=== PATIENT | female | born 1950 | race Caucasian/White ===

== ENCOUNTER 2023-04-20 10:50 | Outpatient (OUT) | payer MEDICARE, SELFPAY ==
--- NOTE | 2023-04-20 11:20 | MM_ITS ---
Patient: IVAN OLMOS Exam Date: 04/20/2023 : 1950 Gender:F Ordering : DR BENIGNO EVANS Admission #: [id number] Family : Order #: [id number] CLICK HERE TO VIEW EXAM CORRECTION: The final Please Note:... section was omitted from original report, but has now been added. Corrected on: 05/06/2023; RADIOLOGY REPORT PROCEDURE: MM TOMOSYNTHESIS SCREENING BI COMPARISON: MG MAMM SCREEN 3D [place] CAD, 04/15/2022. MG MAMM SCREEN 3D [place] CAD, 03/29/2021. MG MAMM SCREEN [place] W CAD, 03/26/2020. MG MAMM [place] SCRN W CAD DIG, 02/06/2015. INDICATIONS: Screening for malignant neoplasm Calculator Name NCI Breast Cancer Risk Assessment Tool 5 Year Breast Cancer Risk n/a% Lifetime Breast Cancer Risk n/a% Personal Breast Cancer Yes, Lumpectomy Rt Brreast Personal Ovarian Cancer No Treatments Lumpectomy Family Cancers Mother with breast cancer at age 84; Mother with ovarian cancer at age 84; Father with bone/liver cancer at age 68. LOCATION: [facility] BREAST COMPOSITION: Scattered areas fibroglandular density. FINDINGS: DIAGNOSTIC CATEGORY 0--INCOMPLETE: NEED ADDITIONAL IMAGING EVALUATION. RIGHT BREAST: No significant suspicious finding. Scattered benign-appearing calcifications are present. No significant change has occurred. LEFT BREAST: 8 mm mass with surrounding spiculations within inferior mid breast, 6 o'clock position, only seen on the tomographic cc view. Spot magnification views and ultrasound evaluation recommended. RECOMMENDATIONS: ADDITIONAL MAMMOGRAPHIC VIEWS REQUIRED: LEFT BREAST - RIGHT CRANIOCAUDAL SPOT MAGNIFICATION VIEW - RIGHT OBLIQUE SPOT MAGNIFICATION VIEW - ULTRASOUND: LEFT BREAST PLEASE NOTE: A NORMAL MAMMOGRAM DOES NOT EXCLUDE THE POSSIBILITY OF BREAST CANCER. A CLINICALLY SUSPICIOUS PALPABLE LUMP SHOULD BE BIOPSIED. Dictated by: Georges Fuentes M.D. on 04/27/2023 at 10:16 Approved by: Georges Fuentes M.D. on 04/27/2023 at 10:27 Dictated by: Georges Fuentes M.D. on 05/06/2023 at 10:30 Approved by: Georges Fuentes M.D. on 05/06/2023 at 10:30
== END 2023-04-20 10:51 | disposition home or self-care (01) ==
LOC: MAMMO 10:51
PROVIDERS: PCP Physician Assistant; Visit Provider Physician Assistant
DX: Z12.31 Encounter for screening mammogram for malignant neoplasm of breast (principal); Z80.3 Family history of malignant neoplasm of breast; Z80.41 Family history of malignant neoplasm of ovary; Z80.8 Family history of malignant neoplasm of other organs or systems; N63.25 Unspecified lump in the left breast, overlapping quadrants
CPT/HCPCS: 77063; 77067

== ENCOUNTER 2023-05-27 13:40 | Outpatient (OUT) | payer MEDICARE, SELFPAY ==
--- NOTE | 2023-05-27 13:47 | MM_ITS ---
Patient Name: IVAN OLMOS MR#: [id number] : 1950 Exam Date: 05/27/2023 Ordering Doctor: DR CHAUNCEY BOWLES M.D. RADIOLOGY REPORT PROCEDURE: MM DIAGNOSTIC MAMMO UNILAT LT, 05/27/2023, 13:48 US BREAST LT LIMITED, 05/27/2023, 14:46 COMPARISON: MM TOMOSYNTHESIS SCREENING BI, 04/20/2023. MG MAMM SCREEN 3D [place] CAD, 04/15/2022. MG MAMM SCREEN 3D [place] CAD, 03/29/2021. MG MAMM SCREEN [place] W CAD, 03/26/2020. INDICATIONS: Abnormal Mammogram Of Left Breast R92.8 Calculator Name NCI Breast Cancer Risk Assessment Tool 5 Year Breast Cancer Risk n/a% Lifetime Breast Cancer Risk n/a% Personal Breast Cancer Yes, Lumpectomy Rt Brreast Personal Ovarian Cancer No Treatments Lumpectomy Family Cancers Mother with breast cancer at age 84; Mother with ovarian cancer at age 84; Father with bone/liver cancer at age 68. LOCATION: [facility] BREAST COMPOSITION: Scattered areas fibroglandular density. FINDINGS: DIAGNOSTIC CATEGORY 4--SUSPICIOUS FOR MALIGNANCY. FINDING DOES NOT EXHIBIT CLASSIC FINDINGS OF BREAST CANCER: LEFT BREAST: No significant suspicious finding. Spot magnification views demonstrate persistence of a vague opacity within the central breast/lower-outer quadrant. Prior tomographic views are best at demonstrating the suspicious spiculated opacity within the central breast/lower-outer quadrant. No abnormal findings within this area on today's ultrasound study. Stereotactic guided biopsy of this area is recommended to exclude malignancy. RECOMMENDATIONS: STEREOTACTIC BREAST BIOPSY: LEFT BREAST PLEASE NOTE: A NORMAL MAMMOGRAM DOES NOT EXCLUDE THE POSSIBILITY OF BREAST CANCER. A CLINICALLY SUSPICIOUS PALPABLE LUMP SHOULD BE BIOPSIED. Dictated by: Georges Fuentes M.D. on 05/27/2023 at 15:08 Approved by: Georges Fuentes M.D. on 05/27/2023 at 15:26
--- NOTE | 2023-05-27 14:40 | US_ITS ---
Patient Name: IVAN OLMOS MR#: [id number] : 1950 Exam Date: 05/27/2023 Ordering Doctor: DR CHAUNCEY BOWLES M.D. RADIOLOGY REPORT PROCEDURE: MM DIAGNOSTIC MAMMO UNILAT LT, 05/27/2023, 13:48 US BREAST LT LIMITED, 05/27/2023, 14:46 COMPARISON: MM TOMOSYNTHESIS SCREENING BI, 04/20/2023. MG MAMM SCREEN 3D [place] CAD, 04/15/2022. MG MAMM SCREEN 3D [place] CAD, 03/29/2021. MG MAMM SCREEN [place] W CAD, 03/26/2020. INDICATIONS: Abnormal Mammogram Of Left Breast R92.8 Calculator Name NCI Breast Cancer Risk Assessment Tool 5 Year Breast Cancer Risk n/a% Lifetime Breast Cancer Risk n/a% Personal Breast Cancer Yes, Lumpectomy Rt Brreast Personal Ovarian Cancer No Treatments Lumpectomy Family Cancers Mother with breast cancer at age 84; Mother with ovarian cancer at age 84; Father with bone/liver cancer at age 68. LOCATION: [facility] BREAST COMPOSITION: Scattered areas fibroglandular density. FINDINGS: DIAGNOSTIC CATEGORY 4--SUSPICIOUS FOR MALIGNANCY. FINDING DOES NOT EXHIBIT CLASSIC FINDINGS OF BREAST CANCER: LEFT BREAST: No significant suspicious finding. Spot magnification views demonstrate persistence of a vague opacity within the central breast/lower-outer quadrant. Prior tomographic views are best at demonstrating the suspicious spiculated opacity within the central breast/lower-outer quadrant. No abnormal findings within this area on today's ultrasound study. Stereotactic guided biopsy of this area is recommended to exclude malignancy. RECOMMENDATIONS: STEREOTACTIC BREAST BIOPSY: LEFT BREAST PLEASE NOTE: A NORMAL MAMMOGRAM DOES NOT EXCLUDE THE POSSIBILITY OF BREAST CANCER. A CLINICALLY SUSPICIOUS PALPABLE LUMP SHOULD BE BIOPSIED. Dictated by: Georges Fuentes M.D. on 05/27/2023 at 15:08 Approved by: Georges Fuentes M.D. on 05/27/2023 at 15:26
== END 2023-05-27 13:41 | disposition home or self-care (01) ==
LOC: MAMMO 13:40
PROVIDERS: PCP Physician Assistant; Visit Provider Family Medicine
DX: R92.8 Other abnormal and inconclusive findings on diagnostic imaging of breast (principal); N63.23 Unspecified lump in the left breast, lower outer quadrant
CPT/HCPCS: 76642; 77065

== ENCOUNTER 2024-04-22 10:22 | Outpatient (OUT) | payer MEDICARE, SELFPAY ==
--- NOTE | 2024-04-22 10:26 | MM_ITS ---
Patient Name: IVAN OLMOS MR#: [id number] : 1950 Exam Date: 04/22/2024 Ordering Doctor: Isaiah Spivey RADIOLOGY REPORT PROCEDURE: MM TOMOSYNTHESIS DIAGNOSTIC BI COMPARISON: MM DIAGNOSTIC MAMMO UNILAT LT, 05/27/2023. MM TOMOSYNTHESIS SCREENING BI, 04/20/2023. MG MAMM SCREEN 3D [place] CAD, 04/15/2022. MG MAMM SCREEN 3D [place] CAD, 03/29/2021. INDICATIONS: Malignant Neoplasm Of Left Breast, Estrogen Receptor Positiv Calculator Name NCI Breast Cancer Risk Assessment Tool 5 Year Breast Cancer Risk n/a% Lifetime Breast Cancer Risk n/a% Personal Breast Cancer Yes, Lumpectomy Rt Brreast Personal Ovarian Cancer No Treatments Lumpectomy Family Cancers Mother with breast cancer at age 84; Mother with ovarian cancer at age 84; Father with bone/liver cancer at age 68. LOCATION: [facility] BREAST COMPOSITION: There are scattered areas of fibroglandular density. FINDINGS: DIAGNOSTIC CATEGORY 2--BENIGN FINDING: RIGHT BREAST: No significant suspicious finding. Scattered benign-appearing calcifications are present. Stable remote surgical changes. No significant change has occurred. LEFT BREAST: No significant suspicious finding. Scattered benign-appearing calcifications are present. Expected postoperative changes. RECOMMENDATIONS: ROUTINE MAMMOGRAM AND CLINICAL EVALUATION IN 12 MONTHS. PLEASE NOTE: A NORMAL MAMMOGRAM DOES NOT EXCLUDE THE POSSIBILITY OF BREAST CANCER. A CLINICALLY SUSPICIOUS PALPABLE LUMP SHOULD BE BIOPSIED. Dictated by: Georges Fuentes M.D. on 04/22/2024 at 10:57 Approved by: Georges Fuentes M.D. on 04/22/2024 at 11:02
--- OUTSIDE RECORDS SUMMARY | 2024-04-22 10:39 | XMS_ITS | CCD ---
Author Organization [facility] Care Team Providers Care Waste Duster Name Role Phone JELENA, DR GROSSMAN Admitting Unavailable JELENA, DR GROSSMAN Attending Unavailable JELENA, DR GROSSMAN Primary Care Unavailable JELENA, DR GROSSMAN Consulting Unavailable Yina Weaver Consulting Unavailable SAVANAH CRESPO Admitting Unavailable SAVANAH CRESPO Attending Unavailable JELENA, DR GROSSMAN Primary Care Unavailable Yina Weaver Consulting Unavailable SAVANAH CRESPO Consulting Unavailable DO Dillon Cooper Attending Provider [phone] MD Chauncey Bowles Primary Care Provider [phone] Dillon Cooper Attending Unavailable Dillon Cooper Admitting Unavailable Chauncey Bowles Primary Care Unavailable JELENA, RUGEN MABTERESAY Primary Care Unavailable Jelena Chauncey POTTER Primary Care Provider [phone] Chauncey Bowles MD Primary Care Provider DILLON COOPER Attending Unavailable CHAUNCEY BOWLES M Referring Unavailable SAVANAH CRESPO Attending Unavailable SAVANAH CRESPO Attending Unavailable DILLON COOPER Attending Unavailable JELENA, RUGEN MABALAY Primary Care Unavailable JELENA, RUGEN MABALAY Primary Care Unavailable ISAIAH GAUTHIER Attending Unavailable SEVERO VALLES Attending Unavailable JELENA, RUGEN MABALAY Referring Unavailable JELENA, RUGEN MABALAY Primary Care Unavailable JELENA, RUGEN MABALAY Primary Care Unavailable ISAIAH GAUTHIER Attending Unavailable JELENA, RUGEN MABALAY Primary Care Unavailable JELENA, RUGEN MABALAY Primary Care Unavailable JELENA, RUGEN MABALAY Primary Care Unavailable ISAIAH GAUTHIER Referring Unavailable JELENA, RUGEN MABALAY Primary Care Unavailable JELENA, RUGEN MABALAY Primary Care Unavailable JELENA, RUGEN MABALAY Primary Care Unavailable JELENA, RUGEN MABALAY Primary Care Unavailable JELENA, RUGEN MABALAY Primary Care Unavailable JELENA, RUGEN MABALAY Primary Care Unavailable NEYMAR BORGES Attending Unavailable VINITA, MYLES Referring Unavailable JELENA, RUGEN MABALAY Primary Care Unavailable JACK DING Referring Unavailable SEVERO VALLES Referring Unavailable JELENA, RUGEN MABALAY Primary Care Unavailable JACK DING Attending Unavailable JELENA, RUGEN MABALAY Primary Care Unavailable JELENA, RUGEN MABALAY Primary Care Unavailable ABMYLES ARTHUR Attending Unavailable JELENA, RUGEN MABALAY Primary Care Unavailable ISAIAH GAUTHIER Attending Unavailable JELENA, RUGEN MABALAY Primary Care Unavailable JELENA, RUGEN MABALAY Primary Care Unavailable ISAIAH GAUTHIER Referring Unavailable JELENA, RUGEN MABALAY Primary Care Unavailable ISAIAH GAUTHIRE Attending Unavailable JELENA, RUGEN MABALAY Primary Care Unavailable MYLES TALAMANTES Referring Unavailable SEVERO VALLES Referring Unavailable JELENA, RUGEN MABALAY Primary Care Unavailable JELENA, RUGEN MABALAY Primary Care Unavailable JELENA, RUGEN MABALAY Primary Care Unavailable MYLES TALAMANTES Attending Unavailable INNAARRENEEEK Referring Unavailable JELENA, RUGEN MABALAY Primary Care Unavailable JELENA, RUGEN MABALAY Primary Care Unavailable MYLES TALAMANTES Attending Unavailable TANVIRANKAR, MYLES Referring Unavailable JELENA, RUGEN MABALAY Primary Care Unavailable ISAIAH GAUTHIER Attending Unavailable JELENA, RUGEN MABALAY Primary Care Unavailable JELENA, RUGEN MABALAY Primary Care Unavailable MYLES TALAMANTES Attending Unavailable JELENA, RUGEN MABALAY Primary Care Unavailable HELENA ARAUJO Referring Unavailable JELENA, RUGEN MABALAY Primary Care Unavailable MYLES TALAMANTES Attending Unavailable JELENA, RUGEN MABALAY Primary Care Unavailable ISAIAH GAUTHIER Referring Unavailable JELENA, RUGEN MABALAY Primary Care Unavailable ISAIAH GAUTHIER Attending Unavailable JELENA, RUGEN MABALAY Primary Care Unavailable ISAIAH GAUTHIER Referring Unavailable JELENA, RUGEN MABALAY Primary Care Unavailable ISAIAH GAUTHIER Referring Unavailable JELENA, RUGEN MABALAY Primary Care Unavailable ISAIAH GAUTHIER Attending Unavailable JELENA, RUGEN MABALAY Primary Care Unavailable ABHYANKAR, MYLES Referring Unavailable ABSWATHIAR, MYLES Attending Unavailable JELENA, RUGEN MABALAY Primary Care Unavailable ABHYANKAR, MYLES Referring Unavailable JELENA, RUGEN MABALAY Primary Care Unavailable DISHA, ISAIAH Referring Unavailable JELENA, RUGEN MABALAY Primary Care Unavailable DISHA, ISAIAH Referring Unavailable DISHA, ISAIAH Attending Unavailable JELENA, RUGEN MABALAY Primary Care Unavailable JELENA, RUGEN MABALAY Primary Care Unavailable JELENA, RUGEN MABALAY Primary Care Unavailable DISHA, ISAIAH Referring Unavailable JELENA, RUGEN MABALAY Primary Care Unavailable DISHA, ISAIAH Attending Unavailable JELENA, RUGEN MABALAY Primary Care Unavailable DISHA, ISAIAH Referring Unavailable JELENA, RUGEN MABALAY Primary Care Unavailable DISHA, ISAIAH Referring Unavailable JELENA, RUGEN MABALAY Primary Care Unavailable DISHA, ISAIAH Referring Unavailable JELENA, RUGEN MABALAY Primary Care Unavailable DISHA, ISAIAH Referring Unavailable SEVERO VALLES Attending Unavailable SEVERO VALLES Referring Unavailable JELENA, RUGEN MABALAY Primary Care Unavailable JELENA, RUGEN MABALAY Primary Care Unavailable JELENA, RUGEN MABALAY Primary Care Unavailable JELENA, RUGEN MABALAY Primary Care Unavailable VINITA, MYLES Attending Unavailable Allergies Allergy Classification Reported Allergen(s) Allergy Type Date of Onset Reaction(s) Facility Sulfamethoxazole / Trimethoprim (2 sources) Sulfamethoxazole / Trimethoprim Drug Allergy 02-14-20 15 [facility] Sulfonamides (antibiotic) (2 sources) Sulfonamides (Antibiotic) Drug Allergy 03-10-20 14 Other: See Comments [facility] (1 source) Sulfamethoxazole / Trimethoprim Drug Allergy 02-14-20 15 [facility] Repository (3 sources) Sulfonamides (Antibiotic); Translations: [SULFA (SULFONAMIDE ANTIBIOTICS)] Drug allergy (disorder) 03-10-20 14 [facility] Repository (20 sources) Sulfamethoxazole / Trimethoprim; Translations: [SULFAMETHOXAZOLE-T RIMETHOPRIM] Drug Allergy 02-14-20 15 [facility] Other [facility] (20 sources) Sulfonamides (Antibiotic) Drug Intolerance 03-10-20 14 Other: See Comments [facility] Medications Current Medications Medication Drug Class(es) Dates Sig (Normalized) Sig (Original) anastrozole 1 mg oral tablet (20 sources) Aromatase Inhibitor Start: 04-19-2020 take 1 tablet by mouth once daily anastrozole (ARIMIDEX) 1 mg tablet Take 1 tablet by mouth once daily. 30 tablet 1 04/19/2020 Active Comment on above: Take 1 tablet by eusebia th once daily. atorvastatin 10 mg oral tablet (20 sources) HMG-CoA Reductase Inhibitor Start: 02-27-2015 atorvastatin (LIPITOR) 10 mg tablet 02/27/2015 Active Calcium Carbonate / vitamin D3 (20 sources) calcium carbonate/vitamin D3 (CALCIUM WITH VITAMIN D3 ORAL) Take by mouth. Active calcium carbonat e/vitamin D3 (CALCIUM WITH VITAMIN D3 ORAL) Take by mouth. 0 Active Comment on above: Take by mouth. glucosamine sulfate 500 mg oral tablet (20 sources) Start: 08-19-2023 take 3 tablets by mouth once daily Glucosamine Sulfate (GLUCOSAMINE) 500 mg tab Take 3 tablets by mouth once daily. 1 tablet 08/19/2023 Active End: 08-19-2023 Glucosamine Sulfate (GLUCOSA MINE) 500 mg tab Take 1,500 tablets by mouth. 08/19/2023 Discontinued Comment on above: Take 1,500 tablets b y mouth. Take 3 tablets by mo uth once daily. Lutein (20 sources) LUTEIN ORAL Maya cations: History of breast cancer Take by mouth. Active LUTEIN ORAL Maya cations: History of breast cancer Take by mouth. 0 Active Comment on above: Take by mouth. meloxicam 15 mg oral tablet (1 source) Nonsteroidal Anti-inflammatory Drug Start: 03-14-2024 take 1 tablet by mouth once daily MOBIC 15 mg tablet Take 15 mg by mouth once daily. 03/14/2024 Active multivit-min/ferrou s fumarate (MULTI VITAMIN ORAL) (20 sources) multivit-min/benjamin ro us fumarate (MULTI VITAMIN ORAL) Take by mouth once daily. Active multivit-min/benjamin marya fumarate (MULTI VITAMIN ORAL) Take by mouth once daily. 0 Active Comment on above: Take by mouth once d aily. MULTIVITAMIN ORAL (20 sources) MULTIVITAMIN ORA L Take by mouth. Active MULTIVITAMIN ORA L Take by mouth. 0 Active Comment on above: Take by mouth. Multivitamins-Iron tab (20 sources) take 1 tablet by eusebia th once daily Multivitamins-Iron tab Take 1 tablet by mouth once daily. Active take 1 tablet by mouth once mary y Multivitamins-Iron tab Take 1 tablet by mouth once daily. 0 Active Comment on above: [facility] ofloxacin 3 mg/ml ophthalmic solution (20 sources) Quinolone Antimicrobial Start: 04-17-2020 ofloxacin (OCUFLOX) 0.3 % ophthalmic solution 04/17/2020 Active [place]-3 Fatty Acids-Vitamin E (FISH OIL) 1,000 mg cap (20 sources) [place]-3 Fatty Acids-Vitamin E (FISH OIL) 1,000 mg cap Take 1 capsule by mouth. Active [place]-3 Fatty Ac ids-Vitamin E (FISH OIL) 1,000 mg cap Take 1 capsule by mouth. 0 Active Comment on above: Take 1 capsule by mo [facility]. phytosterol/pantethine (CHOLESTOFF COMPLETE ORAL) (20 sources) phytosterol/pant ethine (CHOLESTOFF COMPLETE ORAL) Take by mouth. Active phytosterol/pant ethine (CHOLESTOFF COMPLETE ORAL) Take by mouth. 0 Active Comment on above: Take by mouth. prednisoLONE acetate 10 mg/ml ophthalmic suspension (20 sources) Corticosteroid Start: 04-17-20 prednisoLONE acetate (PRED FORTE, ECONOPRED PLUS) 1 % ophthalmic suspension 04/17/2020 Active rosuvastatin calcium 5 mg oral tablet (2 sources) HMG-CoA Reductase Inhibitor Start: 01-19-20 take 1 tablet by mouth once daily rosuvastatin (CRESTOR) 5 mg tablet Take 5 mg by mouth once daily. 01/19/2024 Active tamoxifen 20 mg oral tablet (20 sources) Estrogen Agonist/Antagonist Start: 10-28-19 24 End: 12-30-19 25 take 1 tablet by mouth once daily tamoxifen (NOLVADEX) 20 mg tablet Indications: Malignant neoplasm of lower-outer quadrant of left breast of female, estrogen receptor positive (HCC) Take 1 tablet (20 mg) by mouth once daily. 90 tablet 3 12/30/2023 12/29/2024 Active Comment on above: Take 1 tablet (20 mg ) by mouth once daily. traMADol hydrochloride 50 mg oral tablet (2 sources) Opioid Agonist Start: 08-19-19 24 End: 08-24-19 24 take 1 tablet by mouth every six hours as needed for pain traMADol (ULTRAM) 50 mg tablet Indications: Malignant neoplasm of central portion of left breast in female, estrogen receptor positive (HCC) (HCC) , Postoperative pain Take 1 tablet by mouth every 6 hours as needed for pain for up to 5 days. 5 tablet 0 08/19/2023 08/24/2023 Active Start: 08-19-2023 End: 08-19-2023 take 1 tablet by mouth every eight hours as needed for pain traMADol (ULTRAM) 50 mg tablet Indications: Malignant neoplasm of central portion of left breast in female, estrogen receptor positive (HCC) (HCC) Take 1 tablet by mouth every 8 hours as needed for pain for up to 3 days. 5 tablet 0 08/19/2023 08/19/2023 Discontinued Comment on above: Take 1 tablet by eusebia th every 6 hours as needed for pain for up to 5 days. Take 1 tablet by eusebia th every 8 hours as needed for pain for up to 3 days. ubidecarenone 10 mg oral capsule (20 sources) ubidecarenone Q- 10 (CO Q-10) 10 mg cap Take by mouth twice daily. Active Comment on above: Take by mouth twice daily. Completed/Discontinued Medications Medication Drug Class(es) Dates Sig (Normalized) Sig (Original) Lidocaine (1 source) Antiarrhythmic, Amide Local Anesthetic Start: 08-18-2023 End: 08-18-2023 X (OR/PROCEDURE) PRN, Starting on Thu08/18/23 at 1113, Until Thu08/18/23 at 1113, Intraprocedure Problems Active Problems Problem Classification Problem Date Documented Date Episodic/Chronic Cancer of breast (20 sources) Malignant neoplasm of central portion of left female breast; Translations: [Malignant neoplasm of lower-outer quadrant of female breast] Onset: 04-06-2015 08-05-2023 Chronic Esophageal disorders (20 sources) Gastroesophageal reflux disease without esophagitis; Translations: [Gastro-esophageal reflux disease without esophagitis] Onset: 08-11-2023 08-11-2023 Chronic Other aftercare (1 source) Surgical follow-up; Translations: [Encounter for follow-up examination after completed treatment for conditions other than malignant neoplasm] 08-27-2023 Episodic Other connective tissue disease (10 sources) Muscle finding; Translations: [Myalgia, unspecified site] 10-06-2023 Episodic Other nervous system disorders (1 source) Postoperative pain ; Translations: [Other acute postprocedural pain] 08-19-2023 Episodic Residual codes; unclassified (1 source) Family history of breast cancer; Translations: [Family history of malignant neoplasm of breast] 08-12-2023 Episodic Residual codes; unclassified (1 source) Family history of malignant neoplasm of ovary; Translations: [Family history of malignant neoplasm of ovary] 08-12-2023 Episodic Unclassified (1 source) Unspecified lump in the left breast, overlapping quadrants; Translations: [Unspecified lump in the left breast, overlapping quadrants] Onset: 06-11-2023 Past or Other Problems Problem Classification Problem Date Documented Da te Episodic/Chronic Cancer of breast (20 sources) Personal history of malignant neoplasm of breast; Translations: [History of malignant neoplasm of breast] Onset: 04-15-2016 04-15-2016 Episodic Nausea and vomiting (20 sources) Postoperative nausea and vomiting; Translations: [Nausea with vomiting, unspecified] Onset: 08-11-2023 08-11-2023 Episodic Other gastrointestinal disorders (20 sources) Finding of abdomen; Translations: [Intra-abdominal and pelvic swelling, mass and lump, unspecified site] Onset: 03-11-2014 03-11-2014 Episodic Other screening for suspected conditions (not mental disorders or infectious disease) (4 sources) Encounter for screening mammogram for malignant neoplasm of breast; Translations: [ENC SCR MAMMO MALIG NEOPLASM BREAST] Onset: 04-15-2022 Episodic Residual codes; unclassified (2 sources) Family history of malignant neoplasm of breast; Translations: [FAMILY HX MALIG NEOPLASM OF BREAST] Onset: 04-18-2022 Episodic Residual codes; unclassified (2 sources) Family history of malignant neoplasm of ovary; Translations: [FAM HX MALIGNANT NEOPLASM OVARY] Onset: 04-18-2022 Episodic Residual codes; unclassified (1 source) Family history of malignant neoplasm of other organs or systems; Translations: [FAM HX MALIG NEOPLASM OTH ORGN/SYS] Onset: 04-18-2022 Episodic Residual codes; unclassified (4 sources) Estrogen receptor positive status [ER+]; Translations: [Malignant neoplasm of central portion of left breast in female, estrogen receptor positive (HCC) (HCC)] Onset: 07-09-2023 Episodic Screening and history of mental health and substance abuse codes (20 sources) Ex-smoker; Translations: [Personal history of nicotine dependence] Onset: 08-11-2023 08-11-2023 Episodic Results Test Name Value Interpretation Reference Range Facility [facility] 03-31-2024 CNOV Office Visit (BRCRAV ) JAVIERIVAN CLEMENTS ([id number]) 1950 F Date Time Provider Department 03/31/24 10:45 AM SEVERO VALLES During your visit today, we recorded the following information about you: Weight 89.4 kg Severo Valles MD 03/31/2024 11:19 AM Signed Breast Surgery Follow Up Visit Original surgery date: 07/2023 Procedure: L lumpectomy with SLNB Diagnosis/Stage: Stage I Oncologist: Dr. Edmond Chemotherapy: N/A Radiation: Complete Endocrine therapy: Tamoxifen Interval history: No new medical problems. No breast complaints. No masses, skin changes, nipple d/c. Last mammogram: Pre-op ROS GENERAL: No weight loss, malaise or fevers. HEENT: Negative for frequent or significant headaches, Negative for changes in hearing, vision or dizziness, Negative for nose bleeds, Negative for difficulty swallowing or hoarsness RESPIRATORY: Negative for cough, hemoptysis, wheezing or shortness of breath CARDIOVASCULAR: Negative for chest pain, leg swelling or palpitations. GI: No nausea, vomiting, diarrhea, constipation, hematochezia, melena, or abdominal pain : No history of dysuria, hematuria, frequency or incontinence. SKIN: Negative for lesions, rash, and itching NEURO: No history of headaches, syncope, paralysis, seizures or tremors LYMPH: No LAD ENDO: No DM Exam Ambulatory, NAD Sclera anicteric Resp unlabored No arm swelling Right breast: Neg Left breast: well healed LO incision, some retraction at incision site No supraclavicular or axillary lymphadenopathy Consutlants notes reviewed Most recent imaging reviewed Assessment 73 year old year old female with history of left breast cancer doing well after lumpectomy and adjuvant radiation and endocrine therapy. Plan: Cont to advise -Monthly self exams -Annual clinical exams -Annual mammography - due March as scheduled - has planned at [place] -Oncologic follow up as planned Follow Up: 6 months Sooner if any new findings/concerns MD Beny Epperson Erica E, MD 03/31/2024 11:19 AM Signed Dear Ms. Ivan Prather Javier, Thank you for coming to see us today and entrusting us with your breast care. So happy to see you are doing well! Please make your 6 month follow up appointment on your way out today or you may not be able to get scheduled if you delay scheduling. Breast health recommendations you can employ for your breast cancer journey include routine breast self awareness, clinical breast exams, annual mammography, minimal alcohol use, no tobacco use and 150 min of aerobic exercise per week as your heart, lungs and joints allow. Wearing a well fitting, supportive bra is helpful for most women as well. Now may be a good time for an updated professional fitting if it has been some time since you have had that done. If you develop new breast concerns, please make an appointment with your breast health team for further evaluation. We are happy to see you any time with any surgical breast questions or concerns. If you would like to compliment one of our caregivers you encountered today, you may do so at [email or web address] you for your time in recognizing those who cared for you during your journey with your breast health team. Severo Valles MD, FACS Care team: NILAY Gardiner PA-C, RN, BSN, CN-BN Rosa Cadena MA Contact numbers: Scheduling contact number: [phone] Nurse / clinical questions: [phone] Fax number: [phone] Referring Provider: SEVERO VALLES [[id number]] Allergies As of Date: 03/31/2024 Noted Allergy Reaction SULFA (SULFONAMIDE ANTIBIOTICS) 03/10/2014 14 - Other: See Comments Comments: palpitations SULFAMETHOXAZOLE-TRIMETHOPR IM 02/13/2015 4 - Hives Date Reviewed: 03/31/2024 Reviewed by: Severo Valles MD - Fully Assessed Reason for Visit: Established Patient [175] Primary Visit Diagnosis:Malignant neoplasm of central portion of left breast in female, estrogen receptor positive (HCC) [C50.112, Z17.0] Other Visit Diagnosis:History of right breast cancer [Z85.3] Prescriptions as of 03/31/2024 - MOBIC 15 mg tablet Take 15 mg by mouth once daily. - rosuvastatin (CRESTOR) 5 mg tablet Take 5 mg by mouth once daily. - tamoxifen (NOLVADEX) 20 mg tablet Take 1 tablet (20 mg) by mouth once daily. - multivit-min/ferrous fumarate (MULTI VITAMIN ORAL) Take by mouth once daily. - MULTIVITAMIN ORAL Take by mouth. - Glucosamine Sulfate (GLUCOSAMINE) 500 mg tab Take 3 tablets by mouth once daily. - phytosterol/pantethine (CHOLESTOFF COMPLETE ORAL) Take by mouth. - calcium carbonate/vitamin D3 (CALCIUM WITH VITAMIN D3 ORAL) Take by mouth. - ofloxacin (OCUFLOX) 0.3 % ophthalmic solution - prednisoLONE acetate (PRED FORTE, ECONOPRED PLUS) 1 % ophthalmic suspension - anastrozole (ARIMIDEX) 1 mg tablet Take 1 (more content not included)... Normal [facility] CBC W Auto Differential pane l (Bld)on 02-01-2024 Basophils (Bld) [#/Vol] 10*3/uL Normal <0.11 [facility] Comment on above: Order Comment: Speci men Type: BLOOD SPECIMENOrdering Facility: [facility] Address: [address] [place] [address] Performed By: #### 5 7021-8 ####[facility] LABCLIA [id number] [place] [address] Basophils/100 WBC (Bld) 0.2 % Normal [facility] Comment on above: Order Comment: Speci men Type: BLOOD SPECIMENOrdering Facility: [facility] Address: [address] [place] [address] Performed By: #### 5 7021-8 ####[facility] LABCLIA [id number] [place] [address] Differential cell count method Nom (Bld) Auto Normal [facility] Comment on above: Order Comment: Speci men Type: BLOOD SPECIMENOrdering Facility: [facility] Address: [address] [place] [address] Performed By: #### 5 7021-8 ####[facility] LABCLIA [id number] [place] [address] Eosinophils (Bld) [#/Vol] 0.06 10*3/uL Normal <0.46 [facility] Comment on above: Order Comment: Speci men Type: BLOOD SPECIMENOrdering Facility: [facility] Address: [address] [place] [address] Performed By: #### 5 7021-8 ####[facility] LABCLIA [id number] [place] [address] Eosinophils/100 WBC (Bld) 0.7 % Normal [facility] Comment on above: Order Comment: Speci men Type: BLOOD SPECIMENOrdering Facility: [facility] Address: [address] [place] [address] Performed By: #### 5 7021-8 ####[facility] LABCLIA [id number] [place] [address] Erythrocyte distribution width (RBC) [Ratio] 14.0 % Normal 11.5-15.0 [facility] Comment on above: Order Comment: Speci men Type: BLOOD SPECIMENOrdering Facility: [facility] Address: [address] [place] [address] Performed By: #### 5 7021-8 ####[facility] LABCLIA [id number] [place] [address] Hematocrit (Bld) [Volume fraction] 40.9 % Normal 36.0-46.0 [facility] Comment on above: Order Comment: Speci men Type: BLOOD SPECIMENOrdering Facility: [facility] Address: [address] [place] [address] Performed By: #### 5 7021-8 ####[facility] LABCLIA [id number] [place] [address] Hemoglobin (Bld) [Mass/Vol] 13.4 g/dL Normal 11.5-15.5 [facility] Comment on above: Order Comment: Speci men Type: BLOOD SPECIMENOrdering Facility: [facility] Address: [address] [place] [address] Performed By: #### 5 7021-8 ####[facility] LABCLIA [id number] [place] [address] Immature granulocytes (Bld) [#/Vol] 0.03 10*3/uL Normal <0.10 [facility] Comment on above: Order Comment: Speci men Type: BLOOD SPECIMENOrdering Facility: [facility] Address: [address] [place] [address] Performed By: #### 5 7021-8 ####[facility] LABCLIA [id number] [place] [address] Immature granulocytes/100 WBC (Bld) 0.4 % Normal [facility] Comment on above: Order Comment: Speci men Type: BLOOD SPECIMENOrdering Facility: [facility] Address: [address] [place] [address] Performed By: #### 5 7021-8 ####[facility] LABCLIA [id number] [place] [address] Lymphocytes (Bld) [#/Vol] 1.68 10*3/uL Normal 1.00-4.00 [facility] Comment on above: Order Comment: Speci men Type: BLOOD SPECIMENOrdering Facility: [facility] Address: [address] [place] [address] Performed By: #### 5 7021-8 ####[facility] LABCLIA [id number] [place] [address] Lymphocytes/100 WBC (Bld) 20.7 % Normal [facility] Comment on above: Order Comment: Speci men Type: BLOOD SPECIMENOrdering Facility: [facility] Address: [address] [place] [address] Performed By: #### 5 7021-8 ####[facility] LABCLIA [id number] [place] [address] MCH (RBC) [Entitic mass] 30.6 pg Normal 26.0-34.0 [facility] Comment on above: Order Comment: Speci men Type: BLOOD SPECIMENOrdering Facility: [facility] Address: [address] [place] [address] Performed By: #### 5 7021-8 ####[facility] LABCLIA [id number] [place] [address] MCHC (RBC) [Mass/Vol] 32.8 g/dL Normal 30.5-36.0 [facility] Comment on above: Order Comment: Speci men Type: BLOOD SPECIMENOrdering Facility: [facility] Address: [address] [place] [address] Performed By: #### 5 7021-8 ####[facility] LABCLIA [id number] [place] [address] MCV (RBC) [Entitic vol] 93.4 fL Normal 80.0-100.0 [facility] Comment on above: Order Comment: Speci men Type: BLOOD SPECIMENOrdering Facility: [facility] Address: [address] [place] [address] Performed By: #### 5 7021-8 ####[facility] LABCLIA [id number] [place] [address] Monocytes (Bld) [#/Vol] 0.45 10*3/uL Normal <0.87 [facility] Comment on above: Order Comment: Speci men Type: BLOOD SPECIMENOrdering Facility: [facility] Address: [address] [place] [address] Performed By: #### 5 7021-8 ####[facility] LABCLIA [id number] [place] [address] Monocytes/100 WBC (Bld) 5.6 % Normal [facility] Comment on above: Order Comment: Speci men Type: BLOOD SPECIMENOrdering Facility: [facility] Address: [address] [place] [address] Performed By: #### 5 7021-8 ####[facility] LABCLIA [id number] [place] [address] Neutrophils (Bld) [#/Vol] 5.86 10*3/uL Normal 1.45-7.50 [facility] Comment on above: Order Comment: Speci men Type: BLOOD SPECIMENOrdering Facility: [facility] Address: [address] [place] [address] Performed By: #### 5 7021-8 ####[facility] LABCLIA [id number] [place] [address] Neutrophils/100 WBC (Bld) 72.4 % Normal [facility] Comment on above: Order Comment: Speci men Type: BLOOD SPECIMENOrdering Facility: [facility] Address: [address] [place] [address] Performed By: #### 5 7021-8 ####[facility] LABCLIA [id number] [place] [address] Nucleated RBC (Bld) [#/Vol] 10*3/uL Normal <0.01 [facility] Comment on above: Order Comment: Speci men Type: BLOOD SPECIMENOrdering Facility: [facility] Address: [address] [place] [address] Performed By: #### 5 7021-8 ####[facility] LABCLIA [id number] [place] [address] Nucleated RBC/100 WBC (Bld) [Ratio] 0.0 /100 WBC Normal [facility] Comment on above: Order Comment: Speci men Type: BLOOD SPECIMENOrdering Facility: [facility] Address: [address] [place] [address] Performed By: #### 5 7021-8 ####[facility] LABCLIA [id number] [place] [address] Platelet mean volume (Bld) [Entitic vol] 10.2 fL Normal 9.0-12.7 [facility] Comment on above: Order Comment: Speci men Type: BLOOD SPECIMENOrdering Facility: [facility] Address: [address] [place] [address] Performed By: #### 5 7021-8 ####[facility] LABIA [id number] [place] [address] Platelets (Bld) [#/Vol] 299 10*3/uL Normal 150-400 [facility] Comment on above: Order Comment: Speci men Type: BLOOD SPECIMENOrdering Facility: [facility] Address: [address] [place] [address] Performed By: #### 5 7021-8 ####[facility] [id number] [place] [address] RBC (Bld) [#/Vol] 4.38 10*6/uL Normal 3.90-5.20 [facility] Comment on above: Order Comment: Speci men Type: BLOOD SPECIMENOrdering Facility: [facility] Address: [address] [place] [address] Performed By: #### 5 7021-8 ####[facility] [id number] [place] [address] WBC (Bld) [#/Vol] 8.10 10*3/uL Normal 3.70-11.00 [facility] Comment on above: Order Comment: Speci men Type: BLOOD SPECIMENOrdering Facility: [facility] Address: [address] [place] [address] Performed By: #### 5 7021-8 ####[facility] LABIA [id number] [place] [address] CNOVSPon 02-01-2024 CNOVSP Visit (SP) Office ([facility]) IVAN HERRERA ([id number]) 1950 F Date Time Provider Department 02/01/24 10:45 AM MYLES TALAMANTES During your visit today, we recorded the following information about you: Temperature Pulse Respiration Blood pressure 97.4 degrees 74/minute 16/minute 147/84 Weight Height 89.4 kg 1.74 m Myles Talamantes MD 02/02/2024 9:42 AM Signed NAME: Ivan Herrera CLINIC NO.: [id number] DATE OF SERVICE: February 01, 2024 ([place]) Some elements in this clinic note that are critical to medical decision making have been carefully reviewed and included from a prior clinic note dated: January 19, 2024 ([place]) Referring Provider: Dr. Chauncey Bowles Additional Clinicians involved in Ivan Herrera's care: Dillon Cooper DIAGNOSIS: Malignant neoplasm lower quadrant left breast ER positive. History of malignant neoplasm of upper-outer quadrant of right breast in female, estrogen receptor positive ASSESSMENT: 73 year old woman with malignant neoplasm of upper-outer quadrant of right breast in female, estrogen receptor positive Stage I ([id number]) right breast cancer of the upper outer quadrant, ER/MA +, Her2-, diagnosed in February 2015. She had lumpectomy, followed by radiation, and has been on aromatase inhibitor therapy since May 2015 with good tolerance. Her recent mammogram from February 2020 was negative for malignancy. She has no evidence of recurrence. She continued her Anastrozole until May 2020, completing 5 years of therapy. 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 She presents in follow-up regarding this new diagnosis. S/p Lumpectomy left breast July 2023 4mm, G1 pT1a, BMX ER+ 91%, MA-, HER2 (1+) negative. Tolerating Tamoxifen well now. PLAN: Continue Tamoxifen Keep mammogram appointment in March Keep follow up appointment with Dr. Valles in March RTC with me in 6 months Labs same day Exam same day - HPI: CASE HISTORY: Reverse Chronological Order 10/28/2023 - Started Tamoxifen - Held for fatigue 11/18/2023-12/19/2023 09/30/2023-10/21/2023 - Radiation to left breast: 4,005 cGy delivered in 15 fractions using DIBH/RPM 08/19/2023 - Lumpectomy, Left breast: 4mm, G1 pT1a, BMX ER+ 91%, MA-, HER2 (1+) negative Left axillary sentinel lymph node #1, excision (A) - Benign fibroadipose tissue. -No lymph node is identified. Left breast, lumpectomy (B) - Invasive ductal carcinoma, Isabella grade 1, spanning 0.4 cm, (see comment). - Ductal carcinoma in situ (DCIS), nuclear grade 2, solid and cribriform types with microcalcifications. - Biopsy site changes and biopsy clip (x1) are identified. - The surrounding breast tissue shows atypical ductal hyperplasia (ADH), atypical lobular hyperplasia (ALH), usual ductal hyperplasia and apocrine metaplasia. All margins negative for malignancy: Left breast, anterior margin, excision (G) - Atypical lobular hyperplasia (ALH). 08/05/2023 - MRI Breast: Known biopsy proven malignancy The 1 cm x 0.7 cm x 1.4 cm architectural distortion in the left breast at 6 o'clock middle depth is consistent with the known carcinoma and is a known biopsy positive for malignancy. 07/09/2023 - Dx Mammogram Left: Known biopsy proven malignancy The architectural distortion in the left breast is a known biopsy positive for malignancy. A surgical consult is recommended. An X clip is visualized at the site of biopsy-proven malignancy. Of note, the X clip is at the inferior aspect of the architectural distortion. 06/11/2023 - Left breast mass 6:00, 6 cm from nipple stereotactic core biopsy at [facility]. Consistent with invasive ductal carcinoma NOS. G1, DCIS present, no LVI, ER +91 to 100%, MA negative. HER2 IHC pending. 05/27/2023 - Mammogram: diagnostic category 4 -- suspicious for malignancy. Finding does not exhibit classic findings of breast cancer. 03/29/2021 - Mammogram: diagnostic category 2 -- benign finding with no change from prior assessment. 03/26/2020 - bilateral screening mammogram: diagnostic category 2; benign finding. No change from comparison assessment. 05/2015-08/2023 - Arimidex 04/23/2015-06/05/2015 - Radiation to right breast; 6000 cGy in 30 fractions 03/21/2015 - excisional biopsy and sentinel node biopsy Invasive carcinoma of the right breast 1.1 cm grade 1, ER and MA positive, HER-2 negative by FISH (IHC not reported, presumed 2+) ; 4 lymph nodes all negative for cancer Updated Visit, February 01, 2024: Clarissa returns for a follow up. She is tolerating Tamoxifen well since restarting. CBC (more content not included)... Normal [facility] Cancer Ag15-3 SerPl-aCncon 0 02-01-2024 Cancer Ag 15-3 Qn 26.2 U/mL High <26.0 [facility] Comment on above: Order Comment: Nesha billingsley Type: BLOOD SPECIMENOrdering Facility: [facility] Address: [address] [place] [address] Result Comment: The CA 15-3 test methodology used is the Electrochemiluminescence Immunoassay by [employer]. Results obtained with different methods or kits cannot be used interchangeably. Performed By: #### 6 875-9 ####[facility] LABCLIA [id number] [place] [address] [place] Cancer Ag27-29 SerPl-aCncon 02-01-2024 Cancer Ag 27-29 Qn 23.3 [arb'U]/mL Normal <38.6 [facility] Comment on above: Order Comment: Negini jose cruz Type: BLOOD SPECIMENOrdering Facility: [facility] Address: [address] [place] [address] Result Comment: The CA27.29 test was performed using the Siemens Centaur XP chemiluminometric immunoassay method. Results obtained with different assay methods or kits cannot be used interchangeably. Performed By: #### 1 7842-6 ####[facility] LABCLIA [id number] [place] [address] [facility] [place] Comprehensive metabolic 2000 panelon 02-01-2024 Albumin [Mass/Vol] 4.1 g/dL Normal 3.9-4.9 [facility] Comment on above: Order Comment: Speci men Type: BLOOD SPECIMENOrdering Facility: [facility] Address: [address] [place] [address] Performed By: #### 2 4323-8 ####[facility] LABCLIA [id number] [place] [address] ALP [Catalytic activity/Vol] 76 U/L Normal 34-123 [facility] Comment on above: Order Comment: Speci men Type: BLOOD SPECIMENOrdering Facility: [facility] Address: [address] [place] [address] Performed By: #### 2 4323-8 ####[facility] LABCLIA [id number] [place] [address] ALT [Catalytic activity/Vol] 17 U/L Normal 7-38 [facility] Comment on above: Order Comment: Speci men Type: BLOOD SPECIMENOrdering Facility: [facility] Address: [address] [place] [address] Performed By: #### 2 4323-8 ####[facility] LABCLIA [id number] [place] [address] Anion gap [Moles/Vol] 11 mmol/L Normal 8-15 [facility] Comment on above: Order Comment: Speci men Type: BLOOD SPECIMENOrdering Facility: [facility] Address: [address] [place] [address] Performed By: #### 2 4323-8 ####[facility] LABCLIA [id number] [place] [address] AST [Catalytic activity/Vol] 19 U/L Normal 13-35 [facility] Comment on above: Order Comment: Speci men Type: BLOOD SPECIMENOrdering Facility: [facility] Address: [address] [place] [address] Performed By: #### 2 4323-8 ####[facility] LABCLIA [id number] [place] [address] Bilirubin [Mass/Vol] 0.4 mg/dL Normal 0.2-1.3 [facility] Comment on above: Order Comment: Speci men Type: BLOOD SPECIMENOrdering Facility: [facility] Address: [address] [place] [address] Performed By: #### 2 4323-8 ####[facility] LABCLIA [id number] [place] [address] Calcium [Mass/Vol] 10.1 mg/dL Normal 8.5-10.2 [facility] Comment on above: Order Comment: Speci men Type: BLOOD SPECIMENOrdering Facility: [facility] Address: [address] [place] [address] Performed By: #### 2 4323-8 ####[facility] LABCLIA [id number] [place] [address] Chloride [Moles/Vol] 105 mmol/L Normal 98-107 [facility] Comment on above: Order Comment: Speci men Type: BLOOD SPECIMENOrdering Facility: [facility] Address: [address] [place] [address] Performed By: #### 2 4323-8 ####[facility] LABCLIA [id number] [place] [address] CO2 [Moles/Vol] 25 mmol/L Normal 22-30 [facility] Comment on above: Order Comment: Speci men Type: BLOOD SPECIMENOrdering Facility: [facility] Address: [address] [place] [address] Performed By: #### 2 4323-8 ####[facility] LABCLIA [id number] [place] [address] Creatinine [Mass/Vol] 0.79 mg/dL Normal 0.58-0.96 [facility] Comment on above: Order Comment: Speci men Type: BLOOD SPECIMENOrdering Facility: [facility] Address: [address] [place] [address] Performed By: #### 2 4323-8 ####[facility] LABCLIA [id number] [place] [address] Creatinine and Glomerular filtration rate.predicted panel (S/P/Bld) 79 mL/min/1.73m??? Normal >=60 [facility] Comment on above: Order Comment: Speci men Type: BLOOD SPECIMENOrdering Facility: [facility] Address: [address] [place] [address] Result Comment: Bella mated Glomerular Filtration Rate (eGFR) is calculated using the 2020 CKD-EPI creatinine equation. This equation utilizes serum creatinine, sex, and age as parameters. The creatinine assay has traceable calibration to isotope dilution-mass spectrometry. Refer to KDIGO guidelines for clinical interpretation. In patients with unstable renal function, e.g. those with acute kidney injury, the eGFR may not accurately reflect actual GFR. Performed By: #### 2 4323-8 ####[facility] LABCLIA [id number] [place] [address] Glucose [Mass/Vol] 134 mg/dL High 74-99 [facility] Comment on above: Order Comment: Speci men Type: BLOOD SPECIMENOrdering Facility: [facility] Address: [address] [place] [address] Result Comment: The [place] Diabetes Association (ADA) provides guidance for cutoff values for fasting glucose and random glucose. The ADA defines fasting as no caloric intake for at least 8 hours. Fasting plasma glucose results between 100 to 125 mg/dL indicate increased risk for diabetes (prediabetes). Fasting plasma glucose results greater than or equal to 126 mg/dL meet the criteria for diagnosis of diabetes. In the absence of unequivocal hyperglycemia, results should be confirmed by repeat testing. In a patient with classic symptoms of hyperglycemia or hyperglycemic crisis, random plasma glucose results greater than or equal to 200 mg/dL meet the criteria for diagnosis of diabetes. Reference: Standards of Medical Care in Diabetes 2016, [place] [employer]. Diabetes Care. 2016.39(Suppl 1). Performed By: #### 2 4323-8 ####[facility] LABCLIA [id number] [place] [address] Potassium [Moles/Vol] 4.5 mmol/L Normal 3.7-5.1 [facility] Comment on above: Order Comment: Speci men Type: BLOOD SPECIMENOrdering Facility: [facility] Address: [address] [place] [address] Performed By: #### 2 4323-8 ####[facility] LABCLIA [id number] [place] [address] Protein [Mass/Vol] 7.2 g/dL Normal 6.3-8.0 [facility] Comment on above: Order Comment: Speci men Type: BLOOD SPECIMENOrdering Facility: [facility] Address: [address] [place] [address] Performed By: #### 2 4323-8 ####[facility] LABCLIA [id number] [place] [address] Sodium [Moles/Vol] 141 mmol/L Normal 136-144 [facility] Comment on above: Order Comment: Speci men Type: BLOOD SPECIMENOrdering Facility: [facility] Address: [address] [place] [address] Performed By: #### 2 4323-8 ####[facility] LABCLIA [id number] [place] [address] Urea nitrogen [Mass/Vol] 19 mg/dL Normal 7-21 [facility] Comment on above: Order Comment: Speci men Type: BLOOD SPECIMENOrdering Facility: [facility] Address: [address] [place] [address] Performed By: #### 2 4323-8 ####[facility] [id number] [place] [address] CNOVSPon 12-29-2023 CNOVSP Visit (SP) Office ([facility]) JAVIERIVAN M ([id number]) 1950 F Date Time Provider Department 12/29/23 10:30 AM JEANNETTE LOZA During your visit today, we recorded the following information about you: Jeannette Loza LMT 12/29/2023 2:28 PM Signed Patient Name: Ivan Herrera : 1950 Referred For: Chair massage Diagnosis: muscle soreness Chief Complaint: Relaxation Anxiety (pre): patient declined to answer Pain (pre): patient declined to answer Stress Level (pre): patient declined to answer Therapy Provided: Massage Therapy Area(s) Treated: Shoulders/hips Anxiety (post): patient declined to answer Pain (post): patient declined to answer Stress Level (post): patient declined to answer Visit Outcome: Better Comments: Treatment Plan: Spanish massage to upper shoulders and neck. Effleurage/Petrissage to lower back and light percussion to hips/glutes Care Team contacted: N/A Signature: Jeannette Loza LMT Date: December 29, 2023 Time: 2:21 PM Allergies As of Date: 12/29/2023 Noted Allergy Reaction SULFA (SULFONAMIDE ANTIBIOTICS) 03/10/2014 14 - Other: See Comments Comments: palpitations SULFAMETHOXAZOLE-TRIMETHOPR IM 02/13/2015 4 - Hives Date Reviewed: 11/18/2023 Reviewed by: Tayla Landon LPN - Fully Assessed Primary Visit Diagnosis:Muscle soreness [M79.10] Prescriptions as of 12/29/2023 - multivit-min/ferrous fumarate (MULTI VITAMIN ORAL) Take by mouth once daily. - tamoxifen (NOLVADEX) 20 mg tablet Take 1 tablet (20 mg) by mouth once daily. - MULTIVITAMIN ORAL Take by mouth. - Glucosamine Sulfate (GLUCOSAMINE) 500 mg tab Take 3 tablets by mouth once daily. - phytosterol/pantethine (CHOLESTOFF COMPLETE ORAL) Take by mouth. - calcium carbonate/vitamin D3 (CALCIUM WITH VITAMIN D3 ORAL) Take by mouth. - ofloxacin (OCUFLOX) 0.3 % ophthalmic solution - prednisoLONE acetate (PRED FORTE, ECONOPRED PLUS) 1 % ophthalmic suspension - anastrozole (ARIMIDEX) 1 mg tablet Take 1 tablet by mouth once daily. - ubidecarenone Q-10 (CO Q-10) 10 mg cap Take by mouth twice daily. - LUTEIN ORAL Take by mouth. - Multivitamins-Iron tab Take 1 tablet by mouth once daily. - [place]-3 Fatty Acids-Vitamin E (FISH OIL) 1,000 mg cap Take 1 capsule by mouth. - atorvastatin (LIPITOR) 10 mg tablet Problem List As Of Date 12/29/2023 Noted Resolved Abdominal or pelvic swelling, mass or lump, uns*03/11/2014 S/P hysterectomy [Z90.710] 05/23/2014 Cancer of breast, intraductal [D05.10] 04/06/2015 Malignant neoplasm of upper-outer quadrant of r*04/11/2015 History of breast cancer [Z85.3] 04/15/2016 GERD (gastroesophageal reflux disease) [K21.9] 08/11/2023 PONV (postoperative nausea and vomiting) [R11.2*08/11/2023 Former smoker [Z87.891] 08/11/2023 Malignant neoplasm of lower-outer quadrant of l*11/18/2023 Encounter Status:Closed by JEANNETTE LOZA on 12/29/23 [facility] CNOVSPon 12-15-2023 CNOVSP Visit (SP) Office ( [facility]) IVAN HERRERA ([id number]) 1950 F Date Time Provider Department 12/15/23 10:30 AM JEANNETTE LOZA During your visit today, we recorded the following information about you: Jeannette Loza LMT 12/15/2023 1:22 PM Signed Patient Name: Ivan Herrera : 1950 Referred For: CHAIR MASSAGE Diagnosis: MUSCLE SORENESS Chief Complaint: Relaxation Anxiety (pre): patient declined to answer Pain (pre): patient declined to answer Stress Level (pre): patient declined to answer Therapy Provided: Massage Therapy Area(s) Treated: BACK, NECK AND SHOULDERS Anxiety (post): patient declined to answer Pain (post): patient declined to answer Stress Level (post): patient declined to answer Visit Outcome: Better Comments: PATIENT STATES OF HAVING MUSCLE SORENESS IN BOTH UPPER SHOULDERS, NECK AND LOWER BACK Treatment Plan: BRUNEIAN MASSAGE EFFLEURAGE/PETRISSAGE TO NECK, UPPER SHOULDERS, ARMS AND HANDS. FRICTION/LIGHT PERCUSSION TO LOWER BACK/GLUTES AND HAMSTRINGS. MANUAL LYMPH DRAINAGE TO BILATERAL POPLITEAL Care Team contacted: N/A Signature: Jeannette Loza LMT Date: December 15, 2023 Time: 1:18 PM Allergies As of Date: 12/15/2023 Noted Allergy Reaction SULFA (SULFONAMIDE ANTIBIOTICS) 03/10/2014 14 - Other: See Comments Comments: palpitations SULFAMETHOXAZOLE-TRIMETHOPR IM 02/13/2015 4 - Hives Date Reviewed: 11/18/2023 Reviewed by: Tayla Landon LPN - Fully Assessed Primary Visit Diagnosis:Muscle soreness [M79.10] Prescriptions as of 12/15/2023 - multivit-min/ferrous fumarate (MULTI VITAMIN ORAL) Take by mouth once daily. - tamoxifen (NOLVADEX) 20 mg tablet Take 1 tablet (20 mg) by mouth once daily. - MULTIVITAMIN ORAL Take by mouth. - Glucosamine Sulfate (GLUCOSAMINE) 500 mg tab Take 3 tablets by mouth once daily. - phytosterol/pantethine (CHOLESTOFF COMPLETE ORAL) Take by mouth. - calcium carbonate/vitamin D3 (CALCIUM WITH VITAMIN D3 ORAL) Take by mouth. - ofloxacin (OCUFLOX) 0.3 % ophthalmic solution - prednisoLONE acetate (PRED FORTE, ECONOPRED PLUS) 1 % ophthalmic suspension - anastrozole (ARIMIDEX) 1 mg tablet Take 1 tablet by mouth once daily. - ubidecarenone Q-10 (CO Q-10) 10 mg cap Take by mouth twice daily. - LUTEIN ORAL Take by mouth. - Multivitamins-Iron tab Take 1 tablet by mouth once daily. - Atq[place]uk-3 Fatty Acids-Vitamin E (FISH OIL) 1,000 mg cap Take 1 capsule by mouth. - atorvastatin (LIPITOR) 10 mg tablet Problem List As Of Date 12/15/2023 Noted Resolved Abdominal or pelvic swelling, mass or lump, uns*03/11/2014 S/P hysterectomy [Z90.710] 05/23/2014 Cancer of breast, intraductal [D05.10] 04/06/2015 Malignant neoplasm of upper-outer quadrant of r*04/11/2015 History of breast cancer [Z85.3] 04/15/2016 GERD (gastroesophageal reflux disease) [K21.9] 08/11/2023 PONV (postoperative nausea and vomiting) [R11.2*08/11/2023 Former smoker [Z87.891] 08/11/2023 Malignant neoplasm of lower-outer quadrant of l*11/18/2023 Encounter Status:Closed by JEANNETTE LOZA on 12/15/23 [facility] CNOVon 11-25-2023 CNOV Office Visit ([facility]IK[facility] ) IVAN HERRERA ([id number]) 1950 F Date Time Provider Department 11/25/23 AMY MÉNDEZ During your visit today, we recorded the following information about you: Amy Méndez LMT 11/25/2023 1:57 PM Signed Patient Name: Ivan Herrera : 1950 Referred For: chair massage Diagnosis: muscle soreness Chief Complaint: Pain Anxiety (pre): 4 Pain (pre): 4 Stress Level (pre): 4 Therapy Provided: Massage Therapy Area(s) Treated: back Anxiety (post): 2 Pain (post): 3 Stress Level (post): 2 Visit Outcome: Better Comments: irish Treatment Plan: irish Care Team contacted: N/A Signature: Amy Méndez LMT Date: November 25, 2023 Time: 1:56 PM Allergies As of Date: 11/25/2023 Noted Allergy Reaction SULFA (SULFONAMIDE ANTIBIOTICS) 03/10/2014 14 - Other: See Comments Comments: palpitations SULFAMETHOXAZOLE-TRIMETHOPR IM 02/13/2015 4 - Hives Date Reviewed: 11/18/2023 Reviewed by: Tayla Landon LPN - Fully Assessed Primary Visit Diagnosis:Muscle soreness [M79.10] Prescriptions as of 11/25/2023 - multivit-min/ferrous fumarate (MULTI VITAMIN ORAL) Take by mouth once daily. - tamoxifen (NOLVADEX) 20 mg tablet Take 1 tablet (20 mg) by mouth once daily. - MULTIVITAMIN ORAL Take by mouth. - Glucosamine Sulfate (GLUCOSAMINE) 500 mg tab Take 3 tablets by mouth once daily. - phytosterol/pantethine (CHOLESTOFF COMPLETE ORAL) Take by mouth. - calcium carbonate/vitamin D3 (CALCIUM WITH VITAMIN D3 ORAL) Take by mouth. - ofloxacin (OCUFLOX) 0.3 % ophthalmic solution - prednisoLONE acetate (PRED FORTE, ECONOPRED PLUS) 1 % ophthalmic suspension - anastrozole (ARIMIDEX) 1 mg tablet Take 1 tablet by mouth once daily. - ubidecarenone Q-10 (CO Q-10) 10 mg cap Take by mouth twice daily. - LUTEIN ORAL Take by mouth. - Multivitamins-Iron tab Take 1 tablet by mouth once daily. - Atqasuk-3 Fatty Acids-Vitamin E (FISH OIL) 1,000 mg cap Take 1 capsule by mouth. - atorvastatin (LIPITOR) 10 mg tablet Problem List As Of Date 11/25/2023 Noted Resolved Abdominal or pelvic swelling, mass or lump, uns*03/11/2014 S/P hysterectomy [Z90.710] 05/23/2014 Cancer of breast, intraductal [D05.10] 04/06/2015 Malignant neoplasm of upper-outer quadrant of r*04/11/2015 History of breast cancer [Z85.3] 04/15/2016 GERD (gastroesophageal reflux disease) [K21.9] 08/11/2023 PONV (postoperative nausea and vomiting) [R11.2*08/11/2023 Former smoker [Z87.891] 08/11/2023 Malignant neoplasm of lower-outer quadrant of l*11/18/2023 Encounter Status:Closed by AMY MÉNDEZ on 11/25/23 Normal [facility] CBC W Auto Differential pane l (Bld)on 11-18-2023 Basophils (Bld) [#/Vol] 0.03 10*3/uL Normal <0.11 [facility] Comment on above: Order Comment: Speci men Type: BLOOD SPECIMENOrdering Facility: [facility] Address: [address] [place] [address] Performed By: #### 5 7021-8 ####[facility] LABCLIA [id number] [place] [address] Basophils/100 WBC (Bld) 0.4 % Normal [facility] Comment on above: Order Comment: Speci men Type: BLOOD SPECIMENOrdering Facility: [facility] Address: [address] [place] [address] Performed By: #### 5 7021-8 ####[facility] LABCLIA [id number] [place] [address] Differential cell count method Nom (Bld) Auto Normal [facility] Comment on above: Order Comment: Speci men Type: BLOOD SPECIMENOrdering Facility: [facility] Address: [address] [place] [address] Performed By: #### 5 7021-8 ####[facility] LABCLIA [id number] [place] [address] Eosinophils (Bld) [#/Vol] 0.11 10*3/uL Normal <0.46 [facility] Comment on above: Order Comment: Speci men Type: BLOOD SPECIMENOrdering Facility: [facility] Address: [address] [place] [address] Performed By: #### 5 7021-8 ####[facility] LABCLIA [id number] [place] [address] Eosinophils/100 WBC (Bld) 1.6 % Normal [facility] Comment on above: Order Comment: Speci men Type: BLOOD SPECIMENOrdering Facility: [facility] Address: [address] [place] [address] Performed By: #### 5 7021-8 ####[facility] LABCLIA [id number] [place] [address] Erythrocyte distribution width (RBC) [Ratio] 14.2 % Normal 11.5-15.0 [facility] Comment on above: Order Comment: Speci men Type: BLOOD SPECIMENOrdering Facility: [facility] Address: [address] [place] [address] Performed By: #### 5 7021-8 ####[facility] LABCLIA [id number] [place] [address] Hematocrit (Bld) [Volume fraction] 42.5 % Normal 36.0-46.0 [facility] Comment on above: Order Comment: Speci men Type: BLOOD SPECIMENOrdering Facility: [facility] Address: [address] [place] [address] Performed By: #### 5 7021-8 ####[facility] LABCLIA [id number] [place] [address] Hemoglobin (Bld) [Mass/Vol] 13.5 g/dL Normal 11.5-15.5 [facility] Comment on above: Order Comment: Speci men Type: BLOOD SPECIMENOrdering Facility: [facility] Address: [address] [place] [address] Performed By: #### 5 7021-8 ####[facility] LABCLIA [id number] [place] [address] Immature granulocytes (Bld) [#/Vol] 10*3/uL Normal <0.10 [facility] Comment on above: Order Comment: Speci men Type: BLOOD SPECIMENOrdering Facility: [facility] Address: [address] [place] [address] Performed By: #### 5 7021-8 ####[facility] LABCLIA [id number] [place] [address] Immature granulocytes/100 WBC (Bld) 0.1 % Normal [facility] Comment on above: Order Comment: Speci men Type: BLOOD SPECIMENOrdering Facility: [facility] Address: [address] [place] [address] Performed By: #### 5 7021-8 ####[facility] LABCLIA [id number] [place] [address] Lymphocytes (Bld) [#/Vol] 1.56 10*3/uL Normal 1.00-4.00 [facility] Comment on above: Order Comment: Speci men Type: BLOOD SPECIMENOrdering Facility: [facility] Address: [address] [place] [address] Performed By: #### 5 7021-8 ####[facility] LABCLIA [id number] [place] [address] Lymphocytes/100 WBC (Bld) 22.1 % Normal [facility] Comment on above: Order Comment: Speci men Type: BLOOD SPECIMENOrdering Facility: [facility] Address: [address] [place] [address] Performed By: #### 5 7021-8 ####[facility] LABCLIA [id number] [place] [address] MCH (RBC) [Entitic mass] 29.7 pg Normal 26.0-34.0 [facility] Comment on above: Order Comment: Speci men Type: BLOOD SPECIMENOrdering Facility: [facility] Address: [address] [place] [address] Performed By: #### 5 7021-8 ####[facility] LABCLIA [id number] [place] [address] MCHC (RBC) [Mass/Vol] 31.8 g/dL Normal 30.5-36.0 [facility] Comment on above: Order Comment: Speci men Type: BLOOD SPECIMENOrdering Facility: [facility] Address: [address] [place] [address] Performed By: #### 5 7021-8 ####[facility] LABCLIA [id number] [place] [address] MCV (RBC) [Entitic vol] 93.4 fL Normal 80.0-100.0 [facility] Comment on above: Order Comment: Speci men Type: BLOOD SPECIMENOrdering Facility: [facility] Address: [address] [place] [address] Performed By: #### 5 7021-8 ####[facility] LABCLIA [id number] [place] [address] Monocytes (Bld) [#/Vol] 0.51 10*3/uL Normal <0.87 [facility] Comment on above: Order Comment: Speci men Type: BLOOD SPECIMENOrdering Facility: [facility] Address: [address] [place] [address] Performed By: #### 5 7021-8 ####[facility] LABCLIA [id number] [place] [address] Monocytes/100 WBC (Bld) 7.2 % Normal [facility] Comment on above: Order Comment: Speci men Type: BLOOD SPECIMENOrdering Facility: [facility] Address: [address] [place] [address] Performed By: #### 5 7021-8 ####[facility] LABCLIA [id number] [place] [address] Neutrophils (Bld) [#/Vol] 4.85 10*3/uL Normal 1.45-7.50 [facility] Comment on above: Order Comment: Speci men Type: BLOOD SPECIMENOrdering Facility: [facility] Address: [address] [place] [address] Performed By: #### 5 7021-8 ####[facility] LABCLIA [id number] [place] [address] Neutrophils/100 WBC (Bld) 68.6 % Normal [facility] Comment on above: Order Comment: Speci men Type: BLOOD SPECIMENOrdering Facility: [facility] Address: [address] [place] [address] Performed By: #### 5 7021-8 ####[facility] LABCLIA [id number] [place] [address] Nucleated RBC (Bld) [#/Vol] 10*3/uL Normal <0.01 [facility] Comment on above: Order Comment: Speci men Type: BLOOD SPECIMENOrdering Facility: [facility] Address: [address] [place] [address] Performed By: #### 5 7021-8 ####[facility] LABCLIA [id number] [place] [address] Nucleated RBC/100 WBC (Bld) [Ratio] 0.0 /100 WBC Normal [facility] Comment on above: Order Comment: Speci men Type: BLOOD SPECIMENOrdering Facility: [facility] Address: [address] [place] [address] Performed By: #### 5 7021-8 ####[facility] LABCLIA [id number] [place] [address] Platelet mean volume (Bld) [Entitic vol] 10.3 fL Normal 9.0-12.7 [facility] Comment on above: Order Comment: Speci men Type: BLOOD SPECIMENOrdering Facility: [facility] Address: [address] [place] [address] Performed By: #### 5 7021-8 ####[facility] LABCLIA [id number] [place] [address] Platelets (Bld) [#/Vol] 276 10*3/uL Normal 150-400 [facility] Comment on above: Order Comment: Speci men Type: BLOOD SPECIMENOrdering Facility: [facility] Address: [address] [place] [address] Performed By: #### 5 7021-8 ####[facility] LABIA [id number] [place] [address] RBC (Bld) [#/Vol] 4.55 10*6/uL Normal 3.90-5.20 [facility] Comment on above: Order Comment: Speci men Type: BLOOD SPECIMENOrdering Facility: [facility] Address: [address] [place] [address] Performed By: #### 5 7021-8 ####[facility] LABIA [id number] [place] [address] WBC (Bld) [#/Vol] 7.07 10*3/uL Normal 3.70-11.00 [facility] Comment on above: Order Comment: Speci men Type: BLOOD SPECIMENOrdering Facility: [facility] Address: [address] [place] [address] Performed By: #### 5 7021-8 ####[facility] LABIA [id number] [place] [address] DEANNEOVon 11-18-2023 CNOV Office Visit (RADTSA ) IVAN HERRERA ([id number]) 1950 F Date Time Provider Department 11/18/23 2:00 PM ISAIAH GAUTHIER During your visit today, we recorded the following information about you: Isaiah Gauthier MD 12/01/2023 6:17 AM Addendum Radiation Oncology - Follow Up Note PATIENT NAME: Ivan Herrera PATIENT DIAGNOSIS/PATIENT IDENTIFICATION: Ms. Herrera is a 73-year-old woman with 1. Newly diagnosed Stage I, [id number] IDC of the left breast; ER/MA+, Her2- s/p biopsy on 06/11/2023. 2. Stage I, [id number] IDC of the right breast; ER/MA+, Her2- s/p lumpectomy/radiation in 2014 followed by endocrine therapy. She completed a course of postoperative radiation therapy to the left breast on 10/21/2023 (4005 cGy delivered in 15 fractions using DIBH). Ms. Herrera returns to clinic today for routine follow-up approximately one month after the completion of her radiation treatments. In the interim, she notes that her skin did peel the treatment area but now is well-healed with no irritation or breakdown although she does note some mild itching and some bumpiness in the upper chest which is improved. She denies any pain or discomfort in the treatment area and continues to use a moisturizer and reports no other new lumps or bumps in the breast. She notes intact range of motion of the left upper extremity and endorses good appetite and hydration and stable weight. She did start endocrine therapy with tamoxifen in the interim and noted substantial fatigue and is now holding treatment for a month to determine if it improves. I will plan to see her back after her mammogram in March. The patient is aware to contact the clinic in the interim should any questions or concerns arise. Thank you for allowing us to participate in the care of this patient. Signed by: Isaiah Gauthier MD This document has been created with the use of voice recognition technology. It may contain inaccuracies, misspellings, inaccurate syntax or inappropriate word context that are a result of the inadequacies/shortcomings of said technology/software. Allergies As of Date: 11/18/2023 Noted Allergy Reaction SULFA (SULFONAMIDE ANTIBIOTICS) 03/10/2014 14 - Other: See Comments Comments: palpitations SULFAMETHOXAZOLE-TRIMETHOPR IM 02/13/2015 4 - Hives Date Reviewed: 11/18/2023 Reviewed by: Tayla Landon LPN - Fully Assessed Reason for Visit: Breast Cancer [519] Primary Visit Diagnosis:Malignant neoplasm of lower-outer quadrant of left breast of female, estrogen receptor positive (HCC) [C50.512, Z17.0] Prescriptions as of 12/01/2023 - multivit-min/ferrous fumarate (MULTI VITAMIN ORAL) Take by mouth once daily. - tamoxifen (NOLVADEX) 20 mg tablet Take 1 tablet (20 mg) by mouth once daily. - MULTIVITAMIN ORAL Take by mouth. - Glucosamine Sulfate (GLUCOSAMINE) 500 mg tab Take 3 tablets by mouth once daily. - phytosterol/pantethine (CHOLESTOFF COMPLETE ORAL) Take by mouth. - calcium carbonate/vitamin D3 (CALCIUM WITH VITAMIN D3 ORAL) Take by mouth. - ofloxacin (OCUFLOX) 0.3 % ophthalmic solution - prednisoLONE acetate (PRED FORTE, ECONOPRED PLUS) 1 % ophthalmic suspension - anastrozole (ARIMIDEX) 1 mg tablet Take 1 tablet by mouth once daily. - ubidecarenone Q-10 (CO Q-10) 10 mg cap Take by mouth twice daily. - LUTEIN ORAL Take by mouth. - Multivitamins-Iron tab Take 1 tablet by mouth once daily. - Atqasuk-3 Fatty Acids-Vitamin E (FISH OIL) 1,000 mg cap Take 1 capsule by mouth. - atorvastatin (LIPITOR) 10 mg tablet Problem List As Of Date 11/18/2023 Noted Resolved Abdominal or pelvic swelling, mass or lump, uns*03/11/2014 S/P hysterectomy [Z90.710] 05/23/2014 Cancer of breast, intraductal [D05.10] 04/06/2015 Malignant neoplasm of upper-outer quadrant of r*04/11/2015 History of breast cancer [Z85.3] 04/15/2016 GERD (gastroesophageal reflux disease) [K21.9] 08/11/2023 PONV (postoperative nausea and vomiting) [R11.2*08/11/2023 Former smoker [Z87.891] 08/11/2023 Malignant neoplasm of lower-outer quadrant of l*11/18/2023 Disposition: Return in about 21 weeks (around 04/13/2024). Follow-up and Disposition History for Encounter Date Provider Department Center 11/18/2023 [id number] GAUTHIER Encounter Status:Closed by ISAIAH GAUTHIER on 11/30/23 [facility] CNOV Office Visit (ERIKA ) JAVIERIVAN ([id number]) 1950 F Date Time Provider Department 11/18/23 AMY MÉNDEZ During your visit today, we recorded the following information about you: Amy Méndez LMT 11/18/2023 2:55 PM Signed Patient Name: Ivan Herrera : 1950 Referred For: chair massage Diagnosis: muscle soreness Chief Complaint: Pain Anxiety (pre): 4 Pain (pre): 3 Stress Level (pre): 4 Therapy Provided: Massage Therapy Area(s) Treated: back Anxiety (post): 2 Pain (post): 2 Stress Level (post): 2 Visit Outcome: Better Comments: irish Treatment Plan: irish Care Team contacted: N/A Signature: Amy Méndez LMT Date: November 18, 2023 Time: 2:54 PM Allergies As of Date: 11/18/2023 Noted Allergy Reaction SULFA (SULFONAMIDE ANTIBIOTICS) 03/10/2014 14 - Other: See Comments Comments: palpitations SULFAMETHOXAZOLE-TRIMETHOPR IM 02/13/2015 4 - Hives Date Reviewed: 11/18/2023 Reviewed by: Tayla Landon LPN - Fully Assessed Primary Visit Diagnosis:Muscle soreness [M79.10] Prescriptions as of 11/18/2023 - multivit-min/ferrous fumarate (MULTI VITAMIN ORAL) Take by mouth once daily. - tamoxifen (NOLVADEX) 20 mg tablet Take 1 tablet (20 mg) by mouth once daily. - MULTIVITAMIN ORAL Take by mouth. - Glucosamine Sulfate (GLUCOSAMINE) 500 mg tab Take 3 tablets by mouth once daily. - phytosterol/pantethine (CHOLESTOFF COMPLETE ORAL) Take by mouth. - calcium carbonate/vitamin D3 (CALCIUM WITH VITAMIN D3 ORAL) Take by mouth. - ofloxacin (OCUFLOX) 0.3 % ophthalmic solution - prednisoLONE acetate (PRED FORTE, ECONOPRED PLUS) 1 % ophthalmic suspension - anastrozole (ARIMIDEX) 1 mg tablet Take 1 tablet by mouth once daily. - ubidecarenone Q-10 (CO Q-10) 10 mg cap Take by mouth twice daily. - LUTEIN ORAL Take by mouth. - Multivitamins-Iron tab Take 1 tablet by mouth once daily. - Atqasuk-3 Fatty Acids-Vitamin E (FISH OIL) 1,000 mg cap Take 1 capsule by mouth. - atorvastatin (LIPITOR) 10 mg tablet Problem List As Of Date 11/18/2023 Noted Resolved Abdominal or pelvic swelling, mass or lump, uns*03/11/2014 S/P hysterectomy [Z90.710] 05/23/2014 Cancer of breast, intraductal [D05.10] 04/06/2015 Malignant neoplasm of upper-outer quadrant of r*04/11/2015 History of breast cancer [Z85.3] 04/15/2016 GERD (gastroesophageal reflux disease) [K21.9] 08/11/2023 PONV (postoperative nausea and vomiting) [R11.2*08/11/2023 Former smoker [Z87.891] 08/11/2023 Malignant neoplasm of lower-outer quadrant of l*11/18/2023 Encounter Status:Closed by AMY MÉNDEZ on 11/18/23 [facility] CNOVSPon 11-18-2023 OVS Visit (SP) Office ([facility]) IVAN HERRERA ([id number]) 1950 F Date Time Provider Department 11/18/23 1:45 PM MYLES TALAMANTES During your visit today, we recorded the following information about you: Temperature Pulse Respiration Blood pressure 97 degrees 69/minute 16/minute 121/70 Weight Height 90.4 kg 1.74 m Ro Wei MA 11/18/2023 1:48 PM Signed Patient states most days she is sluggish and feels like she runs on one cylinder, also sleep is messed up. She normally takes 3mg of Melatonin which did work previously. She doesn't know if it is radiation of Tamoxifen (it has started since beginning the Tamoxifen). JACE Caro Vivek, MD 11/18/2023 8:39 PM Signed NAME: Ivan Herrera CLINIC NO.: [id number] DATE OF SERVICE: November 18, 2023 ([place]) Some elements in this clinic note that are critical to medical decision making have been carefully reviewed and included from a prior clinic note dated: October 12, 2023 ([place]) Referring Provider: Dr. Chauncey Bowles Additional Clinicians involved in Ivan Herrera's care: Dillon Cooper DIAGNOSIS: Malignant neoplasm lower quadrant left breast ER positive. History of malignant neoplasm of upper-outer quadrant of right breast in female, estrogen receptor positive ASSESSMENT: 73 year old woman with malignant neoplasm of upper-outer quadrant of right breast in female, estrogen receptor positive Stage I ([id number]) right breast cancer of the upper outer quadrant, ER/MA +, Her2-, diagnosed in February 2015. She had lumpectomy, followed by radiation, and has been on aromatase inhibitor therapy since May 2015 with good tolerance. Her recent mammogram from February 2020 was negative for malignancy. She has no evidence of recurrence. She continued her Anastrozole until May 2020, completing 5 years of therapy. 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 She presents in follow-up regarding this new diagnosis. S/p Lumpectomy left breast July 2023 4mm, G1 pT1a, BMX ER+ 91%, MA-, HER2 (1+) negative. PLAN: Hold Tamoxifen for 1 month and then resume. Virtual visit in 8-9 weeks RTC with me in as scheduled Labs same day. Exam same day - HPI: CASE HISTORY: Reverse Chronological Order 10/28/2023 - Started Tamoxifen - Held for fatigue 11/18/2023 09/30/2023-10/21/2023 - Radiation to left breast: 4,005 cGy delivered in 15 fractions using DIBH/RPM 08/19/2023 - Lumpectomy, Left breast: 4mm, G1 pT1a, BMX ER+ 91%, MA-, HER2 (1+) negative Left axillary sentinel lymph node #1, excision (A) - Benign fibroadipose tissue. -No lymph node is identified. Left breast, lumpectomy (B) - Invasive ductal carcinoma, [place] grade 1, spanning 0.4 cm, (see comment). - Ductal carcinoma in situ (DCIS), nuclear grade 2, solid and cribriform types with microcalcifications. - Biopsy site changes and biopsy clip (x1) are identified. - The surrounding breast tissue shows atypical ductal hyperplasia (ADH), atypical lobular hyperplasia (ALH), usual ductal hyperplasia and apocrine metaplasia. All margins negative for malignancy: Left breast, anterior margin, excision (G) - Atypical lobular hyperplasia (ALH). 08/05/2023 - MRI Breast: Known biopsy proven malignancy The 1 cm x 0.7 cm x 1.4 cm architectural distortion in the left breast at 6 o'clock middle depth is consistent with the known carcinoma and is a known biopsy positive for malignancy. 07/09/2023 - Dx Mammogram Left: Known biopsy proven malignancy The architectural distortion in the left breast is a known biopsy positive for malignancy. A surgical consult is recommended. An X clip is visualized at the site of biopsy-proven malignancy. Of note, the X clip is at the inferior aspect of the architectural distortion. 06/11/2023 - Left breast mass 6:00, 6 cm from nipple stereotactic core biopsy at [facility]. Consistent with invasive ductal carcinoma NOS. G1, DCIS present, no LVI, ER +91 to 100%, MA negative. HER2 IHC pending. 05/27/2023 - Mammogram: diagnostic category 4 -- suspicious for malignancy. Finding does not exhibit classic findings of breast cancer. 03/29/2021 - Mammogram: diagnostic category 2 -- benign finding with no change from prior assessment. 03/26/2020 - bilateral screening mammogram: diagnostic category 2; benign finding. No change from comparison assessment. 05/2015-08/2023 - Arimidex 04/23/2015-06/05/2015 - Radiation to right breast; 6000 cGy in 30 fractions 03/21/2015 - excisional biopsy and sentinel node biopsy Invasive carcinoma of (more content not included)... Normal [facility] Cancer Ag15-3 SerPl-aCncon 0 11-18-2023 Cancer Ag 15-3 Qn 24.9 U/mL Normal <26.0 [facility] Comment on above: Order Comment: Speci men Type: BLOOD SPECIMENOrdering Facility: [facility] Address: [address] [place] [address] Result Comment: The CA 15-3 test methodology used is the Electrochemiluminescence Immunoassay by [employer]. Results obtained with different methods or kits cannot be used interchangeably. Performed By: #### 6 875-9 ####[facility] LABCLIA [id number] [address] [place] Cancer Ag27-29 SerPl-aCncon 11-18-2023 Cancer Ag 27-29 Qn 26.1 [arb'U]/mL Normal <38.6 [facility] Comment on above: Order Comment: Speci men Type: BLOOD SPECIMEN [facility] Address: [address] [place] [address] Result Comment: The CA27.29 test was performed using the [employer] XP chemiluminometric immunoassay method. Results obtained with different assay methods or kits cannot be used interchangeably. Performed By: #### 1 7842-6 #### [facility] CLIA [id number] [address] [place] [address] [place] Comprehensive metabolic 2000 panelon 11-18-2023 Albumin [Mass/Vol] 4.4 g/dL Normal 3.9-4.9 [facility] Comment on above: Order Comment: Speci men Type: BLOOD SPECIMENOrdering Facility: [facility] Address: [address] [place] [address] Performed By: #### 2 4323-8 ####[facility] LABCLIA [id number] [place] [address] ALP [Catalytic activity/Vol] 105 U/L Normal 34-123 [facility] Comment on above: Order Comment: Speci men Type: BLOOD SPECIMENOrdering Facility: [facility] Address: [address] [place] [address] Performed By: #### 2 4323-8 ####[facility] LABCLIA [id number] [place] [address] ALT [Catalytic activity/Vol] 16 U/L Normal 7-38 [facility] Comment on above: Order Comment: Speci men Type: BLOOD SPECIMENOrdering Facility: [facility] Address: [address] [place] [address] Performed By: #### 2 4323-8 ####[facility] LABCLIA [id number] [place] [address] Anion gap [Moles/Vol] 8 mmol/L Low 9-18 [facility] Comment on above: Order Comment: Speci men Type: BLOOD SPECIMENOrdering Facility: [facility] Address: [address] [place] [address] Performed By: #### 2 4323-8 ####[facility] LABCLIA [id number] [place] [address] AST [Catalytic activity/Vol] 14 U/L Normal 13-35 [facility] Comment on above: Order Comment: Speci men Type: BLOOD SPECIMENOrdering Facility: [facility] Address: [address] [place] [address] Performed By: #### 2 4323-8 ####[facility] LABCLIA [id number] [place] [address] Bilirubin [Mass/Vol] 0.3 mg/dL Normal 0.2-1.3 [facility] Comment on above: Order Comment: Speci men Type: BLOOD SPECIMENOrdering Facility: [facility] Address: [address] [place] [address] Performed By: #### 2 4323-8 ####[facility] LABCLIA [id number] [place] [address] Calcium [Mass/Vol] 9.9 mg/dL Normal 8.5-10.2 [facility] Comment on above: Order Comment: Speci men Type: BLOOD SPECIMENOrdering Facility: [facility] Address: [address] [place] [address] Performed By: #### 2 4323-8 ####[facility] LABCLIA [id number] [place] [address] Chloride [Moles/Vol] 104 mmol/L Normal 97-105 [facility] Comment on above: Order Comment: Speci men Type: BLOOD SPECIMENOrdering Facility: [facility] Address: [address] [place] [address] Performed By: #### 2 4323-8 ####[facility] LABCLIA [id number] [place] [address] CO2 [Moles/Vol] 28 mmol/L Normal 22-30 [facility] Comment on above: Order Comment: Speci men Type: BLOOD SPECIMENOrdering Facility: [facility] Address: [address] [place] [address] Performed By: #### 2 4323-8 ####[facility] LABCLIA [id number] [place] [address] Creatinine [Mass/Vol] 0.85 mg/dL Normal 0.58-0.96 [facility] Comment on above: Order Comment: Speci men Type: BLOOD SPECIMENOrdering Facility: [facility] Address: [address] [place] [address] Performed By: #### 2 4323-8 ####[facility] LABCLIA [id number] [place] [address] Creatinine and Glomerular filtration rate.predicted panel (S/P/Bld) 72 mL/min/1.73m??? Normal >=60 [facility] Comment on above: Order Comment: Nesha billingsley Type: BLOOD SPECIMENOrdering Facility: [facility] Address: [address] [place] [address] Result Comment: Bella mated Glomerular Filtration Rate (eGFR) is calculated using the 2020 CKD-EPI creatinine equation. This equation utilizes serum creatinine, sex, and age as parameters. The creatinine assay has traceable calibration to isotope dilution-mass spectrometry. Refer to KDIGO guidelines for clinical interpretation. In patients with unstable renal function, e.g. those with acute kidney injury, the eGFR may not accurately reflect actual GFR. Performed By: #### 2 4323-8 ####[facility] LABIA [id number] [place] [address] Glucose [Mass/Vol] 113 mg/dL High 74-99 [facility] Comment on above: Order Comment: Nesha billingsley Type: BLOOD SPECIMENOrdering Facility: [facility] Address: [address] [place] [address] Result Comment: The [place] Diabetes [employer] (ADA) provides guidance for cutoff values for fasting glucose and random glucose. The ADA defines fasting as no caloric intake for at least 8 hours. Fasting plasma glucose results between 100 to 125 mg/dL indicate increased risk for diabetes (prediabetes). Fasting plasma glucose results greater than or equal to 126 mg/dL meet the criteria for diagnosis of diabetes. In the absence of unequivocal hyperglycemia, results should be confirmed by repeat testing. In a patient with classic symptoms of hyperglycemia or hyperglycemic crisis, random plasma glucose results greater than or equal to 200 mg/dL meet the criteria for diagnosis of diabetes. Reference: Standards of Medical Care in Diabetes 2016, [place] [employer]. Diabetes Care. 2016.39(Suppl 1). Performed By: #### 2 4323-8 ####[facility] LABCLIA [id number] [place] [address] Potassium [Moles/Vol] 4.1 mmol/L Normal 3.7-5.1 [facility] Comment on above: Order Comment: Speci men Type: BLOOD SPECIMENOrdering Facility: [facility] Address: [address] [id number] Performed By: #### 2 4323-8 ####[facility] LABCLIA [id number] [place] [address] Protein [Mass/Vol] 7.5 g/dL Normal 6.3-8.0 [facility] Comment on above: Order Comment: Speci men Type: BLOOD SPECIMENOrdering Facility: [facility] Address: [address] [place] [address] Performed By: #### 2 4323-8 ####[facility] LABIA [id number] [place] [address] Sodium [Moles/Vol] 140 mmol/L Normal 136-144 [facility] Comment on above: Order Comment: Speci men Type: BLOOD SPECIMENOrdering Facility: [facility] Address: [address] [place] [address] Performed By: #### 2 4323-8 ####[facility] LABIA [id number] [place] [address] Urea nitrogen [Mass/Vol] 18 mg/dL Normal 7-21 [facility] Comment on above: Order Comment: Speci men Type: BLOOD SPECIMENOrdering Facility: [facility] Address: [address] [place] [address] Performed By: #### 2 4323-8 ####[facility] LABIA [id number] [place] [address] Alisa 11-12-2023 RONNY Telephone (TOÑITO) JAVIERIVAN ([id number]) 1950 F Date Time Provider Department 11/12/23 ISAIAH GAUTHIER During your visit today, we recorded the following information about you: Tayla Landon LPN 11/12/2023 10:55 AM Signed I left a message for Clarissa to call the office to get a post radiation completion update. Tayla Landon RN Allergies As of Date: 11/12/2023 Noted Allergy Reaction SULFA (SULFONAMIDE ANTIBIOTICS) 03/10/2014 14 - Other: See Comments Comments: palpitations SULFAMETHOXAZOLE-TRIMETHOPR IM 02/13/2015 4 - Hives Date Reviewed: 10/14/2023 Reviewed by: Tayla Landon LPN - Fully Assessed Reason for Visit: Patient Update [1234] Cmt: Nurse call post radiation Prescriptions as of 11/26/2023 - multivit-min/ferrous fumarate (MULTI VITAMIN ORAL) Take by mouth once daily. - tamoxifen (NOLVADEX) 20 mg tablet Take 1 tablet (20 mg) by mouth once daily. - MULTIVITAMIN ORAL Take by mouth. - Glucosamine Sulfate (GLUCOSAMINE) 500 mg tab Take 3 tablets by mouth once daily. - phytosterol/pantethine (CHOLESTOFF COMPLETE ORAL) Take by mouth. - calcium carbonate/vitamin D3 (CALCIUM WITH VITAMIN D3 ORAL) Take by mouth. - ofloxacin (OCUFLOX) 0.3 % ophthalmic solution - prednisoLONE acetate (PRED FORTE, ECONOPRED PLUS) 1 % ophthalmic suspension - anastrozole (ARIMIDEX) 1 mg tablet Take 1 tablet by mouth once daily. - ubidecarenone Q-10 (CO Q-10) 10 mg cap Take by mouth twice daily. - LUTEIN ORAL Take by mouth. - Multivitamins-Iron tab Take 1 tablet by mouth once daily. - Atqasuk-3 Fatty Acids-Vitamin E (FISH OIL) 1,000 mg cap Take 1 capsule by mouth. - atorvastatin (LIPITOR) 10 mg tablet Problem List As Of Date 11/12/2023 Noted Resolved Abdominal or pelvic swelling, mass or lump, uns*03/11/2014 S/P hysterectomy [Z90.710] 05/23/2014 Cancer of breast, intraductal [D05.10] 04/06/2015 Malignant neoplasm of upper-outer quadrant of r*04/11/2015 History of breast cancer [Z85.3] 04/15/2016 GERD (gastroesophageal reflux disease) [K21.9] 08/11/2023 PONV (postoperative nausea and vomiting) [R11.2*08/11/2023 Former smoker [Z87.891] 08/11/2023 Encounter Status:Closed by TAYLA LANDON on 11/26/23 [facility] CNOVon 11-10-2023 CNOV Office Visit (HEMASA ) IVAN HERRERA ([id number]) 1950 F Date Time Provider Department 11/10/23 AMY MÉNDEZ During your visit today, we recorded the following information about you: Amy Méndez LMT 11/10/2023 1:50 PM Signed Patient Name: Ivan Sahnior : 1950 Referred For: chair massage Diagnosis: muscle soreness Chief Complaint: Pain Anxiety (pre): 3 Pain (pre): 3 Stress Level (pre): 3 Therapy Provided: Massage Therapy Area(s) Treated: cervical focus Anxiety (post): 2 Pain (post): 2 Stress Level (post): 2 Visit Outcome: Better Comments: relaxation focus Treatment Plan: [facility] Team contacted: N/A Signature: Amy Méndez LMT Date: November 10, 2023 Time: 1:49 PM Allergies As of Date: 11/10/2023 Noted Allergy Reaction SULFA (SULFONAMIDE ANTIBIOTICS) 03/10/2014 14 - Other: See Comments Comments: palpitations SULFAMETHOXAZOLE-TRIMETHOPR IM 02/13/2015 4 - Hives Date Reviewed: 10/14/2023 Reviewed by: Tayla Landon LPN - Fully Assessed Primary Visit Diagnosis:Muscle soreness [M79.10] Prescriptions as of 11/10/2023 - multivit-min/ferrous fumarate (MULTI VITAMIN ORAL) Take by mouth once daily. - tamoxifen (NOLVADEX) 20 mg tablet Take 1 tablet (20 mg) by mouth once daily. - MULTIVITAMIN ORAL Take by mouth. - Glucosamine Sulfate (GLUCOSAMINE) 500 mg tab Take 3 tablets by mouth once daily. - phytosterol/pantethine (CHOLESTOFF COMPLETE ORAL) Take by mouth. - calcium carbonate/vitamin D3 (CALCIUM WITH VITAMIN D3 ORAL) Take by mouth. - ofloxacin (OCUFLOX) 0.3 % ophthalmic solution - prednisoLONE acetate (PRED FORTE, ECONOPRED PLUS) 1 % ophthalmic suspension - anastrozole (ARIMIDEX) 1 mg tablet Take 1 tablet by mouth once daily. - ubidecarenone Q-10 (CO Q-10) 10 mg cap Take by mouth twice daily. - LUTEIN ORAL Take by mouth. - Multivitamins-Iron tab Take 1 tablet by mouth once daily. - Atqasuk-3 Fatty Acids-Vitamin E (FISH OIL) 1,000 mg cap Take 1 capsule by mouth. - atorvastatin (LIPITOR) 10 mg tablet Problem List As Of Date 11/10/2023 Noted Resolved Abdominal or pelvic swelling, mass or lump, uns*03/11/2014 S/P hysterectomy [Z90.710] 05/23/2014 Cancer of breast, intraductal [D05.10] 04/06/2015 Malignant neoplasm of upper-outer quadrant of r*04/11/2015 History of breast cancer [Z85.3] 04/15/2016 GERD (gastroesophageal reflux disease) [K21.9] 08/11/2023 PONV (postoperative nausea and vomiting) [R11.2*08/11/2023 Former smoker [Z87.891] 08/11/2023 Encounter Status:Closed by AMY MÉNDEZ on 11/10/23 [facility] CNOVSPon 11-03-2023 CNOVSP Visit (SP) Office (Yvrose MENDOZA) IVAN HERRERA ([id number]) 1950 F Date Time Provider Department 11/03/23 11:30 AM JEANNETTE LOZA During your visit today, we recorded the following information about you: Jeannette Loza LMT 11/03/2023 2:47 PM Signed Patient Name: Ivan Herrera : 1950 Referred For: CHAIR MASSAGE Diagnosis: MUSCLE SORENESS Chief Complaint: Relaxation Anxiety (pre): patient declined to answer Pain (pre): patient declined to answer Stress Level (pre): patient declined to answer Therapy Provided: Massage Therapy Area(s) Treated: SHOULDERS, BACK AND NECK Anxiety (post): patient declined to answer Pain (post): patient declined to answer Stress Level (post): patient declined to answer Visit Outcome: Better Comments: PATIENT STATES OF HAVING SORENESS ALONG THE THORACIC AREA. PATIENT STATES OF HAVING RADIATION TX AND SORE FROM HOLDING BREATHE AND LYING ON TABLE. Treatment Plan: BRUNEIAN MASSAGE MID-LOWER BACK, SACRAL ILIAC, UPPER SHOULDERS AND NECK. MANUAL LYMPHATIC MASSAGE BILAT. POST KNEES. Care Team contacted: N/A Signature: Jeannette Loza LMT Date: November 03, 2023 Time: 2:44 PM Allergies As of Date: 11/03/2023 Noted Allergy Reaction SULFA (SULFONAMIDE ANTIBIOTICS) 03/10/2014 14 - Other: See Comments Comments: palpitations SULFAMETHOXAZOLE-TRIMETHOPR IM 02/13/2015 4 - Hives Date Reviewed: 10/14/2023 Reviewed by: Tayla Landon LPN - Fully Assessed Primary Visit Diagnosis:Muscle soreness [M79.10] Prescriptions as of 11/03/2023 - multivit-min/ferrous fumarate (MULTI VITAMIN ORAL) Take by mouth once daily. - tamoxifen (NOLVADEX) 20 mg tablet Take 1 tablet (20 mg) by mouth once daily. - MULTIVITAMIN ORAL Take by mouth. - Glucosamine Sulfate (GLUCOSAMINE) 500 mg tab Take 3 tablets by mouth once daily. - phytosterol/pantethine (CHOLESTOFF COMPLETE ORAL) Take by mouth. - calcium carbonate/vitamin D3 (CALCIUM WITH VITAMIN D3 ORAL) Take by mouth. - ofloxacin (OCUFLOX) 0.3 % ophthalmic solution - prednisoLONE acetate (PRED FORTE, ECONOPRED PLUS) 1 % ophthalmic suspension - anastrozole (ARIMIDEX) 1 mg tablet Take 1 tablet by mouth once daily. - ubidecarenone Q-10 (CO Q-10) 10 mg cap Take by mouth twice daily. - LUTEIN ORAL Take by mouth. - Multivitamins-Iron tab Take 1 tablet by mouth once daily. - Atqasuk-3 Fatty Acids-Vitamin E (FISH OIL) 1,000 mg cap Take 1 capsule by mouth. - atorvastatin (LIPITOR) 10 mg tablet Problem List As Of Date 11/03/2023 Noted Resolved Abdominal or pelvic swelling, mass or lump, uns*03/11/2014 S/P hysterectomy [Z90.710] 05/23/2014 Cancer of breast, intraductal [D05.10] 04/06/2015 Malignant neoplasm of upper-outer quadrant of r*04/11/2015 History of breast cancer [Z85.3] 04/15/2016 GERD (gastroesophageal reflux disease) [K21.9] 08/11/2023 PONV (postoperative nausea and vomiting) [R11.2*08/11/2023 Former smoker [Z87.891] 08/11/2023 Encounter Status:Closed by JEANNETTE LOZA on 11/03/23 [facility] CNOVon 10-27-2023 CNOV Office Visit (ERIKA ) IVAN HERRERA ([id number]) 1950 F Date Time Provider Department 10/27/23 AMY MÉNDEZ During your visit today, we recorded the following information about you: Amy Méndez LMT 10/27/2023 2:07 PM Signed Patient Name: Ivan Sahnior : 1950 Referred For: chair massage Diagnosis: muscle soreness Chief Complaint: Pain Anxiety (pre): 3 Pain (pre): 4 Stress Level (pre): 3 Therapy Provided: Massage Therapy Area(s) Treated: back Anxiety (post): 2 Pain (post): 3 Stress Level (post): 2 Visit Outcome: Better Comments: relaxation Treatment Plan: [facility] Care Team contacted: N/A Signature: Amy Méndez LMT Date: October 27, 2023 Time: 2:06 PM Allergies As of Date: 10/27/2023 Noted Allergy Reaction SULFA (SULFONAMIDE ANTIBIOTICS) 03/10/2014 14 - Other: See Comments Comments: palpitations SULFAMETHOXAZOLE-TRIMETHOPR IM 02/13/2015 4 - Hives Date Reviewed: 10/14/2023 Reviewed by: Tayla Landon LPN - Fully Assessed Primary Visit Diagnosis:Muscle soreness [M79.10] Prescriptions as of 10/27/2023 - multivit-min/ferrous fumarate (MULTI VITAMIN ORAL) Take by mouth once daily. - tamoxifen (NOLVADEX) 20 mg tablet Take 1 tablet (20 mg) by mouth once daily. - MULTIVITAMIN ORAL Take by mouth. - Glucosamine Sulfate (GLUCOSAMINE) 500 mg tab Take 3 tablets by mouth once daily. - phytosterol/pantethine (CHOLESTOFF COMPLETE ORAL) Take by mouth. - calcium carbonate/vitamin D3 (CALCIUM WITH VITAMIN D3 ORAL) Take by mouth. - ofloxacin (OCUFLOX) 0.3 % ophthalmic solution - prednisoLONE acetate (PRED FORTE, ECONOPRED PLUS) 1 % ophthalmic suspension - anastrozole (ARIMIDEX) 1 mg tablet Take 1 tablet by mouth once daily. - ubidecarenone Q-10 (CO Q-10) 10 mg cap Take by mouth twice daily. - LUTEIN ORAL Take by mouth. - Multivitamins-Iron tab Take 1 tablet by mouth once daily. - Atqasuk-3 Fatty Acids-Vitamin E (FISH OIL) 1,000 mg cap Take 1 capsule by mouth. - atorvastatin (LIPITOR) 10 mg tablet Problem List As Of Date 10/27/2023 Noted Resolved Abdominal or pelvic swelling, mass or lump, uns*03/11/2014 S/P hysterectomy [Z90.710] 05/23/2014 Cancer of breast, intraductal [D05.10] 04/06/2015 Malignant neoplasm of upper-outer quadrant of r*04/11/2015 History of breast cancer [Z85.3] 04/15/2016 GERD (gastroesophageal reflux disease) [K21.9] 08/11/2023 PONV (postoperative nausea and vomiting) [R11.2*08/11/2023 Former smoker [Z87.891] 08/11/2023 Encounter Status:Closed by AMY MÉNDEZ on 10/27/23 Normal [facility] CNOVon 10-21-2023 CNOV Office Visit (RADTSA ) IVAN HERRERA ([id number]) 1950 F Date Time Provider Department 10/21/23 11:45 AM ISAIAH GAUTHIER During your visit today, we recorded the following information about you: Temperature Pulse Respiration Blood pressure 97.9 degrees 72/minute 16/minute 122/95 Weight 98.1 kg Tayla Landon LPN 10/21/2023 11:33 AM Signed Status: Post-menopausal. Isaiah Gauthier MD 10/21/2023 1:50 PM Signed RADIATION ONCOLOGY- ON TREATMENT REVIEW (OTR) NOTE PATIENT NAME: Ivan Herrera PATIENT DIAGNOSIS: Ms. Herrera is a 73-year-old woman with 1. Newly diagnosed Stage I, [id number] IDC of the left breast; ER/MA+, Her2- s/p biopsy on 06/11/2023. 2. Stage I, [id number] IDC of the right breast; ER/MA+, Her2- s/p lumpectomy/radiation in 2014 followed by endocrine therapy. COURSE: post-operative Area Treated: Left Breast Current dose: 4005 cGy in 15 fx Planned dose: 4005 cGy in 15 fx SUBJECTIVE: Tolerating XRT well and notes occasional soreness in the area of the nipple areolar complex and skin erythema without breakdown. She also notes itching and use a moisturizer twice a day with intact range of motion of the left upper extremity. She does endorse fatigue good appetite and hydration stable weight. PHYSICAL EXAM: KPS: 90 General Appearance: Alert and oriented. No acute distress. Skin erythema/hyperpigmentation: Mild Desquamation: No TOXICITY ASSESSMENT (CTC v4.0): Fatigue: grade 1 - Fatigue relieved by rest Radiation dermatitis: grade 1 - Faint erythema or dry desquamation Treatment chart checked: Yes Patient treatment site reviewed and verified:Yes Port films reviewed and current:Yes Medications started: None ASSESSMENT/PLAN: Clinically stable. Toxicity within expected parameters. The patient has completed radiotherapy and will be evaluated in 3-4 weeks. Acute and delayed side effects reviewed. Signed by: Isaiah Gauthier MD Allergies As of Date: 10/21/2023 Noted Allergy Reaction SULFA (SULFONAMIDE ANTIBIOTICS) 03/10/2014 14 - Other: See Comments Comments: palpitations SULFAMETHOXAZOLE-TRIMETHOPR IM 02/13/2015 4 - Hives Date Reviewed: 10/14/2023 Reviewed by: Tayla Landon LPN - Fully Assessed Reason for Visit: Radiotherapy On-treatment Visit [1722] Primary Visit Diagnosis:Malignant neoplasm of lower-outer quadrant of left breast of female, estrogen receptor positive (HCC) [C50.512, Z17.0] Order(s):[facility]ST[facility]AL [[id number]] Order #: [id number] FUTURE Prescriptions as of 10/21/2023 - multivit-min/ferrous fumarate (MULTI VITAMIN ORAL) Take by mouth once daily. - tamoxifen (NOLVADEX) 20 mg tablet Take 1 tablet (20 mg) by mouth once daily. - MULTIVITAMIN ORAL Take by mouth. - Glucosamine Sulfate (GLUCOSAMINE) 500 mg tab Take 3 tablets by mouth once daily. - phytosterol/pantethine (CHOLESTOFF COMPLETE ORAL) Take by mouth. - calcium carbonate/vitamin D3 (CALCIUM WITH VITAMIN D3 ORAL) Take by mouth. - ofloxacin (OCUFLOX) 0.3 % ophthalmic solution - prednisoLONE acetate (PRED FORTE, ECONOPRED PLUS) 1 % ophthalmic suspension - anastrozole (ARIMIDEX) 1 mg tablet Take 1 tablet by mouth once daily. - ubidecarenone Q-10 (CO Q-10) 10 mg cap Take by mouth twice daily. - LUTEIN ORAL Take by mouth. - Multivitamins-Iron tab Take 1 tablet by mouth once daily. - Atqasuk-3 Fatty Acids-Vitamin E (FISH OIL) 1,000 mg cap Take 1 capsule by mouth. - atorvastatin (LIPITOR) 10 mg tablet Problem List As Of Date 10/21/2023 Noted Resolved Abdominal or pelvic swelling, mass or lump, uns*03/11/2014 S/P hysterectomy [Z90.710] 05/23/2014 Cancer of breast, intraductal [D05.10] 04/06/2015 Malignant neoplasm of upper-outer quadrant of r*04/11/2015 History of breast cancer [Z85.3] 04/15/2016 GERD (gastroesophageal reflux disease) [K21.9] 08/11/2023 PONV (postoperative nausea and vomiting) [R11.2*08/11/2023 Former smoker [Z87.891] 08/11/2023 Visit Notes: >> Tayla Landon LPN ThuOct 21, 2023 11:32 AM Status: Signed Status: Post-menopausal. Encounter Status:Closed by ISAIAH GAUTHIER on 10/21/23 [facility] CNOVon 10-20-2023 CNOV Office Visit (HEMASA ) IVAN HERRERA ([id number]) 1950 F Date Time Provider Department 10/20/23 JEANNETTE LOZA During your visit today, we recorded the following information about you: Jeannette Loza LMT 10/20/2023 3:35 PM Signed Patient Name: Ivan Prather Javier : 1950 Referred For: CHAIR MASSAGE Diagnosis: MUSCLE SORENESS Chief Complaint: Relaxation Anxiety (pre): patient declined to answer Pain (pre): patient declined to answer Stress Level (pre): patient declined to answer Therapy Provided: Massage Therapy Area(s) Treated: BACK, NECK AND SHOULDERS Anxiety (post): patient declined to answer Pain (post): patient declined to answer Stress Level (post): patient declined to answer Visit Outcome: Better Comments: PATIENT STATES OF MUSCLE SORENESS OF THE LOWER BACK Treatment Plan: CROSS FIBER FRICTION, EFFLEURAGE/PETRISSAGE AND PERCUSSION TO SACRAL, GLUTE MUSCLES, UPPER TRAPEZIUS AND CERVICAL Care Team contacted: N/A Signature: Jeannette Loza LMT Date: October 20, 2023 Time: 3:32 PM Allergies As of Date: 10/20/2023 Noted Allergy Reaction SULFA (SULFONAMIDE ANTIBIOTICS) 03/10/2014 14 - Other: See Comments Comments: palpitations SULFAMETHOXAZOLE-TRIMETHOPR IM 02/13/2015 4 - Hives Date Reviewed: 10/14/2023 Reviewed by: Tayla Landon LPN - Fully Assessed Primary Visit Diagnosis:Muscle soreness [M79.10] Prescriptions as of 10/20/2023 - multivit-min/ferrous fumarate (MULTI VITAMIN ORAL) Take by mouth once daily. - tamoxifen (NOLVADEX) 20 mg tablet Take 1 tablet (20 mg) by mouth once daily. - MULTIVITAMIN ORAL Take by mouth. - Glucosamine Sulfate (GLUCOSAMINE) 500 mg tab Take 3 tablets by mouth once daily. - phytosterol/pantethine (CHOLESTOFF COMPLETE ORAL) Take by mouth. - calcium carbonate/vitamin D3 (CALCIUM WITH VITAMIN D3 ORAL) Take by mouth. - ofloxacin (OCUFLOX) 0.3 % ophthalmic solution - prednisoLONE acetate (PRED FORTE, ECONOPRED PLUS) 1 % ophthalmic suspension - anastrozole (ARIMIDEX) 1 mg tablet Take 1 tablet by mouth once daily. - ubidecarenone Q-10 (CO Q-10) 10 mg cap Take by mouth twice daily. - LUTEIN ORAL Take by mouth. - Multivitamins-Iron tab Take 1 tablet by mouth once daily. - Atqasuk-3 Fatty Acids-Vitamin E (FISH OIL) 1,000 mg cap Take 1 capsule by mouth. - atorvastatin (LIPITOR) 10 mg tablet Problem List As Of Date 10/20/2023 Noted Resolved Abdominal or pelvic swelling, mass or lump, uns*03/11/2014 S/P hysterectomy [Z90.710] 05/23/2014 Cancer of breast, intraductal [D05.10] 04/06/2015 Malignant neoplasm of upper-outer quadrant of r*04/11/2015 History of breast cancer [Z85.3] 04/15/2016 GERD (gastroesophageal reflux disease) [K21.9] 08/11/2023 PONV (postoperative nausea and vomiting) [R11.2*08/11/2023 Former smoker [Z87.891] 08/11/2023 Encounter Status:Closed by JEANNETTE LOZA on 10/20/23 [facility] CNOVon 10-14-2023 CNOV Office Visit (RADTSA ) IVAN HERRERA ([id number]) 1950 F Date Time Provider Department 10/14/23 11:45 AM ISAIAH GAUTHIER During your visit today, we recorded the following information about you: Temperature Pulse Respiration Blood pressure 97.9 degrees 67/minute 16/minute 104/71 Weight 91.1 kg Isaiah Gauthier MD 10/14/2023 12:29 PM Signed RADIATION ONCOLOGY- ON TREATMENT REVIEW (OTR) NOTE PATIENT NAME: Ivan Herrera PATIENT DIAGNOSIS: Ms. Herrera is a 73-year-old woman with 1. Newly diagnosed Stage I, [id number] IDC of the left breast; ER/MA+, Her2- s/p biopsy on 06/11/2023. 2. Stage I, [id number] IDC of the right breast; ER/MA+, Her2- s/p lumpectomy/radiation in 2014 followed by endocrine therapy. COURSE: post-operative Area Treated: Left Breast Current dose: 2670 cGy in 10 fx Planned dose: 4005 cGy in 15 fx SUBJECTIVE: Tolerating XRT well and notes slight discomfort in the area of the axilla/incision with some skin thickness and no breakdown. She denies any itching or swelling and use a moisturizer twice a day with intact range of motion. She does endorse mild fatigue with good appetite and hydration and stable weight. PHYSICAL EXAM: KPS: 90 General Appearance: Alert and oriented. No acute distress. Skin erythema/hyperpigmentation: Minimal Desquamation: No TOXICITY ASSESSMENT (CTC v4.0): Fatigue: grade 1 - Fatigue relieved by rest Radiation dermatitis: grade 1 - Faint erythema or dry desquamation Treatment chart checked: Yes Patient treatment site reviewed and verified:Yes Port films reviewed and current:Yes Medications started: None ASSESSMENT/PLAN: Clinically stable. Toxicity within expected parameters. Continue radiation treatment as planned. Signed by: MD Dipesh Torres Ariana, LPN 10/14/2023 12:29 PM Signed Status: Post-menopausal. Allergies As of Date: 10/14/2023 Noted Allergy Reaction SULFA (SULFONAMIDE ANTIBIOTICS) 03/10/2014 14 - Other: See Comments Comments: palpitations SULFAMETHOXAZOLE-TRIMETHOPR IM 02/13/2015 4 - Hives Date Reviewed: 10/14/2023 Reviewed by: Tayla Landon LPN - Fully Assessed Reason for Visit: Radiotherapy On-treatment Visit [1722] Primary Visit Diagnosis:Malignant neoplasm of lower-outer quadrant of left breast of female, estrogen receptor positive (HCC) [C50.512, Z17.0] Prescriptions as of 10/14/2023 - multivit-min/ferrous fumarate (MULTI VITAMIN ORAL) Take by mouth once daily. - tamoxifen (NOLVADEX) 20 mg tablet Take 1 tablet (20 mg) by mouth once daily. - MULTIVITAMIN ORAL Take by mouth. - Glucosamine Sulfate (GLUCOSAMINE) 500 mg tab Take 3 tablets by mouth once daily. - phytosterol/pantethine (CHOLESTOFF COMPLETE ORAL) Take by mouth. - calcium carbonate/vitamin D3 (CALCIUM WITH VITAMIN D3 ORAL) Take by mouth. - ofloxacin (OCUFLOX) 0.3 % ophthalmic solution - prednisoLONE acetate (PRED FORTE, ECONOPRED PLUS) 1 % ophthalmic suspension - anastrozole (ARIMIDEX) 1 mg tablet Take 1 tablet by mouth once daily. - ubidecarenone Q-10 (CO Q-10) 10 mg cap Take by mouth twice daily. - LUTEIN ORAL Take by mouth. - Multivitamins-Iron tab Take 1 tablet by mouth once daily. - Atq[place]-3 Fatty Acids-Vitamin E (FISH OIL) 1,000 mg cap Take 1 capsule by mouth. - atorvastatin (LIPITOR) 10 mg tablet Problem List As Of Date 10/14/2023 Noted Resolved Abdominal or pelvic swelling, mass or lump, uns*03/11/2014 S/P hysterectomy [Z90.710] 05/23/2014 Cancer of breast, intraductal [D05.10] 04/06/2015 Malignant neoplasm of upper-outer quadrant of r*04/11/2015 History of breast cancer [Z85.3] 04/15/2016 GERD (gastroesophageal reflux disease) [K21.9] 08/11/2023 PONV (postoperative nausea and vomiting) [R11.2*08/11/2023 Former smoker [Z87.891] 08/11/2023 Visit Notes: >> Tayla Landon LPN ThuOct 14, 2023 11:45 AM Status: Signed Status: Post-menopausal. Encounter Status:Closed by ISAIAH GAUTHIER on 10/14/23 [facility] CNOVon 10-13-2023 CNOV Office Visit (MELISSAASA ) IVAN HERRERA ([id number]) 1950 F Date Time Provider Department 10/13/23 AMY MÉNDEZ During your visit today, we recorded the following information about you: Amy Méndez LMT 10/13/2023 1:29 PM Signed Patient Name: Ivan Herrera : 1950 Referred For: chair massage Diagnosis: muscle soreness Chief Complaint: Pain Anxiety (pre): 3 Pain (pre): 5 Stress Level (pre): 3 Therapy Provided: Massage Therapy Area(s) Treated: entire back, lumbar focus Anxiety (post): 2 Pain (post): 3 Stress Level (post): 2 Visit Outcome: Better Comments: prefers to be called clarissa Treatment Plan: irish Care Team contacted: Physician Signature: Amy Méndez LMT Date: October 13, 2023 Time: 1:27 PM Allergies As of Date: 10/13/2023 Noted Allergy Reaction SULFA (SULFONAMIDE ANTIBIOTICS) 03/10/2014 14 - Other: See Comments Comments: palpitations SULFAMETHOXAZOLE-TRIMETHOPR IM 02/13/2015 4 - Hives Date Reviewed: 10/12/2023 Reviewed by: Ro Wei MA - Fully Assessed Primary Visit Diagnosis:Muscle soreness [M79.10] Prescriptions as of 10/13/2023 - multivit-min/ferrous fumarate (MULTI VITAMIN ORAL) Take by mouth once daily. - tamoxifen (NOLVADEX) 20 mg tablet Take 1 tablet (20 mg) by mouth once daily. - MULTIVITAMIN ORAL Take by mouth. - Glucosamine Sulfate (GLUCOSAMINE) 500 mg tab Take 3 tablets by mouth once daily. - phytosterol/pantethine (CHOLESTOFF COMPLETE ORAL) Take by mouth. - calcium carbonate/vitamin D3 (CALCIUM WITH VITAMIN D3 ORAL) Take by mouth. - ofloxacin (OCUFLOX) 0.3 % ophthalmic solution - prednisoLONE acetate (PRED FORTE, ECONOPRED PLUS) 1 % ophthalmic suspension - anastrozole (ARIMIDEX) 1 mg tablet Take 1 tablet by mouth once daily. - ubidecarenone Q-10 (CO Q-10) 10 mg cap Take by mouth twice daily. - LUTEIN ORAL Take by mouth. - Multivitamins-Iron tab Take 1 tablet by mouth once daily. - Atqasuk-3 Fatty Acids-Vitamin E (FISH OIL) 1,000 mg cap Take 1 capsule by mouth. - atorvastatin (LIPITOR) 10 mg tablet Problem List As Of Date 10/13/2023 Noted Resolved Abdominal or pelvic swelling, mass or lump, uns*03/11/2014 S/P hysterectomy [Z90.710] 05/23/2014 Cancer of breast, intraductal [D05.10] 04/06/2015 Malignant neoplasm of upper-outer quadrant of r*04/11/2015 History of breast cancer [Z85.3] 04/15/2016 GERD (gastroesophageal reflux disease) [K21.9] 08/11/2023 PONV (postoperative nausea and vomiting) [R11.2*08/11/2023 Former smoker [Z87.891] 08/11/2023 Encounter Status:Closed by AMY MÉNDEZ on 10/13/23 Normal [facility] CBC W Auto Differential pane l (Bld)on 10-12-2023 Basophils (Bld) [#/Vol] 0.05 10*3/uL Normal <0.11 [facility] Comment on above: Order Comment: Speci men Type: BLOOD SPECIMENOrdering Facility: [facility] Address: [address] [place] [address] Performed By: #### 5 7021-8 ####[facility] LABCLIA [id number] [place] [address] Basophils/100 WBC (Bld) 0.7 % Normal [facility] Comment on above: Order Comment: Speci men Type: BLOOD SPECIMENOrdering Facility: [facility] Address: [address] [place] [address] Performed By: #### 5 7021-8 ####[facility] LABCLIA [id number] [place] [address] Differential cell count method Nom (Bld) Auto Normal [facility] Comment on above: Order Comment: Speci men Type: BLOOD SPECIMENOrdering Facility: [facility] Address: [address] [place] [address] Performed By: #### 5 7021-8 ####[facility] LABCLIA [id number] [place] [address] Eosinophils (Bld) [#/Vol] 0.17 10*3/uL Normal <0.46 [facility] Comment on above: Order Comment: Speci men Type: BLOOD SPECIMENOrdering Facility: [facility] Address: [address] [place] [address] Performed By: #### 5 7021-8 ####[facility] LABCLIA [id number] [place] [address] Eosinophils/100 WBC (Bld) 2.3 % Normal [facility] Comment on above: Order Comment: Speci men Type: BLOOD SPECIMENOrdering Facility: [facility] Address: [address] [place] [address] Performed By: #### 5 7021-8 ####[facility] LABCLIA [id number] [place] [address] Erythrocyte distribution width (RBC) [Ratio] 14.3 % Normal 11.5-15.0 [facility] Comment on above: Order Comment: Speci men Type: BLOOD SPECIMENOrdering Facility: [facility] Address: [address] [place] [address] Performed By: #### 5 7021-8 ####[facility] LABCLIA [id number] [place] [address] Hematocrit (Bld) [Volume fraction] 44.5 % Normal 36.0-46.0 [facility] Comment on above: Order Comment: Speci men Type: BLOOD SPECIMENOrdering Facility: [facility] Address: [address] [place] [address] Performed By: #### 5 7021-8 ####[facility] LABIA [id number] [place] [address] Hemoglobin (Bld) [Mass/Vol] 14.4 g/dL Normal 11.5-15.5 [facility] Comment on above: Order Comment: Speci men Type: BLOOD SPECIMENOrdering Facility: [facility] Address: [address] [place] [address] Performed By: #### 5 7021-8 ####[facility] LABCLIA [id number] [place] [address] Immature granulocytes (Bld) [#/Vol] 10*3/uL Normal <0.10 [facility] Comment on above: Order Comment: Speci men Type: BLOOD SPECIMENOrdering Facility: [facility] Address: [address] [place] [address] Performed By: #### 5 7021-8 ####[facility] LABIA [id number] [place] [address] Immature granulocytes/100 WBC (Bld) 0.3 % Normal [facility] Comment on above: Order Comment: Speci men Type: BLOOD SPECIMENOrdering Facility: [facility] Address: [address] [place] [address] Performed By: #### 5 7021-8 ####[facility] LABCLIA [id number] [place] [address] Lymphocytes (Bld) [#/Vol] 1.76 10*3/uL Normal 1.00-4.00 [facility] Comment on above: Order Comment: Speci men Type: BLOOD SPECIMENOrdering Facility: [facility] Address: [address] [place] [address] Performed By: #### 5 7021-8 ####[facility] LABCLIA [id number] [place] [address] Lymphocytes/100 WBC (Bld) 23.5 % Normal [facility] Comment on above: Order Comment: Speci men Type: BLOOD SPECIMENOrdering Facility: [facility] Address: [address] [place] [address] Performed By: #### 5 7021-8 ####[facility] LABCLIA [id number] [place] [address] MCH (RBC) [Entitic mass] 30.1 pg Normal 26.0-34.0 [facility] Comment on above: Order Comment: Speci men Type: BLOOD SPECIMENOrdering Facility: [facility] Address: [address] [place] [address] Performed By: #### 5 7021-8 ####[facility] LABCLIA [id number] [place] [address] MCHC (RBC) [Mass/Vol] 32.4 g/dL Normal 30.5-36.0 [facility] Comment on above: Order Comment: Speci men Type: BLOOD SPECIMENOrdering Facility: [facility] Address: [address] [place] [address] Performed By: #### 5 7021-8 ####[facility] LABCLIA [id number] [place] [address] MCV (RBC) [Entitic vol] 92.9 fL Normal 80.0-100.0 [facility] Comment on above: Order Comment: Speci men Type: BLOOD SPECIMENOrdering Facility: [facility] Address: [address] [place] [address] Performed By: #### 5 7021-8 ####[facility] LABCLIA [id number] [place] [address] Monocytes (Bld) [#/Vol] 0.60 10*3/uL Normal <0.87 [facility] Comment on above: Order Comment: Speci men Type: BLOOD SPECIMENOrdering Facility: [facility] Address: [address] [place] [address] Performed By: #### 5 7021-8 ####[facility] LABCLIA [id number] [place] [address] Monocytes/100 WBC (Bld) 8.0 % Normal [facility] Comment on above: Order Comment: Speci men Type: BLOOD SPECIMENOrdering Facility: [facility] Address: [address] [place] [address] Performed By: #### 5 7021-8 ####[facility] LABCLIA [id number] [place] [address] Neutrophils (Bld) [#/Vol] 4.90 10*3/uL Normal 1.45-7.50 [facility] Comment on above: Order Comment: Speci men Type: BLOOD SPECIMENOrdering Facility: [facility] Address: [address] [place] [address] Performed By: #### 5 7021-8 ####[facility] LABCLIA [id number] [place] [address] Neutrophils/100 WBC (Bld) 65.2 % Normal [facility] Comment on above: Order Comment: Speci men Type: BLOOD SPECIMENOrdering Facility: [facility] Address: [address] [place] [address] Performed By: #### 5 7021-8 ####[facility] LABCLIA [id number] [place] [address] Nucleated RBC (Bld) [#/Vol] 10*3/uL Normal <0.01 [facility] Comment on above: Order Comment: Speci men Type: BLOOD SPECIMENOrdering Facility: [facility] Address: [address] [place] [address] Performed By: #### 5 7021-8 ####[facility] LABCLIA [id number] [place] [address] Nucleated RBC/100 WBC (Bld) [Ratio] 0.0 /100 WBC Normal [facility] Comment on above: Order Comment: Speci men Type: BLOOD SPECIMENOrdering Facility: [facility] Address: [address] [place] [address] Performed By: #### 5 7021-8 ####[facility] LABCLIA [id number] [place] [address] Platelet mean volume (Bld) [Entitic vol] 10.2 fL Normal 9.0-12.7 [facility] Comment on above: Order Comment: Speci men Type: BLOOD SPECIMENOrdering Facility: [facility] Address: [address] [place] [address] Performed By: #### 5 7021-8 ####[facility] LABCLIA [id number] [place] [address] Platelets (Bld) [#/Vol] 273 10*3/uL Normal 150-400 [facility] Comment on above: Order Comment: Speci men Type: BLOOD SPECIMENOrdering Facility: [facility] Address: [address] [place] [address] Performed By: #### 5 7021-8 ####[facility] LABCLIA [id number] [place] [address] RBC (Bld) [#/Vol] 4.79 10*6/uL Normal 3.90-5.20 [facility] Comment on above: Order Comment: Speci men Type: BLOOD SPECIMENOrdering Facility: [facility] Address: [address] [place] [address] Performed By: #### 5 7021-8 ####[facility] LABIA [id number] [place] [address] WBC (Bld) [#/Vol] 7.50 10*3/uL Normal 3.70-11.00 [facility] Comment on above: Order Comment: Speci men Type: BLOOD SPECIMENOrdering Facility: [facility] Address: [address] [place] [address] Performed By: #### 5 7021-8 ####[facility] LABIA [id number] [place] [address] CNOVSPon 10-12-2023 CNOVSP Visit (SP) Office (H EMASA) IVAN HERRERA ([id number]) 1950 F Date Time Provider Department 10/12/23 10:15 AM MYLES TALAMANTES During your visit today, we recorded the following information about you: Temperature Pulse Respiration Blood pressure 97.5 degrees 71/minute 16/minute 148/84 Weight Height 91.6 kg 1.74 m Myles Talamantes MD 10/13/2023 1:50 PM Signed NAME: Ivan Herrera [facility] NO.: [id number] DATE OF SERVICE: October 12, 2023 ([place]) Some elements in this clinic note that are critical to medical decision making have been carefully reviewed and included from a prior clinic note dated: September 07, 2023 ([place]) Referring Provider: Dr. Chauncey Bowles Additional Clinicians involved in Ivan Herrera's care: Dillon Laffay DIAGNOSIS: Malignant neoplasm lower quadrant left breast ER positive. History of malignant neoplasm of upper-outer quadrant of right breast in female, estrogen receptor positive ASSESSMENT: 73 year old woman with malignant neoplasm of upper-outer quadrant of right breast in female, estrogen receptor positive Stage I ([id number]) right breast cancer of the upper outer quadrant, ER/MA +, Her2-, diagnosed in February 2015. She had lumpectomy, followed by radiation, and has been on aromatase inhibitor therapy since May 2015 with good tolerance. Her recent mammogram from February 2020 was negative for malignancy. She has no evidence of recurrence. She continued her Anastrozole until May 2020, completing 5 years of therapy. 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 She presents in follow-up regarding this new diagnosis. S/p Lumpectomy left breast July 2023 4mm, G1 pT1a, BMX ER+ 91%, MA-, HER2 (1+) negative. PLAN: RTC with [place] in 6 weeks Labs same day. Tox check following start of Tamoxifen Exam same day. RTC with me in 4 months Labs same day. - HPI: CASE HISTORY: Reverse Chronological Order 08/19/2023 - Lumpectomy, Left breast: 4mm, G1 pT1a, BMX ER+ 91%, MA-, HER2 (1+) negative Left axillary sentinel lymph node #1, excision (A) - Benign fibroadipose tissue. -No lymph node is identified. Left breast, lumpectomy (B) - Invasive ductal carcinoma, Isabella grade 1, spanning 0.4 cm, (see comment). - Ductal carcinoma in situ (DCIS), nuclear grade 2, solid and cribriform types with microcalcifications. - Biopsy site changes and biopsy clip (x1) are identified. - The surrounding breast tissue shows atypical ductal hyperplasia (ADH), atypical lobular hyperplasia (ALH), usual ductal hyperplasia and apocrine metaplasia. All margins negative for malignancy: Left breast, anterior margin, excision (G) - Atypical lobular hyperplasia (ALH). 08/05/2023 - MRI Breast: Known biopsy proven malignancy The 1 cm x 0.7 cm x 1.4 cm architectural distortion in the left breast at 6 o'clock middle depth is consistent with the known carcinoma and is a known biopsy positive for malignancy. 07/09/2023 - Dx Mammogram Left: Known biopsy proven malignancy The architectural distortion in the left breast is a known biopsy positive for malignancy. A surgical consult is recommended. An X clip is visualized at the site of biopsy-proven malignancy. Of note, the X clip is at the inferior aspect of the architectural distortion. 06/11/2023 - left breast mass 6:00, 6 cm from nipple stereotactic core biopsy at [facility]. Consistent with invasive ductal carcinoma NOS. G1, DCIS present, no LVI, ER +91 to 100%, MA negative. HER2 IHC pending. 05/27/2023 - Mammogram: diagnostic category 4 -- suspicious for malignancy. Finding does not exhibit classic findings of breast cancer. 03/29/2021 - Mammogram: diagnostic category 2 -- benign finding with no change from prior assessment. 03/26/2020 - bilateral screening mammogram: diagnostic category 2; benign finding. No change from comparison assessment. 05/2015-current - Arimidex 04/23/2015-06/05/2015 - Radiation to right breast; 6000 cGy in 30 fractions 03/21/2015 - excisional biopsy and sentinel node biopsy Invasive carcinoma of the right breast 1.1 cm grade 1, ER and MA positive, HER-2 negative by FISH (IHC not reported, presumed 2+) ; 4 lymph nodes all negative for cancer Updated Visit, October 12, 2023: Continues radiation until the 20 of October. Will start Tamoxifen on October 27. Doing well. Since she recurred after having 5 years of Arimidex in opposite breast, will try her on Tamoxifen. Updated Visit, September 07, 2023: Clarissa returns for a follow-up, she is doing well today. She had left breast lumpectomy last (more content not included)... Normal [facility] Cancer Ag15-3 SerPl-aCncon 0 10-12-2023 Cancer Ag 15-3 Qn 29.3 U/mL High <26.0 [facility] Comment on above: Order Comment: Speci men Type: BLOOD SPECIMENOrdering Facility: [facility] Address: [address] [place] [address] Result Comment: The CA 15-3 test methodology used is the Electrochemiluminescence Immunoassay by [employer]. Results obtained with different methods or kits cannot be used interchangeably. Performed By: #### 6 875-9 ####[facility] LABCLIA [id number] [place] [address] [place] Cancer Ag27-29 SerPl-aCncon 10-12-2023 Cancer Ag 27-29 Qn 31.3 [arb'U]/mL Normal <38.6 [facility] Comment on above: Order Comment: Speci men Type: BLOOD SPECIMENOrdering Facility: [facility] Address: [address] [place] [address] Result Comment: The CA27.29 test was performed using the [employer] XP chemiluminometric immunoassay method. Results obtained with different assay methods or kits cannot be used interchangeably. Performed By: #### 1 7842-6 ####[facility] LABCLIA [id number] [place] [address] [place] Comprehensive metabolic 2000 panelon 10-12-2023 Albumin [Mass/Vol] 4.4 g/dL Normal 3.9-4.9 [facility] Comment on above: Order Comment: Speci men Type: BLOOD SPECIMEN [facility] Address: [address] [place] [address] Performed By: #### 2 4323-8 #### [facility] LAB CLIA [id number] [address] [place] [address] ALP [Catalytic activity/Vol] 109 U/L Normal 34-123 [facility] Comment on above: Order Comment: Speci men Type: BLOOD SPECIMEN [facility] Address: [address] [place] [address] Performed By: #### 2 4323-8 #### [facility] CLIA [id number] [address] [place] [address] ALT [Catalytic activity/Vol] 22 U/L Normal 7-38 [facility] Comment on above: Order Comment: Speci men Type: BLOOD SPECIMEN [facility] Address: [address] [id number] Performed By: #### 2 4323-8 #### [facility] CLIA [id number] [address] [place] [address] Anion gap [Moles/Vol] 14 mmol/L Normal 9-18 [facility] Comment on above: Order Comment: Speci men Type: BLOOD SPECIMEN [facility] Address: [address] [id number] Performed By: #### 2 4323-8 #### [facility] CLIA [id number] [address] [place] [address] AST [Catalytic activity/Vol] 15 U/L Normal 13-35 [facility] Comment on above: Order Comment: Speci men Type: BLOOD SPECIMEN [facility] Address: [address] [id number] Performed By: #### 2 4323-8 #### [facility] CLIA [id number] [address] [place] [address] Bilirubin [Mass/Vol] 0.4 mg/dL Normal 0.2-1.3 [facility] Comment on above: Order Comment: Speci men Type: BLOOD SPECIMEN [facility] Address: [address] [place] [address] Performed By: #### 2 4323-8 #### [facility] CLIA [id number] [address] [place] [address] Calcium [Mass/Vol] 10.4 mg/dL High 8.5-10.2 [facility] Comment on above: Order Comment: Speci men Type: BLOOD SPECIMEN [facility] Address: [address] [place] [address] Performed By: #### 2 4323-8 #### [facility] CLIA [id number] [address] [place] [address] Chloride [Moles/Vol] 105 mmol/L Normal 97-105 [facility] Comment on above: Order Comment: Speci men Type: BLOOD SPECIMEN [facility] Address: [address] [place] [address] Performed By: #### 2 4323-8 #### [facility] CLIA [id number] [address] [place] [address] CO2 [Moles/Vol] 24 mmol/L Normal 22-30 [facility] Comment on above: Order Comment: Speci men Type: BLOOD SPECIMEN [facility] Address: [address] [place] [address] Performed By: #### 2 4323-8 #### [facility] CLIA [id number] [address] [place] [address] Creatinine [Mass/Vol] 0.77 mg/dL Normal 0.58-0.96 [facility] Comment on above: Order Comment: Speci men Type: BLOOD SPECIMEN [facility] Address: [address] [place] [address] Performed By: #### 2 4323-8 #### [facility] CLIA [id number] [address] [place] [address] Creatinine and Glomerular filtration rate.predicted panel (S/P/Bld) 82 mL/min/1.73m??? Normal >=60 [facility] [facility] Comment on above: Order Comment: Speci men Type: BLOOD SPECIMEN Ordering Facility: [facility] Address: [address] [place] [address] Result Comment: Bella mated Glomerular Filtration Rate (eGFR) is calculated using the 2020 CKD-EPI creatinine equation. This equation utilizes serum creatinine, sex, and age as parameters. The creatinine assay has traceable calibration to isotope dilution-mass spectrometry. Refer to KDIGO guidelines for clinical interpretation. In patients with unstable renal function, e.g. those with acute kidney injury, the eGFR may not accurately reflect actual GFR. Performed By: #### 2 4323-8 #### [facility] CLIA [id number] [address] [place] [address] Glucose [Mass/Vol] 122 mg/dL High 74-99 [facility] Comment on above: Order Comment: Nesha billingsley Type: BLOOD SPECIMEN Ordering Facility: [facility] Address: [address] [place] [address] Result Comment: The [place] Diabetes [employer] (ADA) provides guidance for cutoff values for fasting glucose and random glucose. The ADA defines fasting as no caloric intake for at least 8 hours. Fasting plasma glucose results between 100 to 125 mg/dL indicate increased risk for diabetes (prediabetes). Fasting plasma glucose results greater than or equal to 126 mg/dL meet the criteria for diagnosis of diabetes. In the absence of unequivocal hyperglycemia, results should be confirmed by repeat testing. In a patient with classic symptoms of hyperglycemia or hyperglycemic crisis, random plasma glucose results greater than or equal to 200 mg/dL meet the criteria for diagnosis of diabetes. Reference: Standards of Medical Care in Diabetes 2016, [place] [employer]. Diabetes Care. 2016.39(Suppl 1). Performed By: #### 2 4323-8 #### [facility] CLIA [id number] [address] [place] [address] Potassium [Moles/Vol] 4.5 mmol/L Normal 3.7-5.1 [facility] Comment on above: Order Comment: Nesha billingsley Type: BLOOD SPECIMEN Ordering Facility: [facility] Address: [address] [place] [address] Performed By: #### 2 4323-8 #### [facility] CLIA [id number] [address] [place] [address] Protein [Mass/Vol] 7.4 g/dL Normal 6.3-8.0 [facility] Comment on above: Order Comment: Nesha billingsley Type: BLOOD SPECIMEN Ordering Facility: [facility] Address: [address] [place] [address] Performed By: #### 2 4323-8 #### [facility] CLIA [id number] [address] [place] [address] Sodium [Moles/Vol] 143 mmol/L Normal 136-144 [facility] Comment on above: Order Comment: Speci men Type: BLOOD SPECIMEN Ordering Facility: [facility] Address: [address] [place] [address] Performed By: #### 2 4323-8 #### [facility] CLIA [id number] [address] [place] [address]70 Urea nitrogen [Mass/Vol] 18 mg/dL Normal 7-21 [facility] Comment on above: Order Comment: Speci men Type: BLOOD SPECIMEN Ordering Facility: [facility] Address: [address] [place] [address] Performed By: #### 2 4323-8 #### [facility] CLIA [id number] [address] [place] [address] CNOVon 10-07-2023 CNOV Office Visit (RADTSA ) IVAN HERERRA ([id number]) 1950 F Date Time Provider Department 10/07/23 11:45 AM ISAIAH GAUTHIER RADTSA During your visit today, we recorded the following information about you: Temperature Pulse Respiration Blood pressure 98.1 degrees 62/minute 16/minute 133/82 Weight 91 kg Tayla Landon LPN 10/07/2023 11:33 AM Signed Status: Post-menopausal. Isaiah aGuthier MD 10/07/2023 12:16 PM Signed RADIATION ONCOLOGY- ON TREATMENT REVIEW (OTR) NOTE PATIENT NAME: Ivan Herrera PATIENT DIAGNOSIS: Ms. Herrera is a 73-year-old woman with 1. Newly diagnosed Stage I, [id number] IDC of the left breast; ER/MA+, Her2- s/p biopsy on 06/11/2023. 2. Stage I, [id number] IDC of the right breast; ER/MA+, Her2- s/p lumpectomy/radiation in 2014 followed by endocrine therapy. COURSE: post-operative Area Treated: Left Breast Current dose: 1335 cGy in 5 fx Planned dose: 4005 cGy in 15 SUBJECTIVE: Tolerating XRT well and notes persistent tenderness around the area of the nipple which is unchanged as well as some itching. She denies any skin breakdown and use moisturizer twice a day with good range of motion of the left upper extremity. She does endorse some fatigue with good appetite and hydration and stable weight. PHYSICAL EXAM: KPS: 90 General Appearance: Alert and oriented. No acute distress. Skin erythema/hyperpigmentation: Minimal Desquamation: No TOXICITY ASSESSMENT (CTC v4.0): Fatigue: grade 1 - Fatigue relieved by rest Radiation dermatitis: grade 1 - Faint erythema or dry desquamation Treatment chart checked: Yes Patient treatment site reviewed and verified:Yes Port films reviewed and current:Yes Medications started: None ASSESSMENT/PLAN: Clinically stable. Toxicity within expected parameters. Continue radiation treatment as planned. Signed by: Isaiah Gauthier MD Allergies As of Date: 10/07/2023 Noted Allergy Reaction SULFA (SULFONAMIDE ANTIBIOTICS) 03/10/2014 14 - Other: See Comments Comments: palpitations SULFAMETHOXAZOLE-TRIMETHOPR IM 02/13/2015 4 - Hives Date Reviewed: 10/07/2023 Reviewed by: Tayla Landon LPN - Fully Assessed Reason for Visit: Breast Cancer [519] Primary Visit Diagnosis:Malignant neoplasm of lower-outer quadrant of left breast of female, estrogen receptor positive (HCC) [C50.512, Z17.0] Prescriptions as of 10/07/2023 - MULTIVITAMIN ORAL Take by mouth. - Glucosamine Sulfate (GLUCOSAMINE) 500 mg tab Take 3 tablets by mouth once daily. - phytosterol/pantethine (CHOLESTOFF COMPLETE ORAL) Take by mouth. - calcium carbonate/vitamin D3 (CALCIUM WITH VITAMIN D3 ORAL) Take by mouth. - ofloxacin (OCUFLOX) 0.3 % ophthalmic solution - prednisoLONE acetate (PRED FORTE, ECONOPRED PLUS) 1 % ophthalmic suspension - anastrozole (ARIMIDEX) 1 mg tablet Take 1 tablet by mouth once daily. - ubidecarenone Q-10 (CO Q-10) 10 mg cap Take by mouth twice daily. - LUTEIN ORAL Take by mouth. - Multivitamins-Iron tab Take 1 tablet by mouth once daily. - Atqasuk-3 Fatty Acids-Vitamin E (FISH OIL) 1,000 mg cap Take 1 capsule by mouth. - atorvastatin (LIPITOR) 10 mg tablet Problem List As Of Date 10/07/2023 Noted Resolved Abdominal or pelvic swelling, mass or lump, uns*03/11/2014 S/P hysterectomy [Z90.710] 05/23/2014 Cancer of breast, intraductal [D05.10] 04/06/2015 Malignant neoplasm of upper-outer quadrant of r*04/11/2015 History of breast cancer [Z85.3] 04/15/2016 GERD (gastroesophageal reflux disease) [K21.9] 08/11/2023 PONV (postoperative nausea and vomiting) [R11.2*08/11/2023 Former smoker [Z87.891] 08/11/2023 Visit Notes: >> Tayla Landon LPN ThuOct 07, 2023 11:31 AM Status: Signed Status: Post-menopausal. Encounter Status:Closed by ISAIAH GAUTHIER on 10/07/23 [facility] CNOVon 10-06-2023 CNOV Office Visit (ERIKA ) IVAN HERRERA ([id number]) 1950 F Date Time Provider Department 10/06/23 JEANNETTE LOZA During your visit today, we recorded the following information about you: Jeannette Loza LMT 10/06/2023 3:11 PM Signed Patient Name: Ivan Sahnior : 1950 Referred For: Chair massage Diagnosis: Muscle soreness Chief Complaint: Relaxation Anxiety (pre): patient declined to answer Pain (pre): patient declined to answer Stress Level (pre): patient declined to answer Therapy Provided: Massage Therapy Area(s) Treated: Neck, back and shoulders Anxiety (post): patient declined to answer Pain (post): patient declined to answer Stress Level (post): patient declined to answer Visit Outcome: Better Comments: Treatment Plan: Spanish massage to neck and shoulders. Spanish massage to back and percussion to lower back, glutes and hips Care Team contacted: N/A Signature: Jeannette Loza LMT Date: October 06, 2023 Time: 3:09 PM Allergies As of Date: 10/06/2023 Noted Allergy Reaction SULFA (SULFONAMIDE ANTIBIOTICS) 03/10/2014 14 - Other: See Comments Comments: palpitations SULFAMETHOXAZOLE-TRIMETHOPR IM 02/13/2015 4 - Hives Date Reviewed: 09/30/2023 Reviewed by: Sherri Sánchez RN - Fully Assessed Primary Visit Diagnosis:Muscle soreness [M79.10] Prescriptions as of 10/06/2023 - Glucosamine Sulfate (GLUCOSAMINE) 500 mg tab Take 3 tablets by mouth once daily. - phytosterol/pantethine (CHOLESTOFF COMPLETE ORAL) Take by mouth. - calcium carbonate/vitamin D3 (CALCIUM WITH VITAMIN D3 ORAL) Take by mouth. - ofloxacin (OCUFLOX) 0.3 % ophthalmic solution - prednisoLONE acetate (PRED FORTE, ECONOPRED PLUS) 1 % ophthalmic suspension - anastrozole (ARIMIDEX) 1 mg tablet Take 1 tablet by mouth once daily. - ubidecarenone Q-10 (CO Q-10) 10 mg cap Take by mouth twice daily. - LUTEIN ORAL Take by mouth. - Multivitamins-Iron tab Take 1 tablet by mouth once daily. - Atqasuk-3 Fatty Acids-Vitamin E (FISH OIL) 1,000 mg cap Take 1 capsule by mouth. - atorvastatin (LIPITOR) 10 mg tablet Problem List As Of Date 10/06/2023 Noted Resolved Abdominal or pelvic swelling, mass or lump, uns*03/11/2014 S/P hysterectomy [Z90.710] 05/23/2014 Cancer of breast, intraductal [D05.10] 04/06/2015 Malignant neoplasm of upper-outer quadrant of r*04/11/2015 History of breast cancer [Z85.3] 04/15/2016 GERD (gastroesophageal reflux disease) [K21.9] 08/11/2023 PONV (postoperative nausea and vomiting) [R11.2*08/11/2023 Former smoker [Z87.891] 08/11/2023 Encounter Status:Closed by JEANNETTE LOZA on 10/06/23 [facility] CNOVon 09-30-2023 CNOV Office Visit (RADTSA ) IVAN HERRERA ([id number]) 1950 F Date Time Provider Department 09/30/23 2:45 PM ISAIAH GAUTHIER During your visit today, we recorded the following information about you: Temperature Pulse Respiration Blood pressure 96.7 degrees 67/minute 18/minute 116/81 Weight 91 kg Isaiah Gauthier MD 10/05/2023 11:26 PM Signed RADIATION ONCOLOGY- ON TREATMENT REVIEW (OTR) NOTE PATIENT NAME: Ivan Herrera PATIENT DIAGNOSIS: Ms. Herrera is a 73-year-old woman with 1. Newly diagnosed Stage I, [id number] IDC of the left breast; ER/MA+, Her2- s/p biopsy on 06/11/2023. 2. Stage I, [id number] IDC of the right breast; ER/MA+, Her2- s/p lumpectomy/radiation in 2014 followed by endocrine therapy. COURSE: post-operative Area Treated: Left Breast Current dose: 267 cGy in 1 fx Planned dose: 4005 cGy in 15 fx SUBJECTIVE: Tolerated first fraction of XRT well and reports no significant changes in the time of simulation. Patient denies any pain/discomfort in the breast or any skin irritation or breakdown. She endorses good energy appetite and hydration with stable weight. PHYSICAL EXAM: KPS: 90 General Appearance: Alert and oriented. No acute distress. Skin erythema/hyperpigmentation: No Desquamation: No TOXICITY ASSESSMENT (CTC v4.0): Fatigue: grade 0 - No symptoms Radiation dermatitis: grade 0 - No symptoms Treatment chart checked: Yes Patient treatment site reviewed and verified:Yes Port films reviewed and current:Yes Medications started: None ASSESSMENT/PLAN: Clinically stable. No signs of toxicity. Continue radiation treatment as planned. We reviewed skincare as well as general precautions during radiation treatment to the left breast and discussed the potential acute toxicities during treatment and their time course. Encouraged the use of a good moisturizer in the treatment area and discussed the importance of a well-balanced diet, hydration, and exercise/activity as tolerated through the course of treatment. Signed by: Isaiah Gauthier MD Allergies As of Date: 09/30/2023 Noted Allergy Reaction SULFA (SULFONAMIDE ANTIBIOTICS) 03/10/2014 14 - Other: See Comments Comments: palpitations SULFAMETHOXAZOLE-TRIMETHOPR IM 02/13/2015 4 - Hives Date Reviewed: 09/30/2023 Reviewed by: Sherri Sánchez RN - Fully Assessed Reason for Visit: Radiotherapy On-treatment Visit [1722] Primary Visit Diagnosis:Malignant neoplasm of lower-outer quadrant of left breast of female, estrogen receptor positive (HCC) [C50.512, Z17.0] Prescriptions as of 10/05/2023 - Glucosamine Sulfate (GLUCOSAMINE) 500 mg tab Take 3 tablets by mouth once daily. - phytosterol/pantethine (CHOLESTOFF COMPLETE ORAL) Take by mouth. - calcium carbonate/vitamin D3 (CALCIUM WITH VITAMIN D3 ORAL) Take by mouth. - ofloxacin (OCUFLOX) 0.3 % ophthalmic solution - prednisoLONE acetate (PRED FORTE, ECONOPRED PLUS) 1 % ophthalmic suspension - anastrozole (ARIMIDEX) 1 mg tablet Take 1 tablet by mouth once daily. - ubidecarenone Q-10 (CO Q-10) 10 mg cap Take by mouth twice daily. - LUTEIN ORAL Take by mouth. - Multivitamins-Iron tab Take 1 tablet by mouth once daily. - Atqasuk-3 Fatty Acids-Vitamin E (FISH OIL) 1,000 mg cap Take 1 capsule by mouth. - atorvastatin (LIPITOR) 10 mg tablet Problem List As Of Date 09/30/2023 Noted Resolved Abdominal or pelvic swelling, mass or lump, uns*03/11/2014 S/P hysterectomy [Z90.710] 05/23/2014 Cancer of breast, intraductal [D05.10] 04/06/2015 Malignant neoplasm of upper-outer quadrant of r*04/11/2015 History of breast cancer [Z85.3] 04/15/2016 GERD (gastroesophageal reflux disease) [K21.9] 08/11/2023 PONV (postoperative nausea and vomiting) [R11.2*08/11/2023 Former smoker [Z87.891] 08/11/2023 Encounter Status:Closed by ISAIAH GAUTHIER on 10/05/23 [facility] CNPBrisa 09-29-2023 CNPN Telephone (HEMASA) IVAN HERRERA ([id number]) 1950 F Date Time Provider Department 09/29/23 MYLES TALAMANTES During your visit today, we recorded the following information about you: Ro Wei MA 09/29/2023 10:24 AM Signed Patient has an appt on 10/12/23. Would you like labs, if so place orders. Ro Wei MA Allergies As of Date: 09/29/2023 Noted Allergy Reaction SULFA (SULFONAMIDE ANTIBIOTICS) 03/10/2014 14 - Other: See Comments Comments: palpitations SULFAMETHOXAZOLE-TRIMETHOPR IM 02/13/2015 4 - Hives Date Reviewed: 09/07/2023 Reviewed by: Tayla Landon LPN - Fully Assessed Reason for Visit: Lab Orders [1688] Primary Visit Diagnosis:Malignant neoplasm of lower-outer quadrant of left breast of female, estrogen receptor positive (HCC) [C50.512, Z17.0] Order(s):COMP METABOLIC PANEL [SQCMP] Order #: [id number] FUTURE CBC + DIFF [SQCBCDIF] Order #: [id number] FUTURE CA 15-3 BLD [YKAV019] Order #: [id number] FUTURE CA 27.29 BLOOD [WRGN1140] Order #: [id number] FUTURE Prescriptions as of 10/06/2023 - Glucosamine Sulfate (GLUCOSAMINE) 500 mg tab Take 3 tablets by mouth once daily. - phytosterol/pantethine (CHOLESTOFF COMPLETE ORAL) Take by mouth. - calcium carbonate/vitamin D3 (CALCIUM WITH VITAMIN D3 ORAL) Take by mouth. - ofloxacin (OCUFLOX) 0.3 % ophthalmic solution - prednisoLONE acetate (PRED FORTE, ECONOPRED PLUS) 1 % ophthalmic suspension - anastrozole (ARIMIDEX) 1 mg tablet Take 1 tablet by mouth once daily. - ubidecarenone Q-10 (CO Q-10) 10 mg cap Take by mouth twice daily. - LUTEIN ORAL Take by mouth. - Multivitamins-Iron tab Take 1 tablet by mouth once daily. - Atqasuk-3 Fatty Acids-Vitamin E (FISH OIL) 1,000 mg cap Take 1 capsule by mouth. - atorvastatin (LIPITOR) 10 mg tablet Problem List As Of Date 09/29/2023 Noted Resolved Abdominal or pelvic swelling, mass or lump, uns*03/11/2014 S/P hysterectomy [Z90.710] 05/23/2014 Cancer of breast, intraductal [D05.10] 04/06/2015 Malignant neoplasm of upper-outer quadrant of r*04/11/2015 History of breast cancer [Z85.3] 04/15/2016 GERD (gastroesophageal reflux disease) [K21.9] 08/11/2023 PONV (postoperative nausea and vomiting) [R11.2*08/11/2023 Former smoker [Z87.891] 08/11/2023 Encounter Status:Closed by MYLES TALAMANTES on 10/06/23 [facility] Alisa 09-08-2023 TODDN Telephone (FoodilyA) IVAN HERRERA ([id number]) 1950 F Date Time Provider Department 09/08/23 ISAIAH GAUTHIER During your visit today, we recorded the following information about you: Sherri Sánchez RN 09/08/2023 3:14 PM Signed Pt called in due to continued nipple tenderness. She stated this has been there since her surgery and it was discussed at her visit yesterday. She's denies any redness, swelling, etc. She wanted to know if this was normal. I encouraged her to reach out to her surgeon's office to see if this is expected after her type of surgery. She agreed and will do this if she has further questions. Sherri Sánchez RN Allergies As of Date: 09/08/2023 Noted Allergy Reaction SULFA (SULFONAMIDE ANTIBIOTICS) 03/10/2014 14 - Other: See Comments Comments: palpitations SULFAMETHOXAZOLE-TRIMETHOPR IM 02/13/2015 4 - Hives Date Reviewed: 09/07/2023 Reviewed by: Tayla Landon LPN - Fully Assessed Reason for Visit: Nipple Tenderness [Other] Prescriptions as of 09/09/2023 - Glucosamine Sulfate (GLUCOSAMINE) 500 mg tab Take 3 tablets by mouth once daily. - phytosterol/pantethine (CHOLESTOFF COMPLETE ORAL) Take by mouth. - calcium carbonate/vitamin D3 (CALCIUM WITH VITAMIN D3 ORAL) Take by mouth. - ofloxacin (OCUFLOX) 0.3 % ophthalmic solution - prednisoLONE acetate (PRED FORTE, ECONOPRED PLUS) 1 % ophthalmic suspension - anastrozole (ARIMIDEX) 1 mg tablet Take 1 tablet by mouth once daily. - ubidecarenone Q-10 (CO Q-10) 10 mg cap Take by mouth twice daily. - LUTEIN ORAL Take by mouth. - Multivitamins-Iron tab Take 1 tablet by mouth once daily. - Atqasuk-3 Fatty Acids-Vitamin E (FISH OIL) 1,000 mg cap Take 1 capsule by mouth. - atorvastatin (LIPITOR) 10 mg tablet Problem List As Of Date 09/08/2023 Noted Resolved Abdominal or pelvic swelling, mass or lump, uns*03/11/2014 S/P hysterectomy [Z90.710] 05/23/2014 Cancer of breast, intraductal [D05.10] 04/06/2015 Malignant neoplasm of upper-outer quadrant of r*04/11/2015 History of breast cancer [Z85.3] 04/15/2016 GERD (gastroesophageal reflux disease) [K21.9] 08/11/2023 PONV (postoperative nausea and vomiting) [R11.2*08/11/2023 Former smoker [Z87.891] 08/11/2023 Encounter Status:Closed by SHERRI SÁNCHEZ on 09/09/23 [facility] CNOVon 09-07-2023 CNOV Office Visit (RADTSA ) IVAN HERRERA ([id number]) 1950 F Date Time Provider Department 09/07/23 11:00 AM ISAIAH GAUTHIER During your visit today, we recorded the following information about you: Isaiah Gauthier MD 09/15/2023 7:04 AM Signed Radiation Oncology - Follow Up Note PATIENT NAME: Ivan Herrera PATIENT DIAGNOSIS/PATIENT IDENTIFICATION: Ms. Herrera is a 73-year-old woman with 1. 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 2. Stage I, [id number] IDC of the right breast; ER/MA+, Her2- s/p lumpectomy/radiation in 2014 followed by endocrine therapy. The new left-sided disease was found on screening mammogram with biopsy confirmation on 06/11/2023. Ms. Herrera returns to clinic today for follow-up as previously discussed during consultation on 06/26/2023. In the interim, she underwent MRI of the breast on 08/05/2023 which again noted the approximately 1.4 cm area of distortion of the left breast consistent with the area of biopsy disease with no other concerning lesions or lymphadenopathy. She then met with Dr. Valles to discuss her surgical treatment options and was brought to the OR on 08/19/2023 where she underwent left breast wide local excision and sentinel lymph node biopsy without incident. Pathology revealed a residual 4 mm of low-grade IDC with negative margins and a lymph node was not in the biopsy specimen. Today Ms. Herrera reports recovering well from her recent surgery with some christal-incisional discomfort that continues to improve and denies any postoperative complications wound healing or infection. She notes good range of motion of the left upper extremity. We reviewed together her pathology results and discussed again her potential postoperative radiation treatment options in this context. Choices would range from omission based on her age and the favorable features of her disease as well as accelerated partial breast irradiation directed to the lumpectomy cavity or whole breast irradiation. After discussing the pros and cons of each option, the patient has chosen to proceed with whole breast irradiation for maximal risk reduction. We again briefly reviewed the rationale, logistics, and toxicity of radiation therapy to the whole breast in this postoperative setting. After all of her questions were answered, informed consent was obtained. Given that she is continuing to have tenderness in the breast, we agreed to have her return to clinic in approximately one week for CT simulation to begin treatment planning. Thank you for allowing us to participate in the care of this patient. RADIOLOGIC DATA: MRI Breast (08/05/2023) IMPRESSION: KNOWN BIOPSY PROVEN MALIGNANCY The 1 cm x 0.7 cm x 1.4 cm architectural distortion in the left breast at 6 o'clock middle depth is consistent with the known carcinoma and is a known biopsy positive for malignancy. A surgical consult is recommended. PATHOLOGIC DATA: 08/19/2023 FINAL DIAGNOSIS 1. Left axillary sentinel lymph node #1, excision (A) - Benign fibroadipose tissue. -No lymph node is identified. 2. Left breast, lumpectomy (B) - Invasive ductal carcinoma, Isabella grade 1, spanning 0.4 cm, (see comment). -Ductal carcinoma in situ (DCIS), nuclear grade 2, solid and cribriform types with microcalcifications. -Biopsy site changes and biopsy clip (x1) are identified. -The surrounding breast tissue shows atypical ductal hyperplasia (ADH), atypical lobular hyperplasia (ALH), usual ductal hyperplasia and apocrine metaplasia. 3. Left breast, superior margin, excision (C) - Benign breast tissue with usual ductal hyperplasia. 4. Left breast, inferior margin, excision (D) - Benign breast tissue. 5. Left breast, medial margin, excision (E) - Benign breast tissue. 6. Left breast, lateral margin, excision (F) - Benign breast tissue with microcalcifications. 7. Left breast, anterior margin, excision (G) - Atypical lobular hyperplasia (ALH). -The surrounding breast tissue shows usual ductal hyperplasia. 8. Left breast, posterior margin, excision (H) - Benign breast tissue. Synoptic Report SPECIMEN Procedure Excision (less than total mastectomy) Specimen Laterality Left TUMOR Histologic Type Invasive carcinoma of no special type (ductal) Histologic Overall Grade (NHS) Grade 1 (scores of 3, 4 or 5) Tumor Size Greatest dimension of largest invasive focus (Millimeters): 4 mm Tumor Focality Single focus of invasive carcinoma Ductal Carcinoma In Situ (DCIS) Present Nuclear Grade Grade II (intermediate) Necrosis Not identified Lymphatic and / or Vascular Invasion Not identified MARGINS Margin Status for Invasive Carcinoma All margins negative for invasive carcinoma Distance from Inv. Carcinoma to Closest Margin Greater than: 2 mm Margin Status for DCIS All simi (more content not included)... Normal [facility] CNOVSPon 09-07-2023 CNOVSP Visit (SP) Office (H EMASA) IVAN HERRERA ([id number]) 1950 F Date Time Provider Department 09/07/23 10:45 AM MYLES TALAMANTES During your visit today, we recorded the following information about you: Temperature Pulse Respiration Blood pressure 97.5 degrees 92/minute 16/minute 155/82 Weight Height 90.5 kg 1.74 m Myles Talamantes MD 09/07/2023 7:36 PM Signed NAME: Ivan Herrera [facility] NO.: [id number] DATE OF SERVICE: September 07, 2023 ([place]) Some elements in this clinic note that are critical to medical decision making have been carefully reviewed and included from a prior clinic note dated: August 07, 2023 ([place]) Referring Provider: Dr. Chauncey Bowles Additional Clinicians involved in Ivan Herrera's care: Dillon Cooper DIAGNOSIS: Malignant neoplasm lower quadrant left breast ER positive. History of malignant neoplasm of upper-outer quadrant of right breast in female, estrogen receptor positive ASSESSMENT: 73 year old woman with malignant neoplasm of upper-outer quadrant of right breast in female, estrogen receptor positive Stage I ([id number]) right breast cancer of the upper outer quadrant, ER/MA +, Her2-, diagnosed in February 2015. She had lumpectomy, followed by radiation, and has been on aromatase inhibitor therapy since May 2015 with good tolerance. Her recent mammogram from February 2020 was negative for malignancy. She has no evidence of recurrence. She continued her Anastrozole until May 2020, completing 5 years of therapy. 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 She presents in follow-up regarding this new diagnosis. S/p Lumpectomy left breast July 2023 4mm, G1 pT1a, BMX ER+ 91%, MA-, HER2 (1+) negative. PLAN: RTC after radiation - approximately 4-5 weeks - HPI: CASE HISTORY: Reverse Chronological Order 08/19/2023 - Lumpectomy, Left breast: 4mm, G1 pT1a, BMX ER+ 91%, MA-, HER2 (1+) negative Left axillary sentinel lymph node #1, excision (A) - Benign fibroadipose tissue. -No lymph node is identified. Left breast, lumpectomy (B) - Invasive ductal carcinoma, [place] grade 1, spanning 0.4 cm, (see comment). - Ductal carcinoma in situ (DCIS), nuclear grade 2, solid and cribriform types with microcalcifications. - Biopsy site changes and biopsy clip (x1) are identified. - The surrounding breast tissue shows atypical ductal hyperplasia (ADH), atypical lobular hyperplasia (ALH), usual ductal hyperplasia and apocrine metaplasia. All margins negative for malignancy: Left breast, anterior margin, excision (G) - Atypical lobular hyperplasia (ALH). 08/05/2023 - MRI Breast: Known biopsy proven malignancy The 1 cm x 0.7 cm x 1.4 cm architectural distortion in the left breast at 6 o'clock middle depth is consistent with the known carcinoma and is a known biopsy positive for malignancy. 07/09/2023 - Dx Mammogram Left: Known biopsy proven malignancy The architectural distortion in the left breast is a known biopsy positive for malignancy. A surgical consult is recommended. An X clip is visualized at the site of biopsy-proven malignancy. Of note, the X clip is at the inferior aspect of the architectural distortion. 06/11/2023 - left breast mass 6:00, 6 cm from nipple stereotactic core biopsy at [facility]. Consistent with invasive ductal carcinoma NOS. G1, DCIS present, no LVI, ER +91 to 100%, MA negative. HER2 IHC pending. 05/27/2023 - Mammogram: diagnostic category 4 -- suspicious for malignancy. Finding does not exhibit classic findings of breast cancer. 03/29/2021 - Mammogram: diagnostic category 2 -- benign finding with no change from prior assessment. 03/26/2020 - bilateral screening mammogram: diagnostic category 2; benign finding. No change from comparison assessment. 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 She had left breast lumpectomy last month. She will begin on aromatase inhibitor, likely Tamoxifen, after radiation. Updated Visit, August 07, 2023: Clarissa returns today with her sister Minnie. She is having a clip put in soon. Lumpectomy scheduled for 08/19/[address] Valles. We reviewed her MRI together. She will complete genetic counseling. HER2 l (more content not included)... Normal [facility] CNOVon 08-27-2023 CNOV Office Visit ([facility] ) IVAN HERRERA ([id number]) 1950 F Date Time Provider Department 08/27/23 11:20 AM JACK DING During your visit today, we recorded the following information about you: Temperature Weight 97.7 degrees 89.4 kg Jack Ding PA-C 08/27/2023 1:02 PM Signed BREAST CANCER POST OPERATIVE FOLLOW-UP SERVICE DATE: 08/27/2023 SURGERY DATE: 08/19/23 POSTOPERATIVE VISIT #1 SUBJECTIVE: Ivan Herrera is a 73 year old female s/p LEFT lumpectomy, sentinel node biopsy. She is doing wonderfully with no surgical site concerns today. OBJECTIVE: PHYSICAL EXAM: 08/27/23 1122 Temp: 36.5 ?C (97.7 ?F) TempSrc: Oral Weight: 89.4 kg (197 lb) The left breast incision and axillary incision are both healing well. There is no evidence of infection. PATHOLOGY REPORT: FINAL DIAGNOSIS 1. Left axillary sentinel lymph node #1, excision (A) - Benign fibroadipose tissue. -No lymph node is identified. 2. Left breast, lumpectomy (B) - Invasive ductal carcinoma, [place] grade 1, spanning 0.4 cm, (see comment). -Ductal carcinoma in situ (DCIS), nuclear grade 2, solid and cribriform types with microcalcifications. -Biopsy site changes and biopsy clip (x1) are identified. -The surrounding breast tissue shows atypical ductal hyperplasia (ADH), atypical lobular hyperplasia (ALH), usual ductal hyperplasia and apocrine metaplasia. 3. Left breast, superior margin, excision (C) - Benign breast tissue with usual ductal hyperplasia. 4. Left breast, inferior margin, excision (D) - Benign breast tissue. 5. Left breast, medial margin, excision (E) - Benign breast tissue. 6. Left breast, lateral margin, excision (F) - Benign breast tissue with microcalcifications. 7. Left breast, anterior margin, excision (G) - Atypical lobular hyperplasia (ALH). -The surrounding breast tissue shows usual ductal hyperplasia. 8. Left breast, posterior margin, excision (H) - Benign breast tissue. PJM/pjm/08/21/23 Diagnosis Comment CCM Part 1 - The specimen has been entirely submitted for histologic examination; no lymph node is identified. Part 2 - Please see separately submitted margins for additional information regarding the final margin status. Block for additional Biomarkers/Molecular studies CCM Tumor block: B5. Synoptic Report INVASIVE CARCINOMA OF THE BREAST: Resection 8th Edition - Protocol posted: 03/18/2023 INVASIVE CARCINOMA OF THE BREAST: RESECTION - All Specimens SPECIMEN Procedure Excision (less than total mastectomy) Specimen Laterality Left TUMOR Histologic Type Invasive carcinoma of no special type (ductal) Histologic Grade (Isabella Histologic Score) Glandular (Acinar) / Tubular Differentiation Score 2 Nuclear Pleomorphism Score 2 Mitotic Rate Score 1 Overall Grade Grade 1 (scores of 3, 4 or 5) Tumor Size Greatest dimension of largest invasive focus (Millimeters): 4 mm Tumor Focality Single focus of invasive carcinoma Ductal Carcinoma In Situ (DCIS) Present Architectural Patterns Cribriform Solid Nuclear Grade Grade II (intermediate) Necrosis Not identified Lymphatic and / or Vascular Invasion Not identified Treatment Effect in the Breast No known presurgical therapy MARGINS Margin Status for Invasive Carcinoma All margins negative for invasive carcinoma Distance from Invasive Carcinoma to Closest Margin Greater than: 2 mm Margin Status for DCIS All margins negative for DCIS Distance from DCIS to Closest Margin Greater than: 2 mm REGIONAL LYMPH NODES Regional Lymph Node Status Not applicable (no regional lymph nodes submitted or found) pTNM CLASSIFICATION (AJCC 8th Edition) Reporting of pT, pN, and (when applicable) pM categories is based on information available to the pathologist at the time the report is issued. As per the AJCC (Chapter 1, 8th Ed.) it is the managing physician?s responsibility to establish the final pathologic stage based upon all pertinent information, including but potentially not limited to this pathology report. pT Category pT1a pN Category pN not assigned (no nodes submitted or found) Breast Biomarker Testing Performed on Previous Biopsy Estrogen Receptor (ER) Status Positive (greater than 10% of cells demonstrate nuclear positivity) Percentage of Cells with Nuclear Positivity 91-100% Breast Biomarker Testing Performed on Previous Biopsy Progesterone Receptor (PgR) Status Negative Breast Biomarker Testing Performed on Previous Biopsy HER2 (by immunohistochemistry) Negative (Score 1+) Testing Performed on Comment(s) Tumor block: B5. This synnoptic report incorporates the separately submitted final margins. PATHOLOGICAL STAGE LEFT BREAST: p,T1a,Nx, STAGE: Stage 1A: (T1-T1mi, N0, M0) ASSESSMENT: Ivan (more content not included)... Normal [facility] Breast specimen - left Vi ewson 08-19-2023 [facility] STEREO NEEDLE LOC LTon 0 08-18-2023 [facility] STEREO NEEDLE LOC LT * * *Final Report* * * DATE OF EXAM: Aug 18 2023 11:51AM SSW 0632 - [facility] STEREO NEEDLE LOC LT / PROCEDURE REASON: multiple diagnoses * * * * Physician Interpretation * * * * RESULT: #[id number] - [facility] STEREO NEEDLE LOC LT DIGITAL TOMOGRAPHIC MAMMOGRAPHY GUIDED INFRARED ACTIVATED ELECTROMAGNETIC REFLECTOR DEVICE PLACEMENT LEFT BREAST WITH POST DIGITAL MAMMOGRAPHIC IMAGIN08/18/2023 HISTORY: /The patient presents for left mammographic (stereo) guided localization with reflector placement as recommended from recent imaging study dated 07/09/2023. Pre and post localization mammographic images were obtained. Brenna placement 6:00, note that clip was noted to be along the inferior aspect of the architectural distortion. Therefore, the center of the distortion was targeted for placement of the Brenna. PATIENT CONSENT: A time out was performed immediately prior to procedure start with the radiology team, correctly identifying the patient name, date of , procedure, anatomy (including marking of site and side), patient position, relevant diagnostic and radiology test results, safety precautions, and procedure-specific equipment needs. The procedure was explained to the patient including the risks, benefits and alternatives. Medications and allergies were also reviewed. The risks, including but not limited to infection and bleeding, were reviewed by the performing physician and the patient agreed to undergo the procedure. The radiologist and technologist were present throughout the entire procedure. Audible Time Out Time: 1326 Procedure Start Time: 1328 Procedure Stop Time: 1333 . Correlation is made to exams dated: 07/09/2023 mammogram - [facility] and 08/05/2023 breast MRI - [facility]. An infrared activated electromagnetic reflector device placement was performed for the area of architectural distortion located in the left breast at 6 o'clock middle depth. The skin was prepped in the usual manner. Local anesthetic was administered to the access site. The localization was approached from the lateral aspect using an upright digital tomographic mammography unit. A location device was inserted into the targeted area. A sterile dressing was applied to the access site. Post placement digital mammographic imaging was obtained. Clip placement/activation was verified with Printing Grey Cloth Tender Check following the procedure. IMPRESSION: INFRARED ACTIVATED ELECTROMAGNETIC REFLECTOR DEVICE PLACEMENT Infrared activated electromagnetic reflector device placement for the area of architectural distortion in the left breast at 6 o'clock middle depth with placement of an infrared activated electromagnetic reflector device was successful with no apparent post procedure complications. A specimen radiograph is recommended. The specimen radiograph should include the Printing Grey Cloth Tender reflector and the twirl shaped clip. SUMMARY: Note that clip was described to be along the inferior aspect of the suspicious area/architectural distortion. Therefore, the center of the distortion was targeted for placement of the Brenna. The twirl clip is therefore 7mm inferior to the Brenna. Marissa styles/mary:08/18/2023 14:37:59 Control Tower Operator(s): RT Tavon(R)(M), [facility] Multiple national specialty organizations have released breast cancer screening guidelines for women at average risk for developing breast cancer - guidelines that are based on both evidence and opinion, yet differ on when to start and how often to screen for breast cancer. With representation from Breast Imaging, Internal Medicine, Women's Health, Family Medicine, and Medical/Surgical Oncology, the [facility] has carefully reviewed the data and reached the following consensus: 1) All women should engage in shared decision-making with their providers to decide when to start and how often to screen; 2) All women should have the opportunity to start screening mammography at age 40; 3) For women ages 45-55, we recommend annual screening mammograms; 4) For women ages 55 and over, we support both the transition from an annual to a biennial interval if this aligns more with patient's values and preferences, or continuation with annual screening; 5) All women should discuss with their providers when to stop screening mammograms. Relocation Associate: Mary Transcribe Date/Time: Aug 18 2023 10:36A Dictated by: MARISSA ANAND MD This examination was interpreted and the report reviewed and electronically signed by: MARISSA ANAND MD on Aug 18 2023 2:37PM EST [id number] Normal [facility] Guidance for needle local ization of Breast - lefton 08-18-2023 IMPRESSION: INFRARED ACTIVATED ELECTROMAGNETIC REFLECTOR DEVICE PLACEMENT Infrared activated electromagnetic reflector device placement for the area of architectural distortion in the left breast at 6 o'clock middle depth with placement of an infrared activated electromagnetic reflector device was successful with no apparent post procedure complications. A specimen radiograph is recommended. The specimen radiograph should include the Printing Grey Cloth Tender reflector and the twirl shaped clip. SUMMARY: Note that clip was described to be along the inferior aspect of the suspicious area/architectural distortion. Therefore, the center of the distortion was targeted for placement of the Brenna. The twirl clip is therefore 7mm inferior to the Brenna. Marissa styles/mary:08/18/2023 14:37:59 Control Tower Operator(s): RT Tavon(R)(M), [facility] Multiple national specialty organizations have released breast cancer screening guidelines for women at average risk for developing breast cancer - guidelines that are based on both evidence and opinion, yet differ on when to start and how often to screen for breast cancer. With representation from Breast Imaging, Internal Medicine, Women's Health, Family Medicine, and Medical/Surgical Oncology, the [facility] has carefully reviewed the data and reached the following consensus: 1) All women should engage in shared decision-making with their providers to decide when to start and how often to screen; 2) All women should have the opportunity to start screening mammography at age 40; 3) For women ages 45-55, we recommend annual screening mammograms; 4) For women ages 55 and over, we support both the transition from an annual to a biennial interval if this aligns more with patient's values and preferences, or continuation with annual screening; 5) All women should discuss with their providers when to stop screening mammograms. Relocation Associate: Mary Transcribe Date/Time: Aug 18 2023 10:36A Dictated by: MARISSA ANAND MD This examination was interpreted and the report reviewed and electronically signed by: MARISSA ANAND MD on Aug 18 2023 2:37PM [facility] DIVISION OF RADIOLOGY * * *Final Report* * * DATE OF EXAM: Aug 18 2023 11:51AM SSW 0632 - [facility] STEREO NEEDLE LOC LT / PROCEDURE REASON: multiple diagnoses * * * * Physician Interpretation * * * * RESULT: #[id number] - [facility] STEREO NEEDLE LOC LT DIGITAL TOMOGRAPHIC MAMMOGRAPHY GUIDED INFRARED ACTIVATED ELECTROMAGNETIC REFLECTOR DEVICE PLACEMENT LEFT BREAST WITH POST DIGITAL MAMMOGRAPHIC IMAGIN08/18/2023 HISTORY: /The patient presents for left mammographic (stereo) guided localization with reflector placement as recommended from recent imaging study dated 07/09/2023. Pre and post localization mammographic images were obtained. Brenna placement 6:00, note that clip was noted to be along the inferior aspect of the architectural distortion. Therefore, the center of the distortion was targeted for placement of the Brenna. PATIENT CONSENT: A time out was performed immediately prior to procedure start with the radiology team, correctly identifying the patient name, date of , procedure, anatomy (including marking of site and side), patient position, relevant diagnostic and radiology test results, safety precautions, and procedure-specific equipment needs. The procedure was explained to the patient including the risks, benefits and alternatives. Medications and allergies were also reviewed. The risks, including but not limited to infection and bleeding, were reviewed by the performing physician and the patient agreed to undergo the procedure. The radiologist and technologist were present throughout the entire procedure. Audible Time Out Time: 1326 Procedure Start Time: 1328 Procedure Stop Time: 1333 . Correlation is made to exams dated: 07/09/2023 mammogram - [facility] and 08/05/2023 breast MRI - [facility]. An infrared activated electromagnetic reflector device placement was performed for the area of architectural distortion located in the left breast at 6 o'clock middle depth. The skin was prepped in the usual manner. Local anesthetic was administered to the access site. The localization was approached from the lateral aspect using an upright digital tomographic mammography unit. A location device was inserted into the targeted area. A sterile dressing was applied to the access site. Post placement digital mammographic imaging was obtained. Clip placement/activation was verified with Printing Grey Cloth Tender Check following the procedure. DIVISION [facility]OLOGY [facility] * * *Final Report* * * DATE OF EXAM: Aug 18 2023 11:51AM SSW 0632 - [facility] STEREO NEEDLE LOC LT / PROCEDURE REASON: multiple diagnoses * * * * Physician Interpretation * * * * RESULT: #[id number] - [facility] STEREO NEEDLE LOC LT DIGITAL TOMOGRAPHIC MAMMOGRAPHY GUIDED INFRARED ACTIVATED ELECTROMAGNETIC REFLECTOR DEVICE PLACEMENT LEFT BREAST WITH POST DIGITAL MAMMOGRAPHIC IMAGIN08/18/2023 HISTORY: /The patient presents for left mammographic (stereo) guided localization with reflector placement as recommended from recent imaging study dated 07/09/2023. Pre and post localization mammographic images were obtained. Brenna placement 6:00, note that clip was noted to be along the inferior aspect of the architectural distortion. Therefore, the center of the distortion was targeted for placement of the Brenna. PATIENT CONSENT: A time out was performed immediately prior to procedure start with the radiology team, correctly identifying the patient name, date of , procedure, anatomy (including marking of site and side), patient position, relevant diagnostic and radiology test results, safety precautions, and procedure-specific equipment needs. The procedure was explained to the patient including the risks, benefits and alternatives. Medications and allergies were also reviewed. The risks, including but not limited to infection and bleeding, were reviewed by the performing physician and the patient agreed to undergo the procedure. The radiologist and technologist were present throughout the entire procedure. Audible Time Out Time: 1326 Procedure Start Time: 1328 Procedure Stop Time: 1333 . Correlation is made to exams dated: 07/09/2023 mammogram - [facility] and 08/05/2023 breast MRI - [facility]. An infrared activated electromagnetic reflector device placement was performed for the area of architectural distortion located in the left breast at 6 o'clock middle depth. The skin was prepped in the usual manner. Local anesthetic was administered to the access site. The localization was approached from the lateral aspect using an upright digital tomographic mammography unit. A location device was inserted into the targeted area. A sterile dressing was applied to the access site. Post placement digital mammographic imaging was obtained. Clip placement/activation was verified with Printing Grey Cloth Tender Check following the procedure. IMPRESSION IMPRESSION: INFRARED ACTIVATED ELECTROMAGNETIC REFLECTOR DEVICE PLACEMENT Infrared activated electromagnetic reflector device placement for the area of architectural distortion in the left breast at 6 o'clock middle depth with placement of an infrared activated electromagnetic reflector device was successful with no apparent post procedure complications. A specimen radiograph is recommended. The specimen radiograph should include the Printing Grey Cloth Tender reflector and the twirl shaped clip. SUMMARY: Note that clip was described to be along the inferior aspect of the suspicious area/architectural distortion. Therefore, the center of the distortion was targeted for placement of the Brenna. The twirl clip is therefore 7mm inferior to the Brenna. Marissa styles/mary:08/18/2023 14:37:59 Control Tower Operator(s): RT Tavon(R)(M), [facility] Multiple national specialty organizations have released breast cancer screening guidelines for women at average risk for developing breast cancer - guidelines that are based on both evidence and opinion, yet differ on when to start and how often to screen for breast cancer. With representation from Breast Imaging, Internal Medicine, Women's Health, Family Medicine, and Medical/Surgical Oncology, the [facility] has carefully reviewed the data and reached the following consensus: 1) All women should engage in shared decision-making with their providers to decide when to start and how often to screen; 2) All women should have the opportunity to start screening mammography at age 40; 3) For women ages 45-55, we recommend annual screening mammograms; 4) For women ages 55 and over, we support both the transition from an annual to a biennial interval if this aligns more with patient's values and preferences, or continuation with annual screening; 5) All women should discuss with their providers when to stop screening mammograms. Relocation Associate: Mary Transcribe Date/Time: Aug 18 2023 10:36A Dictated by: MARISSA ANAND MD This examination was interpreted and the report reviewed and electronically signed by: MARISSA ANAND MD on Aug 18 2023 2:37PM EST [facility] Radiology Study observation (narrative) [facility] Guidance for needle local ization of Breast - leftOrdered By: [facility] Provider on 08-18-2023 [facility] MISC SEND OUT TST 1on 2023 REFERRAL LAB 1 [facility] Normal [facility] Comment on above: Order Comment: Specsamantha billingsley Type: BLOOD SPECIMENOrdering Facility: [facility] Address: [address] [place] [address] Performed By: #### M ISC1 ####NON-INTERFACED REF LABSCLIA SEE SCANNED RESULTS TEST 1 Multi Cancer Panel Normal [facility] Comment on above: Order Comment: Speci men Type: BLOOD SPECIMENOrdering Facility: [facility] Address: [address] [place] [address] Performed By: #### M ISC1 ####NON-INTERFACED REF LABSCLIA SEE SCANNED RESULTS TEST RESULTS 1 View results in Scan colby Documents link when available. Normal [facility] Comment on above: Order Comment: Speci men Type: BLOOD SPECIMENOrdering Facility: [facility] Address: [address] [place] [address] Performed By: #### M ISC1 ####NON-INTERFACED REF LABSCLIA SEE SCANNED RESULTS HISTORY PHYSICALon HISTORY PHYSICAL HNO ID: [id number] Author: AIDEN DOWNING APRN.MEDICAL DIRECTOR OF HOSPICE Service: ? Author Type: Nurse Practitioner Type: H&P Filed: 08/11/2023 12:23 Note Text: HISTORY AND PHYSICAL EXAMINATION SERVICE DATE: 08/11/2023 SERVICE TIME: 11:29 AM PRIMARY CARE PHYSICIAN: Chauncey Bowles MD, MD REASON FOR VISIT: Ivan Herrera is a 73 year old female who is scheduled for Procedure(s) (LRB): LUMPECTOMY BREAST (Left) EXCISION BREAST LESION IDENTIFIED BY PREOPERATIVE PLACEMENT RADIOLOGICAL MARKER, OPEN, SINGLE LESION (Left) INTRAOPERATIVE ID OF SENTINEL LYMPH NODE(S) INCL'D INJECTION OF NON-RAD DYE WHEN PERFORMED (Left) BIOPSY NODE AXILLARY (Left) INJECTION PROCEDURE RADIOACTIVE TRACER FOR IDENTIFICATION OF SENTINEL NODE (Left) at the request of Dr. Severo Valles for consultation. My final recommendation will be communicated back to the requesting physician by way of shared medical record or letter. The patient has the following: ACTIVE PROBLEM LIST Abdominal Or Pelvic Swelling, Mass Or Lump, Unspecified Site S/P Hysterectomy Cancer of Breast, Intraductal Malignant Neoplasm of Upper-Outer Quadrant of Right Female Breast (Hcc) History of Breast Cancer Subjective CHIEF COMPLAINT: Malignant neoplasm of central portion of left breast in female, estrogen receptor positive (HCC) (HCC) [C50.112, Z17.0] HPI: Patient is a 73 year old FEMALE presenting for pre-op evaluation for the above procedure. Patient denies any chest pain, shortness of breath, palpitations, fever/chills, nausea/vomiting, fatigue, or diarrhea. no pain at today's visit. Recommended for above surgery. PAST MEDICAL HISTORY Diagnosis Date Abnormal mammogram 2009 Biopsy normal High cholesterol Spinal cord injury Spondylosis PAST SURGICAL HISTORY Procedure Laterality Date BACK SURGERY HX spinal surg bone graft upper thoracic CATARACT EXTRACTION HX COLONSCOPY SCREENING HIGH RISK HYSTERECTOMY HX 2013 PAST SURGICAL HISTORY OF 2010 breast biopsy negative PAST SURGICAL HISTORY OF fatty tumor left hand PAST SURGICAL HISTORY OF Right lumpectomy FAMILY HISTORY Problem Relation Age of Onset Colon Cancer Father mets to bone, unknown origin Ovarian cancer Mother 82 Breast Cancer Mother SOCIAL HISTORY: Social History Tobacco Use Smoking status: Former Packs/day: 0.10 Years: 10.00 Additional pack years: 0.00 Total pack years: 1.00 Types: Cigarettes Quit date: 2004 Years since quittin.1 Smokeless tobacco: Never Vaping Use Vaping Use: Never used Substance Use Topics Alcohol use: Yes Comment: rare Drug use: No Prior to Admission medications as of 08/11/23 1129 Medication Sig Last Dose Taking phytosterol/pantethine (CHOLESTOFF COMPLETE ORAL) Take by mouth. Taking Yes calcium carbonate/vitamin D3 (CALCIUM WITH VITAMIN D3 ORAL) Take by mouth. Taking Yes anastrozole (ARIMIDEX) 1 mg tablet Take 1 tablet by mouth once daily. Yes ubidecarenone Q-10 (CO Q-10) 10 mg cap Take by mouth twice daily. Taking Yes Glucosamine Sulfate (GLUCOSAMINE) 500 mg tab Take 1,500 tablets by mouth. Taking Yes LUTEIN ORAL Take by mouth. Taking Yes Multivitamins-Iron tab Take 1 tablet by mouth once daily. Taking Yes Atqasuk-3 Fatty Acids-Vitamin E (FISH OIL) 1,000 mg cap Take 1 capsule by mouth. Taking Yes atorvastatin (LIPITOR) 10 mg tablet Taking Yes ofloxacin (OCUFLOX) 0.3 % ophthalmic solution prednisoLONE acetate (PRED FORTE, ECONOPRED PLUS) 1 % ophthalmic suspension No medication comments found. ALLERGIES Allergen Reactions Sulfa (Sulfonamide * Other: See Comments palpitations Sulfamethoxazole-Tr* Hives Covid Immunization Dates Overdue - Covid-19 Vaccine ( season) Overdue since 02/27/2023 09/21/2020 Imm Admin: COVID-19 original vaccine, age 12+ yr, monovalent (PFIZER-BIONTREDWAVE ENERGY - PURPLE TOP) 08/31/2020 Imm Admin: COVID-19 original vaccine, age 12+ yr, monovalent (PFIZER-BIONTECH - PURPLE TOP) REVIEW OF SYSTEMS: PAIN ASSESSMENT: General: No weight loss, malaise or fevers. Neuro: No history of TIA's, stroke, COMMISSIONER OF OFFICIALS tumor, impaired sensorium, hemiplegia, paraplegia or quadraplegia. No neurological symptoms or problems. Respiratory: Positive for Tobacco Use , Negative for Current cough, Pneumonia within 6 weeks (date) Cardiovascular: No history of HTN requiring medication, no history of angina, CHF, PR, cardiac surgery or stents. Denies rest pain, gangrene or revascularization/amputatio n for PVD. No history of cardiovascular symptoms or problems. 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 : Denies, No LMP recorded. Patient has had a hysterectomy. Endocrine: No history of diabetes. Has not taken steroids within the past 30 days. No history of endocrinological sympt (more content not included)... Normal [facility] CNOVSPon 08-07-2023 CNOVSP Visit (SP) Office ([facility]) IVAN HERRERA ([id number]) 1950 F Date Time Provider Department 08/07/23 1:45 PM MYLES TALAMANTES During your visit today, we recorded the following information about you: Temperature Pulse Respiration Blood pressure 97.6 degrees 77/minute 16/minute 125/73 Weight Height 89.2 kg 1.727 m Myles Talamantes MD 08/09/2023 3:47 PM Signed NAME: Ivan Herrera CLINIC NO.: [id number] DATE OF SERVICE: August 07, 2023 ([place]) Some elements in this clinic note that are critical to medical decision making have been carefully reviewed and included from a prior clinic note dated: June 26, 2023 ([place]) Referring Provider: Dr. Chauncey Bowles Additional Clinicians involved in Ivan Herrera's care: Dillon Cooper DIAGNOSIS: Malignant neoplasm lower quadrant left breast ER positive. History of malignant neoplasm of upper-outer quadrant of right breast in female, estrogen receptor positive ASSESSMENT: 73 year old woman with malignant neoplasm of upper-outer quadrant of right breast in female, estrogen receptor positive Stage I ([id number]) right breast cancer of the upper outer quadrant, ER/MA +, Her2-, diagnosed in February 2015. She had lumpectomy, followed by radiation, and has been on aromatase inhibitor therapy since May 2015 with good tolerance. Her recent mammogram from February 2020 was negative for malignancy. She has no evidence of recurrence. She continued her Anastrozole until May 2020, completing 5 years of therapy. 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 She presents in follow-up regarding this new diagnosis. Given 2nd primary, even though it appears to be low grade, I would like her to get an MRI breast to complete her staging. Will also consider CT Chest abdomen pelvis if she has aggressive features such as HER2+ivity. PLAN: RTC after surgery - coordinate same day as radiation - HPI: CASE HISTORY: Reverse Chronological Order 08/05/2023 - MRI Breast: KNOWN BIOPSY PROVEN MALIGNANCY The 1 cm x 0.7 cm x 1.4 cm architectural distortion in the left breast at 6 o'clock middle depth is consistent with the known carcinoma and is a known biopsy positive for malignancy. A surgical consult is recommended. 07/09/2023 - Dx Mammogram Left: KNOWN BIOPSY PROVEN MALIGNANCY The architectural distortion in the left breast is a known biopsy positive for malignancy. A surgical consult is recommended. An X clip is visualized at the site of biopsy-proven malignancy. Of note, the X clip is at the inferior aspect of the architectural distortion. 06/11/2023 - left breast mass 6:00, 6 cm from nipple stereotactic core biopsy at [facility]. Consistent with invasive ductal carcinoma NOS. G1, DCIS present, no LVI, ER +91 to 100%, MA negative. HER2 IHC pending. 05/27/2023 - Mammogram: diagnostic category 4 -- suspicious for malignancy. Finding does not exhibit classic findings of breast cancer. 03/29/2021 - Mammogram: diagnostic category 2 -- benign finding with no change from prior assessment. 03/26/2020 - bilateral screening mammogram: diagnostic category 2; benign finding. No change from comparison assessment. 05/2015-current - Arimidex 04/23/2015-06/05/2015 - Radiation to right breast; 6000 cGy in 30 fractions 03/21/2015 - excisional biopsy and sentinel node biopsy Invasive carcinoma of the right breast 1.1 cm grade 1, ER and MA positive, HER-2 negative; 4 lymph nodes all negative for cancer Updated Visit, August 07, 2023: Clarissa returns today with her sister Minnie. She is having a clip put in soon. Lumpectomy scheduled for 08/19/[address] Valles. We reviewed her MRI together. She will complete genetic counseling. HER2 low 1+. Her disease is stage 1A. Will plan to see her for endocrine therapy following RT. Updated Visit, June 26, 2023: Ivan returns today for follow up accompanied by her sister Minnie. She has concerns about her most recent workup with Dr. Cooper. We discussed her recent bx results. She has not yet undergone surgical resection. No plans at this time for a breast MRI, but she did have genetic and HER2 testing done. Will not need anxiety medication for the MRI. I discussed that determining lumpectomy versus mastectomy will be better decided once she has the MRI. I would like her to see radiation. If she were to undergo lumpectomy, radiation would be indicated. Also, if her HER2 comes back positive, she will need neoadjuvant chemotherapy. Recommended she consider genetic counseling with her children. She has an appointment scheduled n (more content not included)... Normal [facility] Alisa 08-07-2023 CNPN Telephone (GENSF) IVAN HERRERA ([id number]) 1950 F Date Time Provider Department 08/07/23 SEVERO VALLES During your visit today, we recorded the following information about you: Lorrie Alexis 08/07/2023 2:09 PM Signed Called and left a message to informed her appointments related to her procedure with Dr. Valles on 08/19 . Phone # provided. Lorrie Alexis 08/07/2023 2:39 PM Signed Spoke to patient. Allergies As of Date: 08/07/2023 Noted Allergy Reaction SULFA (SULFONAMIDE ANTIBIOTICS) 03/10/2014 14 - Other: See Comments Comments: palpitations SULFAMETHOXAZOLE-TRIMETHOPR IM 02/13/2015 4 - Hives Date Reviewed: 08/07/2023 Reviewed by: Kellee Vanessa Ma - Fully Assessed Reason for Visit: Appointment [186] Prescriptions as of 08/07/2023 - phytosterol/pantethine (CHOLESTOFF COMPLETE ORAL) Take by mouth. - calcium carbonate/vitamin D3 (CALCIUM WITH VITAMIN D3 ORAL) Take by mouth. - ofloxacin (OCUFLOX) 0.3 % ophthalmic solution - prednisoLONE acetate (PRED FORTE, ECONOPRED PLUS) 1 % ophthalmic suspension - anastrozole (ARIMIDEX) 1 mg tablet Take 1 tablet by mouth once daily. - ubidecarenone Q-10 (CO Q-10) 10 mg cap Take by mouth twice daily. - Glucosamine Sulfate (GLUCOSAMINE) 500 mg tab Take 1,500 tablets by mouth. - LUTEIN ORAL Take by mouth. - Multivitamins-Iron tab Take 1 tablet by mouth once daily. - Atqasuk-3 Fatty Acids-Vitamin E (FISH OIL) 1,000 mg cap Take 1 capsule by mouth. - atorvastatin (LIPITOR) 10 mg tablet Problem List As Of Date 08/07/2023 Noted Resolved Abdominal or pelvic swelling, mass or lump, uns*03/11/2014 S/P hysterectomy [Z90.710] 05/23/2014 Cancer of breast, intraductal [D05.10] 04/06/2015 Malignant neoplasm of upper-outer quadrant of r*04/11/2015 History of breast cancer [Z85.3] 04/15/2016 Encounter Status:Closed by LORRIE ALEXIS on 08/07/23 [facility] IV[facility] HERR[facility] ([id number]) 1950 F Date Time Provider Department 08/07/23 SEVERO VALLES [facility] During your visit today, we recorded the following information about you: Severo Valles MD 08/07/2023 1:07 PM Signed Called pt to review MRI. 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 - calcium carbonate/vitamin D3 (CALCIUM WITH VITAMIN D3 ORAL) Take by mouth. - ofloxacin (OCUFLOX) 0.3 % ophthalmic solution - prednisoLONE acetate (PRED FORTE, ECONOPRED PLUS) 1 % ophthalmic suspension - anastrozole (ARIMIDEX) 1 mg tablet Take 1 tablet by mouth once daily. - ubidecarenone Q-10 (CO Q-10) 10 mg cap Take by mouth twice daily. - Glucosamine Sulfate (GLUCOSAMINE) 500 mg tab Take 1,500 tablets by mouth. - LUTEIN ORAL Take by mouth. - Multivitamins-Iron tab Take 1 tablet by mouth once daily. - Atqasuk-3 Fatty Acids-Vitamin E (FISH OIL) 1,000 mg cap Take 1 capsule by mouth. - atorvastatin (LIPITOR) 10 mg tablet Problem List As Of Date 08/07/2023 Noted Resolved Abdominal or pelvic swelling, mass or lump, uns*03/11/2014 S/P hysterectomy [Z90.710] 05/23/2014 Cancer of breast, intraductal [D05.10] 04/06/2015 Malignant neoplasm of upper-outer quadrant of r*04/11/2015 History of breast cancer [Z85.3] 04/15/2016 Encounter Status:Closed by [facility]07[facility] ([id number]) 1950 F Date Time Provider Department 08/07/23 LIZA GILL During your visit today, we recorded the following information about you: Liza Gill RN 08/07/2023 8:52 AM Signed LOCALIZATION IMAGE REVIEW (Please do NOT submit until entire workup complete) (if > 3 reflectors to be placed in one breast, please review with radiologist) Ivan Herrera [id number] 1950 WORK- UP COMPLETE? Yes Order Placed Yes Left - Site 1 Location 6:00, 6cm FN Clip Shape X clip Clip Migration at the site of biopsy-proven malignancy. Of note, the X clip is at the inferior aspect of the architectural distortion. Pathology [facility] Preferred Localization brenna * If clip migrated, please review with radiologist This Form Has Been Completed By JALEN Geiger On Behalf Of Jolene Valdivia MD 08/10/2023 1:31 PM Signed I have reviewed and approved the localization plan. Images dated 07/09/2023 are annotated. Radiologist: Jolene Morales MD Allergies As of Date: 08/07/2023 Noted Allergy Reaction SULFA (SULFONAMIDE ANTIBIOTICS) 03/10/2014 14 - Other: See Comments Comments: palpitations SULFAMETHOXAZOLE-TRIMETHOPR IM 02/13/2015 4 - Hives Date Reviewed: 08/07/2023 Reviewed by: Kellee Vanessa Ma - Fully Assessed Reason for Visit: Breast localization request [Other] Prescriptions as of 08/10/2023 - phytosterol/pantethine (CHOLESTOFF COMPLETE ORAL) Take by mouth. - calcium carbonate/vitamin D3 (CALCIUM WITH VITAMIN D3 ORAL) Take by mouth. - ofloxacin (OCUFLOX) 0.3 % ophthalmic solution - prednisoLONE acetate (PRED FORTE, ECONOPRED PLUS) 1 % ophthalmic suspension - anastrozole (ARIMIDEX) 1 mg tablet Take 1 tablet by mouth once daily. - ubidecarenone Q-10 (CO Q-10) 10 mg cap Take by mouth twice daily. - Glucosamine Sulfate (GLUCOSAMINE) 500 mg tab Take 1,500 tablets by mouth. - LUTEIN ORAL Take by mouth. - Multivitamins-Iron tab Take 1 tablet by mouth once daily. - Atqasuk-3 Fatty Acids-Vitamin E (FISH OIL) 1,000 mg cap Take 1 capsule by mouth. - atorvastatin (LIPITOR) 10 mg tablet Problem List As Of Date 08/07/2023 Noted Resolved Abdominal or pelvic swelling, mass or lump, uns*03/11/2014 S/P hysterectomy [Z90.710] 05/23/2014 Cancer of breast, intraductal [D05.10] 04/06/2015 Malignant neoplasm of upper-outer quadrant of r*04/11/2015 History of breast cancer [Z85.3] 04/15/2016 Encounter Status:Closed by JOLENE MORALES on 08/10/23 Normal [facility] MRI BREAST WO/W IVCON [place] 08-05-2023 MRI BREAST WO/W IVCON [place] * * *Final Report* * * DATE OF EXAM: Aug 05 2023 1:49PM [facility] [id number] - MRI BREAST WO/W IVCON [place] / PROCEDURE REASON: multiple diagnoses * * * * Physician Interpretation * * * * #[id number] - MRI BREAST WO/W IVCON [place] BREAST MRI OF BOTH BREASTS: 08/05/2023 HISTORY: Multiple Diagnoses/ Multiple Diagnoses/73-year-old female with remote prior history of right breast cancer now presenting with recent diagnosis of additional left breast cancer here for second opinion, and seeing Dr. Valles. RESULT: Comparison is made to exams dated: 07/09/2023 ultrasound and 07/09/2023 mammogram - [facility]. Interpretation of this MRI was correlated with available mammograms. Informed consent was obtained from the patient. Gadolinium contrast calibrated to patient weight was injected. MRI images were obtained at 1 mm intervals and at 5 mm coronal intervals with a dedicated breast coil. Pre and post contrast images were obtained at 1 minute intervals. Post processing was performed including motion subtraction, color parametric mapping, and 3D multiplanar reconstruction. The patient was studied using the Sentinelle dedicated breast coil in the Siemens 1.5 Valerie scanner. Initial axial STIR imaging was carried out followed by axial T1-weighted GRE imaging both before and after IV administration of 18 ml of Dotarem. Subsequently, subtraction imaging and 3-D reconstruction were completed on an independent workstation. An additional 4 minute high resolution sequence was performed after the first two 1 minute post-contrast sequences. Complex volumetric analysis requiring post processing performed using a semi-automated software Rootlessacad, on an independent workstation by the physician, with images created reviewed and archived. FINDINGS: Bilateral background breast enhancement is mild. The patient is status post lumpectomy right breast in the upper outer quadrant. The right breast has post-operative findings. There is a 1 cm x 0.7 cm x 1.4 cm architectural distortion of increased signal in the left breast at 6 o'clock middle depth. This shows delayed persistent type vascular enhancement. This correlates with previous biopsy. Enhancement intensity is primarily subthreshold. Biopsy clip located at the inferior aspect of the architectural distortion lesion/ biopsy proven cancer. There also is a benign 0.6 cm normal lymph node in the left breast at 1 o'clock posterior depth. This correlates with ultrasound findings. There are no significant abnormalities seen in the axillary nodes region. IMPRESSION: KNOWN BIOPSY PROVEN MALIGNANCY The 1 cm x 0.7 cm x 1.4 cm architectural distortion in the left breast at 6 o'clock middle depth is consistent with the known carcinoma and is a known biopsy positive for malignancy. A surgical consult is recommended. SUMMARY: Patient under the care of Dr. Valles. Greta Ramos M.D., mc/mary:08/06/2023 10:19:01 Control Tower Operator(s): Janie Garcia [facility] MRI BI-RADS: 6 Known biopsy proven malignancy Multiple national specialty organizations have released breast cancer screening guidelines for women at average risk for developing breast cancer - guidelines that are based on both evidence and opinion, yet differ on when to start and how often to screen for breast cancer. With representation from Breast Imaging, Internal Medicine, Women's Health, Family Medicine, and Medical/Surgical Oncology, the [facility] has carefully reviewed the data and reached the following consensus: 1) All women should engage in shared decision-making with their providers to decide when to start and how often to screen; 2) All women should have the opportunity to start screening mammography at age 40; 3) For women ages 45-55, we recommend annual screening mammograms; 4) For women ages 55 and over, we support both the transition from an annual to a biennial interval if this aligns more with patient's values and preferences, or continuation with annual screening; 5) All women should discuss with their providers when to stop screening mammograms. Relocation Associate: Mary Transcribe Date/Time: Aug 05 2023 1:41P Dictated by : GRETA RAMOS MD This examination was interpreted and the report reviewed and electronically signed by: GRETA RAMOS MD on Aug 06 2023 10:19AM EST [id number] Normal [facility] CNOVon 07-09-2023 CNOV Office Visit (BRCRAV ) IVAN HERRERA ([id number]) 1950 F Date Time Provider Department 07/09/23 11:00 AM SEVERO VALLES During your visit today, we recorded the following information about you: Temperature Pulse Blood pressure Weight 98.3 degrees 77/minute 142/90 88 kg Height 1.727 m Severo Valles MD 07/09/2023 1:13 PM Signed NEW BREAST CANCER - INITIAL SURGICAL VISIT SERVICE DATE: 07/09/2023 REFERRING PROVIDER: Chauncey Bowles MD [address] [id number] Consult requested for an opinion regarding the evaluation and treatment of breast cancer. My final impression and recommendations will be communicated back to the requesting physician by way of the shared medical record or letter via US mail. SUBJECTIVE: REASON FOR TODAY'S VISIT: Breast Cancer Evaluation HISTORY of PRESENT ILLNESS: Ivan Herrera is a 73 year old female who presents for an evaluation of a new diagnosis of left breast cancer. She recently had abnormal mammography of the left breast at outside facility Diagnosis was made at [facility] by means of stereotactic core biopsy of Left breast. The pathology report showed Infiltrating Ductal Carcinoma Grade 1, ER positive, MA negative, HER2 non-amplified. HISTORY OF BREAST PROCEDURE(S): Prior right lumpectomy and radiation, 5 yrs of adjuvant therapy. PAST MEDICAL HISTORY: PAST MEDICAL HISTORY Diagnosis Date Abnormal mammogram 2009 Biopsy normal High cholesterol Spinal cord injury Spondylosis PAST SURGICAL HISTORY: PAST SURGICAL HISTORY Procedure Laterality Date BACK SURGERY HX spinal surg bone graft upper thoracic CATARACT EXTRACTION HX COLONSCOPY SCREENING HIGH RISK HYSTERECTOMY HX 2014 PAST SURGICAL HISTORY OF 2010 breast biopsy negative PAST SURGICAL HISTORY OF fatty tumor left hand FAMILY HISTORY: FAMILY HISTORY Problem Relation Age of Onset Colon Cancer Father mets to bone, unknown origin Ovarian cancer Mother 82 Breast Cancer Mother The patient is not of Ashkenazic Ancestry SOCIAL HISTORY: Social History Tobacco Use Smoking status: Former Packs/day: 0.30 Years: 10.00 Additional pack years: 0.00 Total pack years: 3.00 Types: Cigarettes Smokeless tobacco: Never Vaping Use Vaping Use: Never used Substance Use Topics Alcohol use: Yes Comment: rare Drug use: No ACTIVE PROBLEM LIST History of Breast Cancer - 04/15/2016 Malignant Neoplasm of Upper-Outer Quadrant of Right Female Breast (Hcc) - 04/11/2015 Cancer of Breast, Intraductal - 04/06/2015 S/P Hysterectomy - 05/23/2014 Abdominal Or Pelvic Swelling, Mass Or Lump, Unspecified Site - 03/11/2014 CURRENT MEDICATIONS: phytosterol/pantethine (CHOLESTOFF COMPLETE ORAL) Take by mouth. calcium carbonate/vitamin D3 (CALCIUM WITH VITAMIN D3 ORAL) Take by mouth. ofloxacin (OCUFLOX) 0.3 % ophthalmic solution (Patient not taking: Reported on 06/26/2023) prednisoLONE acetate (PRED FORTE, ECONOPRED PLUS) 1 % ophthalmic suspension (Patient not taking: Reported on 06/26/2023) anastrozole (ARIMIDEX) 1 mg tablet Take 1 tablet by mouth once daily. (Patient not taking: Reported on 06/26/2023) ubidecarenone Q-10 (CO Q-10) 10 mg cap Take by mouth twice daily. Glucosamine Sulfate (GLUCOSAMINE) 500 mg tab Take 1,500 tablets by mouth. LUTEIN ORAL Take by mouth. Multivitamins-Iron tab Take 1 tablet by mouth once daily. (Patient not taking: Reported on 06/26/2023) Atqasuk-3 Fatty Acids-Vitamin E (FISH OIL) 1,000 mg cap Take 1 capsule by mouth. atorvastatin (LIPITOR) 10 mg tablet ALLERGIES Allergen Reactions Sulfa (Sulfonamide * Other: See Comments palpitations Sulfamethoxazole-Tr* Hives REVIEW OF SYSTEMS: GENERAL: No weight loss, malaise or fevers HEENT: Negative for frequent or significant headaches, No changes in hearing or vision, no nose bleeds or other nasal problems RESPIRATORY: Negative for cough, hemoptysis, wheezing, COPD, dyspnea or shortness of breath CARDIOVASCULAR: Negative for chest pain, leg swelling, hypertension, CHF or palpitations GASTROINTESTINAL: No nausea, vomiting, or diarrhea GENITOURINARY: No history of dysuria, frequency or incontinence GYNECOLOGICAL: Negative for abnormal vaginal bleeding, abnormal vaginal discharge MUSCULOSKELETAL: Negative for joint pain or swelling, back pain or muscle pain INTEGUMENTARY:Denies Scleroderma or Lupus. Denies chronic skin conditions. PSYCHOLOGICAL: Denies history of psychiatric illness. Patient feels she is coping well with recent Breast Cancer diagnosis. Negative for sleep disturbance, mood disorder and recent psychosocial stressors. All other reviewed and negative other than HPI. OBJECTIVE: PHYSICAL EXAM: BP 142/90 Pulse 77 Temp 36.8 ?C (98.3 ?F) (Temporal) Ht 172.7 cm (5' 7.99 ) Wt 88 kg (194 lb) SpO2 97% BMI 29.50 kg/m? GENERA (more content not included)... Normal [facility] ZAHRA DIAG W GUY LTon 024 ZAHRA DIAG W GUY LT * * *Final Report* * * DATE OF EXAM: Jul 09 2023 9:03AM VHW 0628 - ZAHRA DIAG W GUY LT / PROCEDURE REASON: multiple diagnoses * * * * Physician Interpretation * * * * RESULT: #[id number] - ZAHRA DIAG W GUY LT #[id number] - ZAHRA US BREAST LTD LT UNILATERAL LEFT DIGITAL DIAGNOSTIC MAMMOGRAM TOMOSYNTHESIS WITH CAD: 07/09/2023 HISTORY: Overread from outside facility, needs additional imaing Multiple Diagnoses. RESULT: TECHNIQUE: The study was acquired using full field digital technology and interpreted from soft copy. Digital Breast Tomosynthesis (DBT) images were obtained and used to assist in the interpretation of this examination. Current study was also evaluated with a Computer Aided Detection (CAD). No prior exams were available for comparison. There are scattered areas of fibroglandular density in the left breast. There is architectural distortion in the left breast lower inner aspect middle depth. There is a biopsy clip associated with the architectural distortion. IMPRESSION: KNOWN BIOPSY PROVEN MALIGNANCY The architectural distortion in the left breast is a known biopsy positive for malignancy. A surgical consult is recommended. An X clip is visualized at the site of biopsy-proven malignancy. Of note, the X clip is at the inferior aspect of the architectural distortion. Left axillary ultrasound was performed on the same date, dictated separately. LIMITED ULTRASOUND OF LEFT BREAST AND AXILLA: 07/09/2023 RESULT: No prior exams were available for comparison. Color flow and real-time ultrasound of the left breast 1 o'clock, and axilla regions were performed. Renteria scale images of the real-time examination were reviewed. There is a benign 0.5 cm x 0.3 cm x 0.6 cm normal intramammary lymph node in the left breast at 1 o'clock posterior depth 10 cm from the nipple. This normal intramammary lymph node displays fatty hilum. This correlates with mammography findings. Color flow imaging demonstrates that there is no vascularity present. This corresponds to the intramammary lymph node seen on the mammogram in the upper outer quadrant of the left breast. Ultrasound of the left axilla demonstrates multiple morphologically normal lymph nodes in the left axilla. No suspicious left axillary lymphadenopathy is identified. IMPRESSION: BENIGN FINDING There is no sonographic evidence of malignancy. The 0.5 cm x 0.3 cm x 0.6 cm normal intramammary lymph node in the left breast is benign. Multiple morphologically normal lymph nodes in the left axilla. No suspicious left axillary lymphadenopathy is identified. SUMMARY: The patient is under the care of Dr. Valles for biopsy-proven malignancy in the left breast. Andressa gallo/mary:07/09/2023 09:47:29 Multiple national specialty organizations have released breast cancer screening guidelines for women at average risk for developing breast cancer - guidelines that are based on both evidence and opinion, yet differ on when to start and how often to screen for breast cancer. With representation from Breast Imaging, Internal Medicine, Women's Health, Family Medicine, and Medical/Surgical Oncology, the [facility] has carefully reviewed the data and reached the following consensus: 1) All women should engage in shared decision-making with their providers to decide when to start and how often to screen; 2) All women should have the opportunity to start screening mammography at age 40; 3) For women ages 45-55, we recommend annual screening mammograms; 4) For women ages 55 and over, we support both the transition from an annual to a biennial interval if this aligns more with patient's values and preferences, or continuation with annual screening; 5) All women should discuss with their providers when to stop screening mammograms. Control Tower Operator(s): RT Guillermo(R)(M), [facility]; [facility] OVERALL STUDY BIRADS: 6 Known biopsy proven malignancy Relocation Associate: Mary Transcribe Date/Time: Jul 09 2023 7:57A Dictated by : ANDRESSA JONES MD This examination was interpreted and the report reviewed and electronically signed by: ANDRESSA JONES MD on Jul 09 2023 9:47AM EST [id number] Normal [facility] US BREAST LTD LTon 07-09 [facility] Antavo BREAST LTD LT * * *Final Report* * * DATE OF EXAM: Jul 09 2023 8:36AM VHW 0593 - [facility] Antavo BREAST LTD LT / PROCEDURE REASON: multiple diagnoses * * * * Physician Interpretation * * * * RESULT: #[id number] - [facility] DIAG W GUY LT #[id number] - [facility] Antavo BREAST LTD LT UNILATERAL LEFT DIGITAL DIAGNOSTIC MAMMOGRAM TOMOSYNTHESIS WITH CAD: 07/09/2023 HISTORY: Overread from outside facility, needs additional imaing Multiple Diagnoses. RESULT: TECHNIQUE: The study was acquired using full field digital technology and interpreted from soft copy. Digital Breast Tomosynthesis (DBT) images were obtained and used to assist in the interpretation of this examination. Current study was also evaluated with a Computer Aided Detection (CAD). No prior exams were available for comparison. There are scattered areas of fibroglandular density in the left breast. There is architectural distortion in the left breast lower inner aspect middle depth. There is a biopsy clip associated with the architectural distortion. IMPRESSION: KNOWN BIOPSY PROVEN MALIGNANCY The architectural distortion in the left breast is a known biopsy positive for malignancy. A surgical consult is recommended. An X clip is visualized at the site of biopsy-proven malignancy. Of note, the X clip is at the inferior aspect of the architectural distortion. Left axillary ultrasound was performed on the same date, dictated separately. LIMITED ULTRASOUND OF LEFT BREAST AND AXILLA: 07/09/2023 RESULT: No prior exams were available for comparison. Color flow and real-time ultrasound of the left breast 1 o'clock, and axilla regions were performed. Renteria scale images of the real-time examination were reviewed. There is a benign 0.5 cm x 0.3 cm x 0.6 cm normal intramammary lymph node in the left breast at 1 o'clock posterior depth 10 cm from the nipple. This normal intramammary lymph node displays fatty hilum. This correlates with mammography findings. Color flow imaging demonstrates that there is no vascularity present. This corresponds to the intramammary lymph node seen on the mammogram in the upper outer quadrant of the left breast. Ultrasound of the left axilla demonstrates multiple morphologically normal lymph nodes in the left axilla. No suspicious left axillary lymphadenopathy is identified. IMPRESSION: BENIGN FINDING There is no sonographic evidence of malignancy. The 0.5 cm x 0.3 cm x 0.6 cm normal intramammary lymph node in the left breast is benign. Multiple morphologically normal lymph nodes in the left axilla. No suspicious left axillary lymphadenopathy is identified. SUMMARY: The patient is under the care of Dr. Valles for biopsy-proven malignancy in the left breast. Andressa gallo/mary:07/09/2023 09:47:29 Multiple national specialty organizations have released breast cancer screening guidelines for women at average risk for developing breast cancer - guidelines that are based on both evidence and opinion, yet differ on when to start and how often to screen for breast cancer. With representation from Breast Imaging, Internal Medicine, Women's Health, Family Medicine, and Medical/Surgical Oncology, the [facility] has carefully reviewed the data and reached the following consensus: 1) All women should engage in shared decision-making with their providers to decide when to start and how often to screen; 2) All women should have the opportunity to start screening mammography at age 40; 3) For women ages 45-55, we recommend annual screening mammograms; 4) For women ages 55 and over, we support both the transition from an annual to a biennial interval if this aligns more with patient's values and preferences, or continuation with annual screening; 5) All women should discuss with their providers when to stop screening mammograms. Control Tower Operator(s): RT Guillermo(R)(M), [facility]; [facility] OVERALL STUDY BIRADS: 6 Known biopsy proven malignancy Relocation Associate: Mary Transcribe Date/Time: Jul 09 2023 7:57A Dictated by : ANDRESSA JONES MD This examination was interpreted and the report reviewed and electronically signed by: ANDRESSA JONES MD on Jul 09 2023 9:47AM EST [id number] Normal [facility] OUTSIDE SURG PATH SLIDE REVI EWon 07-01-2023 CASE REPORT Normal [facility] Comment on above: Order Comment: Speci men Type: FORMALIN-FIXED PARAFFIN-EMBEDDED TISSUE SPECIMENOrdering Facility: AP Outside Review Address: , , Result Comment: Surg [facility] Pathology Report Case: [id number] Authorizing Provider: Myles Talamantes MD Collected: 07/01/2023 08:13 AM Ordering Location: [facility] Received: 07/01/2023 08:12 AM [facility] Laboratory Pathologist: Barbara Galan MD Specimen: SLIDE(S), 11 SLIDES [id number] Performed By: #### L [id number] ####[facility] LABCLIA [id number] [address] DIAGNOSIS COMMENT Normal [facility] Comment on above: Order Comment: Nesha billingsley Type: FORMALIN-FIXED PARAFFIN-EMBEDDED TISSUE SPECIMENOrdering Facility: AP Outside Review Address: , , Result Comment: Revi ew of the provided immunohistochemical stained slides, with the appropriate controls, reveals the invasive carcinoma has the following immunoprofile: Estrogen receptor: Positive (91-100%, strong) Progesterone receptor: Negative HER2 IHC: Negative (score 1+) This case has been reviewed intradepartmentally with Dr. Terell Snow, of the [facility] breast pathology service, with diagnostic concordance. Performed By: #### L [id number] ####[facility] LABIA [id number] [address] FINAL DIAGNOSIS Normal [facility] Comment on above: Order Comment: Nesha billingsley Type: FORMALIN-FIXED PARAFFIN-EMBEDDED TISSUE SPECIMENOrdering Facility: AP Outside Review Address: , , Result Comment: Outs melquiades slide review; [facility]; [place], [place]; outside ; date of specimen collection 06/11/2023: Breast, left, 6:00, 6 cm from nipple, stereotactic biopsy: - Invasive ductal carcinoma, provisional Isabella grade 1. - Atypical ductal hyperplasia. Performed By: #### L [id number] ####[facility] LABCLIA [id number] [address] [address] [facility] FINAL PERFORMING LAB Normal [facility] Comment on above: Order Comment: Speci men Type: FORMALIN-FIXED PARAFFIN-EMBEDDED TISSUE SPECIMENOrdering Facility: AP Outside Review Address: , , Result Comment: Diag nostic interpretation performed at [facility], [address] [id number] CLIA# [id number] Concrete Polisher: Tato Shen M.D. Performed By: #### L [id number] ####[facility] LABCLIA [id number] [place] [id number] [facility] CNPNon 06-30-2023 [facility] IVAN HERR[facility] ([id number]) 1950 F Date Time Provider Department 06/30/23 LORRIE HOOPER [facility] During your visit today, we recorded the following information about you: Lorrie Hooper LPN 06/30/2023 9:28 AM Signed Called and spoke to Luna at [facility] in the pathology department. She states slides are going to be sent out today and she is faxing me an updated pathology report with HER2 Lorrie Hooper LPN Allergies As of Date: 06/30/2023 Noted Allergy Reaction SULFA (SULFONAMIDE ANTIBIOTICS) 03/10/2014 14 - Other: See Comments Comments: palpitations SULFAMETHOXAZOLE-TRIMETHOPR IM 02/13/2015 4 - Hives Date Reviewed: 06/26/2023 Reviewed by: Tayla Landon LPN - Fully Assessed Reason for Visit: pathology slides [Other] Prescriptions as of 06/30/2023 - phytosterol/pantethine (CHOLESTOFF COMPLETE ORAL) Take by mouth. - calcium carbonate/vitamin D3 (CALCIUM WITH VITAMIN D3 ORAL) Take by mouth. - ofloxacin (OCUFLOX) 0.3 % ophthalmic solution - prednisoLONE acetate (PRED FORTE, ECONOPRED PLUS) 1 % ophthalmic suspension - anastrozole (ARIMIDEX) 1 mg tablet Take 1 tablet by mouth once daily. - ubidecarenone Q-10 (CO Q-10) 10 mg cap Take by mouth twice daily. - Glucosamine Sulfate (GLUCOSAMINE) 500 mg tab Take 1,500 tablets by mouth. - LUTEIN ORAL Take by mouth. - Multivitamins-Iron tab Take 1 tablet by mouth once daily. - Atqasuk-3 Fatty Acids-Vitamin E (FISH OIL) 1,000 mg cap Take 1 capsule by mouth. - atorvastatin (LIPITOR) 10 mg tablet Problem List As Of Date 06/30/2023 Noted Resolved Abdominal or pelvic swelling, mass or lump, uns*03/11/2014 S/P hysterectomy [Z90.710] 05/23/2014 Cancer of breast, intraductal [D05.10] 04/06/2015 Malignant neoplasm of upper-outer quadrant of r*04/11/2015 History of breast cancer [Z85.3] 04/15/2016 Encounter Status:Closed by LORRIE HOOPER on 06/30/23 [facility] CNPN Telephone ([facility]) IVAN HERRERA ([id number]) 1950 F Date Time Provider Department 06/30/[address] [facility] During your visit today, we recorded the following information about you: Jack Ding PA-C 06/30/2023 9:05 AM Signed Please call patient with new breast cancer information. 1) Please obtain slides from 05/2023 biopsy and official pathology report (I do not see report scanned into [employer]). We need the HER2 as well (pending when she saw Dr Talamantes). 2) Films/reports downloaded in [employer]. Please send for official review by radiology. 3) Additional imaging studies pending above review from our standpoint. 4) Recommend Dr Valles appointment to be scheduled on 07/09 at 9am or 11am to allow for above information to be obtained and reviewed prior to Dr Valles appointment to allow more thorough conversation/surgical planning. If needed after overread - 8am imaging slot held at on 07/09/23. Dr Talamantse's team scheduled radiation oncology, breast MRI. 08/12 genetics scheduled. ARIEL Petersen Jaclyn E, PA-C 07/03/2023 4:13 PM Signed Please arrange left diagnostic mammography (post clip film) and left axillary ultrasound per Dr Anand. Slides reviewed and reported. ARIEL Petersen Janet, RN 07/06/2023 8:55 AM Signed Spoke with patient - offered her 07/09 at 8:00 for same day imaging- she will call back if she can arrange to be there at that time. Liza Gill RN 07/06/2023 9:02 AM Signed Scheduled patient for same day imaging Allergies As of Date: 06/30/2023 Noted Allergy Reaction SULFA (SULFONAMIDE ANTIBIOTICS) 03/10/2014 14 - Other: See Comments Comments: palpitations SULFAMETHOXAZOLE-TRIMETHOPR IM 02/13/2015 4 - Hives Date Reviewed: 06/26/2023 Reviewed by: Tayla Landon LPN - Fully Assessed Reason for Visit: Appointment [186] Electric [employer] - Other [3602] Primary Visit Diagnosis:Malignant neoplasm of central portion of left breast in female, estrogen receptor positive (HCC) (HCC) [C50.112, Z17.0] Other Visit Diagnosis:History of right breast cancer [Z85.3] Order(s):ZAHRA DIAGNOSTIC LEFT [[id number]] Order #: [id number] FUTURE US BREAST LTD LEFT [[id number]] Order #: [id number] FUTURE Prescriptions as of 07/06/2023 - phytosterol/pantethine (CHOLESTOFF COMPLETE ORAL) Take by mouth. - calcium carbonate/vitamin D3 (CALCIUM WITH VITAMIN D3 ORAL) Take by mouth. - ofloxacin (OCUFLOX) 0.3 % ophthalmic solution - prednisoLONE acetate (PRED FORTE, ECONOPRED PLUS) 1 % ophthalmic suspension - anastrozole (ARIMIDEX) 1 mg tablet Take 1 tablet by mouth once daily. - ubidecarenone Q-10 (CO Q-10) 10 mg cap Take by mouth twice daily. - Glucosamine Sulfate (GLUCOSAMINE) 500 mg tab Take 1,500 tablets by mouth. - LUTEIN ORAL Take by mouth. - Multivitamins-Iron tab Take 1 tablet by mouth once daily. - Atqasuk-3 Fatty Acids-Vitamin E (FISH OIL) 1,000 mg cap Take 1 capsule by mouth. - atorvastatin (LIPITOR) 10 mg tablet Problem List As Of Date 06/30/2023 Noted Resolved Abdominal or pelvic swelling, mass or lump, uns*03/11/2014 S/P hysterectomy [Z90.710] 05/23/2014 Cancer of breast, intraductal [D05.10] 04/06/2015 Malignant neoplasm of upper-outer quadrant of r*04/11/2015 History of breast cancer [Z85.3] 04/15/2016 Encounter Status:Closed by LIZA GILL on 07/06/23 Normal [facility] CBC W Auto Differential pane l (Bld)on 06-26-2023 Basophils (Bld) [#/Vol] 0.05 10*3/uL Normal <0.11 [facility] Comment on above: Order Comment: Speci men Type: BLOOD SPECIMENOrdering Facility: [facility] Address: [address] [place] [address] Performed By: #### 5 7021-8 ####[facility] LABCLIA [id number] [place] [address] Basophils/100 WBC (Bld) 0.6 % Normal [facility] Comment on above: Order Comment: Speci men Type: BLOOD SPECIMENOrdering Facility: [facility] Address: [address] [place] [address] Performed By: #### 5 7021-8 ####[facility] LABCLIA [id number] [place] [address] Differential cell count method Nom (Bld) Auto Normal [facility] Comment on above: Order Comment: Speci men Type: BLOOD SPECIMENOrdering Facility: [facility] Address: [address] [place] [address] Performed By: #### 5 7021-8 ####[facility] LABCLIA [id number] [place] [address] Eosinophils (Bld) [#/Vol] 0.09 10*3/uL Normal <0.46 [facility] Comment on above: Order Comment: Speci men Type: BLOOD SPECIMENOrdering Facility: [facility] Address: [address] [place] [address] Performed By: #### 5 7021-8 ####[facility] LABCLIA [id number] [place] [address] Eosinophils/100 WBC (Bld) 1.1 % Normal [facility] Comment on above: Order Comment: Speci men Type: BLOOD SPECIMENOrdering Facility: [facility] Address: [address] [place] [address] Performed By: #### 5 7021-8 ####[facility] LABCLIA [id number] [place] [address] Erythrocyte distribution width (RBC) [Ratio] 14.1 % Normal 11.5-15.0 [facility] Comment on above: Order Comment: Speci men Type: BLOOD SPECIMENOrdering Facility: [facility] Address: [address] [place] [address] Performed By: #### 5 7021-8 ####[facility] LABCLIA [id number] [place] [address] Hematocrit (Bld) [Volume fraction] 44.7 % Normal 36.0-46.0 [facility] Comment on above: Order Comment: Speci men Type: BLOOD SPECIMENOrdering Facility: [facility] Address: [address] [place] [address] Performed By: #### 5 7021-8 ####[facility] LABCLIA [id number] [place] [address] Hemoglobin (Bld) [Mass/Vol] 14.1 g/dL Normal 11.5-15.5 [facility] Comment on above: Order Comment: Speci men Type: BLOOD SPECIMENOrdering Facility: [facility] Address: [address] [place] [address] Performed By: #### 5 7021-8 ####[facility] LABCLIA [id number] [place] [address] Immature granulocytes (Bld) [#/Vol] 10*3/uL Normal <0.10 [facility] Comment on above: Order Comment: Speci men Type: BLOOD SPECIMENOrdering Facility: [facility] Address: [address] [place] [address] Performed By: #### 5 7021-8 ####[facility] LABCLIA [id number] [place] [address] Immature granulocytes/100 WBC (Bld) 0.3 % Normal [facility] Comment on above: Order Comment: Speci men Type: BLOOD SPECIMENOrdering Facility: [facility] Address: [address] [place] [address] Performed By: #### 5 7021-8 ####[facility] LABCLIA [id number] [place] [address] Lymphocytes (Bld) [#/Vol] 2.14 10*3/uL Normal 1.00-4.00 [facility] Comment on above: Order Comment: Speci men Type: BLOOD SPECIMENOrdering Facility: [facility] Address: [address] [place] [address] Performed By: #### 5 7021-8 ####[facility] LABCLIA [id number] [place] [address] Lymphocytes/100 WBC (Bld) 26.8 % Normal [facility] Comment on above: Order Comment: Speci men Type: BLOOD SPECIMENOrdering Facility: [facility] Address: [address] [place] [address] Performed By: #### 5 7021-8 ####[facility] LABCLIA [id number] [place] [address] MCH (RBC) [Entitic mass] 29.3 pg Normal 26.0-34.0 [facility] Comment on above: Order Comment: Speci men Type: BLOOD SPECIMENOrdering Facility: [facility] Address: [address] [place] [address] Performed By: #### 5 7021-8 ####[facility] LABIA [id number] [place] [address] MCHC (RBC) [Mass/Vol] 31.5 g/dL Normal 30.5-36.0 [facility] Comment on above: Order Comment: Speci men Type: BLOOD SPECIMENOrdering Facility: [facility] Address: [address] [place] [address] Performed By: #### 5 7021-8 ####[facility] LABIA [id number] [place] [address] MCV (RBC) [Entitic vol] 92.9 fL Normal 80.0-100.0 [facility] Comment on above: Order Comment: Speci men Type: BLOOD SPECIMENOrdering Facility: [facility] Address: [address] [place] [address] Performed By: #### 5 7021-8 ####[facility] LABIA [id number] [place] [address] Monocytes (Bld) [#/Vol] 0.42 10*3/uL Normal <0.87 [facility] Comment on above: Order Comment: Speci men Type: BLOOD SPECIMENOrdering Facility: [facility] Address: [address] [place] [address] Performed By: #### 5 7021-8 ####[facility] LABIA [id number] [place] [address] Monocytes/100 WBC (Bld) 5.3 % Normal [facility] Comment on above: Order Comment: Speci men Type: BLOOD SPECIMENOrdering Facility: [facility] Address: [address] [place] [address] Performed By: #### 5 7021-8 ####[facility] LABCLIA [id number] [place] [address] Neutrophils (Bld) [#/Vol] 5.26 10*3/uL Normal 1.45-7.50 [facility] Comment on above: Order Comment: Speci men Type: BLOOD SPECIMENOrdering Facility: [facility] Address: [address] [place] [address] Performed By: #### 5 7021-8 ####[facility] LABCLIA [id number] [place] [address] Neutrophils/100 WBC (Bld) 65.9 % Normal [facility] Comment on above: Order Comment: Speci men Type: BLOOD SPECIMENOrdering Facility: [facility] Address: [address] [place] [address] Performed By: #### 5 7021-8 ####[facility] LABCLIA [id number] [place] [address] Nucleated RBC (Bld) [#/Vol] 10*3/uL Normal <0.01 [facility] Comment on above: Order Comment: Speci men Type: BLOOD SPECIMENOrdering Facility: [facility] Address: [address] [place] [address] Performed By: #### 5 7021-8 ####[facility] LABCLIA [id number] [place] [address] Nucleated RBC/100 WBC (Bld) [Ratio] 0.0 /100 WBC Normal [facility] Comment on above: Order Comment: Speci men Type: BLOOD SPECIMENOrdering Facility: [facility] Address: [address] [place] [place] [address] Performed By: #### 5 7021-8 ####[facility] LABCLIA [id number] [place] [address] Platelet mean volume (Bld) [Entitic vol] 10.0 fL Normal 9.0-12.7 [facility] Comment on above: Order Comment: Speci men Type: BLOOD SPECIMENOrdering Facility: [facility] Address: [address] [place] [address] Performed By: #### 5 7021-8 ####[facility] LABIA [id number] [place] [address] Platelets (Bld) [#/Vol] 314 10*3/uL Normal 150-400 [facility] Comment on above: Order Comment: Speci men Type: BLOOD SPECIMENOrdering Facility: [facility] Address: [address] [place] [address] Performed By: #### 5 7021-8 ####[facility] LABIA [id number] [place] [address] RBC (Bld) [#/Vol] 4.81 10*6/uL Normal 3.90-5.20 [facility] Comment on above: Order Comment: Speci men Type: BLOOD SPECIMENOrdering Facility: [facility] Address: [address] [place] [address] Performed By: #### 5 7021-8 ####[facility] [id number] [place] [address] WBC (Bld) [#/Vol] 7.98 10*3/uL Normal 3.70-11.00 [facility] Comment on above: Order Comment: Speci men Type: BLOOD SPECIMENOrdering Facility: [facility] Address: [address] [place] [address] Performed By: #### 5 7021-8 ####[facility] [id number] [place] [address] DEANNEOVgodwin 06-26-2023 CNOV Office Visit (RADTSA ) IVAN HERRERA ([id number]) 1950 F Date Time Provider Department 06/26/23 11:00 AM ISAIAH GAUTHIER During your visit today, we recorded the following information about you: Tayla Landon LPN 06/26/2023 10:43 AM Signed Pacemaker/Defibrillator?N Previous Cancer(s)?right breast cancer Previous Radiation?yes, right breast 2015 Lupus/Scleroderma?N On body monitoring device?N IVETH Perry Saju, MD 07/07/2023 4:05 AM Addendum Radiation Oncology - New Patient/Consult Note PATIENT NAME: Ivan Herrera PATIENT REQUESTING PHYSICIAN: Dr. Myles Talamantes, Dr. Dillon Cooper DIAGNOSIS: 1. 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 2. Stage I, [id number] IDC of the right breast; ER/MA+, Her2- s/p lumpectomy/radiation in 2014 followed by endocrine therapy. PATIENT IDENTIFICATION: This patient was seen in the Department of Radiation Oncology at the [facility] with Isaiah Gauthier MD. She was accompanied today by her family. Final recommendations will be communicated back to the requesting physician by way of the shared medical record, or letter to requesting physician via US mail. HISTORY OF PRESENT ILLNESS: per note from Dr. Talamantes on 06/16/2023: 'CASE HISTORY: Reverse Chronological Order 06/11/2023 left breast mass 6:00, 6 cm from nipple stereotactic core biopsy at [facility]. Consistent with invasive ductal carcinoma NOS. G1, DCIS present, no LVI, ER +91 to 100%, MA negative. HER2 IHC pending. 05/27/2023 - Mammogram: diagnostic category 4 -- suspicious for malignancy. Finding does not exhibit classic findings of breast cancer. 03/29/2021 - Mammogram: diagnostic category 2 -- benign finding with no change from prior assessment. 03/26/2020 - bilateral screening mammogram: diagnostic category 2; benign finding. No change from comparison assessment. 05/2015-current - Arimidex 04/23/2015-06/05/2015 - Radiation to right breast; 6000 cGy in 30 fractions 03/21/2015 - excisional biopsy and sentinel node biopsy Invasive carcinoma of the right breast 1.1 cm grade 1, ER and MA positive, HER-2 negative; 4 lymph nodes all negative for cancer Updated Visit, June 26, 2023: Ivan returns today for follow up accompanied by her sister Minnie. She has concerns about her most recent workup with Dr. Cooper. We discussed her recent bx results. She has not yet undergone surgical resection. No plans at this time for a breast MRI, but she did have genetic and HER2 testing done. Will not need anxiety medication for the MRI. I discussed that determining lumpectomy versus mastectomy will be better decided once she has the MRI. I would like her to see radiation. If she were to undergo lumpectomy, radiation would be indicated. Also, if her HER2 comes back positive, she will need neoadjuvant chemotherapy. Recommended she consider genetic counseling with her children. She has an appointment scheduled next week with Dr. Cooper to review her remaining pathology - he may want to see her after the MRI.' She is referred today to the radiation medicine clinic to have a discussion regarding the potential role of radiation therapy in the post-operative treatment of her newly diagnosed breast cancer. INTERVAL/HISTORY/REVIEW OF SYSTEMS: Ms. Herrera notes that this new left-sided breast cancer was found on screening mammogram and she notes no palpable abnormality in the left breast. He also denies any pain/discomfort, skin changes, nipple discharge. She notes some weight loss over the past few years since her passed as well as occasional palpitations and intermittent abdominal discomfort and knee pain causing some difficulties with balance but otherwise denies any recent fevers/chills, new headaches, difficulty with speech/swallowing, shortness of breath, nausea/vomiting, change in bowel/urinary function. The remainder of the review of systems was performed and was otherwise non-contributory except as described above. PAST MEDICAL HISTORY: PAST MEDICAL HISTORY Diagnosis Date Abnormal mammogram 2009 Biopsy normal High cholesterol Spinal cord injury Spondylosis PAST SURGICAL HISTORY: PAST SURGICAL HISTORY Procedure Laterality Date BACK SURGERY HX spinal surg bone graft upper thoracic CATARACT EXTRACTION HX COLONSCOPY SCREENING HIGH RISK HYSTERECTOMY HX 2014 PAST SURGICAL HISTORY OF 2010 breast biopsy negative PAST SURGICAL HISTORY OF fatty tumor left hand FAMILY HISTORY: FAMILY HISTORY Problem Relation Age of Onset Ovarian cancer Mother 82 Breast Cancer Mother Colon Cancer Father mets to bone, unknown origin Hypertension Sister SOCIAL HISTORY: Social History Tobacco Use Smoking status: Former Packs/day: 0.30 Years: 10.00 Additional pack (more content not included)... Normal [facility] CNOVSPon 06-26-2023 CNOVSP Visit (SP) Office (H EMASA) IVAN HERRERA ([id number]) 1950 F Date Time Provider Department 06/26/23 9:15 AM MYLES TALAMANTES During your visit today, we recorded the following information about you: Temperature Pulse Respiration Blood pressure 97.8 degrees 72/minute 16/minute 149/88 Weight Height 88 kg 1.727 m Myles Talamantes MD 06/26/2023 12:40 PM Addendum NAME: Ivan Herrera CLINIC NO.: [id number] DATE OF SERVICE: June 26, 2023 ([place]) Some elements in this clinic note that are critical to medical decision making have been carefully reviewed and included from a prior clinic note dated: April 19, 2020 ([place]). Referring Provider: Dr. Chauncey Bowles Additional Clinicians involved in Ivan Herrera's care: Dillon Cooper DIAGNOSIS: Malignant neoplasm lower quadrant left breast ER positive. History of malignant neoplasm of upper-outer quadrant of right breast in female, estrogen receptor positive ASSESSMENT: 73 year old woman with malignant neoplasm of upper-outer quadrant of right breast in female, estrogen receptor positive Stage I ([id number]) right breast cancer of the upper outer quadrant, ER/MA +, Her2-, diagnosed in February 2015. She had lumpectomy, followed by radiation, and has been on aromatase inhibitor therapy since May 2015 with good tolerance. Her recent mammogram from February 2020 was negative for malignancy. She has no evidence of recurrence. She continued her Anastrozole until May 2020, completing 5 years of therapy. 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 She presents in follow-up regarding this new diagnosis. Given 2nd primary, even though it appears to be low grade, I would like her to get an MRI breast to complete her staging. Will also consider CT Chest abdomen pelvis if she has aggressive features such as HER2+ivity. PLAN: Labs today Obtain breast MRI locally RTC after imaging Refer to radiation oncology Refer to genetic counseling Obtain pathology addendum (HER2 results) Patient met with my Colleague Dr. Gauthier from Rad/onc today also and asked for a referral to breast surgery. Referral to Dr. Hagan and Beny, Schedule Breast imaging review and MRI with [facility] facility. - HPI: CASE HISTORY: Reverse Chronological Order 06/11/2023 left breast mass 6:00, 6 cm from nipple stereotactic core biopsy at [facility]. Consistent with invasive ductal carcinoma NOS. G1, DCIS present, no LVI, ER +91 to 100%, MA negative. HER2 IHC pending. 05/27/2023 - Mammogram: diagnostic category 4 -- suspicious for malignancy. Finding does not exhibit classic findings of breast cancer. 03/29/2021 - Mammogram: diagnostic category 2 -- benign finding with no change from prior assessment. 03/26/2020 - bilateral screening mammogram: diagnostic category 2; benign finding. No change from comparison assessment. 05/2015-current - Arimidex 04/23/2015-06/05/2015 - Radiation to right breast; 6000 cGy in 30 fractions 03/21/2015 - excisional biopsy and sentinel node biopsy Invasive carcinoma of the right breast 1.1 cm grade 1, ER and MA positive, HER-2 negative; 4 lymph nodes all negative for cancer Updated Visit, June 26, 2023: Ivan returns today for follow up accompanied by her sister Minnie. She has concerns about her most recent workup with Dr. Cooper. We discussed her recent bx results. She has not yet undergone surgical resection. No plans at this time for a breast MRI, but she did have genetic and HER2 testing done. Will not need anxiety medication for the MRI. I discussed that determining lumpectomy versus mastectomy will be better decided once she has the MRI. I would like her to see radiation. If she were to undergo lumpectomy, radiation would be indicated. Also, if her HER2 comes back positive, she will need neoadjuvant chemotherapy. Recommended she consider genetic counseling with her children. She has an appointment scheduled next week with Dr. Cooper to review her remaining pathology - he may want to see her after the MRI. Updated Visit, April 19, 2020: Simi returns today for yearly follow up. Doing well. Struggling most with her 's diagnosis of dementia. It has been a struggle. She remains on Anastrozole and is due to complete 5 years in May. Her mammogram was 03/26/2020 and reviewed below. She denies any new pain, skin changes or masses. Updated Visit, December 09, 2019: Ivan Herrera is a 69 year old female who presents in follow up on arimidex. Good tolerance overall. No complaints. She was started on arimidex 06/12 (more content not included)... [facility] ([id number]) 1950 F Date Time Provider Department 06/26/23 MYLES TALAMANTES During your visit today, we recorded the following information about you: Carrie Longoria 06/26/2023 1:08 PM Signed Maryann Hagan DO Abhyankar Myles, MD; Chato Bond, Abril Prather; Carrie Longoria; Severo Valles MD; Isaiah Gauthier MD; 2 others Happy to see. Team, can you please offer her my 830 cancer spot next Thursday at [facility] (hold is on there for her). If that does not work, then any future cancer spot at either location is OK too. Thank you Mayito for the information and starting her workup/ record acquisition! LK Previous Messages ----- Message ----- From: Myles Talamantes MD Sent: 06/26/2023 12:32 PM EST To: Isaiah Gauthier MD; Abril Reis Sec; * Patient met with my Colleague Dr. Gauthier from Rad/onc today also and asked for a referral to breast surgery. Referral to Dr. Hagan and Beny, Schedule Breast imaging review and MRI with [facility] facility. Opal - very nice lady would like to see one of you for her second contralateral breast primary please. I've requested Path review and will request image review also. Isaiah - thanks for seeing her on short notice! Happy New Year's everyone! Mayito. Allergies As of Date: 06/26/2023 Noted Allergy Reaction SULFA (SULFONAMIDE ANTIBIOTICS) 03/10/2014 14 - Other: See Comments Comments: palpitations SULFAMETHOXAZOLE-TRIMETHOPR IM 02/13/2015 4 - Hives Date Reviewed: 06/26/2023 Reviewed by: Tayla Landon LPN - Fully Assessed Reason for Visit: Consult [173] Prescriptions as of 06/26/2023 - phytosterol/pantethine (CHOLESTOFF COMPLETE ORAL) Take by mouth. - iv contrast (will be provided with radiology test) MRI Breast VIRGINIE Inject, intravenously, once for 1 dose. No IV access, insert saline lock prior to the beginning of sedation, infusion, injection of imaging exam. Discontinue saline lock post exam. If Pt has a central line or IVAD, may access for administration according to line specific nursing protocol. Once exam is complete flush line and de-access according to line specific nursing protocol in the MR contrast administration guidelines link - calcium carbonate/vitamin D3 (CALCIUM WITH VITAMIN D3 ORAL) Take by mouth. - ofloxacin (OCUFLOX) 0.3 % ophthalmic solution - prednisoLONE acetate (PRED FORTE, ECONOPRED PLUS) 1 % ophthalmic suspension - anastrozole (ARIMIDEX) 1 mg tablet Take 1 tablet by mouth once daily. - ubidecarenone Q-10 (CO Q-10) 10 mg cap Take by mouth twice daily. - Glucosamine Sulfate (GLUCOSAMINE) 500 mg tab Take 1,500 tablets by mouth. - LUTEIN ORAL Take by mouth. - Multivitamins-Iron tab Take 1 tablet by mouth once daily. - [place]-3 Fatty Acids-Vitamin E (FISH OIL) 1,000 mg cap Take 1 capsule by mouth. - atorvastatin (LIPITOR) 10 mg tablet Problem List As Of Date 06/26/2023 Noted Resolved Abdominal or pelvic swelling, mass or lump, uns*03/11/2014 S/P hysterectomy [Z90.710] 05/23/2014 Cancer of breast, intraductal [D05.10] 04/06/2015 Malignant neoplasm of upper-outer quadrant of r*04/11/2015 History of breast cancer [Z85.3] 04/15/2016 Encounter Status:Closed by CARRIE LONGORIA on [facility]/26/[facility] ([id number]) 1950 F Date Time Provider Department 06/26/23 MYLES TALAMANTES [facility] During your visit today, we recorded the following information about you: Carrie Longoria 06/26/2023 1:06 PM Signed Request sent to [facility] Pathology to send for second opinion June 26, 2023 1:06 PM Carrie Longoria Allergies As of Date: 06/26/2023 Noted Allergy Reaction SULFA (SULFONAMIDE ANTIBIOTICS) 03/10/2014 14 - Other: See Comments Comments: palpitations SULFAMETHOXAZOLE-TRIMETHOPR IM 02/13/2015 4 - Hives Date Reviewed: 06/26/2023 Reviewed by: Tayla Landon LPN - Fully Assessed Reason for Visit: Second Opinion Path [Other] Prescriptions as of 06/26/2023 - phytosterol/pantethine (CHOLESTOFF COMPLETE ORAL) Take by mouth. - iv contrast (will be provided with radiology test) MRI Breast VIRGINIE Inject, intravenously, once for 1 dose. No IV access, insert saline lock prior to the beginning of sedation, infusion, injection of imaging exam. Discontinue saline lock post exam. If Pt has a central line or IVAD, may access for administration according to line specific nursing protocol. Once exam is complete flush line and de-access according to line specific nursing protocol in the MR contrast administration guidelines link - calcium carbonate/vitamin D3 (CALCIUM WITH VITAMIN D3 ORAL) Take by mouth. - ofloxacin (OCUFLOX) 0.3 % ophthalmic solution - prednisoLONE acetate (PRED FORTE, ECONOPRED PLUS) 1 % ophthalmic suspension - anastrozole (ARIMIDEX) 1 mg tablet Take 1 tablet by mouth once daily. - ubidecarenone Q-10 (CO Q-10) 10 mg cap Take by mouth twice daily. - Glucosamine Sulfate (GLUCOSAMINE) 500 mg tab Take 1,500 tablets by mouth. - LUTEIN ORAL Take by mouth. - Multivitamins-Iron tab Take 1 tablet by mouth once daily. - Atq[place]uk-3 Fatty Acids-Vitamin E (FISH OIL) 1,000 mg cap Take 1 capsule by mouth. 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 Results obtained with different methods or kits cannot be used interchangeably. Performed By: #### 6 875-9 ####[facility] LABCLIA [id number] [address] OF [facility] Cancer Ag27-29 SerPl-aCncon 06-26-2023 Cancer Ag 27-29 Qn 31.1 [arb'U]/mL Normal <38.6 C [facility] Comment on above: Order Comment: Speci men Type: BLOOD SPECIMENOrdering Facility: [facility] Address: [address] [place] [address] Result Comment: The CA27.29 test was performed using the [employer] XP chemiluminometric immunoassay method. Results obtained with different assay methods or kits cannot be used interchangeably. Performed By: #### 1 7842-6 ####[facility] LABCLIA [id number] [address] OF [facility] Comprehensive metabolic 2000 panelon 06-26-2023 Albumin [Mass/Vol] 4.4 g/dL Normal 3.9-4.9 [facility] Comment on above: Order Comment: Speci men Type: BLOOD SPECIMENOrdering Facility: [facility] Address: [address] [place] [address] Performed By: #### 2 4323-8 ####[facility] LABCLIA [id number] [place] [address] ALP [Catalytic activity/Vol] 121 U/L Normal 34-123 [facility] Comment on above: Order Comment: Speci men Type: BLOOD SPECIMENOrdering Facility: [facility] Address: [address] [place] [address] Performed By: #### 2 4323-8 ####[facility] LABCLIA [id number] [place] [address] ALT [Catalytic activity/Vol] 19 U/L Normal 7-38 [facility] Comment on above: Order Comment: Speci men Type: BLOOD SPECIMENOrdering Facility: [facility] Address: [address] [place] [address] Performed By: #### 2 4323-8 ####[facility] LABCLIA [id number] [place] [address] Anion gap [Moles/Vol] 9 mmol/L Normal 9-18 [facility] Comment on above: Order Comment: Speci men Type: BLOOD SPECIMENOrdering Facility: [facility] Address: [address] [place] [address] Performed By: #### 2 4323-8 ####[facility] LABCLIA [id number] [place] [address] AST [Catalytic activity/Vol] 15 U/L Normal 13-35 [facility] Comment on above: Order Comment: Speci men Type: BLOOD SPECIMENOrdering Facility: [facility] Address: [address] [place] [address] Performed By: #### 2 4323-8 ####[facility] LABCLIA [id number] [place] [address] Bilirubin [Mass/Vol] 0.2 mg/dL Normal 0.2-1.3 [facility] Comment on above: Order Comment: Speci men Type: BLOOD SPECIMENOrdering Facility: [facility] Address: [address] [place] [address] Performed By: #### 2 4323-8 ####[facility] LABCLIA [id number] [place] [address] Calcium [Mass/Vol] 9.9 mg/dL Normal 8.5-10.2 [facility] Comment on above: Order Comment: Speci men Type: BLOOD SPECIMENOrdering Facility: [facility] Address: [address] [place] [address] Performed By: #### 2 4323-8 ####[facility] LABCLIA [id number] [place] [address] Chloride [Moles/Vol] 105 mmol/L Normal 97-105 [facility] Comment on above: Order Comment: Speci men Type: BLOOD SPECIMENOrdering Facility: [facility] Address: [address] [place] [address] Performed By: #### 2 4323-8 ####[facility] LABCLIA [id number] [place] [address] CO2 [Moles/Vol] 26 mmol/L Normal 22-30 [facility] Comment on above: Order Comment: Speci men Type: BLOOD SPECIMENOrdering Facility: [facility] Address: [address] [place] [address] Performed By: #### 2 4323-8 ####[facility] LABCLIA [id number] [place] [address] Creatinine [Mass/Vol] 0.69 mg/dL Normal 0.58-0.96 [facility] Comment on above: Order Comment: Speci men Type: BLOOD SPECIMENOrdering Facility: [facility] Address: [address] [place] [address] Performed By: #### 2 4323-8 ####[facility] LABCLIA [id number] [place] [address] Creatinine and Glomerular filtration rate.predicted panel (S/P/Bld) 92 mL/min/1.73m??? Normal >=60 [facility] Comment on above: Order Comment: Speci men Type: BLOOD SPECIMENOrdering Facility: [facility] Address: [address] [place] [address] Result Comment: Bella mated Glomerular Filtration Rate (eGFR) is calculated using the 2020 CKD-EPI creatinine equation. This equation utilizes serum creatinine, sex, and age as parameters. The creatinine assay has traceable calibration to isotope dilution-mass spectrometry. Refer to KDIGO guidelines for clinical interpretation. In patients with unstable renal function, e.g. those with acute kidney injury, the eGFR may not accurately reflect actual GFR. Performed By: #### 2 4323-8 ####[facility] LABCLIA [id number] [place] [address] Glucose [Mass/Vol] 131 mg/dL High 74-99 [facility] Comment on above: Order Comment: Speci men Type: BLOOD SPECIMENOrdering Facility: [facility] Address: [address] [place], [place] [address] Result Comment: The [place] Diabetes Association (ADA) provides guidance for cutoff values for fasting glucose and random glucose. The ADA defines fasting as no caloric intake for at least 8 hours. Fasting plasma glucose results between 100 to 125 mg/dL indicate increased risk for diabetes (prediabetes). Fasting plasma glucose results greater than or equal to 126 mg/dL meet the criteria for diagnosis of diabetes. In the absence of unequivocal hyperglycemia, results should be confirmed by repeat testing. In a patient with classic symptoms of hyperglycemia or hyperglycemic crisis, random plasma glucose results greater than or equal to 200 mg/dL meet the criteria for diagnosis of diabetes. Reference: Standards of Medical Care in Diabetes 2016, [place] [employer]. Diabetes Care. 2016.39(Suppl 1). Performed By: #### 2 4323-8 ####[facility] LABCLIA [id number] [place] [address] Potassium [Moles/Vol] 4.6 mmol/L Normal 3.7-5.1 [facility] Comment on above: Order Comment: Speci men Type: BLOOD SPECIMENOrdering Facility: [facility] Address: [address] [place] [address] Performed By: #### 2 4323-8 ####[facility] LABCLIA [id number] [place] [address] Protein [Mass/Vol] 7.6 g/dL Normal 6.3-8.0 [facility] Comment on above: Order Comment: Speci men Type: BLOOD SPECIMENOrdering Facility: [facility] Address: [address] [place] [address] Performed By: #### 2 4323-8 ####[facility] LABCLIA [id number] [place] [address] Sodium [Moles/Vol] 140 mmol/L Normal 136-144 [facility] Comment on above: Order Comment: Speci men Type: BLOOD SPECIMENOrdering Facility: [facility] Address: [address] [place] [address] Performed By: #### 2 4323-8 ####[facility] LABCLIA [id number] [place] [address] Urea nitrogen [Mass/Vol] 17 mg/dL Normal 7-21 [facility] Comment on above: Order Comment: Speci men Type: BLOOD SPECIMENOrdering Facility: [facility] Address: [place] [address] Performed By: #### 2 4323-8 ####[facility] LABCLIA [id number] [place] [address] Bar 06-11-2023 L ------- Specimen: [id number] Received: 06/11/23 Status: JESSE Marco Num: [id number] Spec Type: Surgical Subm Dr: Honorio Blakely Jr, DO Tissues: A Breast Core CALCIFICATIONS (LT BREAST) Procedures: HE/4, Gross/Micro L4, CALPONIN, E CADHERIN, ER, MA Age/ Patient Sex Location Account Attending Physician Ivan Herrera 73/F [place] [id number] Dillon Nadeem Jmmaya,DO SPEC NUM: [id number] RECD: 06/11/23 STATUS: JESSE CLAROS NUM: [id number] EVARISTO: 06/11/23- SUBM DR: Honorio Blakely Jr, DO ENTERED: 06/11/[address]: NEGIN TYPE: Surgical DEPT: S ORDERED: HE/4, Gross/Micro L4, CALPONIN, E CADHERIN, ER, MA ORDERED: HE/4, Gross/Micro L4, CALPONIN, E CADHERIN, ER, MA Pathological Diagnosis Left breast mass at 6:00, 6 cm from nipple, stereotactic core biopsy: - Invasive ductal carcinoma, NOS type - Please also see cancer summary and synoptic report below CAP CANCER CASE SUMMARY Applies To: A SPECIMEN Procedure: Needle biopsy Specimen Laterality: Left TUMOR Histologic Type: Invasive carcinoma of no special type (ductal) Glandular (Acinar) / Tubular Differentiation: Score 3 Nuclear Pleomorphism: Score 1 Mitotic Rate: Score 1 Overall Grade: Grade 1 (scores of 3, 4 or 5) Largest Invasive Focus in this Limited Biopsy Sample: At least - 3 mm Ductal Carcinoma In Situ (DCIS): Present Architectural Patterns: Near Solid Nuclear Grade: Grade I (low) Necrosis: Present, focal (small foci or single cell necrosis) Lymphatic and / or Vascular Invasion: Not identified Microcalcifications: Present in non-neoplastic tissue, Very faint Specimen: [id number] Received: 06/11/23 Status: JESSE Claros Num: [id number] Spec Type: Surgical Subm Dr: Honorio Blakely Jr, DO Tissues: A Breast Core CALCIFICATIONS (LT BREAST) Procedures: HE/4, Gross/Micro L4, CALPONIN, E CADHERIN, ER, MA Patient: Ivan Herrera [id number] (Continued) Specimen: [id number] Received: 06/11/23 (Continued) Pathological Diagnosis (Continued) Signed (signature on file) James Steinberg MD 06/15/23 1149 Specimen: [id number] Received: 06/11/23 Status: JESSE Claros Num: [id number] Spec Type: Surgical Subm Dr: Honorio Blakely Jr, DO Tissues: A Breast Core CALCIFICATIONS (LT BREAST) Procedures: HE/4, Gross/Micro L4, CALPONIN, E CADHERIN, ER, MA Patient: Ivan Herrera [id number] (Continued) Specimen: [id number] Received: 06/11/23 (Continued) Pathological Diagnosis (Continued) Tumor biomarkers Test(s) Performed: Estrogen Receptor (ER) Status: Positive (greater than 10% of cells demonstrate nuclear posit ivity) Percentage of Cells with Nuclear Positivity: 91-100% Average Intensity of Staining: Moderate Progesterone Receptor (PgR) Status: Negative (less than 1%) HER2 by Immunohistochemistry: Pending testing in reference laboratory Cold Ischemia and Fixation Times: Meet requirements specified in latest version of the ASCO / CAP Guidelines Comment(s): Calponin and E-cadherin immunostains with provided control also showing findings supporting the above interpretation Clinical Information Left breast mass at 6:00, 6 cm from nipple Gross Description Received in formalin labeled with the patient's name, date of and left breast is a 3.5 x 2.5 x 0.5 cm aggregate of cores of fibrofatty breast tissue. Entirely submitted in two cassettes labeled A1-A2. Time of excision: 11:43 AM 06/11/2023, time in formalin: 11:48 AM 06/11/2023, time out of formalin: 11:30 PM 06/11/2023. Cold Ischemia and Fixation Time meets the requirements sp ecified in the latest version of the ASCO/CAP guidelines: Yes. Cold Ischemic Time: 0.08 Formalin Fixation Time: 11.70 Microscopic Description Four H E slides reviewed. The microscopic examination confirms the diagnosis. CPT Codes 55198, 99289r3, 93558x6, 34886x6 (more content not included)... Normal [facility] MM post biopsy LT w/CADon MM post biopsy LT w/[place] [address] Mammography Report Signed with Addenda Patient: Ivan Herrera MR#: [id number] 676 : 1950 Acct:[id number] Age/Sex: 73 / F ADM Date: 06/11/23 Loc: [place] Room: Type: [facility] Attending Dr: Dillon Cooper DO Copies to: DO Chauncey Metz MD Ordering Provider: Dillon Cooper DO Date of Service: 06/11/23 MM/MM biopsy LT vac assist stereo: [id number] ([id number]) MM/MM post biopsy LT w/CAD: CLIP PLACEMENT ADDENDUM 1 Addendum for pathology: Guy guided biopsy 6:00 position of the left breast 6 cm from the nipple: invasive ductal carcinoma. Pathology is concordant with imaging. Surgical/oncologic management is recommended. Impression dictated by: Honorio Blakely Jr., D.O.06/15/2023 3:20 PM Dictation Location: [facility]-15 Addendum Dictated By: Honorio Blakely Jr DO Addendum Signed By: 06/15/231519 Addendum Cosigned By: DD/ TD/TT: 06/15/23 Guy guided LEFT BREAST BIOPSY WITH VACUUM ASSISTED NEEDLE AND MARKING CLIP PLACEMENT: CLINICAL INDICATION: Architectural distortion left breast TECHNIQUE AND FINDINGS: The procedure, associated risks, benefits were discussed with the patient and written, informed consent was obtained., Guy imaging was performed and the coordinates of the lesion were calculated. Following sterile preparation and local anesthetization with lidocaine, an 9-gauge Medicast vacuum assisted core biopsy needle was advanced into the breast. Documentation of the needle position was performed both before and after firing of the needle. Multiple core biopsy specimens were obtained of the area of concern. Before the needle was removed, a marking clip was placed. The postbiopsy stereotactic image confirmed clip deployment. There were no immediate postprocedural complications. MM/MM biopsy LT vac assist stereo IMPRESSION: TECHNICALLY SUCCESSFUL LEFT BREAST GUY GUIDED BIOPSY ENUMERATED ABOVE. DIAGNOSTIC MAMMOGRAMS: Craniocaudal and lateral views of the left breast were performed post stereotactic biopsy using low dose digital technique. Comparison is made to the mammograms were performed prebiopsy. A marking clip is noted without evidence of migration. IMPRESSION: STATUS POST SUCCESSFUL GUY BIOPSY OF THE LEFT BREAST. RESULT CODE: NL Impression dictated by: Honorio Blakely Jr., D.O.06/11/2023 12:04 PM Dictation Location: [facility] Transcribed By: [facility] 06/11/23 1204 Dictated By: Honorio Blakely Jr, DO 06/11/23 1159 Signed By: 06/11/23 1204 [facility] XR DEXA BONE DENSITYon 10-20 XR DEXA BONE DENSITY EXAMINATION: XR DEXA BONE DENSITY, 10/20/2022 11:00 AM EDT HISTORY: Primary ovarian failure COMPARISON: DEXA bone densitometry 05/24/2018 TECHNIQUE: Dual-energy X-ray absorptiometry (DEXA) bone density study performed for the axial skeleton. FINDINGS: SPINE ANALYSIS: Average bone mineral density is 1.060 g/cm2. T-score (standard deviation relative to young adult mean): -1.2 . -6.9% change since prior study. HIP ANALYSIS: Lowest bone mineral density is within the femoral trochanter, 0.864 g/cm2. T-score (standard deviation relative to young adult mean): 0.1 . -3.3% change since prior study. IMPRESSION: World Jc Organization Classification: Osteopenia - Moderate Fracture Risk Electronically authenticated by: YINA WEAVER Date: 2022-10-20 11:38 Normal [facility] MG MAMM SCREEN 3D VIRGINIE CADon 04-15-2022 MG MAMM SCREEN 3D [place] CAD Patient: IVAN HERRERA Exam Date: 04/15/2022 : 1950 Gender:F Ordering : DR CHAUNCEY BOWLES M.D. Admission #: [id number] Family : Order #: [id number] CLICK HERE TO VIEW EXAM RADIOLOGY REPORT PROCEDURE: MAMMOGRAM SCREENING 3D BILATERAL CAD COMPARISON: MG MAMM SCREEN 3D VIRGINIE CAD, 03/29/2021. MG MAMM SCREEN VIRGINIE W CAD, 03/26/2020. INDICATIONS: Screening mammography Calculator Name NCI Breast Cancer Risk Assessment Tool 5 Year Breast Cancer Risk n/a% Lifetime Breast Cancer Risk n/a% Personal Breast Cancer Yes, Lumpectomy Rt Brreast Personal Ovarian Cancer No Treatments Lumpectomy Family Cancers Mother with breast cancer at age 84; Mother with ovarian cancer at age 84; Father with bone/liver cancer at age 68. LOCATION: [facility] BREAST COMPOSITION: Scattered areas fibroglandular density. FINDINGS: DIAGNOSTIC CATEGORY 2--BENIGN FINDING: RIGHT BREAST: No significant suspicious finding. Scattered benign-appearing calcifications are present. Stable scarring upper outer quadrant. No significant change has occurred. LEFT BREAST: No significant suspicious finding. Scattered benign-appearing calcifications are present. Scattered benign-appearing lymph nodes are present. No significant change has occurred. RECOMMENDATIONS: ROUTINE MAMMOGRAM AND CLINICAL EVALUATION IN 12 MONTHS. PLEASE NOTE: A NORMAL MAMMOGRAM DOES NOT EXCLUDE THE POSSIBILITY OF BREAST CANCER. A CLINICALLY SUSPICIOUS PALPABLE LUMP SHOULD BE BIOPSIED. Dictated by: Yina Weaver M.D. on 04/15/2022 at 15:50 Approved by: Yina Weaver M.D. on 04/15/2022 at 15:55 Normal [facility] Complete Blood Count with Au to Diffon 07-16-2021 Basophils (Bld) [#/Vol] 0.04 10*3/uL Normal 0.00-0.20 [employer] Faculty Member Comment on above: Performed By: #### C MP, LIPD, CBCAD #### [facility] [address] [place], [place] [id number] Basophils/100 WBC (Bld) 0.4 % Normal [facility] Specialist Comment on above: Performed By: #### C MP, LIPD, CBCAD #### [facility] [address] [place] [address], [place] [id number] Eosinophils (Bld) [#/Vol] 0.04 10*3/uL Normal 0.02-0.50 [facility] Specialist Comment on above: Performed By: #### C MP, LIPD, CBCAD #### [facility] [address], [place] [id number] Eosinophils/100 WBC (Bld) 0.4 % Normal [facility] Specialist Comment on above: Performed By: #### C MP, LIPD, CBCAD #### [facility] [address] [place], [place] [id number] Erythrocyte distribution width (RBC) [Ratio] 13.9 % Normal 11.0-15.0 [facility] Specialist Comment on above: Performed By: #### C MP, LIPD, CBCAD #### [facility] [address] [place], [place] [id number] Hematocrit (Bld) [Volume fraction] 47.7 % High 35.0-47.0 [facility] Specialist Comment on above: Performed By: #### C MP, LIPD, CBCAD #### [facility] [address] [place] [address], [place] [id number] Hemoglobin (Bld) [Mass/Vol] 15.0 g/dL Normal 11.6-15.5 [facility] Specialist Comment on above: Performed By: #### C MP, LIPD, CBCAD #### [facility] [address] [place], [place] [id number] Lymphocytes (Bld) [#/Vol] 2.2 10*3/uL Normal 0.9-3.9 [facility] Specialist Comment on above: Performed By: #### C MP, LIPD, CBCAD #### [facility] [address], [place] [id number] Lymphocytes/100 WBC (Bld) 24.7 % Normal [facility] Specialist Comment on above: Performed By: #### C MARSHA IYER, CBCAD #### [facility] [address] [place], [place] [id number] MCH (RBC) [Entitic mass] 30.1 pg Normal 27.0-33.0 [facility] Specialist Comment on above: Performed By: #### C MAIRA IYERD, CBCAD #### [facility] [address] [place], [place] [id number] MCHC (RBC) [Mass/Vol] 31.4 g/dL Low 32.0-36.0 [facility] Specialist Comment on above: Performed By: #### C MAIRA IYERD, CBCAD #### [facility] [address] [place], [place] [id number] MCV (RBC) [Entitic vol] 96 fL Normal 80-100 [facility] Specialist Comment on above: Performed By: #### C SHIREEN LIPD, CBCAD #### [facility] [address] [place], [place] [id number] Monocytes (Bld) [#/Vol] 0.5 10*3/uL Normal 0.2-0.9 [facility] Specialist Comment on above: Performed By: #### C SHIREEN LIPD, CBCAD #### [facility] [address], [place] [id number] Monocytes/100 WBC (Bld) 5.2 % Normal [facility] Specialist Comment on above: Performed By: #### C SHIREEN LIPD, CBCAD #### [facility] [address] [place], [place] [id number] Neutrophils (Bld) [#/Vol] 6.2 10*3/uL Normal 1.5-7.8 [facility] Specialist Comment on above: Performed By: #### C SHIREEN LIPD, CBCAD #### [facility] [address], [place] [id number] Neutrophils/100 WBC (Bld) 69.1 % Normal [facility] Specialist Comment on above: Performed By: #### C SHIREEN LIPD, CBCAD #### [facility] [address] [place], [place] [id number] Platelet mean volume (Bld) [Entitic vol] 11.00 fL Normal 7.50-12.50 [facility] Specialist Comment on above: Performed By: #### C MP LIPD, CBCAD #### [facility] [address] [place], [place] [id number] Platelets (Bld) [#/Vol] 300 10*3/uL Normal 140-400 [facility] Specialist Comment on above: Performed By: #### C MP, LIPD, CBCAD #### [facility] [address] [place], [place] [id number] RBC (Bld) [#/Vol] 4.98 10*6/uL Normal 3.90-5.20 [facility] Comment on above: Performed By: #### C MP, LIPD, CBCAD #### [facility] [address] [place], [place] [id number] RDW-SD 49.2 fL Normal 37.0-50.0 [facility] Specialist Comment on above: Performed By: #### C MP, LIPD, CBCAD #### [facility] [address] [place], [place] [id number] WBC (Bld) [#/Vol] 9.0 10*3/uL Normal 3.8-11.0 [facility] Specialist Comment on above: Performed By: #### C MP, LIPD, CBCAD #### [facility] [address] [place], [place] [id number] Comprehensive [facility] 07-16-2021 Albumin [Mass/Vol] 4.9 g/dL Normal 3.6-5.1 [facility] Specialist Comment on above: Performed By: #### C MP, LIPD, CBCAD #### [facility] [address] [place], [place] [id number] Albumin/Globulin [Mass ratio] 1.9 {ratio} Normal 1.0-2.5 [facility] Specialist Comment on above: Performed By: #### C MP, LIPD, CBCAD #### [facility] [address] [place], [place] [id number] ALP [Catalytic activity/Vol] 110 U/L Normal 35-119 [facility] Specialist Comment on above: Performed By: #### C MP, LIPD, CBCAD #### [facility] [address] [place], [place] [id number] ALT [Catalytic activity/Vol] 26 U/L Normal 6-33 [facility] Specialist Comment on above: Result Comment: 05/29 Female reference range changed. Performed By: #### C MP, LIPD, CBCAD #### [facility] [address] [place], [place] [id number] Anion gap [Moles/Vol] 23 mmol/L High 12-20 [facility] Specialist Comment on above: Result Comment: Effe ctive 07/04/2019 reference range changed. Performed By: #### C MP, LIPD, CBCAD #### [facility] [address] [place], [place] [id number] AST [Catalytic activity/Vol] 19 U/L Normal 9-34 [facility] Specialist Comment on above: Performed By: #### C MP, LIPD, CBCAD #### [facility] [address] [place], [place] [id number] Bilirubin [Mass/Vol] 0.47 mg/dL Normal 0.30-1.20 [facility] Specialist Comment on above: Performed By: #### C MP, LIPD, CBCAD #### [facility] [address] [place], [place] [id number] BUN/CREA 31 Ratio High 6-22 [facility] Specialist Comment on above: Performed By: #### C MP, LIPD, CBCAD #### [facility] [address] [place], [place] [id number] Calcium [Mass/Vol] 9.9 mg/dL Normal 8.6-10.2 [facility] Comment on above: Performed By: #### C MP, LIPD, CBCAD #### [facility] [address] [place], [place] [id number] Chloride [Moles/Vol] 103 mmol/L Normal 98-107 [facility] Specialist Comment on above: Performed By: #### C MP, LIPD, CBCAD #### [facility] [address] [facility] [place] [id number] CO2 [Moles/Vol] 20 mmol/L Normal 20-31 [facility] Specialist Comment on above: Performed By: #### C MP, LIPD, CBCAD #### [facility] [address] [place], [place] [id number] Creatinine [Mass/Vol] 0.6 mg/dL Normal 0.6-1.4 [facility] Specialist Comment on above: Performed By: #### C MP, LIPD, CBCAD #### [facility] [address] [place], [place] [id number] eGFRAA 113 mL/min/1.73m2 Normal >60 [facility] Specialist Comment on above: Performed By: #### C MP, LIPD, CBCAD #### [facility] [address] [place], [place] [id number] eGFRNAA 93 mL/min/1.73m2 Normal >60 [facility] Specialist Comment on above: Performed By: #### C MP, LIPD, CBCAD #### [facility] [address] [place], [place] [id number] Globulin (S) [Mass/Vol] 2.6 g/dL Normal 1.9-3.7 [facility] Specialist Comment on above: Performed By: #### C MP, LIPD, CBCAD #### [facility] [address] [place], [place] [id number] Glucose [Mass/Vol] 104 mg/dL High 65-99 [facility] Specialist Comment on above: Result Comment: For FASTING Glucose --- ADA reference ranges: Normal 65-99 mg/dl Prediabetes 100-125 Diabetes >/= 126 Performed By: #### C MP, LIPD, CBCAD #### [facility] [address] [place], [place] [id number] Potassium [Moles/Vol] 4.2 mmol/L Normal 3.5-5.5 [facility] [employer] Faculty Member Comment on above: Performed By: #### C MP, LIPD, CBCAD #### [facility] [address] [place], [place] [id number] Protein [Mass/Vol] 7.5 g/dL Normal 6.1-8.1 [facility] [employer] Faculty Member Comment on above: Performed By: #### C MP, LIPD, CBCAD #### [facility] [address] [place], [place] [id number] Sodium [Moles/Vol] 141 mmol/L Normal 135-146 [facility] Comment on above: Performed By: #### C MP, LIPD, CBCAD #### [facility] [address] [place], [place] [id number] Urea nitrogen [Mass/Vol] 20 mg/dL Normal 7-[address] [facility] Comment on above: Performed By: #### C MP, LIPD, CBCAD #### [facility] [address] [place], [place] [id number] Hemoglobin A1Con 07-16-2021 EAG 131.[address] [facility] Comment on above: Performed By: #### A 1C #### [facility] [address] [place], [place] [id number] HbA1c (Bld) [Mass fraction] 6.2 % High 4.0-6.[address] [facility] Comment on above: Performed By: #### A 1C #### [facility] [address] [place], [place] [id number] Lipid Panelon 07-16-2021 Cholesterol [Mass/Vol] 220 mg/dL High 125-[address] [facility] Comment on above: Result Comment: Low risk < 200mg/dL Borderline risk 201-239 mg/dl High risk > or equal to 240 Performed By: #### C MP, LIPD, CBCAD #### [facility] [address] [place], [place] [id number] Cholesterol in HDL [Mass/Vol] 56 mg/dL Normal >40 [facility] Specialist Comment on above: Result Comment: High Cardiovascular Risk HDL <40 mg/dL Low Cardiovascular Risk HDL > or equal to 60 mg/dl Performed By: #### C MP, LIPD, CBCAD #### [facility] [address] [place], [place] [id number] Cholesterol in LDL [Mass/Vol] 133 mg/dL Normal [facility] Comment on above: Result Comment: LDL ATP III CLASSIFICATION LDL less than 100 mg/dl Optimal LDL 100-129 mg/dl Near or above optimal LDL 130-159 Borderline high LDL 160-189 High LDL greater than 189 mg/dl Very High Performed By: #### C MP, LIPD, CBCAD #### [facility] [address] [place], [place] [id number] Cholesterol in VLDL [Mass/Vol] 31 mg/dL Normal [facility] [employer] Faculty Member Comment on above: Performed By: #### C SHIREEN, LIPD, CBCAD #### [facility] [address] [place] [id number] Cholesterol.total/ Cholesterol in HDL [Mass ratio] 4 {ratio} Normal [facility] [employer] Faculty Member Comment on above: Performed By: #### C SHIREEN, LIPD, CBCAD #### [facility] [address] [place], [place] [id number] Triglyceride [Mass/Vol] 154 mg/dL High 30-150 [facility] [employer] Faculty Member Comment on above: Result Comment: TRIG ATPIII CLASSIFICATIONS TRIG less than 150 mg/dl Normal TRIG 150-199 mg/dl Borderline High TRIG 200-500 mg/dl High TRIG greather than 500 mg/dl Very High Performed By: #### C SHIREEN, MAIRAD, CBCAD #### [facility] [address] [place], [place] [id number] TSH w/ Reflex to Free T4on 0 07-16-2021 TSH W/REFLEX TO FT4 0.52 mIU/L Normal 0.40-4.50 [facility] [employer] Faculty Member Comment on above: Order Comment: [facility] performed at: [employer], [facility], [address] [facility], [address] [place] [address], [address] [place] [address], [employer]crete Polisher: Elijah Valencia MD [facility] Date/Time: [facility] Results Received Date/Time: [facility] Reported Date/Time: Performed By: #### V ITD, TSH reflex FT4 #### [facility] [address] [place] [address] Vitamin D 25-OHon 07-16-2021 VIT D 25 OH 49 ng/mL Normal 30-100 [facility] [employer] Faculty Member Comment on above: Order Comment: [facility] performed at: [employer], [facility], [address] , [address] [place] [address], [id number], [employer] Polisher: Elijah Valencia MD [facility] Date/Time: [id number] [facility] Results Received Date/Time: [id number] [facility] Reported Date/Time: Result Comment: Audrey min D Status 25-OH Vitamin D: Deficiency: <20 ng/mL Insufficiency: 20 - 29 ng/mL Optimal: > or = 30 ng/mL For 25-OH Vitamin D testing on patients on D2-supplementation and patients for whom quantitation of D2 and D3 fractions is required, the QuestAssureD(TM) 25-OH VIT D, (D2,D3), LC/MS/MS is recommended: order code 25969 (patients >2yrs). See Note 1 Note 1 For additional information, please refer to http://education.Incentient.TripFlick Travel Guide/faq/CQN512 (This link is being provided for informational/ educational purposes only.) Performed By: #### V ITD, TSH reflex FT4 #### [facility] [address] [place] [address] Consent for COVID Vaccineon 09-29-2020 SARS-CoV-2 (COVID-19) RNA ZACH+probe Ql (Unsp spec) [id number]#1.00CD:127 Normal [facility] Consent for COVID Vaccineon 09-06-2020 SARS-CoV-2 (COVID-19) RNA ZACH+probe Ql (Unsp spec) [id number]#1.00CD:127 [facility] Consent for Treatmenton 08-27 Consent for Treatment [id number]#1.00CD:127 [facility] Coding Summary.on 09-05-2020 Coding Summary. CODING DATE: [facility] STATUS: PAYOR: Medicare APC DESCRIPTION 1492 [employer] - Level 1B ($11-$20) ADMIT DX: REASON FOR VISIT DX: Z23 Encounter for immunization FINAL DX: PRINCIPAL: Z23 Encounter for immunization SECONDARY: PYMT PROC APC STAT DESCRIPTION DOCTOR NAME DATE NOTE: The code number assigned matches the documented diagnosis and / or procedure in the patient's chart. However, the narrative phrase printed from the coding software may appear abbreviated, or result in slightly different terminology. Coded By: Shanika Hendrix Date Saved: 09/05/2020 01:45 pm [facility] IntraOperative Documentson 1 07-04-2019 Intra[facility] Documents [id number]#1.00CD:127 Normal [facility] Coding Summary.on 05-02-2020 Coding Summary. CODING DATE: 020 FINAL [facility] DSC STATUS: Home (Routine DC) PAYOR: Medicare APC DESCRIPTION 5491 Level 1 Intraocular Procedures ADMIT DX: REASON FOR VISIT DX: H25.12 Age-related nuclear cataract, left eye FINAL DX: PRINCIPAL: H25.12 Age-related nuclear cataract, left eye SECONDARY: H25.042 Posterior subcapsular polar age-related cataract, left eye Z85.3 Personal history of malignant neoplasm of breast E78.00 Pure hypercholesterolemia, unspecified PYMT PROC APC STAT DESCRIPTION DOCTOR NAME DATE 54262 5491 J1 Extracapsular cataract Alfred Judd DO 04/25/2020 removal with insertion of intraocular lens prosthesis (1 stage procedure), manual or mechanical technique (eg, irrigation and aspiration or phacoemulsification); without endoscopic cyclophotocoagulation LT Left side (used to identify procedures performed on the left side of the body) NOTE: The code number assigned matches the documented diagnosis and / or procedure in the patient's chart. However, the narrative phrase printed from the coding software may appear abbreviated, or result in slightly different terminology. Coded By: Mayda Winters Date Saved: 05/02/2020 01:00 pm [facility] Main OR Intraoperative Recor don 05-01-2020 Main OR Intraoperative Record IntraOp Document Type FT Summary Primary Physician: Alfred Judd DO Finalized Date/Time: 05/01/20 08:30:07 Pt. Name: IVAN HERRERA/Sex: 1950 Female Med Rec #: [id number] Physician: Alfred Judd DO Financial #: [id number] Pt. Type: A Room/Bed: Admit/Disch: 04/25/20 06:08:20 - 04/25/20 09:10:00 Institution: Case Times FT Entry 1 Patient Times In Room 04/25/20 07:58:00 Out Room 04/25/20 08:17:00 Procedure Times Start 04/25/20 08:04:00 Stop 04/25/20 08:15:00 Anesthesia Times Last Modified By: Minda David RN 04/25/20 08:17:53 General Comments: 05/01/2020 Chart opened to review and send charges Sofya Marshall CST Case Attendance FT Entry 1 Entry 2 Entry 3 Case Attendee Alfred Judd DO, RN, Minda Sainz CST, Jeannette Silver Role Performed Surgeon - Primary Asset Card Clerk - Primary Scrub - Primary Time In 04/25/20 07:58:00 04/25/20 07:58:00 04/25/20 07:58:00 Time Out 04/25/20 08:17:00 04/25/20 08:17:00 04/25/20 08:17:00 Procedure CATARACT EXTRACTION W/ CATARACT EXTRACTION W/ CATARACT EXTRACTION W/ INTRAOCULAR LENS(Left) INTRAOCULAR LENS(Left) INTRAOCULAR LENS(Left) Comments Last Modified By: Minda David RN, RN, Minda Skaggs RN 04/25/20 08:30:24 04/25/20 08:30:24 04/25/20 08:30:24 Perioperative Protocols FT Pre-Care Text: Implements protective measures prior to operative or invasive procedure, confirms identity before the operative or invasive procedure, verifies operative procedure, surgical site, and laterality Entry 1 Procedure(s) CATARACT EXTRACTION W/ Patient Identity Birthday, ID Band INTRAOCULAR LENS(Left) Verified (select at Check, Patient least 2): Participation Consents / H and P HandP, Surgery/Procedure Operative Site Present Verified Consent Marking Verified Surgical Site Yes Laterality Verified Yes Verified Procedure Verified Yes Correct Patient Yes Position Verified Availability Equipment, Implant, Prep Dry n/a Verified (If Medication Applicable) PreOp Antibiotic No Time Out Alfred Judd DO, Given Participants Minda David RN, Wilhelm CST, Jeannette Silver Time Out Complete 04/25/20 08:02:00 Outcomes Met? Yes Last Modified By: Minda David RN 04/25/20 08:31:02 Post-Care Text: The patient is free from signs and symptoms of injury caused by extraneous objects Allergy Information FT Pre-Care Text: Verifies allergies Entry 1 Allergies Reviewed? Yes Allergies Reviewed Self/Patient With Outcomes Met? Yes Last Modified By: Minda David RN 04/25/20 08:31:10 Post-Care Text: The patient received appropriate medication(s) safely administered during the perioperative period Surgical Procedures FT Entry 1 Procedure Description Procedure CATARACT EXTRACTION W/ Modifiers Left INTRAOCULAR LENS IMPLANTATION Surgeon Description CATARACT EXTRACTION WITH INTRAOCULAR LENS IMPLANTATION LEFT EYE Primary Procedure Yes Primary Surgeon Alfred Judd DO 04/25/20 08:04:00 Stop 04/25/20 08:15:00 Anesthesia Type Local Surgical Service Ophthalmology Wound Class 1 - Clean Last Modified By: Minda David RN 04/25/20 08:31:23 General Case Data FT Pre-Care Text: Classifies surgical wound, implements aseptic technique, initiates traffic control Entry 1 Case Information OR OR 3 FT Case Level Level 2 Wound Class 1 - Clean Specialty Ophthalmology Preop Diagnosis CATARACT LEFT EYE Postop Same As Preop Yes Postop Diagnosis CATARACT LEFT EYE Outcomes Met? Yes Last Modified By: Minda David RN 04/25/20 08:31:28 Post-Care Text: The patient is free from signs and symptoms of infection Skin Assessment (Pre Procedure) FT Pre-Care Text: Implements protective measures to prevent skin/ tissue injury due to thermal or mechanical sources Evaluates for signs and symptoms of physical injury to skin and tissue Entry 1 Skin Integrity Unable to Visualize Skin Abnormality No Outcomes Met? Yes Last Modified By: Minda David RN 04/25/20 08:31:37 Post-Care Text: The patient is free from signs and symptoms of injury caused by extraneous objects Patient Positioning FT Pre-Care Text: Identifies physical alterations that require additional precautions for procedure-specific positioning, verifies presence of prosthetics or corrective devices, positions the patient, evaluates the patient for signs and symptoms of injury as a result of positioning Entry 1 Procedure CATARACT EXTRACTION W/ Additional folded towel under head INTRAOCULAR LENS(Left) Information Body Position Supine Feet Uncrossed? Yes Left Arm Position Resting at Side Right Arm Position Resting at Side Left Leg Position Extended Right Leg Position Extended Positioning Device Pillow Large Under Knees Press Points Checked Yes By Minda David RN Outcomes Met? Yes Last Modified By: Minda David RN 04/25/20 08:31:48 Post-Care Text: The patient is free from signs and symptoms of injury re (more content not included)... Normal [facility] [place] 04-27-2020 Consent [id number]:127 [facility] Discharge Instructionson Discharge Instructions [id number]:127 [facility] Pre-Op Evaluationon 04-27-20 20 Pre-Op Evaluation [id number]:127 [facility] IntraOperative Documentson 1 IntraOperative Documents [id number]:127 [facility] Operative Reporton 0 Operative Report Date of Surgery: SURGEON: Alfred Judd D.O. PREOPERATIVE DIAGNOSIS: Nuclear sclerotic cataract, left eye POSTOPERATIVE DIAGNOSIS: Nuclear sclerotic cataract, left eye OPERATION: Cataract extraction with intraocular lens placement, left eye ANESTHESIA: Topical COMPLICATIONS: None ESTIMATED BLOOD LOSS: Zero PROCEDURE: The patient was brought to the Operating Room in the supine position. After proper identification, the left eye was prepped and draped in a sterile ophthalmic fashion. Two drops of Tetracaine were placed into the eye and a paracentesis was created at the two oclock position. Approximately 1 cc of 1% unpreserved Xylocaine was injected into the anterior chamber and this was followed by Amvisc Plus. Using a 2.6 mm keratome blade, a clear corneal incision was created at the twelve oclock limbus. A cystotome was fashioned out of a 25 gauge needle and a curvilinear capsulorrhexis was begun and continued for 360 degrees with Utrata forceps. Balanced Salt Solution on a cannula was injected under the anterior capsule to hydrodissect as well as hydrodelineate the lens. After ensuring mobility with a second handpiece, phacoemulsification was performed in a conquer and divide type fashion. After all nuclear material had been removed from the eye, IA was introduced into the anterior chamber and all residual cortical material was cleaned up. Additional Amvisc Plus was injected into the posterior bag and a lens Model MX60 17.0 diopters was injected into the posterior bag as well. This was dialed into position with a secondhand piece and centered. After ensuring centration, IA was reintroduced into the anterior chamber and all residual Amvisc Plus was removed from the eye. Balanced Salt Solution on a cannula was injected into the stroma of the clear corneal incision as well as the paracentesis to hydrate the wounds. Additional Balanced Salt Solution was injected into the anterior chamber to pressurize the eye to approximately 20-22 mmHg by finger tension. Weck-dseiree sponges were then utilized to check the wounds to be watertight. One drop of Iopidine, one drop of prednisolone acetate and one drop of Ocuflox were placed into the eye and a shield was placed over top. The patient was sent to the Postoperative Area in satisfactory condition to follow up the following day for postoperative care. Alfred Judd D.O. gls Dictated: 04/25/2020 #[id number] Typed: 04/26/2020 #[id number] cc: Alfred Judd D.O. Normal [facility] Comment on above: Result Comment: Elec tronically Signed By: Alfred Judd DO\.br\Date and Time Signed: 04/26/20 16:56 EDT Inpatient Patient Summaryon 04-25-2020 Inpatient Patient Summary [address] [address] [facility] Clinical Discharge Instructions PERSON INFORMATION Name: IVAN HERRERA [facility]#:[id number] PHYSICIANS Admitting Physician: Alfred Judd DO Attending Physician: Alfred Judd DO PCP: JELENA GROSSMAN Discharge Diagnosis: Cataract Comment: PATIENT EDUCATION INFORMATION Instructions: DELVIN- After Surgery Eye (Custom) Medication Leaflets: Follow up: With: Address: When: Alfred Judd [facility] 3, [address] [address] [facility] (1) Within 1 to 2 days MEDICATION LIST Medications to Continue with No Changes Other Medications anastrozole (anastrozole 1 mg Tab) 1 Tablets By Mouth every day. post cancer drug. atorvastatin (Lipitor 10 mg Tab) 1 Tablets By Mouth every day. lutein (lutein 20 mg oral capsule) 1 Capsules By Mouth every day. multivitamin with minerals (Multivitamins and Minerals) 1 tab By Mouth every day. omega-3 polyunsaturated fatty acids (omega-3 polyunsaturated fatty acids 1200 mg oral capsule) 1 Capsules By Mouth every day. ubiquinone (CoQ10) 1 cap By Mouth every day. Comment: Domi [facility] Main OR PACU II [facility]ordon Main OR PACU II Record PACU Phase II Document Type FT Summary Primary Physician: Alfred Judd DO Finalized Date/Time: 04/25/20 12:53:33 Pt. Name: IVAN HERRERA/Sex: 1950 Female Med Rec #: [id number] Physician: Alfred Judd DO Financial #: [id number] Pt. Type: A [facility] Admit/Disch: 04/25/20 06:08:20 - Institution: Case Times PACU II FT Pre-Care Text: Identifies barriers to communication and implements measures to provide psychological support and determines knowledge level Develops individualized plan of care, and ensures continuity of care Maintains patient's dignity and privacy, and maintains patient confidentiality Identifies and reports philosophical, cultural, and spiritual beliefs and values Identifies individual values and wishes concerning care administers prescribed antibiotic therapy and immunizing agents as ordered, Evaluates postoperative tissue perfusion Implements thermoregulation measures, and monitors body temperature Evaluates postoperative respiratory status Evaluates postoperative cardiac status Evaluates postoperative neurological status Assesses pain control, collaborated in initiating patient-controlled analgesia and implements alternative methods of pain control Verifies allergies, administers prescribed medications and solutions, evaluates response to medications Entry 1 In PACU II 04/25/20 08:20:00 Discharge from PACU 04/25/20 09:10:00 II Outcomes Met? Yes Last Modified By: Nayeli De Santiago LPN 04/25/20 12:53:28 Post-Care Text: The patient demonstrates knowledge of the expected response to the operative or invasive procedure The patient's care is consistent with the individualized perioperative plan of care The patient's right to privacy is maintained The patient's value system, lifestyle, ethnicity, and culture are considered, respected, and incorporated into the perioperative plan of care The patient participates in decisions affecting his or her perioperative plan of care. The patient is free from signs and symptoms of infection The patient has wound/tissue perfusion consistent with or improved from baseline levels established preoperatively The patient is at or returning to normothermia at the conclusion of the immediate postoperative period The patient's respiratory function is consistent with or improved from baseline levels established preoperatively The patient's cardiovascular status is consistent with or improved from baseline levels established preoperatively The patient's neurological status is consistent with or improved from baseline levels established preoperatively The patient demonstrates and/or reports adequate pain control throughout the perioperative period The patient received appropriate medication(s), safely administered during the perioperative period Finalized By: Nayeli De Santiago LPN Document Signatures Signed By: Nayeli De Santiago LPN 04/25/20 12:53 Nayeli De Santiago LPN 04/25/20 12:53 Normal [facility] Main OR Preoperative Recordo n 04-25-2020 Main OR Preoperative Record Holding Area Document Type FT Summary Primary Physician: Alfred Judd DO Finalized Date/Time: 04/25/20 06:42:53 Pt. Name: JAVIERIVAN/Sex: 1950 Female Med Rec #: [id number] Physician: Alfred Judd DO Financial #: [id number] Pt. Type: A Room/Bed: [place] [address] Admit/Disch: 04/25/20 06:08:20 - Institution: Case Times Holding FT Pre-Care Text: Verifies consent for planned procedure, identifies individual values and wishes concerning care, includes family members in perioperative teaching Secures patient's records' belongings, and valuables, maintains patient's dignity and privacy, and maintains patient confidentiality Entry 1 In Holding 04/25/20 06:10:00 Outcomes Met? Yes Last Modified By: Nayeli De Santiago LPN 04/25/20 06:40:34 Post-Care Text: The patient participates in decisions affecting his or her perioperative plan of care The patient's right to privacy is maintained Surgery Checklist FT Entry 1 Patient Birthday, ID Band Procedure Surgical Consent, With Identification: Check, Patient Verification: Patient Participation NPO after Midnight: n/a Date/Time: 04/25/20 05:45:00 Personal Items: Cataract Lens Implant, Personal Items glasses off, lens Glasses Comment: implant in right eye Limitations: none Complaints of Pain: No Operative Site Yes Marked By: Brianne LAZARO Marking: Location: black dot marked benjamin pts left eye Does Patient Smoke No Patient states Yes Comment - Adult yes , sister in law postop adult Supervision supervision available Case Cancelled in No Holding Area see comments below for reason Last Modified By: Nayeli De Santiago LPN 04/25/20 06:42:48 Finalized By: Nayeli De Santiago LPN Document Signatures Signed By: Nayeli De Santiago LPN 04/25/20 06:42 Nayeli De Santiago LPN 04/25/20 06:42 Normal [facility] Outpatient Surgery Discharge Instructionon 04-25-2020 Outpatient Surgery Discharge Instruction [place] [id number] Patient Discharge Instructions PERSON INFORMATION Name: IVAN HERRERA Date of : 1950 Current Date: 04/25/2020 07:00:20 PHYSICIANS Admitting Physician: Alfred Judd DO Discharge Diagnosis: Cataract IVAN HERRERA has been given the following list of follow-up instructions, prescriptions, and patient education materials: PATIENT FOLLOW-UP INFORMATION Diet: Regular Call Your Doctor For: Severe pain at the operative site Wound Care Instructions: Remove dressing as instructed IF UNABLE TO CONTACT YOUR PHYSICIAN AND YOU FEEL IT IS AN EMERGENCY, GO TO THE NEAREST EMERGENCY ROOM OR CALL 911 Samantha, IVAN HERRERA, have received the attached patient education materials/instructions and have verbalized understanding: May we do a follow up call? Yes No I was present when discharge instructions were given ___ Patient Signature Date Clinican/Nurse Signature Date Follow up: With: Address: When: Alfred Judd [facility] [address], [address], [address] [place] [address] Business (1) Within 1 to 2 days Pharmacy Information: Thank you for choosing [facility] HERE ARE THE MEDICATION CHANGES THAT OCCURRED DURING YOUR HOSPITAL STAY Medications to Continue with No Changes Other Medications anastrozole (anastrozole 1 mg Tab) 1 Tablets By Mouth every day. post cancer drug. atorvastatin (Lipitor 10 mg Tab) 1 Tablets By Mouth every day. lutein (lutein 20 mg oral capsule) 1 Capsules By Mouth every day. multivitamin with minerals (Multivitamins and Minerals) 1 tab By Mouth every day. omega-3 polyunsaturated fatty acids (omega-3 polyunsaturated fatty acids 1200 mg oral capsule) 1 Capsules By Mouth every day. ubiquinone (CoQ10) 1 cap By Mouth every day. PATIENT EDUCATION INFORMATION Instructions: [place], [place] Alfred Judd D.O. AFTER SURGERY [right eye] [left eye] RESTRICTIONS FOR SIX WEEKS: No rubbing of eye. Try not to sleep on stomach. Wear eye shield at bedtime for 2 WEEKS. Avoid circumstances which may result in trauma to the eye. You may shower and/or bathe. To wash hair allow water to run down back of the head if possible. For YOUR comfort, wear sunglasses in sunlight as needed. METHOD OF APPLYING EYE MEDICATION: Look up. Pull down lower lid. (NO PRESSURE ON EYE) Apply one drop of medication inside the pocket of lower lid. ON THE DAY OF SURGERY: Wear your shield until you get home and then it can be removed. Reapply the shield at bedtime or at any time you are sleeping. PAIN: use Tylenol 325 mg. every 4 hours as needed. The eye may feel as if there is an eyelash in it. This scratchiness is normal. Start your eye drops when you get home. (jama)Besivance/ Ofloxacin ? apply to surgical eye, three more times today. (renteria)Diclofenac/ Ketorolac ? apply to surgical eye, four more times today. (pink/white)Prednisolone Acetate ? apply to surgical eye, six times today. -Wait 3-5 minutes between eye drops -Do one set of eye drops the next day in the morning before your appointment. Normal [facility] Patient Education - Texton 1 Patient Education - Text [place], [place] Alfred Judd D.O. AFTER SURGERY [right eye] [left eye] RESTRICTIONS FOR SIX WEEKS: No rubbing of eye. Try not to sleep on stomach. Wear eye shield at bedtime for 2 WEEKS. Avoid circumstances which may result in trauma to the eye. You may shower and/or bathe. To wash hair allow water to run down back of the head if possible. For YOUR comfort, wear sunglasses in sunlight as needed. METHOD OF APPLYING EYE MEDICATION: Look up. Pull down lower lid. (NO PRESSURE ON EYE) Apply one drop of medication inside the pocket of lower lid. ON THE DAY OF SURGERY: Wear your shield until you get home and then it can be removed. Reapply the shield at bedtime or at any time you are sleeping. PAIN: use Tylenol 325 mg. every 4 hours as needed. The eye may feel as if there is an eyelash in it. This scratchiness is normal. Start your eye drops when you get home. (jama)Besivance/ Ofloxacin ? apply to surgical eye, three more times today. (renteria)Diclofenac/ Ketorolac ? apply to surgical eye, four more times today. (pink/white)Prednisolone Acetate ? apply to surgical eye, six times today. -Wait 3-5 minutes between eye drops -Do one set of eye drops the next day in the morning before your appointment. [facility] Progress Note-Physicianon Progress Note-Physician Patient: IVAN HERRERA Age: 69 years Sex: Female : 1950 Associated Diagnoses: None Author: Alfred Judd DO Postoperative Information Date/ Time: 04/25/2020 08:16:00 Preoperative Diagnosis: Senile Cataract - OS. Postoperative Diagnosis: same . Procedure: Cataract Extraction with IOL placement - OS. Anesthesia Method: Local. Performed by: Alfred Judd DO. Specimens Removed: none . Estimated Blood Loss: 0 ml. Complications: None. [facility] Comment on above: Result Comment: Elec tronically Signed By: Alfred Judd DO\.br\Date and Time Signed: 04/25/20 08:16 EDT Consent for Procedure/Surger yon 04-20-2020 Consent for Procedure/Surgery [id number]:127 [facility] IntraOperative Documentson 1 IntraOperative Documents [id number]:127 [facility] Main OR Intraoperative Recor don 04-12-2020 Main OR Intraoperative Record IntraOp Document Type FT Summary Primary Physician: Alfred Judd DO Finalized Date/Time: 04/12/20 12:32:58 Pt. Name: IVAN HERRERA /Sex: 1950 Female Med Rec #: [id number] Physician: Alfred Judd DO Financial #: [id number] Pt. Type: A Room/Bed: [facility] Admit/Disch: 04/03/20 08:31:01 - 04/03/20 13:05:00 Institution: Case Times FT Entry 1 Patient Times In Room 04/03/20 11:52:00 Out Room 04/03/20 12:13:00 Procedure Times Start 04/03/20 12:02:00 Stop 04/03/20 12:11:00 Anesthesia Times Last Modified By: Savanah Regalado RN 04/03/20 12:14:23 General Comments: 04/12/2020 Chart opened to review and send charges. Charmaine Ortiz CST. Case Attendance FT Entry 1 Entry 2 Entry 3 Case Attendee Alfred Judd DO, RN, Savanah Leos RN, Dick Kemp Role Performed Surgeon - Primary Asset Card Clerk - Primary Asset Card Clerk - Primary Time In 04/03/20 12:00:00 04/03/20 11:52:00 04/03/20 11:52:00 Time Out 04/03/20 12:13:00 04/03/20 12:13:00 04/03/20 12:13:00 Procedure CATARACT EXTRACTION W/ CATARACT EXTRACTION W/ CATARACT EXTRACTION W/ INTRAOCULAR LENS(Right) INTRAOCULAR LENS(Right) INTRAOCULAR LENS(Right) Comments Last Modified By: Fabricio LAZARO, Savanah Regalado RN, Savanah Armas RN 04/03/20 12:14:24 04/03/20 12:14:24 04/03/20 12:14:24 Entry 4 Case Attendee Giancarlo RAY, Eli Zuleta Role Performed Scrub - Primary Time In 04/03/20 11:52:00 Time Out 04/03/20 12:13:00 Procedure CATARACT EXTRACTION W/ INTRAOCULAR LENS(Right) Comments Last Modified By: Savanah Regalado RN 04/03/20 12:14:24 Perioperative Protocols FT Pre-Care Text: Implements protective measures prior to operative or invasive procedure, confirms identity before the operative or invasive procedure, verifies operative procedure, surgical site, and laterality Entry 1 Procedure(s) CATARACT EXTRACTION W/ Patient Identity Birthday, ID Band INTRAOCULAR LENS(Right) Verified (select at Check, Patient least 2): Participation Consents / H and P HandP, Surgery/Procedure Operative Site Present Verified Consent Marking Verified Surgical Site Yes Laterality Verified Yes Verified Procedure Verified Yes Correct Patient Yes Position Verified Availability Equipment, Implant, Prep Dry n/a Verified (If Medication Applicable) PreOp Antibiotic See Comments Time Out Alfred Judd DO, Given Participants Fabricio LAZARO, Deric Lama RN, Giancarlo Fischer CST, Eli Zuleta Time Out Complete 04/03/20 12:00:00 Outcomes Met? Yes Last Modified By: Savanah Regalado RN 04/03/20 12:02:54 Post-Care Text: The patient is free from signs and symptoms of injury caused by extraneous objects General Comments: INTRA OP ABX GIVEN, SEE EMAZahraa JOHNSTON RN Allergy Information FT Pre-Care Text: Verifies allergies Entry 1 Allergies Reviewed? Yes Allergies Reviewed Self/Patient With Outcomes Met? Yes Last Modified By: Savanah Regalado RN 04/03/20 11:56:10 Post-Care Text: The patient received appropriate medication(s) safely administered during the perioperative period Surgical Procedures FT Entry 1 Procedure Description Procedure CATARACT EXTRACTION W/ Modifiers Right INTRAOCULAR LENS IMPLANTATION Surgeon Description CATARACT EXTRACTION WITH IOL RIGHT EYE Primary Procedure Yes Primary Surgeon Alfred Judd DO Start 04/03/20 12:02:00 Stop 04/03/20 12:11:00 Anesthesia Type Local Surgical Service Ophthalmology Wound Class 1 - Clean Last Modified By: Savanah Regalado RN 04/03/20 12:14:26 General Case Data FT Pre-Care Text: Classifies surgical wound, implements aseptic technique, initiates traffic control Entry 1 Case Information OR OR 3 FT Case Level Level 2 Wound Class 1 - Clean Specialty Ophthalmology Preop Diagnosis CATARACT RIGHT EYE Postop Same As Preop Yes Postop Diagnosis CATARACT RIGHT EYE Outcomes Met? Yes Last Modified By: Savanah Regalado RN 04/03/20 12:00:14 Post-Care Text: The patient is free from signs and symptoms of infection Skin Assessment (Pre Procedure) FT Pre-Care Text: Implements protective measures to prevent skin/ tissue injury due to thermal or mechanical sources Evaluates for signs and symptoms of physical injury to skin and tissue Entry 1 Skin Integrity Unable to Visualize Skin Abnormality No Outcomes Met? Yes Last Modified By: Savanah Regalado RN 04/03/20 11:58:40 Post-Care Text: The patient is free from signs and symptoms of injury caused by extraneous objects General Comments: VISIBLE SKIN INTACT. IVETH JOHNSTON Patient Positioning FT Pre-Care Text: Identifies physical alterations that require additional precautions for procedure-specific positioning, verifies presence of prosthetics or corrective devices, positions the patient, evaluates the patient for signs and symptoms of injury as a result of positioning Entry 1 Procedure CATARACT EXTRACTION W/ Additional folded towel under head INTRAOCULAR LENS(Right) Inform (more content not included)... Normal [facility] Coding Summary.on 04-06-2020 Coding Summary. CODING DATE: 020 FINAL [facility] [place] STATUS: Home (Routine DC) PAYOR: Medicare APC DESCRIPTION 5491 Level 1 Intraocular Procedures ADMIT DX: REASON FOR VISIT DX: H25.11 Age-related nuclear cataract, right eye FINAL DX: PRINCIPAL: H25.11 Age-related nuclear cataract, right eye SECONDARY: E78.00 Pure hypercholesterolemia, unspecified Z85.3 Personal history of malignant neoplasm of breast PYMT PROC APC STAT DESCRIPTION DOCTOR NAME DATE [id number] J1 Extracapsular cataract Alfred Judd DO 04/03/2020 removal with insertion of intraocular lens prosthesis (1 stage procedure), manual or mechanical technique (eg, irrigation and aspiration or phacoemulsification); without endoscopic cyclophotocoagulation RT Right side (used to identify procedures performed on the right side of the body) [address]4734 Anesthesia for Alfred Judd DO 04/03/2020 procedures on eye; lens surgery NOTE: The code number assigned matches the documented diagnosis and / or procedure in the patient's chart. However, the narrative phrase printed from the coding software may appear abbreviated, or result in slightly different terminology. Revised Coded By: Martine Rivet SpinnerMegan Revised Date Saved: 04/06/2020 10:27 am Normal [facility] Operative Reporton 0 Operative Report Date of Surgery: 11/2019 SURGEON: Alfred Judd D.O. PREOPERATIVE DIAGNOSIS: Nuclear sclerotic cataract, right eye POSTOPERATIVE DIAGNOSIS: Nuclear sclerotic cataract, right eye OPERATION: Cataract extraction with intraocular lens placement, right eye ANESTHESIA: Topical COMPLICATIONS: None ESTIMATED BLOOD LOSS: Zero PROCEDURE: The patient was brought to the Operating Room in the supine position. After proper identification, the right eye was prepped and draped in a sterile ophthalmic fashion. Two drops of Tetracaine were placed into the eye and a paracentesis was created at the two oclock position. Approximately 1 cc of 1% unpreserved Xylocaine was injected into the anterior chamber and this was followed by Amvisc Plus. Using a 2.6 mm keratome blade, a clear corneal incision was created at the twelve oclock limbus. A cystotome was fashioned out of a 25 gauge needle and a curvilinear capsulorrhexis was begun and continued for 360 degrees with Utrata forceps. Balanced Salt Solution on a cannula was injected under the anterior capsule to hydrodissect as well as hydrodelineate the lens. After ensuring mobility with a second handpiece, phacoemulsification was performed in a conquer and divide type fashion. After all nuclear material had been removed from the eye, IA was introduced into the anterior chamber and all residual cortical material was cleaned up. Additional Amvisc Plus was injected into the posterior bag and a lens Model MX60 17.0 diopters was injected into the posterior bag as well. This was dialed into position with a secondhand piece and centered. After ensuring centration, IA was reintroduced into the anterior chamber and all residual Amvisc Plus was removed from the eye. Balanced Salt Solution on a cannula was injected into the stroma of the clear corneal incision as well as the paracentesis to hydrate the wounds. Additional Balanced Salt Solution was injected into the anterior chamber to pressurize the eye to approximately 20-22 mmHg by finger tension. Weck-desiree sponges were then utilized to check the wounds to be watertight. One drop of Iopidine, one drop of prednisolone acetate and one drop of Ocuflox were placed into the eye and a shield was placed over top. The patient was sent to the Postoperative Area in satisfactory condition to follow up the following day for postoperative care. Alfred Judd D.O. gls Dictated: 04/03/2020 #[id number] Typed: 04/04/2020 #[id number] cc: Alfred Judd D.O. [facility] Comment on above: Result Comment: Elec tronically Signed By: Alfred Judd DO\.br\Date and Time Signed: 04/05/20 13:32 EDT Discharge Instructionson Discharge Instructions [id number]:127 [facility] IntraOperative Documentson 1 IntraOperative Documents [id number]#1.00CD:127 [facility] IntraOperative Documents [id number]:127 Normal [facility] Preoperative Documentson Preoperative Documents [id number]#1.00CD:127 Normal [facility] Consent for Treatmenton Consent for Treatment [id number]:127 Normal [facility] Inpatient Patient Summaryon 04-03-2020 Inpatient Patient Summary [address] [address] [facility] Clinical Discharge Instructions PERSON INFORMATION Name: IVAN HERRERA [facility]#:[id number] PHYSICIANS Admitting Physician: Alfred Judd DO Attending Physician: Alfred Judd DO PCP: JELENA GROSSMAN Discharge Diagnosis: Cataract Comment: PATIENT EDUCATION INFORMATION Instructions: DELVIN- After Surgery Eye (Custom) Medication Leaflets: Follow up: With: Address: When: Alfred Judd [facility] 3, [address] [place], [place] [id number] [facility] () In 1 day 04/04/2020 Comments: Keep scheduled appointment MEDICATION LIST Medications to Continue with No Changes Other Medications anastrozole (anastrozole 1 mg Tab) 1 Tablets By Mouth every day. post cancer drug. atorvastatin (Lipitor 10 mg Tab) 1 Tablets By Mouth every day. lutein (lutein 20 mg oral capsule) 1 Capsules By Mouth every day. multivitamin with minerals (Multivitamins and Minerals) 1 tab By Mouth every day. omega-3 polyunsaturated fatty acids (omega-3 polyunsaturated fatty acids 1200 mg oral capsule) 1 Capsules By Mouth every day. ubiquinone (CoQ10) 1 cap By Mouth every day. Comment: Normal [facility] Main OR PACU II [facility] Main OR PACU II Record PACU Phase II Document Type FT Summary Primary Physician: Alfred Judd DO Finalized Date/Time: 04/03/20 15:50:46 Pt. Name: JAVIERLAQUITA CLEMENTST /Sex: 1950 Female Med Rec #: [id number] Physician: Alfred Judd DO Financial #: [id number] Pt. Type: A Room/Bed: [place] [address] Admit/Disch: 04/03/20 08:31:01 - 04/03/20 13:05:00 Institution: Case Times PACU II FT Pre-Care Text: Identifies barriers to communication and implements measures to provide psychological support and determines knowledge level Develops individualized plan of care, and ensures continuity of care Maintains patient's dignity and privacy, and maintains patient confidentiality Identifies and reports philosophical, cultural, and spiritual beliefs and values Identifies individual values and wishes concerning care administers prescribed antibiotic therapy and immunizing agents as ordered, Evaluates postoperative tissue perfusion Implements thermoregulation measures, and monitors body temperature Evaluates postoperative respiratory status Evaluates postoperative cardiac status Evaluates postoperative neurological status Assesses pain control, collaborated in initiating patient-controlled analgesia and implements alternative methods of pain control Verifies allergies, administers prescribed medications and solutions, evaluates response to medications Entry 1 In PACU II 04/03/20 12:15:00 Discharge from PACU 04/03/20 13:05:00 II Outcomes Met? Yes Last Modified By: Nayeli De Santiago LPN 04/03/20 15:50:37 Post-Care Text: The patient demonstrates knowledge of the expected response to the operative or invasive procedure The patient's care is consistent with the individualized perioperative plan of care The patient's right to privacy is maintained The patient's value system, lifestyle, ethnicity, and culture are considered, respected, and incorporated into the perioperative plan of care The patient participates in decisions affecting his or her perioperative plan of care. The patient is free from signs and symptoms of infection The patient has wound/tissue perfusion consistent with or improved from baseline levels established preoperatively The patient is at or returning to normothermia at the conclusion of the immediate postoperative period The patient's respiratory function is consistent with or improved from baseline levels established preoperatively The patient's cardiovascular status is consistent with or improved from baseline levels established preoperatively The patient's neurological status is consistent with or improved from baseline levels established preoperatively The patient demonstrates and/or reports adequate pain control throughout the perioperative period The patient received appropriate medication(s), safely administered during the perioperative period Finalized By: Nayeli De Santiago LPN Document Signatures Signed By: Nayeli De Santiago LPN 04/03/20 15:50 Normal [facility] Outpatient Surgery Discharge Instructionon 04-03-2020 Outpatient Surgery Discharge Instruction [address] [address] Patient Discharge Instructions PERSON INFORMATION Name: IVAN HERRERA Date of : 1950 Current Date: 04/03/2020 11:06:29 PHYSICIANS Admitting Physician: Alfred Judd DO Discharge Diagnosis: Cataract IVAN HERRERA has been given the following list of follow-up instructions, prescriptions, and patient education materials: PATIENT FOLLOW-UP INFORMATION Diet: Regular Call Your Doctor For: Severe pain at the operative site Wound Care Instructions: Remove dressing as instructed IF UNABLE TO CONTACT YOUR PHYSICIAN AND YOU FEEL IT IS AN EMERGENCY, GO TO THE NEAREST EMERGENCY ROOM OR CALL 911 Samantha IVAN HERRERA, have received the attached patient education materials/instructions and have verbalized understanding: May we do a follow up call? Yes No I was present when discharge instructions were given ___ Patient Signature Date Clinican/Nurse Signature Date Follow up: With: Address: When: Alfred Judd [facility] [address] [address] [facility] (1) In 1 day 04/04/2020 Comments: Keep scheduled appointment Pharmacy Information: Thank you for choosing [facility] HERE ARE THE MEDICATION CHANGES THAT OCCURRED DURING YOUR HOSPITAL STAY Medications to Continue with No Changes Other Medications anastrozole (anastrozole 1 mg Tab) 1 Tablets By Mouth every day. post cancer drug. atorvastatin (Lipitor 10 mg Tab) 1 Tablets By Mouth every day. lutein (lutein 20 mg oral capsule) 1 Capsules By Mouth every day. multivitamin with minerals (Multivitamins and Minerals) 1 tab By Mouth every day. omega-3 polyunsaturated fatty acids (omega-3 polyunsaturated fatty acids 1200 mg oral capsule) 1 Capsules By Mouth every day. ubiquinone (CoQ10) 1 cap By Mouth every day. PATIENT EDUCATION INFORMATION Instructions: [place], [place] Alfred Judd D.O. AFTER SURGERY [right eye] [left eye] RESTRICTIONS FOR SIX WEEKS: No rubbing of eye. Try not to sleep on stomach. Wear eye shield at bedtime for 2 WEEKS. Avoid circumstances which may result in trauma to the eye. You may shower and/or bathe. To wash hair allow water to run down back of the head if possible. For YOUR comfort, wear sunglasses in sunlight as needed. METHOD OF APPLYING EYE MEDICATION: Look up. Pull down lower lid. (NO PRESSURE ON EYE) Apply one drop of medication inside the pocket of lower lid. ON THE DAY OF SURGERY: Wear your shield until you get home and then it can be removed. Reapply the shield at bedtime or at any time you are sleeping. PAIN: use Tylenol 325 mg. every 4 hours as needed. The eye may feel as if there is an eyelash in it. This scratchiness is normal. Start your eye drops when you get home. (ajma)Besivance/ Ofloxacin ? apply to surgical eye, three more times today. (renteria)Diclofenac/ Ketorolac ? apply to surgical eye, four more times today. (pink/white)Prednisolone Acetate ? apply to surgical eye, six times today. -Wait 3-5 minutes between eye drops -Do one set of eye drops the next day in the morning before your appointment. Normal [facility] Patient Education - Texton 1 Patient Education - Text [place], [place] Alfred Judd D.O. AFTER SURGERY [right eye] [left eye] RESTRICTIONS FOR SIX WEEKS: No rubbing of eye. Try not to sleep on stomach. Wear eye shield at bedtime for 2 WEEKS. Avoid circumstances which may result in trauma to the eye. You may shower and/or bathe. To wash hair allow water to run down back of the head if possible. For YOUR comfort, wear sunglasses in sunlight as needed. METHOD OF APPLYING EYE MEDICATION: Look up. Pull down lower lid. (NO PRESSURE ON EYE) Apply one drop of medication inside the pocket of lower lid. ON THE DAY OF SURGERY: Wear your shield until you get home and then it can be removed. Reapply the shield at bedtime or at any time you are sleeping. PAIN: use Tylenol 325 mg. every 4 hours as needed. The eye may feel as if there is an eyelash in it. This scratchiness is normal. Start your eye drops when you get home. (jama)Besivance/ Ofloxacin ? apply to surgical eye, three more times today. (renteria)Diclofenac/ Ketorolac ? apply to surgical eye, four more times today. (pink/white)Prednisolone Acetate ? apply to surgical eye, six times today. -Wait 3-5 minutes between eye drops -Do one set of eye drops the next day in the morning before your appointment. Normal [facility] Progress Note-Physicianon Progress Note-Physician Patient: IVAN HERRERA Age: 69 years Sex: Female : 1950 Associated Diagnoses: None Author: Alfred Judd DO Postoperative Information Date/ Time: 04/03/2020 12:11:00 Preoperative Diagnosis: Senile Cataract - OD . Postoperative Diagnosis: same . Procedure: Cataract Extraction with IOL placement - OD. Anesthesia Method: Local. Performed by: Alfred Judd DO. Specimens Removed: none . Estimated Blood Loss: 0 ml. Complications: None. Normal [facility] Comment on above: Result Comment: Elec tronically Signed By: Alfred Judd DO\.neela\Date and Time Signed: 04/03/20 12:12 EDT Consent for Procedure/Surger amor 04-02-2020 Consent for Procedure/Surgery [id number]:127 Normal [facility] Vital Signs Date Time Vital Sign Value Performing Clinician Facility 03-31-2024 10:40-0400 Body mass index (BMI) [Ratio] 29.51 kg/m2 Severo Valles MD Work Phone: [facility] 03-31-2024 10:40-0400 Body weight 89.36 kg Severo Valles MD Work Phone: [facility] 02-01-2024 10:34-0400 Body height 174 cm Myles Talamantes MD Work Phone: [facility] 02-01-2024 10:34-0400 Body mass index (BMI) [Ratio] 29.53 kg/m2 Myles Talamantes MD Work Phone: [facility] 02-01-2024 10:34-0400 Body temperature 97.39 [degF] Myles Talamantes MD Work Phone: [facility] 02-01-2024 10:34-0400 Body weight 89.4 kg Myles Talamantes MD Work Phone: [facility] 02-01-2024 10:34-0400 Diastolic blood pressure 84 mm[Hg] Myles Talamantes MD Work Phone: [facility] 02-01-2024 10:34-0400 Heart rate 74 /min Myles Talamantes MD Work Phone: [facility] 02-01-2024 10:34-0400 Respiratory rate 16 /min Myles Talamantes MD Work Phone: [facility] 02-01-2024 10:34-0400 SaO2% (BldA) [Mass fraction] 97 % Myles Talamantes MD Work Phone: [facility] 02-01-2024 10:34-0400 Systolic blood pressure 147 mm[Hg] Myles Talamantes MD Work Phone: [facility] 11-18-2023 13:40-0400 Body height 174 cm Myles Talamantes MD Work Phone: [facility] 11-18-2023 13:40-0400 Body mass index (BMI) [Ratio] 29.86 kg/m2 Myles Talamantes MD Work Phone: [facility] 11-18-2023 13:40-0400 Body temperature 97 [degF] Myles Talamantes MD Work Phone: [facility] 11-18-2023 13:40-0400 Body weight 90.4 kg Myles Talamantes MD Work Phone: [facility] 11-18-2023 13:40-0400 Diastolic blood pressure 70 mm[Hg] Myles Talamantes MD Work Phone: [facility] 11-18-2023 13:40-0400 Heart rate 69 /min Myles Talamantes MD Work Phone: [facility] 11-18-2023 13:40-0400 Respiratory rate 16 /min Myles Talamantes MD Work Phone: [facility] 11-18-2023 13:40-0400 SaO2% (BldA) [Mass fraction] 97 % Myles Talamantes MD Work Phone: [facility] 11-18-2023 13:40-0400 Systolic blood pressure 121 mm[Hg] Myles Talamantes MD Work Phone: [facility] 10-21-2023 11:30-0400 Body mass index (BMI) [Ratio] 32.4 kg/m2 Isaiah Gauthier MD Work Phone: [facility] 10-21-2023 11:30-0400 Body temperature 97.9 [degF] Isaiah Gauthier MD Work Phone: [facility] 10-21-2023 11:30-0400 Body weight 98.1 kg Isaiah Gauthier MD Work Phone: [facility] 10-21-2023 11:30-0400 Diastolic blood pressure 95 mm[Hg] Isaiah Gauthier MD Work Phone: [facility] 10-21-2023 11:30-0400 Heart rate 72 /min Isaiah Gauthier MD Work Phone: [facility] 10-21-2023 11:30-0400 Respiratory rate 16 /min Isaiah Gauthier MD Work Phone: [facility] 10-21-2023 11:30-0400 SaO2% (BldA) [Mass fraction] 98 % Isaiah Gauthier MD Work Phone: [facility] 10-21-2023 11:30-0400 Systolic blood pressure 122 mm[Hg] Isaiah Gauthier MD Work Phone: [facility] 10-14-2023 11:45-0400 Body temperature 97.9 [degF] Isaiah Gautheir MD Work Phone: [facility] 10-14-2023 11:45-0400 Body weight 91.1 kg Isaiah Gauthier MD Work Phone: [facility] 10-14-2023 11:45-0400 Diastolic blood pressure 71 mm[Hg] Isaiah Gauthier MD Work Phone: [facility] 10-14-2023 11:45-0400 Heart rate 67 /min Isaiah Gauthier MD Work Phone: [facility] 10-14-2023 11:45-0400 Respiratory rate 16 /min Isaiah Gauthier MD Work Phone: [facility] 10-14-2023 11:45-0400 SaO2% (BldA) [Mass fraction] 97 % Isaiah Gauthier MD Work Phone: [facility] 10-14-2023 11:45-0400 Systolic blood pressure 104 mm[Hg] Isaiah Gauthier MD Work Phone: [facility] 10-12-2023 10:13-0400 Body height 174 cm Myles Talamantes MD Work Phone: [facility] 10-12-2023 10:13-0400 Body temperature 97.5 [degF] Myles Talaamntes MD Work Phone: [facility] 10-12-2023 10:13-0400 Body weight 91.6 kg Myles Talamantes MD Work Phone: [facility] 10-12-2023 10:13-0400 Diastolic blood pressure 84 mm[Hg] Myles Talamantes MD Work Phone: [facility] 10-12-2023 10:13-0400 Heart rate 71 /min Myles Talamantes MD Work Phone: [facility] 10-12-2023 10:13-0400 Respiratory rate 16 /min Myles Talamantes MD Work Phone: [facility] 10-12-2023 10:13-0400 SaO2% (BldA) [Mass fraction] 96 % Myles Talamantes MD Work Phone: [facility] 10-12-2023 10:13-0400 Systolic blood pressure 148 mm[Hg] Myles Talamantes MD Work Phone: [facility] 10-07-2023 11:32-0400 Body temperature 98.1 [degF] Isaiah Gauthier MD Work Phone: [facility] 10-07-2023 11:32-0400 Body weight 91 kg Isaiah Gauthier MD Work Phone: [facility] 10-07-2023 11:32-0400 Diastolic blood pressure 82 mm[Hg] Isaiah Gauthier MD Work Phone: [facility] 10-07-2023 11:32-0400 Heart rate 62 /min Isaiah Gauthier MD Work Phone: [facility] 10-07-2023 11:32-0400 Respiratory rate 16 /min Isaiah Gauthier MD Work Phone: [facility] 10-07-2023 11:32-0400 SaO2% (BldA) [Mass fraction] 98 % Isaiah Gauthier MD Work Phone: [facility] 10-07-2023 11:32-0400 Systolic blood pressure 133 mm[Hg] Isaiah Gauthier MD Work Phone: [facility] 09-30-2023 15:41-0400 Body temperature 96.69 [degF] Isaiah Gauthier MD Work Phone: [facility] 09-30-2023 15:41-0400 Body weight 91 kg Isaiah Gauthier MD Work Phone: [facility] 09-30-2023 15:41-0400 Diastolic blood pressure 81 mm[Hg] Isaiah Gauthier MD Work Phone: [facility] 09-30-2023 15:41-0400 Heart rate 67 /min Isaiah Gauthier MD Work Phone: [facility] 09-30-2023 15:41-0400 Respiratory rate 18 /min Isaiah Gauthier MD Work Phone: [facility] 09-30-2023 15:41-0400 SaO2% (BldA) [Mass fraction] 97 % Isaiah Gauthier MD Work Phone: [facility] 09-30-2023 15:41-0400 Systolic blood pressure 116 mm[Hg] Isaiah Gauthier MD Work Phone: [facility] 09-07-2023 10:45-0400 Body height 174 cm Myles Talamantes MD Work Phone: [facility] 09-07-2023 10:45-0400 Body temperature 97.5 [degF] Myles Talamantes MD Work Phone: [facility] 09-07-2023 10:45-0400 Body weight 90.5 kg Myles Talamantes MD Work Phone: [facility] 09-07-2023 10:45-0400 Diastolic blood pressure 82 mm[Hg] Myles Talamantes MD Work Phone: [facility] 09-07-2023 10:45-0400 Heart rate 92 /min Myles Talamantes MD Work Phone: [facility] 09-07-2023 10:45-0400 Respiratory rate 16 /min Myles Talamantes MD Work Phone: [facility] 09-07-2023 10:45-0400 SaO2% (BldA) [Mass fraction] 97 % Myles Talamantes MD Work Phone: [facility] 09-07-2023 10:45-0400 Systolic blood pressure 155 mm[Hg] Myles Talamantes MD Work Phone: [facility] 08-27-2023 11:22-0500 Body temperature 97.7 [degF] Jack Ding PA-C Work Phone: [facility] 08-27-2023 11:22-0500 Body weight 89.36 kg Jack Ding PA-C Work Phone: [facility] 08-11-2023 11:20-0500 Body height 174 cm Pacc 2 Work Phone: [facility] 08-11-2023 11:20-0500 Body temperature 97.5 [degF] Pacc 2 Work Phone: [facility] 08-11-2023 11:20-0500 Body weight 89.6 kg Pacc 2 Work Phone: [facility] 08-11-2023 11:20-0500 Diastolic blood pressure 81 mm[Hg] Pacc 2 Work Phone: [facility] 08-11-2023 11:20-0500 Heart rate 71 /min Pacc 2 Work Phone: [facility] 08-11-2023 11:20-0500 Respiratory rate 16 /min Pacc 2 Work Phone: [facility] 08-11-2023 11:20-0500 SaO2% (BldA) [Mass fraction] 97 % Pacc 2 Work Phone: [facility] 08-11-2023 11:20-0500 Systolic blood pressure 137 mm[Hg] Pacc 2 Work Phone: [facility] 08-07-2023 13:40-0500 Body height 172.7 cm Myles Talamantes MD Work Phone: [facility] 08-07-2023 13:40-0500 Body temperature 97.59 [degF] Myles Talamantes MD Work Phone: [facility] 08-07-2023 13:40-0500 Body weight 89.2 kg Myles Talamantes MD Work Phone: [facility] 08-07-2023 13:40-0500 Diastolic blood pressure 73 mm[Hg] Myles Talamantes MD Work Phone: [facility] 08-07-2023 13:40-0500 Heart rate 77 /min Myles Talamantes MD Work Phone: [facility] 08-07-2023 13:40-0500 Respiratory rate 16 /min Myles Talamantes MD Work Phone: [facility] 08-07-2023 13:40-0500 SaO2% (BldA) [Mass fraction] 97 % Myles Talamantes MD Work Phone: [facility] 08-07-2023 13:40-0500 Systolic blood pressure 125 mm[Hg] Myles Talamantes MD Work Phone: [facility] 06-11-2023 11:10-0500 Body temperature 97.5 [degF] MD Chauncey Bowles Work Phone: [facility] 06-11-2023 11:10-0500 Diastolic blood pressure 91 mm[Hg] MD Chauncey Bowles Work Phone: [facility] 06-11-2023 11:10-0500 Heart rate 66 /min MD Chauncey Bowles Work Phone: [facility] 06-11-2023 11:10-0500 Respiratory rate 18 /min MD Chauncey Bowles Work Phone: [facility] 06-11-2023 11:10-0500 SaO2% (BldA) [Mass fraction] 98 % MD Chauncey Bowles Work Phone: [facility] 06-11-2023 11:10-0500 Systolic blood pressure 154 mm[Hg] MD Chauncey Bowles Work Phone: [facility] Encounters Encounter Date Encounter Type Care Provider Facility Start: 03-31-2024 End: 03-31-2024 ambulatory SEVERO VALLES Facility:[facility] Start: 03-31-2024 End: 03-31-2024 Patient encounter procedure [facility] Valles MD [facility] Comment on above: Malignant neoplasm o f central portion of left breast in female, estrogen receptor positive (HCC) (Primary Dx); History of right breast cancer Start: 03-14-2024 End: 03-14-2024 ambulatory SAVANAH CRESPO Not Available Start: 02-01-2024 End: 02-01-2024 Office outpatient visit 25 minutes Myles Talamantes MD Work Phone: Hematology/Oncology Comment on above: Malignant neoplasm o f lower-outer quadrant of left breast of female, estrogen receptor positive (HCC) (Primary Dx) Start: 02-01-2024 End: 02-01-2024 ambulatory CHAUNCEY BOWLES Facility:[facility] Start: 01-19-2024 End: 01-19-2024 ambulatory Myles Talamantes MD Work Phone: Hematology/Oncology Comment on above: Malignant neoplasm o f lower-outer quadrant of left breast of female, estrogen receptor positive (HCC) (Primary Dx) Start: 01-19-2024 End: 01-19-2024 Telemedicine consultation with patient Myles Talamantes MD Work Phone: Hematology/Oncology Start: 12-29-2023 End: 12-29-2023 ambulatory Jeannette Loza LMT Hematology/Oncology Comment on above: Muscle soreness (Hamida krystian Dx) Refill Request Start: 12-29-2023 End: 12-29-2023 Patient encounter procedure Jeannette Loza LMT Hematology/Oncology Start: 12-15-2023 End: 12-15-2023 ambulatory Jeannette Loza T Hematology/Oncology Comment on above: Muscle soreness (Hamida krystian Dx) Start: 12-15-2023 End: 12-15-2023 Patient encounter procedure Jeannette Loza LMT Hematology/Oncology Start: 11-25-2023 Patient encounter procedure Amy Méndez LMT Work Phone: Hematology/Oncology Comment on above: Muscle soreness (Hamida krystian Dx) Start: 11-25-2023 End: 11-25-2023 ambulatory [facility] Facility:[facility] Start: 11-18-2023 End: 11-18-2023 Patient encounter procedure Amy Méndez LMT Work Phone: Hematology/Oncology Comment on above: Muscle soreness (Hamida krystian Dx) Malignant neoplasm o f lower-outer quadrant of left breast of female, estrogen receptor positive (HCC) (Primary Dx) Start: 11-18-2023 End: 11-18-2023 Office outpatient visit 25 minutes Myles Talamantes MD Work Phone: Hematology/Oncology Comment on above: Malignant neoplasm o f lower-outer quadrant of left breast of female, estrogen receptor positive (HCC) (Primary Dx) Start: 11-18-2023 End: 11-18-2023 ambulatory [facility] Facility:[facility] Start: 11-12-2023 Telephone encounter Isaiah Gauthier MD Work Phone: Radiation Oncology Comment on above: Patient Update (Nurs e call post radiation) Start: 11-10-2023 Patient encounter procedure Amy Méndez LMT Work Phone: Hematology/Oncology Comment on above: Muscle soreness (Hamida krystian Dx) Start: 11-10-2023 End: 11-10-2023 ambulatory RUGEN MABALAY JELENA Facility:[facility] Start: 11-03-2023 End: 11-03-2023 ambulatory Jeannette Loza LMT Hematology/Oncology Comment on above: Muscle soreness (Hamida krystian Dx) Start: 11-03-2023 End: 11-03-2023 Patient encounter procedure Jeannette Loza LMT Hematology/Oncology Start: 10-27-2023 Patient encounter procedure Amy Méndez LMT Work Phone: Hematology/Oncology Comment on above: Muscle soreness (Hamida krystian Dx) Start: 10-27-2023 End: 10-27-2023 ambulatory RUGEN MABALAY JELENA Facility:[facility] Start: 10-21-2023 End: 10-21-2023 Patient encounter procedure Isaiah Gauthier MD Work Phone: Radiation Oncology Comment on above: Malignant neoplasm o f lower-outer quadrant of left breast of female, estrogen receptor positive (HCC) (Primary Dx) Start: 10-21-2023 Radiation Oncology Note Isaiah fernandes MD Work Phone: Radiation Oncology Comment on above: Completion Note Start: 10-21-2023 End: 10-21-2023 ambulatory RUGEN MABALAY JELENA Facility:[facility] Start: 10-20-2023 Patient encounter procedure Jeannette Loza LMT Hematology/Oncology Comment on above: Muscle soreness (Hamida krystian Dx) Start: 10-20-2023 End: 10-20-2023 ambulatory RUGEN MABALAY JELENA Facility:[facility] Start: 10-19-2023 End: 10-19-2023 ambulatory RUGEN MABALAY JELENA Facility:[facility] Start: 10-16-2023 End: 10-16-2023 ambulatory RUGEN MABALAY JELENA Facility:[facility] Start: 10-15-2023 End: 10-15-2023 ambulatory RUGEN MABALAY JELENA Facility:[facility] Start: 10-14-2023 End: 10-14-2023 Patient encounter procedure Isaiah Gauthier MD Work Phone: Radiation Oncology Comment on above: Malignant neoplasm o f lower-outer quadrant of left breast of female, estrogen receptor positive (HCC) (Primary Dx) Start: 10-14-2023 End: 10-14-2023 ambulatory RUGEN MABALAY JELENA Facility:[facility] Start: 10-13-2023 Patient encounter procedure Amy Méndez LMT Work Phone: Hematology/Oncology Comment on above: Muscle soreness (Hamida krystian Dx) Start: 10-13-2023 End: 10-13-2023 ambulatory RUGEN MABALAY JELENA Facility:[facility] Start: 10-12-2023 End: 10-12-2023 ambulatory RUGEN MABALAY JELENA Facility:[facility] Start: 10-12-2023 End: 10-12-2023 Office outpatient visit 25 minutes Myles Talamantes MD Work Phone: Hematology/Oncology Comment on above: Malignant neoplasm o f lower-outer quadrant of left breast of female, estrogen receptor positive (HCC) (Primary Dx) Start: 10-12-2023 End: 10-12-2023 ambulatory RUGEN MABALAY JELENA Facility:[facility] Start: 10-09-2023 End: 10-09-2023 ambulatory RUGEN MABALAY JELENA Facility:[facility] Start: 10-08-2023 End: 10-08-2023 ambulatory RUGEN MABALAY JELENA Facility:[facility] Start: 10-07-2023 End: 10-07-2023 Patient encounter procedure Isaiah Gauthier MD Work Phone: Radiation Oncology Comment on above: Malignant neoplasm o f lower-outer quadrant of left breast of female, estrogen receptor positive (HCC) (Primary Dx) Start: 10-07-2023 End: 10-07-2023 ambulatory RUGEN MABALAY JELENA Facility:[facility] Start: 10-06-2023 Patient encounter procedure Jeannette Loza LMT Hematology/Oncology Comment on above: Muscle soreness (Hamida krystian Dx) Start: 10-06-2023 End: 10-06-2023 ambulatory RUGEN MABALAY JELENA Facility:[facility] Start: 10-02-2023 End: 10-02-2023 ambulatory RUGEN MABALAY JELENA Facility:[facility] Start: 10-01-2023 End: 10-01-2023 ambulatory CHAUNCEY BOWLES Facility:[facility] Start: 09-30-2023 End: 09-30-2023 ambulatory CHAUNCEY BOWLES Facility:[facility] Start: 09-30-2023 End: 09-30-2023 Patient encounter procedure Isaiah Gauthier MD Work Phone: Radiation Oncology Comment on above: Malignant neoplasm o f lower-outer quadrant of left breast of female, estrogen receptor positive (HCC) (Primary Dx) Start: 09-29-2023 Telephone encounter Myles hendrickson MD Work Phone: Hematology/Oncology Comment on above: Lab Orders Start: 09-16-2023 ambulatory CHAUNCEY BOWLES Faci lity:[facility] Start: 09-16-2023 End: 09-16-2023 Subsequent hospital visit by physician Isaiah Gauthier MD Work Phone: Radiology Pet CT Start: 09-16-2023 Patient encounter procedure Isaiah Gauthier MD Work Phone: MATT Start: 09-16-2023 Radiation Oncology Note Isaiah fernandes MD Work Phone: Radiation Oncology Comment on above: Simulation Note Treatment Planning Start: 09-08-2023 Telephone encounter Isaiah Gauthier MD Work Phone: Radiation Oncology Comment on above: Nipple Tenderness Start: 09-07-2023 End: 09-08-2023 ambulatory Tayla Landon LPN Radiation Oncology Comment on above: Patient Education Start: 09-07-2023 End: 09-07-2023 Patient encounter procedure Isaiah Gauthier MD Work Phone: Radiation Oncology Comment on above: Malignant neoplasm o f lower-outer quadrant of left breast of female, estrogen receptor positive (HCC) (Primary Dx) Start: 09-07-2023 End: 09-07-2023 Office outpatient visit 25 minutes Myles Talamantes MD Work Phone: Hematology/Oncology Comment on above: Malignant neoplasm o f lower-outer quadrant of left breast of female, estrogen receptor positive (HCC) (Primary Dx) Start: 08-27-2023 End: 08-27-2023 ambulatory SEVERO VALLES Facility:[facility] Start: 08-27-2023 End: 08-27-2023 Patient encounter procedure Jack Ding PA-C Work Phone: Breast Center Comment on above: Malignant neoplasm o f central portion of left breast in female, estrogen receptor positive (HCC) (Primary Dx); History of right breast cancer; Postop check Start: 08-19-2023 End: 08-19-2023 Orders Only Jack Ding PA-C Work Phone: [facility] Comment on above: Malignant neoplasm o f central portion of left breast in female, estrogen receptor positive (HCC) (HCC) (Primary Dx); Postoperative pain Malignant neoplasm o f central portion of left breast in female, estrogen receptor positive (HCC) (HCC) [C50.112, Z17.0] Start: 08-18-2023 End: 08-18-2023 ambulatory CHAUNCEY BOWLES Facility:[facility] Start: 08-18-2023 End: 08-18-2023 Subsequent hospital visit by physician Procedure Mammo [facility] Mammography Start: 08-12-2023 End: 08-12-2023 ambulatory Neymar HENDERSON Work Phone: [facility] Comment on above: Ductal carcinoma in situ (DCIS) of right breast (Primary Dx); History of breast cancer; Family history of breast cancer; Family history of ovarian cancer; Malignant neoplasm of lower-outer quadrant of left breast of female, estrogen receptor positive (HCC) (HCC) Start: 08-12-2023 End: 08-12-2023 Telemedicine consultation with patient Neymar HENDERSON Work Phone: [facility] Start: 08-11-2023 End: 08-11-2023 Admission to [facility] Work Phone: [facility] Start: 08-11-2023 End: 08-11-2023 ambulatory SEVERO VALLES Pre Anesthesia Comment on above: Pre-op examination ( Primary Dx); Gastroesophageal reflux disease without esophagitis; PONV (postoperative nausea and vomiting); Ductal carcinoma in situ (DCIS) of right breast; Former smoker Start: 08-11-2023 Encounter for other preprocedural examination CHAUNCEY BOWLES [facility] Start: 08-11-2023 End: 08-11-2023 Preprocedural examination done [facility] 2 Work Phone: [facility] Work Phone: Start: 08-07-2023 Chart abstracting Liza zuleta RN Work Phone: Breast Center Comment on above: Arm Measurements Start: 08-07-2023 Telephone encounter Severo herrera MD Work Phone: [facility] Comment on above: Results Appointment Breast localization request Start: 08-07-2023 End: 08-07-2023 ambulatory CHAUNCEY BOWLES Facility:[facility] Start: 08-07-2023 End: 08-07-2023 Office outpatient visit 25 minutes Myles Talamantes MD Work Phone: Hematology/Oncology Comment on above: Malignant neoplasm o f lower-outer quadrant of left breast of female, estrogen receptor positive (HCC) (HCC) (Primary Dx) Start: 08-05-2023 End: 08-05-2023 ambulatory CHAUNCEY BOWLES Facility:[facility] Start: 08-05-2023 End: 08-05-2023 Subsequent hospital visit by physician Mri [facility] [place] (Lg Bore/1.5t) Radiology MRI Comment on above: Malignant neoplasm o f lower-outer quadrant of left breast of female, estrogen receptor positive (HCC) (HCC) [C50.512, Z17.0] Start: 07-09-2023 End: 07-09-2023 ambulatory CHAUNCEY BOWLES Facility:[facility] Start: 06-26-2023 End: 06-26-2023 ambulatory CHAUNCEY CANELOTERESAQuin JELENA Facility:[facility] Start: 06-18-2023 End: 06-18-2023 ambulatory DILLON COOPER Not Available Start: 06-11-2023 End: 06-12-2023 ambulatory Dillon Laffay Facility:[facility] Start: 06-11-2023 End: 06-11-2023 Admission to same day surgery center MD Chauncey Bowles Work Phone: [facility] Work Phone: Start: 06-11-2023 End: 06-11-2023 ambulatory MD Chauncey Bowles Work Phone: [facility] Work Phone: Start: 06-03-2023 End: 06-03-2023 ambulatory DILLON PADILLAQuin Not Available Start: 10-20-2022 End: 10-21-2022 ambulatory SAVANAH CRESPO Facility:[facility] Start: 04-15-2022 End: 04-16-[address] CHAUNCEY BOWLES Facility:[facility] Procedures Date Procedure Procedure Detail Performing Clinician Start: 08-19-2023 Radiological examina tion surgical specimen Severo Valles MD Work Phone: Start: 08-18-2023 Perq breast loc pasha ce placemt 1st strtctc gdnce Jack Ding PA-C Work Phone: Start: 06-11-2023 Stereotactic mammography MD Chauncey Bowles Work Phone: Start: 05-23-2014 H/O: hysterectomy S/P hysterectomy M ri Bore/1.5t) Plan of Treatment Date Care Activity Detail Author Start: 01-31-2027 Diabetes Screening Diabetes Screenin g [facility] Start: 11-17-2026 Diabetes Screening Diabetes Screenin g [facility] Start: 10-11-2026 Diabetes Screening Diabetes Screenin g [facility] Start: 06-26-2026 Diabetes Screening Diabetes Screenin g [facility] Start: 10-06-2024 End: 10-06-2024 Patient encounter procedure 10/06/2024 10:45 AM EDT Office Visit Breast Center [address] [place] [id number] [place] [address] [facility] [place] [address] 6 month follow up Breast Center Comment on above: 6 month follow up Start: 08-01-2024 End: 08-01-2024 Follow-up encounter 08/01/2024 11:45 AM EST Visit (SP) Office Hematology/Oncology [address] [place] [address] Myles Talamantes MD [address] [place] [address] 6 month follow up labs same day Hematology/Oncology Comment on above: 6 month follow up la bs same day Start: 08-01-2024 End: 08-01-2024 Patient encounter procedure 08/01/2024 11:30 AM EST Office Visit [facility] [address] [place] [address] 6 month follow up labs same day [facility] Comment on above: 6 month follow up la bs same day Start: 04-21-2024 End: 11-19-2024 MG Breast - bilateral Diagnostic [facility] Radiology Routine Malignant neoplasm of lower-outer quadrant of left breast of female, estrogen receptor positive (HCC) Expected: 04/21/2024, Expires: 11/19/2024 [facility] Work Phone: Comment on above: Expected: 04/21/2024 , Expires: 11/19/2024 Start: 03-31-2024 End: 03-31-2024 Patient encounter procedure 03/31/2024 10:45 AM EDT Office Visit Breast Center [address] [place] [address] [place] [address] [facility] [place] [address] 6 month follow up Breast Center Comment on above: 6 month follow up Start: 02-28-2024 Covid-19 Vaccine ( season) Covid-19 Vaccine ( season) [facility] Start: 02-28-2024 Covid-19 Vaccine ( season) Covid-19 Vaccine ( season) [facility] Start: 02-28-2024 Influenza vaccination C [facility] Start: 02-25-2024 End: 02-25-2024 Patient encounter procedure 02/25/2024 2:00 PM EDT Office Visit Breast Center [address] [place] [address] [place] [address] [place] [address] 6 month [facility] up [facility] Comment on above: 6 month follow up Start: 02-01-2024 End: 02-01-2024 Follow-up encounter 02/01/2024 10:45 AM EDT Visit (SP) Office Hematology/Oncology [address] [place] [address] Myles Talamantes MD [address] [place] [address] [place] [address] 16 week follow up with lab Hematology/Oncology Comment on above: 16 week follow up [facility] Start: 02-01-2024 End: 02-01-2024 Patient encounter procedure 02/01/2024 10:30 AM EDT Office Visit [facility] [address] [place] [address] 16 week follow up with lab [facility] Comment on above: 16 week follow up [facility] Start: 01-19-2024 End: 01-19-2024 ambulatory 01/19/2024 1:00 PM EDT [facility] Hematology/Oncology [address] [place] [address] Myles Talamantes MD [address] [place] [address] virtual in 8 weeks Hematology/Oncology Comment on above: virtual in 8 weeks Start: 12-29-2023 End: 12-29-2023 ambulatory 12/29/2023 10:30 AM EDT Visit (SP) Office Hematology/Oncology [address] [place] [address] Jeannette Loza LMT massage Patient will be in lobby Hematology/Oncology Comment on above: massage Patient w ill be in lobby Start: 12-15-2023 End: 12-15-2023 ambulatory 12/15/2023 10:30 AM EDT Visit (SP) Office Hematology/Oncology [address] [place] [address] Jeannette Loza LMT massage Patient will be in lobby Hematology/Oncology Comment on above: massage Patient w ill be in lobby Start: 12-07-2023 Screening for malign ant neoplasm of colon [facility] Start: 11-26-2023 End: 11-26-2023 ambulatory 11/26/2023 11:00 AM EDT Visit (SP) Office Hematology/Oncology [address] [place] [address] Amy Méndez LMT [address] [place] [address] massage Patient will be in lobby Hematology/Oncology Comment on above: massage Patient w ill be in lobby Start: 11-24-2023 End: 11-24-2023 ambulatory 11/24/2023 12:00 PM EDT Visit (SP) Office Hematology/Oncology [address] [place] [address] Amy Méndez LMT [address] [place] [address] massage Patient will be in lobby Hematology/Oncology Comment on above: massage Patient w ill be in lobby Start: 11-24-2023 End: 11-24-2023 Follow-up encounter 11/24/2023 11:00 AM EDT Visit (SP) Office Hematology/Oncology [address] [place] [address] Helena Araujo, PA-C [address] [place] [address] 6 week lab and follow up with [facility] Hematology/Oncology Comment on above: 6 week lab and follo w up with [facility] Start: 11-24-2023 End: 11-24-2023 Patient encounter procedure [facility] Comment on above: 6 week lab and follo w up with Helena Followup same day as helena Start: 11-17-2023 End: 11-17-2023 ambulatory 11/17/2023 10:00 AM EDT Visit (SP) Office Hematology/Oncology [address] [place] [address] Jeannette Loza LMT massage Patient will be in lobby Hematology/Oncology Comment on above: massage Patient w ill be in lobby Start: 11-10-2023 End: 11-10-2023 ambulatory 11/10/2023 11:00 AM EDT Visit (SP) Office Hematology/Oncology [address] [place] [address] Amy Méndez LMT [address] [place] [address] massage Patient will be in lobby Hematology/Oncology Comment on above: massage Patient w ill be in lobby Start: 11-03-2023 End: 11-03-2023 ambulatory 11/03/2023 11:30 AM EDT Visit (SP) Office Hematology/Oncology [address] [place] [address] Jeannette Loza LMT massage Patient will be in lobby Hematology/Oncology Comment on above: massage Patient w ill be in lobby Start: 10-27-2023 End: 10-27-2023 ambulatory 10/27/2023 12:00 PM EDT Visit (SP) Office Hematology/Oncology [address] [place] [address] Amy Méndez LMT [address] [place] [address] massage Patient will be in lobby Hematology/Oncology Comment on above: massage Patient w ill be in lobby Start: 10-21-2023 End: 10-21-2023 Patient encounter procedure Radiation Oncology Comment on above: RPM left breast Location: [facility] Start: 10-12-2023 End: 01-11-2024 Cancer Ag 15-3 [Units/volume] in Serum or Plasma CA 15-3 BLD Lab Routine Malignant neoplasm of lower-outer quadrant of left breast of female, estrogen receptor positive (HCC) Expected: 10/12/2023 (Approximate), Expires: 01/11/2024 [facility] Work Phone: Comment on above: Expected: 10/12/2023 (Approximate), Expires: 01/11/2024 Start: 10-12-2023 End: 01-11-2024 Cancer Ag 27-29 [Units/volume] in Serum or Plasma CA 27.29 BLOOD Lab Routine Malignant neoplasm of lower-outer quadrant of left breast of female, estrogen receptor positive (HCC) Expected: 10/12/2023 (Approximate), Expires: 01/11/2024 [facility] Work Phone: Comment on above: Expected: 10/12/2023 (Approximate), Expires: 01/11/2024 Start: 10-12-2023 End: 01-11-2024 CBC W Auto Differential panel - Blood CBC + DIFF Lab Routine Malignant neoplasm of lower-outer quadrant of left breast of female, estrogen receptor positive (HCC) Expected: 10/12/2023 (Approximate), Expires: 01/11/2024 [facility] Work Phone: Comment on above: Expected: 10/12/2023 (Approximate), Expires: 01/11/2024 Start: 10-12-2023 End: 01-11-2024 Comprehensive metabolic 2000 panel - Serum or Plasma COMP METABOLIC PANEL Lab Routine Malignant neoplasm of lower-outer quadrant of left breast of female, estrogen receptor positive (HCC) Expected: 10/12/2023 (Approximate), Expires: 01/11/2024 [facility] Work Phone: Comment on above: Expected: 10/12/2023 (Approximate), Expires: 01/11/2024 Start: 08-12-2023 End: 11-11-2023 MISC SEND OUT TST 1 [facility] Work Phone: Comment on above: Expected: 08/12/2023 , Expires: 11/11/2023 Start: 06-29-2023 Advance Directive Discussion Advance Directive Discussion [facility] Start: 06-29-2023 Behavioral Health Screening Behavioral Health Screening [facility] Start: 06-29-2023 Depression Assessment Depression Ass essment [facility] Start: 04-15-2023 Screening for malign ant neoplasm of breast Mammogram Screening [facility] Start: 02-27-2023 Covid-19 Vaccine ( season) Covid-19 Vaccine () [facility] Start: 02-27-2023 Influenza vaccination Influenza Vacc ine (#1) [facility] Start: 2015 Screening for osteoporosis Bone Density Screening [facility] Start: 2010 RSV Vaccine (1 - 1-d ose 60+ series) RSV Vaccine (1 - 1-dose 60+ series) [facility] Start: 2010 RSV Vaccine (1 - Ris k 60-74 years 1-dose series) RSV Vaccine (1 - Risk 60-74 years 1-dose series) [facility] Start: 2000 Shingrix Vaccine (1 of 2) Shingrix Vaccine (1 of 2) [facility] Start: 1995 Lipid panel Lipid Screening [facility] Start: 1995 Screening for malign ant neoplasm of colon [facility] Start: 1990 Screening for malign ant neoplasm of breast Mammogram Screening [facility] Start: 1969 Urine microalbumin profile DTaP,Tdap,Td Vaccine (1 - Tdap) [facility] Start: 1968 Anxiety Screening Anxiety Screening [facility] Start: 1968 Depression Screening Depression Scre ening [facility] Start: 1968 Hepatitis C screening Hepatitis C Sc reening [facility] End: 10-11-2024 Cancer Ag 15-3 [Units/volume] in Serum or Plasma CA 15-3 BLD Lab Routine Malignant neoplasm of lower-outer quadrant of left breast of female, estrogen receptor positive (HCC) Every 3 months for 4 Occurrences starting 10/12/2023 until 10/11/2024 [facility] Work Phone: Comment on above: Every 3 months for 4 Occurrences starting 10/12/2023 until 10/11/2024 End: 10-11-2024 Cancer Ag 27-29 [Units/volume] in Serum or Plasma CA 27.29 BLOOD Lab Routine Malignant neoplasm of lower-outer quadrant of left breast of female, estrogen receptor positive (HCC) Every 3 months for 4 Occurrences starting 10/12/2023 until 10/11/2024 [facility] Work Phone: Comment on above: Every 3 months for 4 Occurrences starting 10/12/2023 until 10/11/2024 End: 10-11-2024 CBC W Auto Differential panel - Blood COMPLETE BLOOD COUNT AND DIFFERENTIAL Lab Routine Malignant neoplasm of lower-outer quadrant of left breast of female, estrogen receptor positive (HCC) Every 3 months for 4 Occurrences starting 10/12/2023 until 10/11/2024 [facility] Work Phone: Comment on above: Every 3 months for 4 Occurrences starting 10/12/2023 until 10/11/2024 End: 10-11-2024 Comprehensive metabolic 2000 panel - Serum or Plasma COMPREHENSIVE METABOLIC PANEL Lab Routine Malignant neoplasm of lower-outer quadrant of left breast of female, estrogen receptor positive (HCC) Every 3 months for 4 Occurrences starting 10/12/2023 until 10/11/2024 [facility] Work Phone: Comment on above: Every 3 months for 4 Occurrences starting 10/12/2023 until 10/11/2024 MRI BREAST WO/W IVCO N BILATERAL MRI BREAST WO/W IVCON BILATERAL Radiology Routine Malignant neoplasm of lower-outer quadrant of left breast of female, estrogen receptor positive (HCC) (HCC) 08/05/2023 1:49 PM EST [facility] Work Phone: NM Lymph node Views NM INJ SENTI SHAKIR NODE BREAST LEFT Radiology Routine Malignant neoplasm of central portion of left breast in female, estrogen receptor positive (HCC) (HCC) 08/19/2023 10:19 AM EST [facility] Work Phone: [facility] Immunizations Immunization Date Immunization Notes Care Provider [facility] 03-15-2020 influenza virus vacc ine, unspecified formulation Mri Bore/1.5t) [facility] 05-13-2018 influenza, high dose seasonal, preservative-free Mri Bore/1.5t) [facility] 05-13-2018 pneumococcal polysac charide vaccine, 23 valent Mri Bore/1.5t) [facility] 05-27-2017 pneumococcal conjuga te vaccine, 13 valent Mri Bore/1.5t) [facility] 05-12-2017 influenza, high dose seasonal, preservative-free Mri Bore/1.5t) [facility] 04-15-2016 influenza, high dose seasonal, preservative-free Mri Bore/1.5t) [facility] Payers Date Payer Category Payer Self-pay 2021 Medicare [employer] MEDICARE A ETNA MEDICARE PPO [id number] 2021-Present [phone] [address] [place] [address] PPO [id number] 1959 Medicare [id number] 1950 Unknown [id number] 1950 Unknown [id number] 1950 Unknown [id number] 1950 Unknown [id number] 1950 Unknown [id number] 1950 Unknown [id number] Unknown [id number] Social History Date Type Detail Facility Tobacco smoking stat [facility] Unknown if ever smoked [facility] Work Phone: Start: 1950 Sex Assigned At Female F [facility] Start: 07-09-2023 End: 03-31-2024 Tobacco smoking status NHIS Ex-smoker [facility] Start: 06-29-1994 End: 06-29-2004 History of tobacco use Current smoker [facility] Start: 06-29-1994 End: 06-29-2004 History of tobacco use Cigarette Smoker [facility] Start: 06-26-2023 End: 07-09-2023 Cigarettes smoked current (pack per day) - Reported 0.3 [facility] Start: 07-09-2023 End: 03-31-2024 Tobacco use and exposure Smokeless tobacco non-user [facility] Start: 07-09-2023 End: 03-31-2024 Alcohol intake Current drinker of alcohol (finding) [facility] Start: 06-26-2023 End: 07-09-2023 Tobacco use panel [facility] Adult Depression Screening Assessment 0 [facility] Start: 03-30-2014 Alcohol Comment rare [facility] Start: 1950 Sex Assigned At Not on file C [facility] Medical Equipment Procedure Code Equipment Code Equipment Origin al Text Equipment Identifier Dates [employer] [id number] Start: 08-18-2023 Comment on above: Description: 10.0 cm brenna Clinical Notes 04-03-2020 to 03-31-2024 Patient InstructionsPetersSevero MD - 03/31/2024 11:06 AM EDTPatient InstructionsMyles Talamantes MD - 02/01/2024 10:45 AM EDTPatient Myles Omer MD - 01/19/2024 1:00 PM EDT Note Date & Type Note Facility 03-31-2024 Instructions Severo Valles MD - 03/31/2024 11:19 AM EDT Dear Ivan Prather Javier, Thank you for coming to see us today and entrusting us with your breast care. So happy to see you are doing well! Please make your 6 month follow up appointment on your way out today or you may not be able to get scheduled if you delay scheduling. Breast health recommendations you can employ for your breast cancer journey include routine breast self awareness, clinical breast exams, annual mammography, minimal alcohol use, no tobacco use and 150 min of aerobic exercise per week as your heart, lungs and joints allow. Wearing a well fitting, supportive bra is helpful for most women as well. Now may be a good time for an updated professional fitting if it has been some time since you have had that done. If you develop new breast concerns, please make an appointment with your breast health team for further evaluation. We are happy to see you any time with any surgical breast questions or concerns. If you would like to compliment one of our caregivers you encountered today, you may do so at [email or web address]. [email or web address] you for your time in recognizing those who cared for you during your journey with your breast health team. Severo Valles MD, FACS Care team: NILAY Gardiner PA-C, RN, BSN, CN-BN Rosa Cadena MA Contact numbers: Scheduling contact number: [phone] Nurse / clinical questions: [phone] Fax number: [phone] documented in this encounter [facility] 03-31-2024 Note HNO ID: [id number] Author: SEVERO VALLES MD Service: ? Author Type: Physician Type: Progress Notes Filed: 03/31/2024 11:19 Note Text: Breast Surgery Follow Up Visit Original surgery date: 07/2023 Procedure: L lumpectomy with SLNB Diagnosis/Stage: Stage I Oncologist: Dr. Edmond Chemotherapy: N/A Radiation: Complete Endocrine therapy: Tamoxifen Interval history: No new medical problems. No breast complaints. No masses, skin changes, nipple d/c. Last mammogram: Pre-op ROS GENERAL: No weight loss, malaise or fevers. HEENT: Negative for frequent or significant headaches, Negative for changes in hearing, vision or dizziness, Negative for nose bleeds, Negative for difficulty swallowing or hoarsness RESPIRATORY: Negative for cough, hemoptysis, wheezing or shortness of breath CARDIOVASCULAR: Negative for chest pain, leg swelling or palpitations. GI: No nausea, vomiting, diarrhea, constipation, hematochezia, melena, or abdominal pain : No history of dysuria, hematuria, frequency or incontinence. SKIN: Negative for lesions, rash, and itching NEURO: No history of headaches, syncope, paralysis, seizures or tremors LYMPH: No LAD ENDO: No DM Exam Ambulatory, NAD Sclera anicteric Resp unlabored No arm swelling Right breast: Neg Left breast: well healed LO incision, some retraction at incision site No supraclavicular or axillary lymphadenopathy Consutlants notes reviewed Most recent imaging reviewed Assessment 73 year old year old female with history of left breast cancer doing well after lumpectomy and adjuvant radiation and endocrine therapy. Plan: Cont to advise -Monthly self exams -Annual clinical exams -Annual mammography - due March as scheduled - has planned at [place] -Oncologic follow up as planned Follow Up: 6 months Sooner if any new findings/concerns Severo Valles MD [facility] 03-31-2024 History of Presen t illness Narrative Breast Surgery Follow Up Visit Original surgery date: 07/2023 Procedure: L lumpectomy with SLNB Diagnosis/Stage: Stage I Oncologist: Dr. Edmond Chemotherapy: N/A Radiation: Complete Endocrine therapy: Tamoxifen Interval history: No new medical problems. No breast complaints. No masses, skin changes, nipple d/c. Last mammogram: Pre-op ROS GENERAL: No weight loss, malaise or fevers. HEENT: Negative for frequent or significant headaches, Negative for changes in hearing, vision or dizziness, Negative for nose bleeds, Negative for difficulty swallowing or hoarsness RESPIRATORY: Negative for cough, hemoptysis, wheezing or shortness of breath CARDIOVASCULAR: Negative for chest pain, leg swelling or palpitations. GI: No nausea, vomiting, diarrhea, constipation, hematochezia, melena, or abdominal pain : No history of dysuria, hematuria, frequency or incontinence. SKIN: Negative for lesions, rash, and itching NEURO: No history of headaches, syncope, paralysis, seizures or tremors LYMPH: No LAD ENDO: No DM Exam Ambulatory, NAD Sclera anicteric Resp unlabored No arm swelling Right breast: Neg Left breast: well healed LO incision, some retraction at incision site No supraclavicular or axillary lymphadenopathy Consutlants notes reviewed Most recent imaging reviewed Assessment 73 year old year old female with history of left breast cancer doing well after lumpectomy and adjuvant radiation and endocrine therapy. Plan: Cont to advise -Monthly self exams -Annual clinical exams -Annual mammography - due March as scheduled - has planned at [place] -Oncologic follow up as planned Follow Up: 6 months Sooner if any new findings/concerns Severo Valles MD documented in this encounter [facility] 02-01-2024 Instructions Bridgett Hopper - 02/01/2024 11:05 AM EDT Continue Tamoxifen Keep mammogram appointment in March Keep follow up appointment with Dr. Valles in March RTC with me in 6 months Labs same day Exam same day documented in this encounter [facility] 02-01-2024 History of Presen t illness Narrative Images from the original note were not included. NAME: Ivan Herrera CLINIC NO.: [id number] DATE OF SERVICE: February 01, 2024 ([place]) Some elements in this clinic note that are critical to medical decision making have been carefully reviewed and included from a prior clinic note dated: January 19, 2024 ([place]) Referring Provider: Dr. Chauncey Bowles Additional Clinicians involved in Ivan Herrera's care: Dillon Cooper DIAGNOSIS: Malignant neoplasm lower quadrant left breast ER positive. History of malignant neoplasm of upper-outer quadrant of right breast in female, estrogen receptor positive ASSESSMENT: 73 year old woman with malignant neoplasm of upper-outer quadrant of right breast in female, estrogen receptor positive Stage I ([id number]) right breast cancer of the upper outer quadrant, ER/MA +, Her2-, diagnosed in February 2015. She had lumpectomy, followed by radiation, and has been on aromatase inhibitor therapy since May 2015 with good tolerance. Her recent mammogram from February 2020 was negative for malignancy. She has no evidence of recurrence. She continued her Anastrozole until May 2020, completing 5 years of therapy. 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 She presents in follow-up regarding this new diagnosis. S/p Lumpectomy left breast July 2023 4mm, G1 pT1a, BMX ER+ 91%, MA-, HER2 (1+) negative. Tolerating Tamoxifen well now. PLAN: Continue Tamoxifen Keep mammogram appointment in March Keep follow up appointment with Dr. Valles in March RTC with me in 6 months Labs same day Exam same day HPI: CASE HISTORY: Reverse Chronological Order 10/28/2023 - Started Tamoxifen - Held for fatigue 11/18/2023-12/19/2023 09/30/2023-10/21/2023 - Radiation to left breast: 4,005 cGy delivered in 15 fractions using DIBH/RPM 08/19/2023 - Lumpectomy, Left breast: 4mm, G1 pT1a, BMX ER+ 91%, MA-, HER2 (1+) negative Left axillary sentinel lymph node #1, excision (A) - Benign fibroadipose tissue. -No lymph node is identified. Left breast, lumpectomy (B) - Invasive ductal carcinoma, [place] grade 1, spanning 0.4 cm, (see comment). - Ductal carcinoma in situ (DCIS), nuclear grade 2, solid and cribriform types with microcalcifications. - Biopsy site changes and biopsy clip (x1) are identified. - The surrounding breast tissue shows atypical ductal hyperplasia (ADH), atypical lobular hyperplasia (ALH), usual ductal hyperplasia and apocrine metaplasia. All margins negative for malignancy: Left breast, anterior margin, excision (G) - Atypical lobular hyperplasia (ALH). 08/05/2023 - MRI Breast: Known biopsy proven malignancy The 1 cm x 0.7 cm x 1.4 cm architectural distortion in the left breast at 6 o'clock middle depth is consistent with the known carcinoma and is a known biopsy positive for malignancy. 07/09/2023 - Dx Mammogram Left: Known biopsy proven malignancy The architectural distortion in the left breast is a known biopsy positive for malignancy. A surgical consult is recommended. An X clip is visualized at the site of biopsy-proven malignancy. Of note, the X clip is at the inferior aspect of the architectural distortion. 06/11/2023 - Left breast mass 6:00, 6 cm from nipple stereotactic core biopsy at [facility]. Consistent with invasive ductal carcinoma NOS. G1, DCIS present, no LVI, ER +91 to 100%, MA negative. HER2 IHC pending. 05/27/2023 - Mammogram: diagnostic category 4 -- suspicious for malignancy. Finding does not exhibit classic findings of breast cancer. 03/29/2021 - Mammogram: diagnostic category 2 -- benign finding with no change from prior assessment. 03/26/2020 - bilateral screening mammogram: diagnostic category 2; benign finding. No change from comparison assessment. 05/2015-08/2023 - Arimidex 04/23/2015-06/05/2015 - Radiation to right breast; 6000 cGy in 30 fractions 03/21/2015 - excisional biopsy and sentinel node biopsy Invasive carcinoma of the right breast 1.1 cm grade 1, ER and MA positive, HER-2 negative by FISH (IHC not reported, presumed 2+) ; 4 lymph nodes all negative for cancer Updated Visit, February 01, 2024: Clarissa returns for a follow up. She is tolerating Tamoxifen well since restarting. CBC is normal, CMP pending. She tested positive for COVID 2 weeks ago, had significant upper respiratory symptoms and fever. She follows up with Dr. Valles in March. Chaperoned Breast Exam noted below. Updated Visit, January 19, 2024: Virtual Visit Clarissa presents today for a virtual visit. She has resumed Tamoxifen and is tolerating well overall. She currently has an upper respiratory infection with fevers and is following with her PCP. Updated Visit, November 18, 2023: Really fatigued from Radiation and starting Tamoxifen. Updated Visit, October 12, 2023: Continues radiation until the 20 of October. Will start Tamoxifen on October 27. Doing well. Since she recurred after having 5 years of Arimidex in opposite breast, will try her on Tamoxifen. Updated Visit, September 07, 2023: Clarissa returns for a follow-up, she is doing well today. She had left breast lumpectomy last month. She will begin on aromatase inhibitor which she was on (arimidex in the past), or Tamoxifen, after radiation. Updated Visit, August 07, 2023: Clarissa returns today with her sister Minnie. She is having a clip put in soon. Lumpectomy scheduled for 08/19/[address] Valles. We reviewed her MRI together. She will complete genetic counseling. HER2 low 1+. Her disease is stage 1A. Will plan to see her for endocrine therapy following RT. Updated Visit, June 26, 2023: Ivan returns today for follow up accompanied by her sister Minnie. She has concerns about her most recent workup with Dr. Cooper. We discussed her recent bx results. She has not yet undergone surgical resection. No plans at this time for a breast MRI, but she did have genetic and HER2 testing done. Will not need anxiety medication for the MRI. I discussed that determining lumpectomy versus mastectomy will be better decided once she has the MRI. I would like her to see radiation. If she were to undergo lumpectomy, radiation would be indicated. Also, if her HER2 comes back positive, she will need neoadjuvant chemotherapy. Recommended she consider genetic counseling with her children. She has an appointment scheduled next week with Dr. Cooper to review her remaining pathology - he may want to see her after the MRI. Updated Visit, April 19, 2020: Simi returns today for yearly follow up. Doing well. Struggling most with her 's diagnosis of dementia. It has been a struggle. She remains on Anastrozole and is due to complete 5 years in May. Her mammogram was 03/26/2020 and reviewed below. She denies any new pain, skin changes or masses. Updated Visit, December 09, 2019: Ivan Herrera is a 69 year old female who presents in follow up on arimidex. Good tolerance overall. No complaints. She was started on arimidex 06/12. Complains of some right axillary discomfort. Her mammograms in 02/2020. Her has dementia, but she remembers enjoying a [employer] weekend in [place], [place], where I had been. She isn't having No other issues - will re-eval and examine after mammograms. REVIEW OF SYSTEMS Per HPI and otherwise negative by full review of organ systems. ECOG PERFORMANCE STATUS: 0 PHYSICAL EXAMINATION: Vitals: BP 147/84 Pulse 74 Temp (Src) 97.4 (Temporal) Resp 16 Ht 5' 8.504 (1.74m) Wt 197 lb 1.5 oz (89.4kg) SpO2 97% BMI 29.53 kg/(m^2). Body surface area is 2.08 meters squared. Exam limited to gross visualization where appropriate. Gen.: This is an age-appropriate patient in no acute distress. Head: Appears atraumatic with no visible lesions. Eyes: Pupils equally round and reactive to light, extraocular muscles are intact. Neck: Supple. Respiratory: Appears to be respiring comfortably. Neurologic: Nonfocal to gross visualization. Alert and oriented 3. Psychiatric: No evidence of inappropriate anxiety or depression. Skin: Visible areas of skin without rash, lesions, wounds or petechiae. Chaperoned Breast Exam February 01, 2024 (Tara Bolton) : Right breast has an upper outer scar at 10:00, that is well healed. No palpable abnormalities. Left breast has a well healed scar with a slight defect in the 6:00 position. Breast is slightly tender with no palpable abnormalities. Maycol exam is negative in the right axilla, mild lymphedema in left axilla. Prior exam for reference: Chaperoned Breast Exam November 18, 2023 (Tara Bolton) : Right breast has an old scar, Left breast is still having some active skin changes from recent radiation and inframmary scar is well healed otherwise normal.. Maycol exam is negative. ALLERGIES: ALLERGIES Allergen Reactions Sulfa (Sulfonamide * Other: See Comments palpitations Sulfamethoxazole-Tr* Hives MEDICATIONS: rosuvastatin (CRESTOR) 5 mg tablet Take 5 mg by mouth once daily. tamoxifen (NOLVADEX) 20 mg tablet Take 1 tablet (20 mg) by mouth once daily. multivit-min/ferrous fumarate (MULTI VITAMIN ORAL) Take by mouth once daily. MULTIVITAMIN ORAL Take by mouth. Glucosamine Sulfate (GLUCOSAMINE) 500 mg tab Take 3 tablets by mouth once daily. phytosterol/pantethine (CHOLESTOFF COMPLETE ORAL) Take by mouth. calcium carbonate/vitamin D3 (CALCIUM WITH VITAMIN D3 ORAL) Take by mouth. ofloxacin (OCUFLOX) 0.3 % ophthalmic solution prednisoLONE acetate (PRED FORTE, ECONOPRED PLUS) 1 % ophthalmic suspension ubidecarenone Q-10 (CO Q-10) 10 mg cap Take by mouth twice daily. LUTEIN ORAL Take by mouth. Multivitamins-Iron tab Take 1 tablet by mouth once daily. [place]-3 Fatty Acids-Vitamin E (FISH OIL) 1,000 mg cap Take 1 capsule by mouth. anastrozole (ARIMIDEX) 1 mg tablet Take 1 tablet by mouth once daily. (Patient not taking: Reported on 09/07/2023) atorvastatin (LIPITOR) 10 mg tablet (Patient not taking: Reported on 02/01/2024) LABORATORY VALUES: WBC (k/uL) Date Value 02/01/2024 8.10 RBC (m/uL) Date Value 02/01/2024 4.38 Hemoglobin (g/dL) Date Value 02/01/2024 13.4 Hematocrit (%) Date Value 02/01/2024 40.9 MCV (fL) Date Value 02/01/2024 93.4 MCH (pg) Date Value 02/01/2024 30.6 MCHC (g/dL) Date Value 02/01/2024 32.8 RDW-CV (%) Date Value 02/01/2024 14.0 Platelet Count (k/uL) Date Value 02/01/2024 299 MPV (fL) Date Value 02/01/2024 10.2 Glucose (mg/dL) Date Value 02/01/2024 134 (H) BUN (mg/dL) Date Value 02/01/2024 19 Creatinine (mg/dL) Date Value 02/01/2024 0.79 Sodium (mmol/L) Date Value 02/01/2024 141 Potassium (mmol/L) Date Value 02/01/2024 4.5 Chloride (mmol/L) Date Value 02/01/2024 105 CO2 (mmol/L) Date Value 02/01/2024 25 Protein, Total (g/dL) Date Value 02/01/2024 7.2 Albumin (g/dL) Date Value 02/01/2024 4.1 Calcium, Total (mg/dL) Date Value 02/01/2024 10.1 Alkaline Phosphatase (U/L) Date Value 02/01/2024 76 Bilirubin, Total (mg/dL) Date Value 02/01/2024 0.4 AST (U/L) Date Value 02/01/2024 19 ALT (U/L) Date Value 02/01/2024 17 DIAGNOSIS: (C50.512, Z17.0) Malignant neoplasm of lower-outer quadrant of left breast of female, estrogen receptor positive (HCC) (primary encounter diagnosis) PAST MEDICAL HISTORY 2010: Abnormal mammogram Comment: Biopsy normal No date: High cholesterol No date: Spinal cord injury No date: Spondylosis PAST SURGICAL HISTORY No date: BACK SURGERY HX Comment: spinal surg bone graft upper thoracic No date: CATARACT EXTRACTION HX No date: COLONSCOPY SCREENING HIGH RISK 2014: HYSTERECTOMY HX 2010: PAST SURGICAL HISTORY OF Comment: breast biopsy negative No date: PAST SURGICAL HISTORY OF Comment: fatty tumor left hand No date: PAST SURGICAL HISTORY OF; Right Comment: lumpectomy Social History Tobacco Use Smoking status: Former Packs/day: 0.10 Years: 10.00 Additional pack years: 0.00 Total pack years: 1.00 Types: Cigarettes Quit date: 2004 Years since quittin.6 Smokeless tobacco: Never Vaping Use Vaping Use: Never used Substance Use Topics Alcohol use: Yes Comment: rare Drug use: No FAMILY HISTORY Problem Relation Age of Onset Colon Cancer Father mets to bone, unknown origin Ovarian cancer Mother 82 Breast Cancer Mother I spent a total of 30 minutes on the date of the service which included preparing to see the patient, [id number] patient care, completing clinical documentation, performing a medically appropriate examination, counseling and educating the patient/family/caregiver, ordering medications, tests, or procedures, independently interpreting results (not separately reported), communicating results to the patient/family/caregiver, and care coordination (not separately reported). Myles Talamantes MD, CPE Hematology and Oncology Services Provided at: [place], [place] Scribe Attestation: This note was scribed by Bridgett Hopper on February 01, 2024 under the direction and supervision of Dr. Myles Talamantes. I attest that all of the information documented is correct to the best of my knowledge. Provider Attestation: I, Myles Talamantes MD, attest that all information documented by the above scribe is correct, and was supervised by me and under my direction. CC: Chauncey Bowles MD, Dillon Gauthier documented in this encounter [facility] 02-01-2024 Note HNO ID: [id number] Author: MYLES TALAMANTES MD Service: ? Author Type: Physician Type: Progress Notes Filed: 02/02/2024 09:42 Note Text: NAME: Ivan Herrera [facility] NO.: [id number] DATE OF SERVICE: February 01, 2024 ([place]) Some elements in this clinic note that are critical to medical decision making have been carefully reviewed and included from a prior clinic note dated: January 19, 2024 ([place]) Referring Provider: Dr. Chauncey Bowles Additional Clinicians involved in Ivan Herrera's care: Dillon Cooper DIAGNOSIS: Malignant neoplasm lower quadrant left breast ER positive. History of malignant neoplasm of upper-outer quadrant of right breast in female, estrogen receptor positive ASSESSMENT: 73 year old woman with malignant neoplasm of upper-outer quadrant of right breast in female, estrogen receptor positive Stage I ([id number]) right breast cancer of the upper outer quadrant, ER/MA +, Her2-, diagnosed in February 2015. She had lumpectomy, followed by radiation, and has been on aromatase inhibitor therapy since May 2015 with good tolerance. Her recent mammogram from February 2020 was negative for malignancy. She has no evidence of recurrence. She continued her Anastrozole until May 2020, completing 5 years of therapy. 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 She presents in follow-up regarding this new diagnosis. S/p Lumpectomy left breast July 2023 4mm, G1 pT1a, BMX ER+ 91%, MA-, HER2 (1+) negative. Tolerating Tamoxifen well now. PLAN: Continue Tamoxifen Keep mammogram appointment in March Keep follow up appointment with Dr. Valles in March RTC with me in 6 months Labs same day Exam same day HPI: CASE HISTORY: Reverse Chronological Order 10/28/2023 - Started Tamoxifen - Held for fatigue 11/18/2023-12/19/2023 09/30/2023-10/21/2023 - Radiation to left breast: 4,005 cGy delivered in 15 fractions using DIBH/RPM 08/19/2023 - Lumpectomy, Left breast: 4mm, G1 pT1a, BMX ER+ 91%, MA-, HER2 (1+) negative Left axillary sentinel lymph node #1, excision (A) - Benign fibroadipose tissue. -No lymph node is identified. Left breast, lumpectomy (B) - Invasive ductal carcinoma, Isabella grade 1, spanning 0.4 cm, (see comment). - Ductal carcinoma in situ (DCIS), nuclear grade 2, solid and cribriform types with microcalcifications. - Biopsy site changes and biopsy clip (x1) are identified. - The surrounding breast tissue shows atypical ductal hyperplasia (ADH), atypical lobular hyperplasia (ALH), usual ductal hyperplasia and apocrine metaplasia. All margins negative for malignancy: Left breast, anterior margin, excision (G) - Atypical lobular hyperplasia (ALH). 08/05/2023 - MRI Breast: Known biopsy proven malignancy The 1 cm x 0.7 cm x 1.4 cm architectural distortion in the left breast at 6 o'clock middle depth is consistent with the known carcinoma and is a known biopsy positive for malignancy. 07/09/2023 - Dx Mammogram Left: Known biopsy proven malignancy The architectural distortion in the left breast is a known biopsy positive for malignancy. A surgical consult is recommended. An X clip is visualized at the site of biopsy-proven malignancy. Of note, the X clip is at the inferior aspect of the architectural distortion. 06/11/2023 - Left breast mass 6:00, 6 cm from nipple stereotactic core biopsy at [facility]. Consistent with invasive ductal carcinoma NOS. G1, DCIS present, no LVI, ER +91 to 100%, MA negative. HER2 IHC pending. 05/27/2023 - Mammogram: diagnostic category 4 -- suspicious for malignancy. Finding does not exhibit classic findings of breast cancer. 03/29/2021 - Mammogram: diagnostic category 2 -- benign finding with no change from prior assessment. 03/26/2020 - bilateral screening mammogram: diagnostic category 2; benign finding. No change from comparison assessment. 05/2015-08/2023 - Arimidex 04/23/2015-06/05/2015 - Radiation to right breast; 6000 cGy in 30 fractions 03/21/2015 - excisional biopsy and sentinel node biopsy Invasive carcinoma of the right breast 1.1 cm grade 1, ER and MA positive, HER-2 negative by FISH (IHC not reported, presumed 2+) ; 4 lymph nodes all negative for cancer Updated Visit, February 01, 2024: Clarissa returns for a follow up. She is tolerating Tamoxifen well since restarting. CBC is normal, CMP pending. She tested positive for COVID 2 weeks ago, had significant upper respiratory symptoms and fever. She follows up with Dr. Valles in March. Chaperoned Breast Exam noted below. Updated Visit, January 19, 2024: Virtual Visit Clarissa presents today for a virtual visit. She has resumed Tamoxifen an (more content not included)... [facility] 01-19-2024 Instructions Bridgett Hopper - 01/19/2024 1:07 PM EDT Continue Tamoxifen RTC with me in January as scheduled Labs same day. Exam same day documented in this encounter [facility] 01-19-2024 History of Presen t illness Narrative Images from the original note were not included. NAME: Javier Ivan CLINIC NO.: [id number] DATE OF SERVICE: January 19, 2024 ([place]) Some elements in this clinic note that are critical to medical decision making have been carefully reviewed and included from a prior clinic note dated: November 18, 2023 ([place]) Referring Provider: Dr. Chauncey Bowles Additional Clinicians involved in Ivna Herrera's care: Dillon Cooper VIRTUAL VISIT PROGRESS NOTE This is a virtual visit using [employer] Video Call. It required patient-provider interaction for the medical decision making as documented below. I have communicated my name and active licensure. The patient's identity and physical location were verified at the time of this visit. Either the patient or their legal arborist representative has been informed of the risks and benefits of -- and alternatives to -- treatment through a remote evaluation and consents to proceed with the evaluation remotely. DIAGNOSIS: Malignant neoplasm lower quadrant left breast ER positive. History of malignant neoplasm of upper-outer quadrant of right breast in female, estrogen receptor positive ASSESSMENT: 73 year old woman with malignant neoplasm of upper-outer quadrant of right breast in female, estrogen receptor positive Stage I ([id number]) right breast cancer of the upper outer quadrant, ER/MA +, Her2-, diagnosed in February 2015. She had lumpectomy, followed by radiation, and has been on aromatase inhibitor therapy since May 2015 with good tolerance. Her recent mammogram from February 2020 was negative for malignancy. She has no evidence of recurrence. She continued her Anastrozole until May 2020, completing 5 years of therapy. 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 She presents in follow-up regarding this new diagnosis. S/p Lumpectomy left breast July 2023 4mm, G1 pT1a, BMX ER+ 91%, MA-, HER2 (1+) negative. PLAN: Continue Tamoxifen RTC with me in January as scheduled Labs same day. Exam same day HPI: CASE HISTORY: Reverse Chronological Order 10/28/2023 - Started Tamoxifen - Held for fatigue 11/18/2023 09/30/2023-10/21/2023 - Radiation to left breast: 4,005 cGy delivered in 15 fractions using DIBH/RPM 08/19/2023 - Lumpectomy, Left breast: 4mm, G1 pT1a, BMX ER+ 91%, MA-, HER2 (1+) negative Left axillary sentinel lymph node #1, excision (A) - Benign fibroadipose tissue. -No lymph node is identified. Left breast, lumpectomy (B) - Invasive ductal carcinoma, [place] grade 1, spanning 0.4 cm, (see comment). - Ductal carcinoma in situ (DCIS), nuclear grade 2, solid and cribriform types with microcalcifications. - Biopsy site changes and biopsy clip (x1) are identified. - The surrounding breast tissue shows atypical ductal hyperplasia (ADH), atypical lobular hyperplasia (ALH), usual ductal hyperplasia and apocrine metaplasia. All margins negative for malignancy: Left breast, anterior margin, excision (G) - Atypical lobular hyperplasia (ALH). 08/05/2023 - MRI Breast: Known biopsy proven malignancy The 1 cm x 0.7 cm x 1.4 cm architectural distortion in the left breast at 6 o'clock middle depth is consistent with the known carcinoma and is a known biopsy positive for malignancy. 07/09/2023 - Dx Mammogram Left: Known biopsy proven malignancy The architectural distortion in the left breast is a known biopsy positive for malignancy. A surgical consult is recommended. An X clip is visualized at the site of biopsy-proven malignancy. Of note, the X clip is at the inferior aspect of the architectural distortion. 06/11/2023 - Left breast mass 6:00, 6 cm from nipple stereotactic core biopsy at [facility] [place]. Consistent with invasive ductal carcinoma NOS. G1, DCIS present, no LVI, ER +91 to 100%, MA negative. HER2 IHC pending. 05/27/2023 - Mammogram: diagnostic category 4 -- suspicious for malignancy. Finding does not exhibit classic findings of breast cancer. 03/29/2021 - Mammogram: diagnostic category 2 -- benign finding with no change from prior assessment. 03/26/2020 - bilateral screening mammogram: diagnostic category 2; benign finding. No change from comparison assessment. 05/2015-08/2023 - Arimidex 04/23/2015-06/05/2015 - Radiation to right breast; 6000 cGy in 30 fractions 03/21/2015 - excisional biopsy and sentinel node biopsy Invasive carcinoma of the right breast 1.1 cm grade 1, ER and MA positive, HER-2 negative by FISH (IHC not reported, presumed 2+) ; 4 lymph nodes all negative for cancer Updated Visit, January 19, 2024: Virtual Visit Clarissa presents today for a virtual visit. She has resumed Tamoxifen and is tolerating well overall. She currently has an upper respiratory infection with fevers and is following with her PCP. Updated Visit, November 18, 2023: Really fatigued from Radiation and starting Tamoxifen. Updated Visit, October 12, 2023: Continues radiation until the 20 of October. Will start Tamoxifen on October 27. Doing well. Since she recurred after having 5 years of Arimidex in opposite breast, will try her on Tamoxifen. Updated Visit, September 07, 2023: Clarissa returns for a follow-up, she is doing well today. She had left breast lumpectomy last month. She will begin on aromatase inhibitor which she was on (arimidex in the past), or Tamoxifen, after radiation. Updated Visit, August 07, 2023: Clarissa returns today with her sister Minnie. She is having a clip put in soon. Lumpectomy scheduled for 08/19/[address] Valles. We reviewed her MRI together. She will complete genetic counseling. HER2 low 1+. Her disease is stage 1A. Will plan to see her for endocrine therapy following RT. Updated Visit, June 26, 2023: Ivan returns today for follow up accompanied by her sister Minnie. She has concerns about her most recent workup with Dr. Cooper. We discussed her recent bx results. She has not yet undergone surgical resection. No plans at this time for a breast MRI, but she did have genetic and HER2 testing done. Will not need anxiety medication for the MRI. I discussed that determining lumpectomy versus mastectomy will be better decided once she has the MRI. I would like her to see radiation. If she were to undergo lumpectomy, radiation would be indicated. Also, if her HER2 comes back positive, she will need neoadjuvant chemotherapy. Recommended she consider genetic counseling with her children. She has an appointment scheduled next week with Dr. Cooper to review her remaining pathology - he may want to see her after the MRI. Updated Visit, April 19, 2020: Simi returns today for yearly follow up. Doing well. Struggling most with her 's diagnosis of dementia. It has been a struggle. She remains on Anastrozole and is due to complete 5 years in May. Her mammogram was 03/26/2020 and reviewed below. She denies any new pain, skin changes or masses. Updated Visit, December 09, 2019: Ivan Herrera is a 69 year old female who presents in follow up on arimidex. Good tolerance overall. No complaints. She was started on arimidex 06/12. Complains of some right axillary discomfort. Her mammograms in 02/2020. Her has dementia, but she remembers enjoying a [employer] weekend in [place], [place], where I had been. She isn't having No other issues - will re-eval and examine after mammograms. REVIEW OF SYSTEMS Per HPI and otherwise negative by full review of organ systems. ECOG PERFORMANCE STATUS: 0 PHYSICAL EXAMINATION: Vitals: There were no vitals taken for this visit. There is no height or weight on file to calculate BSA. No exam Prior exam for reference: Chaperoned Breast Exam November 18, 2023 (Tara Bolton) : Right breast has an old scar, Left breast is still having some active skin changes from recent radiation and inframmary scar is well healed otherwise normal.. Maycol exam is negative. ALLERGIES: ALLERGIES Allergen Reactions Sulfa (Sulfonamide * Other: See Comments palpitations Sulfamethoxazole-Tr* Hives MEDICATIONS: tamoxifen (NOLVADEX) 20 mg tablet Take 1 tablet (20 mg) by mouth once daily. multivit-min/ferrous fumarate (MULTI VITAMIN ORAL) Take by mouth once daily. MULTIVITAMIN ORAL Take by mouth. Glucosamine Sulfate (GLUCOSAMINE) 500 mg tab Take 3 tablets by mouth once daily. phytosterol/pantethine (CHOLESTOFF COMPLETE ORAL) Take by mouth. calcium carbonate/vitamin D3 (CALCIUM WITH VITAMIN D3 ORAL) Take by mouth. ofloxacin (OCUFLOX) 0.3 % ophthalmic solution prednisoLONE acetate (PRED FORTE, ECONOPRED PLUS) 1 % ophthalmic suspension anastrozole (ARIMIDEX) 1 mg tablet Take 1 tablet by mouth once daily. (Patient not taking: Reported on 09/07/2023) ubidecarenone Q-10 (CO Q-10) 10 mg cap Take by mouth twice daily. LUTEIN ORAL Take by mouth. Multivitamins-Iron tab Take 1 tablet by mouth once daily. [place]-3 Fatty Acids-Vitamin E (FISH OIL) 1,000 mg cap Take 1 capsule by mouth. atorvastatin (LIPITOR) 10 mg tablet LABORATORY VALUES: WBC (k/uL) Date Value 11/18/2023 7.07 RBC (m/uL) Date Value 11/18/2023 4.55 Hemoglobin (g/dL) Date Value 11/18/2023 13.5 Hematocrit (%) Date Value 11/18/2023 42.5 MCV (fL) Date Value 11/18/2023 93.4 MCH (pg) Date Value 11/18/2023 29.7 MCHC (g/dL) Date Value 11/18/2023 31.8 RDW-CV (%) Date Value 11/18/2023 14.2 Platelet Count (k/uL) Date Value 11/18/2023 276 MPV (fL) Date Value 11/18/2023 10.3 Glucose (mg/dL) Date Value 11/18/2023 113 (H) BUN (mg/dL) Date Value 11/18/2023 18 Creatinine (mg/dL) Date Value 11/18/2023 0.85 Sodium (mmol/L) Date Value 11/18/2023 140 Potassium (mmol/L) Date Value 11/18/2023 4.1 Chloride (mmol/L) Date Value 11/18/2023 104 CO2 (mmol/L) Date Value 11/18/2023 28 Protein, Total (g/dL) Date Value 11/18/2023 7.5 Albumin (g/dL) Date Value 11/18/2023 4.4 Calcium, Total (mg/dL) Date Value 11/18/2023 9.9 Alkaline Phosphatase (U/L) Date Value 11/18/2023 105 Bilirubin, Total (mg/dL) Date Value 11/18/2023 0.3 AST (U/L) Date Value 11/18/2023 14 ALT (U/L) Date Value 11/18/2023 16 DIAGNOSIS: (C50.512, Z17.0) Malignant neoplasm of lower-outer quadrant of left breast of female, estrogen receptor positive (HCC) (primary encounter diagnosis) PAST MEDICAL HISTORY Diagnosis Date Abnormal mammogram 2009 Biopsy normal High cholesterol Spinal cord injury Spondylosis PAST SURGICAL HISTORY Procedure Laterality Date BACK SURGERY HX spinal surg bone graft upper thoracic CATARACT EXTRACTION HX COLONSCOPY SCREENING HIGH RISK HYSTERECTOMY HX 2014 PAST SURGICAL HISTORY OF 2010 breast biopsy negative PAST SURGICAL HISTORY OF fatty tumor left hand PAST SURGICAL HISTORY OF Right lumpectomy Social History Tobacco Use Smoking status: Former Packs/day: 0.10 Years: 10.00 Additional pack years: 0.00 Total pack years: 1.00 Types: Cigarettes Quit date: 2004 Years since quittin.5 Smokeless tobacco: Never Vaping Use Vaping Use: Never used Substance Use Topics Alcohol use: Yes Comment: rare Drug use: No FAMILY HISTORY Problem Relation Age of Onset Colon Cancer Father mets to bone, unknown origin Ovarian cancer Mother 82 Breast Cancer Mother I spent a total of 20 minutes on the date of the service which included preparing to see the patient, completing clinical documentation, counseling and educating the patient/family/caregiver, ordering medications, tests, or procedures, independently interpreting results (not separately reported), communicating results to the patient/family/caregiver, and care coordination (not separately reported). Myles Talamantes MD, CPE [facility]ology [facility] On[facility] Provided at: [place], [place] Scribe Attestation: This note was scribed by Bridgett Hopper on January 19, 2024 under the direction and supervision of Dr. Myles Talamantes. I attest that all of the information documented is correct to the best of my knowledge. Provider Attestation: I, Myles Talamantes MD, attest that all information documented by the above scribe is correct, and was supervised by me and under my direction. CC: Chauncey Bowles MD, Dillon Gauthier documented in this encounter [facility] 01-19-2024 Note HNO ID: [id number] Author: MYLES TALAMANTES MD Service: ? Author Type: Physician Type: Progress Notes Filed: 01/20/2024 11:55 Note Text: NAME: Ivan Herrera [facility] NO.: [id number] DATE OF SERVICE: January 19, 2024 ([place]) Some elements in this clinic note that are critical to medical decision making have been carefully reviewed and included from a prior clinic note dated: November 18, 2023 ([place]) Referring Provider: Dr. Chauncey Bowles Additional Clinicians involved in Ivan Herrera's care: Dillon Cooper VIRTUAL VISIT PROGRESS NOTE This is a virtual visit using [employer] Video Call. It required patient-provider interaction for the medical decision making as documented below. I have communicated my name and active licensure. The patient's identity and physical location were verified at the time of this visit. Either the patient or their legal arborist representative has been informed of the risks and benefits of -- and alternatives to -- treatment through a remote evaluation and consents to proceed with the evaluation remotely. DIAGNOSIS: Malignant neoplasm lower quadrant left breast ER positive. History of malignant neoplasm of upper-outer quadrant of right breast in female, estrogen receptor positive ASSESSMENT: 73 year old woman with malignant neoplasm of upper-outer quadrant of right breast in female, estrogen receptor positive Stage I ([id number]) right breast cancer of the upper outer quadrant, ER/MA +, Her2-, diagnosed in February 2015. She had lumpectomy, followed by radiation, and has been on aromatase inhibitor therapy since May 2015 with good tolerance. Her recent mammogram from February 2020 was negative for malignancy. She has no evidence of recurrence. She continued her Anastrozole until May 2020, completing 5 years of therapy. 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 She presents in follow-up regarding this new diagnosis. S/p Lumpectomy left breast July 2023 4mm, G1 pT1a, BMX ER+ 91%, MA-, HER2 (1+) negative. PLAN: Continue Tamoxifen RTC with me in January as scheduled Labs same day. Exam same day HPI: CASE HISTORY: Reverse Chronological Order 10/28/2023 - Started Tamoxifen - Held for fatigue 11/18/2023 09/30/2023-10/21/2023 - Radiation to left breast: 4,005 cGy delivered in 15 fractions using DIBH/RPM 08/19/2023 - Lumpectomy, Left breast: 4mm, G1 pT1a, BMX ER+ 91%, MA-, HER2 (1+) negative Left axillary sentinel lymph node #1, excision (A) - Benign fibroadipose tissue. -No lymph node is identified. Left breast, lumpectomy (B) - Invasive ductal carcinoma, [place] grade 1, spanning 0.4 cm, (see comment). - Ductal carcinoma in situ (DCIS), nuclear grade 2, solid and cribriform types with microcalcifications. - Biopsy site changes and biopsy clip (x1) are identified. - The surrounding breast tissue shows atypical ductal hyperplasia (ADH), atypical lobular hyperplasia (ALH), usual ductal hyperplasia and apocrine metaplasia. All margins negative for malignancy: Left breast, anterior margin, excision (G) - Atypical lobular hyperplasia (ALH). 08/05/2023 - MRI Breast: Known biopsy proven malignancy The 1 cm x 0.7 cm x 1.4 cm architectural distortion in the left breast at 6 o'clock middle depth is consistent with the known carcinoma and is a known biopsy positive for malignancy. 07/09/2023 - Dx Mammogram Left: Known biopsy proven malignancy The architectural distortion in the left breast is a known biopsy positive for malignancy. A surgical consult is recommended. An X clip is visualized at the site of biopsy-proven malignancy. Of note, the X clip is at the inferior aspect of the architectural distortion. 06/11/2023 - Left breast mass 6:00, 6 cm from nipple stereotactic core biopsy at [facility] [place]. Consistent with invasive ductal carcinoma NOS. G1, DCIS present, no LVI, ER +91 to 100%, MA negative. HER2 IHC pending. 05/27/2023 - Mammogram: diagnostic category 4 -- suspicious for malignancy. Finding does not exhibit classic findings of breast cancer. 03/29/2021 - Mammogram: diagnostic category 2 -- benign finding with no change from prior assessment. 03/26/2020 - bilateral screening mammogram: diagnostic category 2; benign finding. No change from comparison assessment. 05/2015-08/2023 - Arimidex 04/23/2015-06/05/2015 - Radiation to right breast; 6000 cGy in 30 fractions 03/21/2015 - excisional biopsy and sentinel node biopsy Invasive carcinoma of the right breast 1.1 cm grade 1, ER and MA positive, HER-2 negative by FISH (IHC not reported, presumed 2+) ; 4 lymph nodes all negative for cancer Updated Visit, January 18 (more content not included)... [facility] 01-04-2024 Telephone encounter Note RX signed and sent per Mayito 12/30/23 Elle Salmeron RN [facility] 01-04-2024 Miscellaneous Notes RX signed and sent per Mayito 12/30/23 Elle Salmeron RN Pt only has 2 pills, so she would like a 2-3 week supply sent to local pharmacy as well. Script pended. Lorrie Holland RN documented in this encounter [facility] 12-29-2023 Note HNO ID: [id number] Author: JEANNETTE LOZA LMT Service: ? Author Type: Therapist Type: Progress Notes Filed: 12/29/2023 14:28 Note Text: Patient Name: Ivan Herrera : 1950 Referred For: Chair massage Diagnosis: muscle soreness Chief Complaint: Relaxation Anxiety (pre): patient declined to answer Pain (pre): patient declined to answer Stress Level (pre): patient declined to answer Therapy Provided: Massage Therapy Area(s) Treated: Shoulders/hips Anxiety (post): patient declined to answer Pain (post): patient declined to answer Stress Level (post): patient declined to answer Visit Outcome: Better Comments: Treatment Plan: Spanish massage to upper shoulders and neck. Effleurage/Petrissage to lower back and light percussion to hips/glutes Care Team contacted: N/A Signature: Jeannette Loza LMT Date: December 29, 2023 Time: 2:21 PM [facility] 12-29-2023 History of Presen t illness Narrative Patient Name: Ivan Herrera : 1950 Referred For: Chair massage Diagnosis: muscle soreness Chief Complaint: Relaxation Anxiety (pre): patient declined to answer Pain (pre): patient declined to answer Stress Level (pre): patient declined to answer Therapy Provided: Massage Therapy Area(s) Treated: Shoulders/hips Anxiety (post): patient declined to answer Pain (post): patient declined to answer Stress Level (post): patient declined to answer Visit Outcome: Better Comments: Treatment Plan: Spanish massage to upper shoulders and neck. Effleurage/Petrissage to lower back and light percussion to hips/glutes Care Team contacted: N/A Signature: Jeannette Loza LMT Date: December 29, 2023 Time: 2:21 PM documented in this encounter [facility] 12-29-2023 Telephone encounter Note Pt only has 2 pills, so she would like a 2-3 week supply sent to local pharmacy as well. Script pended. Lorrie Holland RN [facility] 12-29-2023 Telephone encounter Note Pt has restarted medication without difficulty. Now needs a script [facility] Script pended for signature. Lorrie Holland RN [facility] 12-29-2023 Miscellaneous Notes Pt has restarted medication without difficulty. Now needs a script sent to [facility]. Script pended for signature. Lorrie Holland RN documented in this encounter [facility] 12-15-2023 Note HNO ID: [id number] Author: JEANNETTE LOZA LMT Service: ? Author Type: Therapist Type: Progress Notes Filed: 12/15/2023 13:22 Note Text: Patient Name: Ivan Herrera : 1950 Referred For: CHAIR MASSAGE Diagnosis: MUSCLE SORENESS Chief Complaint: Relaxation Anxiety (pre): patient declined to answer Pain (pre): patient declined to answer Stress Level (pre): patient declined to answer Therapy Provided: Massage Therapy Area(s) Treated: BACK, NECK AND SHOULDERS Anxiety (post): patient declined to answer Pain (post): patient declined to answer Stress Level (post): patient declined to answer Visit Outcome: Better Comments: PATIENT STATES OF HAVING MUSCLE SORENESS IN BOTH UPPER SHOULDERS, NECK AND LOWER BACK Treatment Plan: BRUNEIAN MASSAGE EFFLEURAGE/PETRISSAGE TO NECK, UPPER SHOULDERS, ARMS AND HANDS. FRICTION/LIGHT PERCUSSION TO LOWER BACK/GLUTES AND HAMSTRINGS. MANUAL LYMPH DRAINAGE TO BILATERAL POPLITEAL Care Team contacted: N/A Signature: Jeannette Loza LMT Date: December 15, 2023 Time: 1:18 PM [facility] 12-15-2023 History of Presen t illness Narrative Patient Name: Ivan Herrera : 1950 Referred For: CHAIR MASSAGE Diagnosis: MUSCLE SORENESS Chief Complaint: Relaxation Anxiety (pre): patient declined to answer Pain (pre): patient declined to answer Stress Level (pre): patient declined to answer Therapy Provided: Massage Therapy Area(s) Treated: BACK, NECK AND SHOULDERS Anxiety (post): patient declined to answer Pain (post): patient declined to answer Stress Level (post): patient declined to answer Visit Outcome: Better Comments: PATIENT STATES OF HAVING MUSCLE SORENESS IN BOTH UPPER SHOULDERS, NECK AND LOWER BACK Treatment Plan: BRUNEIAN MASSAGE EFFLEURAGE/PETRISSAGE TO NECK, UPPER SHOULDERS, ARMS AND HANDS. FRICTION/LIGHT PERCUSSION TO LOWER BACK/GLUTES AND HAMSTRINGS. MANUAL LYMPH DRAINAGE TO BILATERAL POPLITEAL Care Team contacted: N/A Signature: Jeannette Loza LMT Date: December 15, 2023 Time: 1:18 PM documented in this encounter [facility] 11-25-2023 Note HNO ID: [id number] Author: AMY MÉNDEZ LMT Service: ? Author Type: Therapist Type: Progress Notes Filed: 11/25/2023 13:57 Note Text: Patient Name: vIan Herrera : 1950 Referred For: chair massage Diagnosis: muscle soreness Chief Complaint: Pain Anxiety (pre): 4 Pain (pre): 4 Stress Level (pre): 4 Therapy Provided: Massage Therapy Area(s) Treated: back Anxiety (post): 2 Pain (post): 3 Stress Level (post): 2 Visit Outcome: Better Comments: irish Treatment Plan: irish Care Team contacted: N/A Signature: Amy Méndez LMT Date: November 25, 2023 Time: 1:56 PM [facility] 11-25-2023 History of Presen t illness Narrative Patient Name: Ivan Herrera : 1950 Referred For: chair massage Diagnosis: muscle soreness Chief Complaint: Pain Anxiety (pre): 4 Pain (pre): 4 Stress Level (pre): 4 Therapy Provided: Massage Therapy Area(s) Treated: back Anxiety (post): 2 Pain (post): 3 Stress Level (post): 2 Visit Outcome: Better Comments: irish Treatment Plan: irish Care Team contacted: N/A Signature: Amy Méndez LMT Date: November 25, 2023 Time: 1:56 PM documented in this encounter [facility] 11-18-2023 Note HNO ID: [id number] Author: ISAIAH GAUTHIER MD Service: ? Author Type: Physician Type: Progress Notes Filed: 12/01/2023 06:17 Note Text: Radiation Oncology - Follow Up Note PATIENT NAME: Ivan Herrera PATIENT DIAGNOSIS/PATIENT IDENTIFICATION: Ms. Herrera is a 73-year-old woman with 1. Newly diagnosed Stage I, [id number] IDC of the left breast; ER/MA+, Her2- s/p biopsy on 06/11/2023. 2. Stage I, [id number] IDC of the right breast; ER/MA+, Her2- s/p lumpectomy/radiation in 2014 followed by endocrine therapy. She completed a course of postoperative radiation therapy to the left breast on 10/21/2023 (4005 cGy delivered in 15 fractions using DIBH). Ms. Herrera returns to clinic today for routine follow-up approximately one month after the completion of her radiation treatments. In the interim, she notes that her skin did peel the treatment area but now is well-healed with no irritation or breakdown although she does note some mild itching and some bumpiness in the upper chest which is improved. She denies any pain or discomfort in the treatment area and continues to use a moisturizer and reports no other new lumps or bumps in the breast. She notes intact range of motion of the left upper extremity and endorses good appetite and hydration and stable weight. She did start endocrine therapy with tamoxifen in the interim and noted substantial fatigue and is now holding treatment for a month to determine if it improves. I will plan to see her back after her mammogram in March. The patient is aware to contact the clinic in the interim should any questions or concerns arise. Thank you for allowing us to participate in the care of this patient. Signed by: Isaiah Gauthier MD This document has been created with the use of voice recognition technology. It may contain inaccuracies, misspellings, inaccurate syntax or inappropriate word context that are a result of the inadequacies/shortcomings of said technology/software. [facility] 11-18-2023 History of Presen t illness Narrative Radiation Oncology - Follow Up Note PATIENT NAME: Ivan Herrera PATIENT Signed by: Isaiah Gauthier MD This document has been created with the use of voice recognition technology. It may contain inaccuracies, misspellings, inaccurate syntax or inappropriate word context that are a result of the inadequacies/shortcomings of said technology/software. documented in this encounter [facility] 11-18-2023 Note HNO ID: [id number] Author: AMY MÉNDEZ LMT Service: ? Author Type: Therapist Type: Progress Notes Filed: 11/18/2023 14:55 Note Text: Patient Name: Ivan Herrera : 1950 Referred For: chair massage Diagnosis: muscle soreness Chief Complaint: Pain Anxiety (pre): 4 Pain (pre): 3 Stress Level (pre): 4 Therapy Provided: Massage Therapy Area(s) Treated: back Anxiety (post): 2 Pain (post): 2 Stress Level (post): 2 Visit Outcome: Better Comments: irish Treatment Plan: irish Care Team contacted: N/A Signature: Amy Méndez LMT Date: November 18, 2023 Time: 2:54 PM [facility] 11-18-2023 History of Presen t illness Narrative Patient Name: Ivan Herrera : 1950 Referred For: chair massage Diagnosis: muscle soreness Chief Complaint: Pain Anxiety (pre): 4 Pain (pre): 3 Stress Level (pre): 4 Therapy Provided: Massage Therapy Area(s) Treated: back Anxiety (post): 2 Pain (post): 2 Stress Level (post): 2 Visit Outcome: Better Comments: irish Treatment Plan: irish Care Team contacted: N/A Signature: Amy Méndez LMT Date: November 18, 2023 Time: 2:54 PM documented in this encounter [facility] 11-18-2023 Instructions Myles Talamantes MD - 11/18/2023 1:59 PM EDT Hold Tamoxifen for 1 month and then resume. Virtual visit in 8-9 weeks RTC with me in as scheduled Labs same day. Exam same day documented in this encounter [facility] 11-18-2023 History of Presen t illness Narrative Images from the original note were not included. NAME: Ivan Herrera CLINIC NO.: [id number] DATE OF SERVICE: November 18, 2023 ([place]) Some elements in this clinic note that are critical to medical decision making have been carefully reviewed and included from a prior clinic note dated: October 12, 2023 ([place]) Referring Provider: Dr. Chauncey Bowles Additional Clinicians involved in Ivan Cinthya Clyde's care: Dillon Sandraquin DIAGNOSIS: Malignant neoplasm lower quadrant left breast ER positive. History of malignant neoplasm of upper-outer quadrant of right breast in female, estrogen receptor positive ASSESSMENT: 73 year old woman with malignant neoplasm of upper-outer quadrant of right breast in female, estrogen receptor positive Stage I ([id number]) right breast cancer of the upper outer quadrant, ER/MA +, Her2-, diagnosed in February 2015. She had lumpectomy, followed by radiation, and has been on aromatase inhibitor therapy since May 2015 with good tolerance. Her recent mammogram from February 2020 was negative for malignancy. She has no evidence of recurrence. She continued her Anastrozole until May 2020, completing 5 years of therapy. 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 She presents in follow-up regarding this new diagnosis. S/p Lumpectomy left breast July 2023 4mm, G1 pT1a, BMX ER+ 91%, MA-, HER2 (1+) negative. PLAN: Hold Tamoxifen for 1 month and then resume. Virtual visit in 8-9 weeks RTC with me in as scheduled Labs same day. Exam same day HPI: CASE HISTORY: Reverse Chronological Order 10/28/2023 - Started Tamoxifen - Held for fatigue 11/18/2023 09/30/2023-10/21/2023 - Radiation to left breast: 4,005 cGy delivered in 15 fractions using DIBH/RPM 08/19/2023 - Lumpectomy, Left breast: 4mm, G1 pT1a, BMX ER+ 91%, MA-, HER2 (1+) negative Left axillary sentinel lymph node #1, excision (A) - Benign fibroadipose tissue. -No lymph node is identified. Left breast, lumpectomy (B) - Invasive ductal carcinoma, Isabella grade 1, spanning 0.4 cm, (see comment). - Ductal carcinoma in situ (DCIS), nuclear grade 2, solid and cribriform types with microcalcifications. - Biopsy site changes and biopsy clip (x1) are identified. - The surrounding breast tissue shows atypical ductal hyperplasia (ADH), atypical lobular hyperplasia (ALH), usual ductal hyperplasia and apocrine metaplasia. All margins negative for malignancy: Left breast, anterior margin, excision (G) - Atypical lobular hyperplasia (ALH). 08/05/2023 - MRI Breast: Known biopsy proven malignancy The 1 cm x 0.7 cm x 1.4 cm architectural distortion in the left breast at 6 o'clock middle depth is consistent with the known carcinoma and is a known biopsy positive for malignancy. 07/09/2023 - Dx Mammogram Left: Known biopsy proven malignancy The architectural distortion in the left breast is a known biopsy positive for malignancy. A surgical consult is recommended. An X clip is visualized at the site of biopsy-proven malignancy. Of note, the X clip is at the inferior aspect of the architectural distortion. 06/11/2023 - Left breast mass 6:00, 6 cm from nipple stereotactic core biopsy at [facility] [place]. Consistent with invasive ductal carcinoma NOS. G1, DCIS present, no LVI, ER +91 to 100%, MA negative. HER2 IHC pending. 05/27/2023 - Mammogram: diagnostic category 4 -- suspicious for malignancy. Finding does not exhibit classic findings of breast cancer. 03/29/2021 - Mammogram: diagnostic category 2 -- benign finding with no change from prior assessment. 03/26/2020 - bilateral screening mammogram: diagnostic category 2; benign finding. No change from comparison assessment. 05/2015-08/2023 - Arimidex 04/23/2015-06/05/2015 - Radiation to right breast; 6000 cGy in 30 fractions 03/21/2015 - excisional biopsy and sentinel node biopsy Invasive carcinoma of the right breast 1.1 cm grade 1, ER and MA positive, HER-2 negative by FISH (IHC not reported, presumed 2+) ; 4 lymph nodes all negative for cancer Updated Visit, November 18, 2023: Really fatigued from Radiation and starting Tamoxifen. Chaperoned Breast Exam November 18, 2023 (Tara Bolton) : Right breast is old scar, Left breast is still having some active skin changes from recent radiation and inframmary scar is well healed otherwise normal.. Maycol exam is negative. Updated Visit, October 12, 2023: Continues radiation until the 20 of October. Will start Tamoxifen on October 27. Doing well. Since she recurred after having 5 years of Arimidex in opposite breast, will try her on Tamoxifen. Updated Visit, September 07, 2023: Clarissa returns for a follow-up, she is doing well today. She had left breast lumpectomy last month. She will begin on aromatase inhibitor which she was on (arimidex in the past), or Tamoxifen, after radiation. Updated Visit, August 07, 2023: Clarissa returns today with her sister Minnie. She is having a clip put in soon. Lumpectomy scheduled for 08/19/[address] Valles. We reviewed her MRI together. She will complete genetic counseling. HER2 low 1+. Her disease is stage 1A. Will plan to see her for endocrine therapy following RT. Updated Visit, June 26, 2023: Ivan returns today for follow up accompanied by her sister Minnie. She has concerns about her most recent workup with Dr. Cooper. We discussed her recent bx results. She has not yet undergone surgical resection. No plans at this time for a breast MRI, but she did have genetic and HER2 testing done. Will not need anxiety medication for the MRI. I discussed that determining lumpectomy versus mastectomy will be better decided once she has the MRI. I would like her to see radiation. If she were to undergo lumpectomy, radiation would be indicated. Also, if her HER2 comes back positive, she will need neoadjuvant chemotherapy. Recommended she consider genetic counseling with her children. She has an appointment scheduled next week with Dr. Cooper to review her remaining pathology - he may want to see her after the MRI. Updated Visit, April 19, 2020: Simi returns today for yearly follow up. Doing well. Struggling most with her 's diagnosis of dementia. It has been a struggle. She remains on Anastrozole and is due to complete 5 years in May. Her mammogram was 03/26/2020 and reviewed below. She denies any new pain, skin changes or masses. Updated Visit, December 09, 2019: Ivan Herrera is a 69 year old female who presents in follow up on arimidex. Good tolerance overall. No complaints. She was started on arimidex 06/12. Complains of some right axillary discomfort. Her mammograms in 02/2020. Her has dementia, but she remembers enjoying a [employer] weekend in [place], [place], where I had been. She isn't having No other issues - will re-eval and examine after mammograms. REVIEW OF SYSTEMS Per HPI and otherwise negative by full review of organ systems. ECOG PERFORMANCE STATUS: 0 PHYSICAL EXAMINATION: Vitals: BP 121/70 Pulse 69 Temp (Src) 97 (Temporal) Resp 16 Ht 5' 8.504 (1.74m) Wt 199 lb 4.7 oz (90.4kg) SpO2 97% BMI 29.86 kg/(m^2). Body surface area is 2.09 meters squared. Exam limited to gross visualization where appropriate. Gen.: This is an age-appropriate patient in no acute distress. Head: Appears atraumatic with no visible lesions. Eyes: Pupils equally round and reactive to light, extraocular muscles are intact. Neck: Supple. Respiratory: Appears to be respiring comfortably. Neurologic: Nonfocal to gross visualization. Alert and oriented 3. Psychiatric: No evidence of inappropriate anxiety or depression. Skin: Visible areas of skin without rash, lesions, wounds or petechiae. ALLERGIES: ALLERGIES Allergen Reactions Sulfa (Sulfonamide * Other: See Comments palpitations Sulfamethoxazole-Tr* Hives MEDICATIONS: multivit-min/ferrous fumarate (MULTI VITAMIN ORAL) Take by mouth once daily. tamoxifen (NOLVADEX) 20 mg tablet Take 1 tablet (20 mg) by mouth once daily. (Patient not taking: Reported on 10/14/2023) MULTIVITAMIN ORAL Take by mouth. Glucosamine Sulfate (GLUCOSAMINE) 500 mg tab Take 3 tablets by mouth once daily. phytosterol/pantethine (CHOLESTOFF COMPLETE ORAL) Take by mouth. calcium carbonate/vitamin D3 (CALCIUM WITH VITAMIN D3 ORAL) Take by mouth. ofloxacin (OCUFLOX) 0.3 % ophthalmic solution prednisoLONE acetate (PRED FORTE, ECONOPRED PLUS) 1 % ophthalmic suspension anastrozole (ARIMIDEX) 1 mg tablet Take 1 tablet by mouth once daily. (Patient not taking: Reported on 09/07/2023) ubidecarenone Q-10 (CO Q-10) 10 mg cap Take by mouth twice daily. LUTEIN ORAL Take by mouth. Multivitamins-Iron tab Take 1 tablet by mouth once daily. [place]-3 Fatty Acids-Vitamin E (FISH OIL) 1,000 mg cap Take 1 capsule by mouth. atorvastatin (LIPITOR) 10 mg tablet LABORATORY VALUES: WBC (k/uL) Date Value 11/18/2023 7.07 RBC (m/uL) Date Value 11/18/2023 4.55 Hemoglobin (g/dL) Date Value 11/18/2023 13.5 Hematocrit (%) Date Value 11/18/2023 42.5 MCV (fL) Date Value 11/18/2023 93.4 MCH (pg) Date Value 11/18/2023 29.7 MCHC (g/dL) Date Value 11/18/2023 31.8 RDW-CV (%) Date Value 11/18/2023 14.2 Platelet Count (k/uL) Date Value 11/18/2023 276 MPV (fL) Date Value 11/18/2023 10.3 Glucose (mg/dL) Date Value 11/18/2023 113 (H) BUN (mg/dL) Date Value 11/18/2023 18 Creatinine (mg/dL) Date Value 11/18/2023 0.85 Sodium (mmol/L) Date Value 11/18/2023 140 Potassium (mmol/L) Date Value 11/18/2023 4.1 Chloride (mmol/L) Date Value 11/18/2023 104 CO2 (mmol/L) Date Value 11/18/2023 28 Protein, Total (g/dL) Date Value 11/18/2023 7.5 Albumin (g/dL) Date Value 11/18/2023 4.4 Calcium, Total (mg/dL) Date Value 11/18/2023 9.9 Alkaline Phosphatase (U/L) Date Value 11/18/2023 105 Bilirubin, Total (mg/dL) Date Value 11/18/2023 0.3 AST (U/L) Date Value 11/18/2023 14 ALT (U/L) Date Value 11/18/2023 16 DIAGNOSIS: (C50.512, Z17.0) Malignant neoplasm of lower-outer quadrant of left breast of female, estrogen receptor positive (HCC) (primary encounter diagnosis) PAST MEDICAL HISTORY Diagnosis Date Abnormal mammogram 2009 Biopsy normal High cholesterol Spinal cord injury Spondylosis PAST SURGICAL HISTORY Procedure Laterality Date BACK SURGERY HX spinal surg bone graft upper thoracic CATARACT EXTRACTION HX COLONSCOPY SCREENING HIGH RISK HYSTERECTOMY HX 2014 PAST SURGICAL HISTORY OF 2010 breast biopsy negative PAST SURGICAL HISTORY OF fatty tumor left hand PAST SURGICAL HISTORY OF Right lumpectomy Social History Tobacco Use Smoking status: Former Packs/day: 0.10 Years: 10.00 Additional pack years: 0.00 Total pack years: 1.00 Types: Cigarettes Quit date: 2004 Years since quittin.4 Smokeless tobacco: Never Vaping Use Vaping Use: Never used Substance Use Topics Alcohol use: Yes Comment: rare Drug use: No FAMILY HISTORY Problem Relation Age of Onset Colon Cancer Father mets to bone, unknown origin Ovarian cancer Mother 82 Breast Cancer Mother I spent a total of 30 minutes on the date of the service which included preparing to see the patient, [id number] patient care, completing clinical documentation, performing a medically appropriate examination, counseling and educating the patient/family/caregiver, ordering medications, tests, or procedures, independently interpreting results (not separately reported), communicating results to the patient/family/caregiver, and care coordination (not separately reported). Myles Talamantes MD, CPE Hematology and Oncology Services Provided at: [place], [place] CC: Chauncey Bowles MD, Dillon Gauthier documented in this encounter [facility] 11-18-2023 Note HNO ID: [id number] Author: MYLES TALAMANTES MD Service: ? Author Type: Physician Type: Progress Notes Filed: 11/18/2023 20:39 Note Text: NAME: Ivan Herrera [facility] NO.: [id number] DATE OF SERVICE: November 18, 2023 ([place]) Some elements in this clinic note that are critical to medical decision making have been carefully reviewed and included from a prior clinic note dated: October 12, 2023 ([place]) Referring Provider: Dr. Chauncey Bowles Additional Clinicians involved in Ivan Cinthya Javier's care: Dillon Cooper DIAGNOSIS: Malignant neoplasm lower quadrant left breast ER positive. History of malignant neoplasm of upper-outer quadrant of right breast in female, estrogen receptor positive ASSESSMENT: 73 year old woman with malignant neoplasm of upper-outer quadrant of right breast in female, estrogen receptor positive Stage I ([id number]) right breast cancer of the upper outer quadrant, ER/MA +, Her2-, diagnosed in February 2015. She had lumpectomy, followed by radiation, and has been on aromatase inhibitor therapy since May 2015 with good tolerance. Her recent mammogram from February 2020 was negative for malignancy. She has no evidence of recurrence. She continued her Anastrozole until May 2020, completing 5 years of therapy. 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 She presents in follow-up regarding this new diagnosis. S/p Lumpectomy left breast July 2023 4mm, G1 pT1a, BMX ER+ 91%, MA-, HER2 (1+) negative. PLAN: Hold Tamoxifen for 1 month and then resume. Virtual visit in 8-9 weeks RTC with me in as scheduled Labs same day. Exam same day HPI: CASE HISTORY: Reverse Chronological Order 10/28/2023 - Started Tamoxifen - Held for fatigue 11/18/2023 09/30/2023-10/21/2023 - Radiation to left breast: 4,005 cGy delivered in 15 fractions using DIBH/RPM 08/19/2023 - Lumpectomy, Left breast: 4mm, G1 pT1a, BMX ER+ 91%, MA-, HER2 (1+) negative Left axillary sentinel lymph node #1, excision (A) - Benign fibroadipose tissue. -No lymph node is identified. Left breast, lumpectomy (B) - Invasive ductal carcinoma, Isabella grade 1, spanning 0.4 cm, (see comment). - Ductal carcinoma in situ (DCIS), nuclear grade 2, solid and cribriform types with microcalcifications. - Biopsy site changes and biopsy clip (x1) are identified. - The surrounding breast tissue shows atypical ductal hyperplasia (ADH), atypical lobular hyperplasia (ALH), usual ductal hyperplasia and apocrine metaplasia. All margins negative for malignancy: Left breast, anterior margin, excision (G) - Atypical lobular hyperplasia (ALH). 08/05/2023 - MRI Breast: Known biopsy proven malignancy The 1 cm x 0.7 cm x 1.4 cm architectural distortion in the left breast at 6 o'clock middle depth is consistent with the known carcinoma and is a known biopsy positive for malignancy. 07/09/2023 - Dx Mammogram Left: Known biopsy proven malignancy The architectural distortion in the left breast is a known biopsy positive for malignancy. A surgical consult is recommended. An X clip is visualized at the site of biopsy-proven malignancy. Of note, the X clip is at the inferior aspect of the architectural distortion. 06/11/2023 - Left breast mass 6:00, 6 cm from nipple stereotactic core biopsy at [facility] [place]. Consistent with invasive ductal carcinoma NOS. G1, DCIS present, no LVI, ER +91 to 100%, MA negative. HER2 IHC pending. 05/27/2023 - Mammogram: diagnostic category 4 -- suspicious for malignancy. Finding does not exhibit classic findings of breast cancer. 03/29/2021 - Mammogram: diagnostic category 2 -- benign finding with no change from prior assessment. 03/26/2020 - bilateral screening mammogram: diagnostic category 2; benign finding. No change from comparison assessment. 05/2015-08/2023 - Arimidex 04/23/2015-06/05/2015 - Radiation to right breast; 6000 cGy in 30 fractions 03/21/2015 - excisional biopsy and sentinel node biopsy Invasive carcinoma of the right breast 1.1 cm grade 1, ER and MA positive, HER-2 negative by FISH (IHC not reported, presumed 2+) ; 4 lymph nodes all negative for cancer Updated Visit, November 18, 2023: Really fatigued from Radiation and starting Tamoxifen. Chaperoned Breast Exam November 18, 2023 (Tara Bolton) : Right breast is old scar, Left breast is still having some active skin changes from recent radiation and inframmary scar is well healed otherwise normal.. Maycol exam is negative. Updated Visit, October 12, 2023: Continues radiation until the 20 of October. Will start Tamoxifen on October 27. Doing well. Since she recurred after having 5 years of Arimidex in opposite breast, w (more content not included)... [facility] 11-18-2023 Nurse Note Patient states most days she is sluggish and feels like she runs on one cylinder, also sleep is messed up. She normally takes 3mg of Melatonin which did work previously. She doesn't know if it is radiation of Tamoxifen (it has started since beginning the Tamoxifen). Ro Wei MA [facility] 11-18-2023 Nurse Note Patient states most days she is sluggish and feels like she runs on one cylinder, also sleep is messed up. She normally takes 3mg of Melatonin which did work previously. She doesn't know if it is radiation of Tamoxifen (it has started since beginning the Tamoxifen). Ro Wei MA documented in this encounter [facility] 11-12-2023 Telephone encounter Note I left a message for Clarissa to call the office to get a post radiation completion update. Tayla Landon RN [facility] 11-12-2023 Miscellaneous Notes I left a message for Clarissa to call the office to get a post radiation completion update. Tayla Landon RN documented in this encounter [facility] 11-10-2023 Note HNO ID: [id number] Author: AMY MÉNDEZ LMT Service: ? Author Type: Therapist Type: Progress Notes Filed: 11/10/2023 13:50 Note Text: Patient Name: Ivan Herrera : 1950 Referred For: chair massage Diagnosis: muscle soreness Chief Complaint: Pain Anxiety (pre): 3 Pain (pre): 3 Stress Level (pre): 3 Therapy Provided: Massage Therapy Area(s) Treated: cervical focus Anxiety (post): 2 Pain (post): 2 Stress Level (post): 2 Visit Outcome: Better Comments: relaxation focus Treatment Plan: irish Care Team contacted: N/A Signature: Amy Méndez LMT Date: November 10, 2023 Time: 1:49 PM [facility] 11-10-2023 History of Presen t illness Narrative Patient Name: Ivan Herrera : 1950 Referred For: chair massage Diagnosis: muscle soreness Chief Complaint: Pain Anxiety (pre): 3 Pain (pre): 3 Stress Level (pre): 3 Therapy Provided: Massage Therapy Area(s) Treated: cervical focus Anxiety (post): 2 Pain (post): 2 Stress Level (post): 2 Visit Outcome: Better Comments: relaxation focus Treatment Plan: [facility] Team contacted: N/A Signature: Amy Méndez LMT Date: November 10, 2023 Time: 1:49 PM documented in this encounter [facility] 11-03-2023 Note HNO ID: [id number] Author: JEANNETTE LOZA LMT Service: ? Author Type: Therapist Type: Progress Notes Filed: 11/03/2023 14:47 Note Text: Patient Name: Ivan Herrera : 1950 Referred For: CHAIR MASSAGE Diagnosis: MUSCLE SORENESS Chief Complaint: Relaxation Anxiety (pre): patient declined to answer Pain (pre): patient declined to answer Stress Level (pre): patient declined to answer Therapy Provided: Massage Therapy Area(s) Treated: SHOULDERS, BACK AND NECK Anxiety (post): patient declined to answer Pain (post): patient declined to answer Stress Level (post): patient declined to answer Visit Outcome: Better Comments: PATIENT STATES OF HAVING SORENESS ALONG THE THORACIC AREA. PATIENT STATES OF HAVING RADIATION TX AND SORE FROM HOLDING BREATHE AND LYING ON TABLE. Treatment Plan: BRUNEIAN MASSAGE MID-LOWER BACK, SACRAL ILIAC, UPPER SHOULDERS AND NECK. MANUAL LYMPHATIC MASSAGE BILAT. POST KNEES. Care Team contacted: N/A Signature: Jeannette Loza LMT Date: November 03, 2023 Time: 2:44 PM [facility] 11-03-2023 History of Presen t illness Narrative Patient Name: Ivan Herrera : 1950 Referred For: CHAIR MASSAGE Diagnosis: MUSCLE SORENESS Chief Complaint: Relaxation Anxiety (pre): patient declined to answer Pain (pre): patient declined to answer Stress Level (pre): patient declined to answer Therapy Provided: Massage Therapy Area(s) Treated: SHOULDERS, BACK AND NECK Anxiety (post): patient declined to answer Pain (post): patient declined to answer Stress Level (post): patient declined to answer Visit Outcome: Better Comments: PATIENT STATES OF HAVING SORENESS ALONG THE THORACIC AREA. PATIENT STATES OF HAVING RADIATION TX AND SORE FROM HOLDING BREATHE AND LYING ON TABLE. Treatment Plan: BRUNEIAN MASSAGE MID-LOWER BACK, SACRAL ILIAC, UPPER SHOULDERS AND NECK. MANUAL LYMPHATIC MASSAGE BILAT. POST KNEES. Care Team contacted: N/A Signature: Jeannette Loza LMT Date: November 03, 2023 Time: 2:44 PM documented in this encounter [facility] 10-27-2023 Note HNO ID: [id number] Author: AMY MÉNDEZ LMT Service: ? Author Type: Therapist Type: Progress Notes Filed: 10/27/2023 14:07 Note Text: Patient Name: Ivan Herrera : 1950 Referred For: chair massage Diagnosis: muscle soreness Chief Complaint: Pain Anxiety (pre): 3 Pain (pre): 4 Stress Level (pre): 3 Therapy Provided: Massage Therapy Area(s) Treated: back Anxiety (post): 2 Pain (post): 3 Stress Level (post): 2 Visit Outcome: Better Comments: relaxation Treatment Plan: irish Care Team contacted: N/A Signature: Amy Méndez LMT Date: October 27, 2023 Time: 2:06 PM [facility] 10-27-2023 History of Presen t illness Narrative Patient Name: Ivan Herrera : 1950 Referred For: chair massage Diagnosis: muscle soreness Chief Complaint: Pain Anxiety (pre): 3 Pain (pre): 4 Stress Level (pre): 3 Therapy Provided: Massage Therapy Area(s) Treated: back Anxiety (post): 2 Pain (post): 3 Stress Level (post): 2 Visit Outcome: Better Comments: relaxation Treatment Plan: [facility] Team contacted: N/A Signature: Amy Méndez LMT Date: October 27, 2023 Time: 2:06 PM documented in this encounter [facility] 10-21-2023 History of Presen t illness Narrative RADIATION ONCOLOGY- ON TREATMENT REVIEW (OTR) NOTE PATIENT NAME: Ivan Herrera PATIENT DIAGNOSIS: Ms. Herrera is a 73-year-old woman with 1. Newly diagnosed Stage I, [id number] IDC of the left breast; ER/MA+, Her2- s/p biopsy on 06/11/2023. 2. Stage I, [id number] IDC of the right breast; ER/MA+, Her2- s/p lumpectomy/radiation in 2014 followed by endocrine therapy. COURSE: post-operative Area Treated: Left Breast Current dose: 4005 cGy in 15 fx Planned dose: 4005 cGy in 15 fx SUBJECTIVE: Tolerating XRT well and notes occasional soreness in the area of the nipple areolar complex and skin erythema without breakdown. She also notes itching and use a moisturizer twice a day with intact range of motion of the left upper extremity. She does endorse fatigue good appetite and hydration stable weight. PHYSICAL EXAM: KPS: 90 General Appearance: Alert and oriented. No acute distress. Skin erythema/hyperpigmentation: Mild Desquamation: No TOXICITY ASSESSMENT (CTC v4.0): Fatigue: grade 1 - Fatigue relieved by rest Radiation dermatitis: grade 1 - Faint erythema or dry desquamation Treatment chart checked: Yes Patient treatment site reviewed and verified:Yes Port films reviewed and current:Yes Medications started: None ASSESSMENT/PLAN: Clinically stable. Toxicity within expected parameters. The patient has completed radiotherapy and will be evaluated in 3-4 weeks. Acute and delayed side effects reviewed. Signed by: Isaiah Gauthier MD documented in this encounter [facility] 10-21-2023 Note HNO ID: [id number] Author: ISAIAH GAUTHIER MD Service: ? Author Type: Physician Type: Progress Notes Filed: 10/21/2023 13:50 Note Text: RADIATION ONCOLOGY- ON TREATMENT REVIEW (OTR) NOTE PATIENT NAME: Ivan Herrera PATIENT DIAGNOSIS: Ms. Herrera is a 73-year-old woman with 1. Newly diagnosed Stage I, [id number] IDC of the left breast; ER/MA+, Her2- s/p biopsy on 06/11/2023. 2. Stage I, [id number] IDC of the right breast; ER/MA+, Her2- s/p lumpectomy/radiation in 2014 followed by endocrine therapy. COURSE: post-operative Area Treated: Left Breast Current dose: 4005 cGy in 15 fx Planned dose: 4005 cGy in 15 fx SUBJECTIVE: Tolerating XRT well and notes occasional soreness in the area of the nipple areolar complex and skin erythema without breakdown. She also notes itching and use a moisturizer twice a day with intact range of motion of the left upper extremity. She does endorse fatigue good appetite and hydration stable weight. PHYSICAL EXAM: KPS: 90 General Appearance: Alert and oriented. No acute distress. Skin erythema/hyperpigmentation: Mild Desquamation: No TOXICITY ASSESSMENT (CTC v4.0): Fatigue: grade 1 - Fatigue relieved by rest Radiation dermatitis: grade 1 - Faint erythema or dry desquamation Treatment chart checked: Yes Patient treatment site reviewed and verified:Yes Port films reviewed and current:Yes Medications started: None ASSESSMENT/PLAN: Clinically stable. Toxicity within expected parameters. The patient has completed radiotherapy and will be evaluated in 3-4 weeks. Acute and delayed side effects reviewed. Signed by: Isaiah Gauthier MD [facility] 10-21-2023 Nurse Note Status: Post-menopausal. [facility] 10-21-2023 Nurse Note Status: Post-menopausal. documented in this encounter [facility] 10-21-2023 History of Presen t illness Narrative [facility] Radiation Oncology Department RADIATION ONCOLOGY - COMPLETION NOTE PATIENT: IVAN HERRERA: 1950 DATES OF TREATMENT: 09/30/2023-10/21/2023 DIAGNOSIS: Ms. Herrera is a 73-year-old woman with 1. Newly diagnosed Stage I, [id number] IDC of the left breast; ER/MA+, Her2- s/p biopsy on 06/11/2023. 2. Stage I, [id number] IDC of the right breast; ER/MA+, Her2- s/p lumpectomy/radiation in 2014 followed by endocrine therapy. AREA TREATED: Left Breast DELIVERED DOSE: Area: 4,005 cGy in 15 fractions, 2 Awan, 3D Conformal, 10 MV with weekly ports TOTAL: 4,005 cGy delivered in 15 fractions using DIBH/RPM ELAPSED TIME: 21 days. CLINICAL SUMMARY: The patient tolerated course of post-operative radiation therapy to the left breast well with mild treatment-related fatigue and dermatitis as expected. No other significant issues. The patient was able to complete treatment as intended without break interruption or modification of prescription plan. The patient will be evaluated in 3-4 weeks for postradiation follow-up with plans for initial post-treatment mammogram in approximately six months. She will follow with Dr. Talamantes as scheduled for continued evaluation and systemic therapy recommendations. Staff Physician Isaiah Gauthier M.D. / ROLF 45:40 AM Electronically Signed cc: Myles Talamantes MD ([facility]) Severo Valles MD ([facility]) Chauncey Bowles MD [address] [place] [address] Via documented in this encounter [facility] 10-21-2023 Note HNO ID: [id number] Author: ISAIAH GAUTHIER MD Service: ? Author Type: Physician Type: Progress Notes Filed: 10/29/2023 05:40 Note Text: [facility] Radiation Oncology Department RADIATION ONCOLOGY - COMPLETION NOTE PATIENT: IVAN HERRERA: 1950 DATES OF TREATMENT: 09/30/2023-10/21/2023 DIAGNOSIS: Ms. Herrera is a 73-year-old woman with 1. Newly diagnosed Stage I, [id number] IDC of the left breast; ER/MA+, Her2- s/p biopsy on 06/11/2023. 2. Stage I, [id number] IDC of the right breast; ER/MA+, Her2- s/p lumpectomy/radiation in 2014 followed by endocrine therapy. AREA TREATED: Left Breast DELIVERED DOSE: Area: 4,005 cGy in 15 fractions, 2 Awan, 3D Conformal, 10 MV with weekly ports TOTAL: 4,005 cGy delivered in 15 fractions using DIBH/RPM ELAPSED TIME: 21 days. CLINICAL SUMMARY: The patient tolerated course of post-operative radiation therapy to the left breast well with mild treatment-related fatigue and dermatitis as expected. No other significant issues. The patient was able to complete treatment as intended without break interruption or modification of prescription plan. The patient will be evaluated in 3-4 weeks for postradiation follow-up with plans for initial post-treatment mammogram in approximately six months. She will follow with Dr. Talamantes as scheduled for continued evaluation and systemic therapy recommendations. Staff Physician Isaiah Gauthier M.D. / NRS 45:40 AM Electronically Signed cc: Myles Talamantes MD ([facility]) Severo Valles MD ([facility]) Chauncey Bowles MD [address] [facility] [address] [facility] [address] [address] [facility] 10-20-2023 Note HNO ID: [id number] Author: JEANNETTE LOZA LMT Service: ? Author Type: Therapist Type: Progress Notes Filed: 10/20/2023 15:35 Note Text: Patient Name: Ivan Herrera : 1950 Referred For: CHAIR MASSAGE Diagnosis: MUSCLE SORENESS Chief Complaint: Relaxation Anxiety (pre): patient declined to answer Pain (pre): patient declined to answer Stress Level (pre): patient declined to answer Therapy Provided: Massage Therapy Area(s) Treated: BACK, NECK AND SHOULDERS Anxiety (post): patient declined to answer Pain (post): patient declined to answer Stress Level (post): patient declined to answer Visit Outcome: Better Comments: PATIENT STATES OF MUSCLE SORENESS OF THE LOWER BACK Treatment Plan: CROSS FIBER FRICTION, EFFLEURAGE/PETRISSAGE AND PERCUSSION TO SACRAL, GLUTE MUSCLES, UPPER TRAPEZIUS AND CERVICAL Care Team contacted: N/A Signature: Jeannette Loza LMT Date: October 20, 2023 Time: 3:32 PM [facility] 10-20-2023 History of Presen t illness Narrative Patient Name: Ivan Herrera : 1950 Referred For: CHAIR MASSAGE Diagnosis: MUSCLE SORENESS Chief Complaint: Relaxation Anxiety (pre): patient declined to answer Pain (pre): patient declined to answer Stress Level (pre): patient declined to answer Therapy Provided: Massage Therapy Area(s) Treated: BACK, NECK AND SHOULDERS Anxiety (post): patient declined to answer Pain (post): patient declined to answer Stress Level (post): patient declined to answer Visit Outcome: Better Comments: PATIENT STATES OF MUSCLE SORENESS OF THE LOWER BACK Treatment Plan: CROSS FIBER FRICTION, EFFLEURAGE/PETRISSAGE AND PERCUSSION TO SACRAL, GLUTE MUSCLES, UPPER TRAPEZIUS AND CERVICAL Care Team contacted: N/A Signature: Jeannette Loza LMT Date: October 20, 2023 Time: 3:32 PM documented in this encounter [facility] 10-14-2023 History of Presen t illness Narrative RADIATION ONCOLOGY- ON TREATMENT REVIEW (OTR) NOTE PATIENT NAME: Ivan Herrera PATIENT DIAGNOSIS: Ms. Herrera is a 73-year-old woman with 1. Newly diagnosed Stage I, [id number] IDC of the left breast; ER/MA+, Her2- s/p biopsy on 06/11/2023. 2. Stage I, [id number] IDC of the right breast; ER/MA+, Her2- s/p lumpectomy/radiation in 2014 followed by endocrine therapy. COURSE: post-operative Area Treated: Left Breast Current dose: 2670 cGy in 10 fx Planned dose: 4005 cGy in 15 fx SUBJECTIVE: Tolerating XRT well and notes slight discomfort in the area of the axilla/incision with some skin thickness and no breakdown. She denies any itching or swelling and use a moisturizer twice a day with intact range of motion. She does endorse mild fatigue with good appetite and hydration and stable weight. PHYSICAL EXAM: KPS: 90 General Appearance: Alert and oriented. No acute distress. Skin erythema/hyperpigmentation: Minimal Desquamation: No TOXICITY ASSESSMENT (CTC v4.0): Fatigue: grade 1 - Fatigue relieved by rest Radiation dermatitis: grade 1 - Faint erythema or dry desquamation Treatment chart checked: Yes Patient treatment site reviewed and verified:Yes Port films reviewed and current:Yes Medications started: None ASSESSMENT/PLAN: Clinically stable. Toxicity within expected parameters. Continue radiation treatment as planned. Signed by: Isaiah Gauthier MD documented in this encounter [facility] 10-14-2023 Note HNO ID: [id number] Author: ISAIAH GAUTHIER MD Service: ? Author Type: Physician Type: Progress Notes Filed: 10/14/2023 12:29 Note Text: RADIATION ONCOLOGY- ON TREATMENT REVIEW (OTR) NOTE PATIENT NAME: Ivan Herrera PATIENT DIAGNOSIS: Ms. Herrera is a 73-year-old woman with 1. Newly diagnosed Stage I, [id number] IDC of the left breast; ER/MA+, Her2- s/p biopsy on 06/11/2023. 2. Stage I, [id number] IDC of the right breast; ER/MA+, Her2- s/p lumpectomy/radiation in 2015 followed by endocrine therapy. COURSE: post-operative Area Treated: Left Breast Current dose: 2670 cGy in 10 fx Planned dose: 4005 cGy in 15 fx SUBJECTIVE: Tolerating XRT well and notes slight discomfort in the area of the axilla/incision with some skin thickness and no breakdown. She denies any itching or swelling and use a moisturizer twice a day with intact range of motion. She does endorse mild fatigue with good appetite and hydration and stable weight. PHYSICAL EXAM: KPS: 90 General Appearance: Alert and oriented. No acute distress. Skin erythema/hyperpigmentation: Minimal Desquamation: No TOXICITY ASSESSMENT (CTC v4.0): Fatigue: grade 1 - Fatigue relieved by rest Radiation dermatitis: grade 1 - Faint erythema or dry desquamation Treatment chart checked: Yes Patient treatment site reviewed and verified:Yes Port films reviewed and current:Yes Medications started: None ASSESSMENT/PLAN: Clinically stable. Toxicity within expected parameters. Continue radiation treatment as planned. Signed by: Isaiah Gauthier MD [facility] 10-14-2023 Nurse Note Status: Post-menopausal. documented in this encounter [facility] 10-13-2023 Note HNO ID: [id number] Author: AMY MÉNDEZ LMT Service: ? Author Type: Therapist Type: Progress Notes Filed: 10/13/2023 13:29 Note Text: Patient Name: Ivan Herrera : 1950 Referred For: chair massage Diagnosis: muscle soreness Chief Complaint: Pain Anxiety (pre): 3 Pain (pre): 5 Stress Level (pre): 3 Therapy Provided: Massage Therapy Area(s) Treated: entire back, lumbar focus Anxiety (post): 2 Pain (post): 3 Stress Level (post): 2 Visit Outcome: Better Comments: prefers to be called clarissa Treatment Plan: irish Care Team contacted: Physician Signature: Amy Méndez LMT Date: October 13, 2023 Time: 1:27 PM [facility] 10-13-2023 History of Presen t illness Narrative Patient Name: Ivan Herrera : 1950 Referred For: chair massage Diagnosis: muscle soreness Chief Complaint: Pain Anxiety (pre): 3 Pain (pre): 5 Stress Level (pre): 3 Therapy Provided: Massage Therapy Area(s) Treated: entire back, lumbar focus Anxiety (post): 2 Pain (post): 3 Stress Level (post): 2 Visit Outcome: Better Comments: prefers to be called clarissa Treatment Plan: irish Care Team contacted: Physician Signature: Amy Méndez LMT Date: October 13, 2023 Time: 1:27 PM documented in this encounter [facility] 10-12-2023 Instructions Myles Talamantes MD - 10/12/2023 11:07 AM EDT RTC with Helena in 6 weeks Labs same day. Tox check following start of Tamoxifen Exam same day. RTC with me in 4 months Labs same day. documented in this encounter [facility] 10-12-2023 History of Presen t illness Narrative Images from the original note were not included. NAME: Ivan Herrera CLINIC NO.: [id number] DATE OF SERVICE: October 12, 2023 ([place]) Some elements in this clinic note that are critical to medical decision making have been carefully reviewed and included from a prior clinic note dated: September 07, 2023 ([place]) Referring Provider: Dr. Chauncey Bowles Additional Clinicians involved in Ivan Herrera's care: Dillon Cooper DIAGNOSIS: Malignant neoplasm lower quadrant left breast ER positive. History of malignant neoplasm of upper-outer quadrant of right breast in female, estrogen receptor positive ASSESSMENT: 73 year old woman with malignant neoplasm of upper-outer quadrant of right breast in female, estrogen receptor positive Stage I ([id number]) right breast cancer of the upper outer quadrant, ER/MA +, Her2-, diagnosed in February 2015. She had lumpectomy, followed by radiation, and has been on aromatase inhibitor therapy since May 2015 with good tolerance. Her recent mammogram from February 2020 was negative for malignancy. She has no evidence of recurrence. She continued her Anastrozole until May 2020, completing 5 years of therapy. 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 She presents in follow-up regarding this new diagnosis. S/p Lumpectomy left breast July 2023 4mm, G1 pT1a, BMX ER+ 91%, MA-, HER2 (1+) negative. PLAN: RTC with Helena in 6 weeks Labs same day. Tox check following start of Tamoxifen Exam same day. RTC with me in 4 months Labs same day. HPI: CASE HISTORY: Reverse Chronological Order 08/19/2023 - Lumpectomy, Left breast: 4mm, G1 pT1a, BMX ER+ 91%, MA-, HER2 (1+) negative Left axillary sentinel lymph node #1, excision (A) - Benign fibroadipose tissue. -No lymph node is identified. Left breast, lumpectomy (B) - Invasive ductal carcinoma, [place] grade 1, spanning 0.4 cm, (see comment). - Ductal carcinoma in situ (DCIS), nuclear grade 2, solid and cribriform types with microcalcifications. - Biopsy site changes and biopsy clip (x1) are identified. - The surrounding breast tissue shows atypical ductal hyperplasia (ADH), atypical lobular hyperplasia (ALH), usual ductal hyperplasia and apocrine metaplasia. All margins negative for malignancy: Left breast, anterior margin, excision (G) - Atypical lobular hyperplasia (ALH). 08/05/2023 - MRI Breast: Known biopsy proven malignancy The 1 cm x 0.7 cm x 1.4 cm architectural distortion in the left breast at 6 o'clock middle depth is consistent with the known carcinoma and is a known biopsy positive for malignancy. 07/09/2023 - Dx Mammogram Left: Known biopsy proven malignancy The architectural distortion in the left breast is a known biopsy positive for malignancy. A surgical consult is recommended. An X clip is visualized at the site of biopsy-proven malignancy. Of note, the X clip is at the inferior aspect of the architectural distortion. 06/11/2023 - left breast mass 6:00, 6 cm from nipple stereotactic core biopsy at [facility]. Consistent with invasive ductal carcinoma NOS. G1, DCIS present, no LVI, ER +91 to 100%, MA negative. HER2 IHC pending. 05/27/2023 - Mammogram: diagnostic category 4 -- suspicious for malignancy. Finding does not exhibit classic findings of breast cancer. 03/29/2021 - Mammogram: diagnostic category 2 -- benign finding with no change from prior assessment. 03/26/2020 - bilateral screening mammogram: diagnostic category 2; benign finding. No change from comparison assessment. 05/2015-current - Arimidex 04/23/2015-06/05/2015 - Radiation to right breast; 6000 cGy in 30 fractions 03/21/2015 - excisional biopsy and sentinel node biopsy Invasive carcinoma of the right breast 1.1 cm grade 1, ER and MA positive, HER-2 negative by FISH (IHC not reported, presumed 2+) ; 4 lymph nodes all negative for cancer Updated Visit, October 12, 2023: Continues radiation until the 20 of October. Will start Tamoxifen on October 27. Doing well. Since she recurred after having 5 years of Arimidex in opposite breast, will try her on Tamoxifen. Updated Visit, September 07, 2023: Clarissa returns for a follow-up, she is doing well today. She had left breast lumpectomy last month. She will begin on aromatase inhibitor which she was on (arimidex in the past), or Tamoxifen, after radiation. Updated Visit, August 07, 2023: Clarissa returns today with her sister Minnie. She is having a clip put in soon. Lumpectomy scheduled for 08/19/[address] Valles. We reviewed her MRI together. She will complete genetic counseling. HER2 low 1+. Her disease is stage 1A. Will plan to see her for endocrine therapy following RT. Updated Visit, June 26, 2023: Ivan returns today for follow up accompanied by her sister Minnie. She has concerns about her most recent workup with Dr. Cooper. We discussed her recent bx results. She has not yet undergone surgical resection. No plans at this time for a breast MRI, but she did have genetic and HER2 testing done. Will not need anxiety medication for the MRI. I discussed that determining lumpectomy versus mastectomy will be better decided once she has the MRI. I would like her to see radiation. If she were to undergo lumpectomy, radiation would be indicated. Also, if her HER2 comes back positive, she will need neoadjuvant chemotherapy. Recommended she consider genetic counseling with her children. She has an appointment scheduled next week with Dr. Cooper to review her remaining pathology - he may want to see her after the MRI. Updated Visit, April 19, 2020: Simi returns today for yearly follow up. Doing well. Struggling most with her 's diagnosis of dementia. It has been a struggle. She remains on Anastrozole and is due to complete 5 years in May. Her mammogram was 03/26/2020 and reviewed below. She denies any new pain, skin changes or masses. Updated Visit, December 09, 2019: Ivan Herrera is a 69 year old female who presents in follow up on arimidex. Good tolerance overall. No complaints. She was started on arimidex 06/12. Complains of some right axillary discomfort. Her mammograms in 02/2020. Her has dementia, but she remembers enjoying a [employer] weekend in [place], [place], where I had been. She isn't having No other issues - will re-eval and examine after mammograms. REVIEW OF SYSTEMS Per HPI and otherwise negative by full review of organ systems. ECOG PERFORMANCE STATUS: 0 PHYSICAL EXAMINATION: Vitals: BP 148/84 Pulse 71 Temp (Src) 97.5 (Temporal) Resp 16 Ht 5' 8.504 (1.74m) Wt 201 lb 15.1 oz (91.6kg) SpO2 96% BMI 30.25 kg/(m^2). Body surface area is 2.1 meters squared. Exam limited to gross visualization where appropriate. Gen.: This is an age-appropriate patient in no acute distress. Head: Appears atraumatic with no visible lesions. Eyes: Pupils equally round and reactive to light, extraocular muscles are intact. Neck: Supple. Respiratory: Appears to be respiring comfortably. Neurologic: Nonfocal to gross visualization. Alert and oriented 3. Psychiatric: No evidence of inappropriate anxiety or depression. Skin: Visible areas of skin without rash, lesions, wounds or petechiae. ALLERGIES: ALLERGIES Allergen Reactions Sulfa (Sulfonamide * Other: See Comments palpitations Sulfamethoxazole-Tr* Hives MEDICATIONS: multivit-min/ferrous fumarate (MULTI VITAMIN ORAL) Take by mouth once daily. MULTIVITAMIN ORAL Take by mouth. Glucosamine Sulfate (GLUCOSAMINE) 500 mg tab Take 3 tablets by mouth once daily. phytosterol/pantethine (CHOLESTOFF COMPLETE ORAL) Take by mouth. calcium carbonate/vitamin D3 (CALCIUM WITH VITAMIN D3 ORAL) Take by mouth. ofloxacin (OCUFLOX) 0.3 % ophthalmic solution prednisoLONE acetate (PRED FORTE, ECONOPRED PLUS) 1 % ophthalmic suspension ubidecarenone Q-10 (CO Q-10) 10 mg cap Take by mouth twice daily. LUTEIN ORAL Take by mouth. Multivitamins-Iron tab Take 1 tablet by mouth once daily. [place]-3 Fatty Acids-Vitamin E (FISH OIL) 1,000 mg cap Take 1 capsule by mouth. atorvastatin (LIPITOR) 10 mg tablet [START ON 10/28/2023] tamoxifen (NOLVADEX) 20 mg tablet Take 1 tablet (20 mg) by mouth once daily. anastrozole (ARIMIDEX) 1 mg tablet Take 1 tablet by mouth once daily. (Patient not taking: Reported on 09/07/2023) LABORATORY VALUES: WBC (k/uL) Date Value 10/12/2023 7.50 RBC (m/uL) Date Value 10/12/2023 4.79 Hemoglobin (g/dL) Date Value 10/12/2023 14.4 Hematocrit (%) Date Value 10/12/2023 44.5 MCV (fL) Date Value 10/12/2023 92.9 MCH (pg) Date Value 10/12/2023 30.1 MCHC (g/dL) Date Value 10/12/2023 32.4 RDW-CV (%) Date Value 10/12/2023 14.3 Platelet Count (k/uL) Date Value 10/12/2023 273 MPV (fL) Date Value 10/12/2023 10.2 Glucose (mg/dL) Date Value 10/12/2023 122 (H) BUN (mg/dL) Date Value 10/12/2023 18 Creatinine (mg/dL) Date Value 10/12/2023 0.77 Sodium (mmol/L) Date Value 10/12/2023 143 Potassium (mmol/L) Date Value 10/12/2023 4.5 Chloride (mmol/L) Date Value 10/12/2023 105 CO2 (mmol/L) Date Value 10/12/2023 24 Protein, Total (g/dL) Date Value 10/12/2023 7.4 Albumin (g/dL) Date Value 10/12/2023 4.4 Calcium, Total (mg/dL) Date Value 10/12/2023 10.4 (H) Alkaline Phosphatase (U/L) Date Value 10/12/2023 109 Bilirubin, Total (mg/dL) Date Value 10/12/2023 0.4 AST (U/L) Date Value 10/12/2023 15 ALT (U/L) Date Value 10/12/2023 22 DIAGNOSIS: (C50.512, Z17.0) Malignant neoplasm of lower-outer quadrant of left breast of female, estrogen receptor positive (HCC) (primary encounter diagnosis) Plan: tamoxifen (NOLVADEX) 20 mg tablet, CA 15-3 BLD, CA 27.29 BLOOD, COMPREHENSIVE METABOLIC PANEL, COMPLETE BLOOD COUNT AND DIFFERENTIAL PAST MEDICAL HISTORY Diagnosis Date Abnormal mammogram 2009 Biopsy normal High cholesterol Spinal cord injury Spondylosis PAST SURGICAL HISTORY Procedure Laterality Date BACK SURGERY HX spinal surg bone graft upper thoracic CATARACT EXTRACTION HX COLONSCOPY SCREENING HIGH RISK HYSTERECTOMY HX 2013 PAST SURGICAL HISTORY OF 2010 breast biopsy negative PAST SURGICAL HISTORY OF fatty tumor left hand PAST SURGICAL HISTORY OF Right lumpectomy Social History Tobacco Use Smoking status: Former Packs/day: 0.10 Years: 10.00 Additional pack years: 0.00 Total pack years: 1.00 Types: Cigarettes Quit date: 2004 Years since quittin.3 Smokeless tobacco: Never Vaping Use Vaping Use: Never used Substance Use Topics Alcohol use: Yes Comment: rare Drug use: No FAMILY HISTORY Problem Relation Age of Onset Colon Cancer Father mets to bone, unknown origin Ovarian cancer Mother 82 Breast Cancer Mother I spent a total of 30 minutes on the date of the service which included preparing to see the patient, [id number] patient care, completing clinical documentation, performing a medically appropriate examination, counseling and educating the patient/family/caregiver, ordering medications, tests, or procedures, independently interpreting results (not separately reported), communicating results to the patient/family/caregiver, and care coordination (not separately reported). Myles Talamantes MD, CPE Hematology and Oncology Services Provided at: [place], [place] CC: Chauncey Bowles MD, Dillon Gauthier documented in this encounter [facility] 10-12-2023 Note HNO ID: [id number] Author: MYLES TALAMANTES MD Service: ? Author Type: Physician Type: Progress Notes Filed: 10/13/2023 13:50 Note Text: NAME: Ivan Herrera [facility] NO.: [id number] DATE OF SERVICE: October 12, 2023 ([place]) Some elements in this clinic note that are critical to medical decision making have been carefully reviewed and included from a prior clinic note dated: September 07, 2023 ([place]) Referring Provider: Dr. Chauncey Bowles Additional Clinicians involved in Ivan Herrera's care: Dillon Cooper DIAGNOSIS: Malignant neoplasm lower quadrant left breast ER positive. History of malignant neoplasm of upper-outer quadrant of right breast in female, estrogen receptor positive ASSESSMENT: 73 year old woman with malignant neoplasm of upper-outer quadrant of right breast in female, estrogen receptor positive Stage I ([id number]) right breast cancer of the upper outer quadrant, ER/MA +, Her2-, diagnosed in February 2015. She had lumpectomy, followed by radiation, and has been on aromatase inhibitor therapy since May 2015 with good tolerance. Her recent mammogram from February 2020 was negative for malignancy. She has no evidence of recurrence. She continued her Anastrozole until May 2020, completing 5 years of therapy. 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 She presents in follow-up regarding this new diagnosis. S/p Lumpectomy left breast July 2023 4mm, G1 pT1a, BMX ER+ 91%, MA-, HER2 (1+) negative. PLAN: RTC with [place] in 6 weeks Labs same day. Tox check following start of Tamoxifen Exam same day. RTC with me in 4 months Labs same day. HPI: CASE HISTORY: Reverse Chronological Order 08/19/2023 - Lumpectomy, Left breast: 4mm, G1 pT1a, BMX ER+ 91%, MA-, HER2 (1+) negative Left axillary sentinel lymph node #1, excision (A) - Benign fibroadipose tissue. -No lymph node is identified. Left breast, lumpectomy (B) - Invasive ductal carcinoma, [place] grade 1, spanning 0.4 cm, (see comment). - Ductal carcinoma in situ (DCIS), nuclear grade 2, solid and cribriform types with microcalcifications. - Biopsy site changes and biopsy clip (x1) are identified. - The surrounding breast tissue shows atypical ductal hyperplasia (ADH), atypical lobular hyperplasia (ALH), usual ductal hyperplasia and apocrine metaplasia. All margins negative for malignancy: Left breast, anterior margin, excision (G) - Atypical lobular hyperplasia (ALH). 08/05/2023 - MRI Breast: Known biopsy proven malignancy The 1 cm x 0.7 cm x 1.4 cm architectural distortion in the left breast at 6 o'clock middle depth is consistent with the known carcinoma and is a known biopsy positive for malignancy. 07/09/2023 - Dx Mammogram Left: Known biopsy proven malignancy The architectural distortion in the left breast is a known biopsy positive for malignancy. A surgical consult is recommended. An X clip is visualized at the site of biopsy-proven malignancy. Of note, the X clip is at the inferior aspect of the architectural distortion. 06/11/2023 - left breast mass 6:00, 6 cm from nipple stereotactic core biopsy at [facility]. Consistent with invasive ductal carcinoma NOS. G1, DCIS present, no LVI, ER +91 to 100%, MA negative. HER2 IHC pending. 05/27/2023 - Mammogram: diagnostic category 4 -- suspicious for malignancy. Finding does not exhibit classic findings of breast cancer. 03/29/2021 - Mammogram: diagnostic category 2 -- benign finding with no change from prior assessment. 03/26/2020 - bilateral screening mammogram: diagnostic category 2; benign finding. No change from comparison assessment. 05/2015-current - Arimidex 04/23/2015-06/05/2015 - Radiation to right breast; 6000 cGy in 30 fractions 03/21/2015 - excisional biopsy and sentinel node biopsy Invasive carcinoma of the right breast 1.1 cm grade 1, ER and MA positive, HER-2 negative by FISH (IHC not reported, presumed 2+) ; 4 lymph nodes all negative for cancer Updated Visit, October 12, 2023: Continues radiation until the 20 of October. Will start Tamoxifen on October 27. Doing well. Since she recurred after having 5 years of Arimidex in opposite breast, will try her on Tamoxifen. Updated Visit, September 07, 2023: Clarissa returns for a follow-up, she is doing well today. She had left breast lumpectomy last month. She will begin on aromatase inhibitor which she was on (arimidex in the past), or Tamoxifen, after radiation. Updated Visit, August 07, 2023: Clarissa returns today with her sister Minnie. She is having a clip put in soon. Lumpectomy scheduled for 08/19/[address] Valles. We reviewed her MRI together. She reza (more content not included)... [facility] 10-07-2023 Note HNO ID: [id number] Author: ISAIAH GAUTHIER MD Service: ? Author Type: Physician Type: Progress Notes Filed: 10/07/2023 12:16 Note Text: RADIATION ONCOLOGY- ON TREATMENT REVIEW (OTR) NOTE PATIENT NAME: Ivan Herrera PATIENT DIAGNOSIS: Ms. Herrera is a 73-year-old woman with 1. Newly diagnosed Stage I, [id number] IDC of the left breast; ER/MA+, Her2- s/p biopsy on 06/11/2023. 2. Stage I, [id number] IDC of the right breast; ER/MA+, Her2- s/p lumpectomy/radiation in 2014 followed by endocrine therapy. COURSE: post-operative Area Treated: Left Breast Current dose: 1335 cGy in 5 fx Planned dose: 4005 cGy in 15 SUBJECTIVE: Tolerating XRT well and notes persistent tenderness around the area of the nipple which is unchanged as well as some itching. She denies any skin breakdown and use moisturizer twice a day with good range of motion of the left upper extremity. She does endorse some fatigue with good appetite and hydration and stable weight. PHYSICAL EXAM: KPS: 90 General Appearance: Alert and oriented. No acute distress. Skin erythema/hyperpigmentation: Minimal Desquamation: No TOXICITY ASSESSMENT (CTC v4.0): Fatigue: grade 1 - Fatigue relieved by rest Radiation dermatitis: grade 1 - Faint erythema or dry desquamation Treatment chart checked: Yes Patient treatment site reviewed and verified:Yes Port films reviewed and current:Yes Medications started: None ASSESSMENT/PLAN: Clinically stable. Toxicity within expected parameters. Continue radiation treatment as planned. Signed by: Isaiah Gauthier MD [facility] 10-07-2023 History of Presen t illness Narrative RADIATION ONCOLOGY- ON TREATMENT REVIEW (OTR) NOTE PATIENT NAME: Ivan Herrera PATIENT DIAGNOSIS: Ms. Herrera is a 73-year-old woman with 1. Newly diagnosed Stage I, [id number] IDC of the left breast; ER/MA+, Her2- s/p biopsy on 06/11/2023. 2. Stage I, [id number] IDC of the right breast; ER/MA+, Her2- s/p lumpectomy/radiation in 2014 followed by endocrine therapy. COURSE: post-operative Area Treated: Left Breast Current dose: 1335 cGy in 5 fx Planned dose: 4005 cGy in 15 SUBJECTIVE: Tolerating XRT well and notes persistent tenderness around the area of the nipple which is unchanged as well as some itching. She denies any skin breakdown and use moisturizer twice a day with good range of motion of the left upper extremity. She does endorse some fatigue with good appetite and hydration and stable weight. PHYSICAL EXAM: KPS: 90 General Appearance: Alert and oriented. No acute distress. Skin erythema/hyperpigmentation: Minimal Desquamation: No TOXICITY ASSESSMENT (CTC v4.0): Fatigue: grade 1 - Fatigue relieved by rest Radiation dermatitis: grade 1 - Faint erythema or dry desquamation Treatment chart checked: Yes Patient treatment site reviewed and verified:Yes Port films reviewed and current:Yes Medications started: None ASSESSMENT/PLAN: Clinically stable. Toxicity within expected parameters. Continue radiation treatment as planned. Signed by: Isaiah Gauthier MD documented in this encounter [facility] 10-07-2023 Nurse Note Status: Post-menopausal. documented in this encounter [facility] 10-06-2023 Note HNO ID: [id number] Author: JEANNETTE LOZA LMT Service: ? Author Type: Therapist Type: Progress Notes Filed: 10/06/2023 15:11 Note Text: Patient Name: Ivan Herrera : 1950 Referred For: Chair massage Diagnosis: Muscle soreness Chief Complaint: Relaxation Anxiety (pre): patient declined to answer Pain (pre): patient declined to answer Stress Level (pre): patient declined to answer Therapy Provided: Massage Therapy Area(s) Treated: Neck, back and shoulders Anxiety (post): patient declined to answer Pain (post): patient declined to answer Stress Level (post): patient declined to answer Visit Outcome: Better Comments: Treatment Plan: Spanish massage to neck and shoulders. Spanish massage to back and percussion to lower back, glutes and hips Care Team contacted: N/A Signature: Jeannette Loza LMT Date: October 06, 2023 Time: 3:09 PM [facility] 10-06-2023 History of Presen t illness Narrative Patient Name: Ivan Herrera : 1950 Referred For: Chair massage Diagnosis: Muscle soreness Chief Complaint: Relaxation Anxiety (pre): patient declined to answer Pain (pre): patient declined to answer Stress Level (pre): patient declined to answer Therapy Provided: Massage Therapy Area(s) Treated: Neck, back and shoulders Anxiety (post): patient declined to answer Pain (post): patient declined to answer Stress Level (post): patient declined to answer Visit Outcome: Better Comments: Treatment Plan: Spanish massage to neck and shoulders. Spanish massage to back and percussion to lower back, glutes and hips Care Team contacted: N/A Signature: Jeannette Loza LMT Date: October 06, 2023 Time: 3:09 PM documented in this encounter [facility] 09-30-2023 Note HNO ID: [id number] Author: ISAIAH GAUTHIER MD Service: ? Author Type: Physician Type: Progress Notes Filed: 10/05/2023 23:26 Note Text: RADIATION ONCOLOGY- ON TREATMENT REVIEW (OTR) NOTE PATIENT NAME: Ivan Herrera PATIENT DIAGNOSIS: Ms. Herrera is a 73-year-old woman with 1. Newly diagnosed Stage I, [id number] IDC of the left breast; ER/MA+, Her2- s/p biopsy on 06/11/2023. 2. Stage I, [id number] IDC of the right breast; ER/MA+, Her2- s/p lumpectomy/radiation in 2014 followed by endocrine therapy. COURSE: post-operative Area Treated: Left Breast Current dose: 267 cGy in 1 fx Planned dose: 4005 cGy in 15 fx SUBJECTIVE: Tolerated first fraction of XRT well and reports no significant changes in the time of simulation. Patient denies any pain/discomfort in the breast or any skin irritation or breakdown. She endorses good energy appetite and hydration with stable weight. PHYSICAL EXAM: KPS: 90 General Appearance: Alert and oriented. No acute distress. Skin erythema/hyperpigmentation: No Desquamation: No TOXICITY ASSESSMENT (CTC v4.0): Fatigue: grade 0 - No symptoms Radiation dermatitis: grade 0 - No symptoms Treatment chart checked: Yes Patient treatment site reviewed and verified:Yes Port films reviewed and current:Yes Medications started: None ASSESSMENT/PLAN: Clinically stable. No signs of toxicity. Continue radiation treatment as planned. We reviewed skincare as well as general precautions during radiation treatment to the left breast and discussed the potential acute toxicities during treatment and their time course. Encouraged the use of a good moisturizer in the treatment area and discussed the importance of a well-balanced diet, hydration, and exercise/activity as tolerated through the course of treatment. Signed by: Isaiah Gauthier MD [facility] 09-30-2023 History of Presen t illness Narrative RADIATION ONCOLOGY- ON TREATMENT REVIEW (OTR) NOTE PATIENT NAME: Ivan Herrera PATIENT DIAGNOSIS: Ms. Herrera is a 73-year-old woman with 1. Newly diagnosed Stage I, [id number] IDC of the left breast; ER/MA+, Her2- s/p biopsy on 06/11/2023. 2. Stage I, [id number] IDC of the right breast; ER/MA+, Her2- s/p lumpectomy/radiation in 2014 followed by endocrine therapy. COURSE: post-operative Area Treated: Left Breast Current dose: 267 cGy in 1 fx Planned dose: 4005 cGy in 15 fx SUBJECTIVE: Tolerated first fraction of XRT well and reports no significant changes in the time of simulation. Patient denies any pain/discomfort in the breast or any skin irritation or breakdown. She endorses good energy appetite and hydration with stable weight. PHYSICAL EXAM: KPS: 90 General Appearance: Alert and oriented. No acute distress. Skin erythema/hyperpigmentation: No Desquamation: No TOXICITY ASSESSMENT (CTC v4.0): Fatigue: grade 0 - No symptoms Radiation dermatitis: grade 0 - No symptoms Treatment chart checked: Yes Patient treatment site reviewed and verified:Yes Port films reviewed and current:Yes Medications started: None ASSESSMENT/PLAN: Clinically stable. No signs of toxicity. Continue radiation treatment as planned. We reviewed skincare as well as general precautions during radiation treatment to the left breast and discussed the potential acute toxicities during treatment and their time course. Encouraged the use of a good moisturizer in the treatment area and discussed the importance of a well-balanced diet, hydration, and exercise/activity as tolerated through the course of treatment. Signed by: Isaiah Gauthier MD documented in this encounter [facility] 09-29-2023 Miscellaneous Notes Patient has an appt on 10/12/23. Would you like labs, if so place orders. Ro Wei MA documented in this encounter [facility] 09-16-2023 History of Presen t illness Narrative IVAN HERRERA [id number] 09/16/[address] [facility] Radiation Oncology Department SIMULATION NOTE DATE OF SIMULATION: 09/16/2023 THERAPIST: Kiley Zamora MACHINE: Logentries mCT DIAGNOSIS: C50.812 Malignant neoplasm of overlapping sites of left female breast AREA: LT BREAST CONTRAST: None Consent in Epic: Yes PATIENT POSITION: Supine. FIXATION DEVICE: In order to achieve accurate and reproducible treatments, the patient is immobilized with ORFIT AIO. RPM DIBH SCANS TAKEN. A time-out was conducted and recorded by the therapist. CT scan was completed for target localization and planning. Field arrangement will be determined after plan has been completed. The patient is scheduled for a verification simulation on the treatment machine to ensure proper set-up and field arrangement is correct prior to the first treatment of primary and boost awan if applicable. Patient education will be completed per nursing. Electronically Signed Isaiah Gauthier M.D. / NRS 44:15 PM documented in this encounter [facility] 09-16-2023 History of Presen t illness Narrative IVAN HERRERA [id number] 09/16/[address] [facility] Department of Radiation Oncology Treatment Planning Note For reasons stated in the consult note, Ivan Herrera is a candidate for radiation therapy. Based on review and interpretation of the relevant diagnostic studies together with the exam findings, Ivan Herrera was simulated on 09/16/2023 at which time the target volume and/or requisite awan were delineated, as indicated in the simulation note, to be treated according to the prescription. The treatment target and organs at risk were contoured on the simulation scan. Special consideration to these and other structures was given in light of the potential for increased toxicities. After reviewing multiple treatment plans with dosimetry, the best plan was approved to deliver the prescribed course of radiation to the target area using 3D planning to allow for the best isodose distribution, treating to the 100% isodose line with 10MV and 2 awan. Custom MLC asym jaws were the treatment devices used to shape/modify the beams. Limiting dose to normal tissue was confirmed upon review of the calculated dose volume histogram. A completed summary of this plan dated 09/29/2023 incorporated herein by reference includes dose, beam arrangements, energy, blocking, isodose distribution, and/or ports and DVH. Electronically Signed Isaiah Gauthier M.D. 2:13 AM documented in this encounter [facility] 09-16-2023 Note HNO ID: [id number] Author: ISAIAH GAUTHIER MD Service: ? Author Type: Physician Type: Progress Notes Filed: 10/01/2023 00:13 Note Text: IVAN HERRERA [id number] 09/16/[address] [facility] Department of Radiation Oncology Treatment Planning Note For reasons stated in the consult note, Ivan Herrera is a candidate for radiation therapy. Based on review and interpretation of the relevant diagnostic studies together with the exam findings, Ivan Herrera was simulated on 09/16/2023 at which time the target volume and/or requisite awan were delineated, as indicated in the simulation note, to be treated according to the prescription. The treatment target and organs at risk were contoured on the simulation scan. Special consideration to these and other structures was given in light of the potential for increased toxicities. After reviewing multiple treatment plans with dosimetry, the best plan was approved to deliver the prescribed course of radiation to the target area using 3D planning to allow for the best isodose distribution, treating to the 100% isodose line with 10MV and 2 awan. Custom MLC asym jaws were the treatment devices used to shape/modify the beams. Limiting dose to normal tissue was confirmed upon review of the calculated dose volume histogram. A completed summary of this plan dated 09/29/2023 incorporated herein by reference includes dose, beam arrangements, energy, blocking, isodose distribution, and/or ports and DVH. Electronically Signed Isaiah Gauthier M.D. 2:13 AM [facility] 09-16-2023 Note HNO ID: [id number] Author: ISAIAH GAUTHIER MD Service: ? Author Type: Physician Type: Progress Notes Filed: 09/17/2023 16:15 Note Text: IVAN HERRERA [id number] 09/16/[address] [facility] Radiation Oncology Department SIMULATION NOTE DATE OF SIMULATION: 09/16/2023 THERAPIST: Kiley Zamora MACHINE: [employer]entries mCT DIAGNOSIS: C50.812 Malignant neoplasm of overlapping sites of left female breast AREA: LT BREAST CONTRAST: None Consent in Epic: Yes PATIENT POSITION: Supine. FIXATION DEVICE: In order to achieve accurate and reproducible treatments, the patient is immobilized with ORFIT AIO. RPM DIBH SCANS TAKEN. A time-out was conducted and recorded by the therapist. CT scan was completed for target localization and planning. Field arrangement will be determined after plan has been completed. The patient is scheduled for a verification simulation on the treatment machine to ensure proper set-up and field arrangement is correct prior to the first treatment of primary and boost awan if applicable. Patient education will be completed per nursing. Electronically Signed Isaiah Gauthier M.D. / NRS 44:15 PM [facility] 09-08-2023 Miscellaneous Notes Pt called in due to continued nipple tenderness. She stated this has been there since her surgery and it was discussed at her visit yesterday. She's denies any redness, swelling, etc. She wanted to know if this was normal. I encouraged her to reach out to her surgeon's office to see if this is expected after her type of surgery. She agreed and will do this if she has further questions. Sherri Sánchez, IVETH documented in this encounter [facility] 09-07-2023 Nurse Note Radiation Therapy - Patient Education Note PATIENT NAME: Ivan Herrera PATIENT September 07, 2023 [facility] FACILITY/LOCATION: [facility] READINESS TO LEARN Cognitive Ability: Alert and oriented Motivation to learn: Interested Family Support: Unable to assess - Family not present Instruction provide to: Patient Patient learns best by: Multiple Methods Factors effecting learning: None Physical limitations effecting learning: None LEARNING RESPONSE Diagnosis: Pt simulated today for radiation therapy to left breast. Education Topic/Teaching Points: Radiation therapy, Side effects, and OTV: Method of instruction: Written instruction - handouts Verbal instruction Patient /Family response: Patient verbalized understanding of radiation treatments, side effects, OTV, and transportation. Follow-up plan: Recommend - Recommend continued instruction and follow up as directed Supplemental material: Informational handouts on Deodorant, Breast packet, Fatigue, and Skin changes. Referral (recommendation): None, Pt denied need for social work, van service, and tax manager cpa. Was approved? No Signed by: Tayla Landon LPN documented in this encounter [facility] 09-07-2023 Instructions Bridgett Hopper - 09/07/2023 11:13 AM EDT RTC after radiation - approximately 4-5 weeks documented in this encounter [facility] 09-07-2023 History of Presen t illness Narrative Radiation Oncology - Follow Up Note PATIENT NAME: Ivan Herrera PATIENT DIAGNOSIS/PATIENT IDENTIFICATION: Ms. Herrera is a 73-year-old woman with 1. 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 2. Stage I, [id number] IDC of the right breast; ER/MA+, Her2- s/p lumpectomy/radiation in 2014 followed by endocrine therapy. The new left-sided disease was found on screening mammogram with biopsy confirmation on 06/11/2023. Ms. Herrera returns to clinic today for follow-up as previously discussed during consultation on 06/26/2023. In the interim, she underwent MRI of the breast on 08/05/2023 which again noted the approximately 1.4 cm area of distortion of the left breast consistent with the area of biopsy disease with no other concerning lesions or lymphadenopathy. She then met with Dr. Valles to discuss her surgical treatment options and was brought to the OR on 08/19/2023 where she underwent left breast wide local excision and sentinel lymph node biopsy without incident. Pathology revealed a residual 4 mm of low-grade IDC with negative margins and a lymph node was not in the biopsy specimen. Today Ms. Herrera reports recovering well from her recent surgery with some christal-incisional discomfort that continues to improve and denies any postoperative complications wound healing or infection. She notes good range of motion of the left upper extremity. We reviewed together her pathology results and discussed again her potential postoperative radiation treatment options in this context. Choices would range from omission based on her age and the favorable features of her disease as well as accelerated partial breast irradiation directed to the lumpectomy cavity or whole breast irradiation. After discussing the pros and cons of each option, the patient has chosen to proceed with whole breast irradiation for maximal risk reduction. We again briefly reviewed the rationale, logistics, and toxicity of radiation therapy to the whole breast in this postoperative setting. After all of her questions were answered, informed consent was obtained. Given that she is continuing to have tenderness in the breast, we agreed to have her return to clinic in approximately one week for CT simulation to begin treatment planning. Thank you for allowing us to participate in the care of this patient. RADIOLOGIC DATA: MRI Breast (08/05/2023) IMPRESSION: KNOWN BIOPSY PROVEN MALIGNANCY The 1 cm x 0.7 cm x 1.4 cm architectural distortion in the left breast at 6 o'clock middle depth is consistent with the known carcinoma and is a known biopsy positive for malignancy. A surgical consult is recommended. PATHOLOGIC DATA: 08/19/2023 FINAL DIAGNOSIS 1. Left axillary sentinel lymph node #1, excision (A) - Benign fibroadipose tissue. -No lymph node is identified. 2. Left breast, lumpectomy (B) - Invasive ductal carcinoma, [place] grade 1, spanning 0.4 cm, (see comment). -Ductal carcinoma in situ (DCIS), nuclear grade 2, solid and cribriform types with microcalcifications. -Biopsy site changes and biopsy clip (x1) are identified. -The surrounding breast tissue shows atypical ductal hyperplasia (ADH), atypical lobular hyperplasia (ALH), usual ductal hyperplasia and apocrine metaplasia. 3. Left breast, superior margin, excision (C) - Benign breast tissue with usual ductal hyperplasia. 4. Left breast, inferior margin, excision (D) - Benign breast tissue. 5. Left breast, medial margin, excision (E) - Benign breast tissue. 6. Left breast, lateral margin, excision (F) - Benign breast tissue with microcalcifications. 7. Left breast, anterior margin, excision (G) - Atypical lobular hyperplasia (ALH). -The surrounding breast tissue shows usual ductal hyperplasia. 8. Left breast, posterior margin, excision (H) - Benign breast tissue. Synoptic Report SPECIMEN Procedure Excision (less than total mastectomy) Specimen Laterality Left TUMOR Histologic Type Invasive carcinoma of no special type (ductal) Histologic Overall Grade (NHS) Grade 1 (scores of 3, 4 or 5) Tumor Size Greatest dimension of largest invasive focus (Millimeters): 4 mm Tumor Focality Single focus of invasive carcinoma Ductal Carcinoma In Situ (DCIS) Present Nuclear Grade Grade II (intermediate) Necrosis Not identified Lymphatic and / or Vascular Invasion Not identified MARGINS Margin Status for Invasive Carcinoma All margins negative for invasive carcinoma Distance from Inv. Carcinoma to Closest Margin Greater than: 2 mm Margin Status for DCIS All margins negative for DCIS Distance from DCIS to Closest Margin Greater than: 2 mm REGIONAL LYMPH NODES Regional Lymph Node Status No regional lymph nodes submitted or found pTNM CLASSIFICATION (AJCC 8th Edition) pT Category pT1a pN Category pN not assigned (no nodes submitted or found) Estrogen Receptor (ER) Status Positive; 91-100% Progesterone Receptor (PgR) Status Negative HER2 (by immunohistochemistry) Negative (Score 1+) Signed by: Isaiah Gauthier MD I spent a total of 30 minutes on the date of the service which included preparing to see the patient, [id number] patient care, and counseling and educating the patient/family/caregiver. This document has been created with the use of voice recognition technology. It may contain inaccuracies, misspellings, inaccurate syntax or inappropriate word context that are a result of the inadequacies/shortcomings of said technology/software. documented in this encounter [facility] 09-07-2023 Note HNO ID: [id number] Author: ISAIAH GAUTHIER MD Service: ? Author Type: Physician Type: Progress Notes Filed: 09/15/2023 07:04 Note Text: Radiation Oncology - Follow Up Note PATIENT NAME: Ivan Herrera PATIENT DIAGNOSIS/PATIENT IDENTIFICATION: Ms. Herrera is a 73-year-old woman with 1. 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 2. Stage I, [id number] IDC of the right breast; ER/MA+, Her2- s/p lumpectomy/radiation in 2014 followed by endocrine therapy. The new left-sided disease was found on screening mammogram with biopsy confirmation on 06/11/2023. Ms. Herrera returns to clinic today for follow-up as previously discussed during consultation on 06/26/2023. In the interim, she underwent MRI of the breast on 08/05/2023 which again noted the approximately 1.4 cm area of distortion of the left breast consistent with the area of biopsy disease with no other concerning lesions or lymphadenopathy. She then met with Dr. Valles to discuss her surgical treatment options and was brought to the OR on 08/19/2023 where she underwent left breast wide local excision and sentinel lymph node biopsy without incident. Pathology revealed a residual 4 mm of low-grade IDC with negative margins and a lymph node was not in the biopsy specimen. Today Ms. Herrera reports recovering well from her recent surgery with some christal-incisional discomfort that continues to improve and denies any postoperative complications wound healing or infection. She notes good range of motion of the left upper extremity. We reviewed together her pathology results and discussed again her potential postoperative radiation treatment options in this context. Choices would range from omission based on her age and the favorable features of her disease as well as accelerated partial breast irradiation directed to the lumpectomy cavity or whole breast irradiation. After discussing the pros and cons of each option, the patient has chosen to proceed with whole breast irradiation for maximal risk reduction. We again briefly reviewed the rationale, logistics, and toxicity of radiation therapy to the whole breast in this postoperative setting. After all of her questions were answered, informed consent was obtained. Given that she is continuing to have tenderness in the breast, we agreed to have her return to clinic in approximately one week for CT simulation to begin treatment planning. Thank you for allowing us to participate in the care of this patient. RADIOLOGIC DATA: MRI Breast (08/05/2023) IMPRESSION: KNOWN BIOPSY PROVEN MALIGNANCY The 1 cm x 0.7 cm x 1.4 cm architectural distortion in the left breast at 6 o'clock middle depth is consistent with the known carcinoma and is a known biopsy positive for malignancy. A surgical consult is recommended. PATHOLOGIC DATA: 08/19/2023 FINAL DIAGNOSIS 1. Left axillary sentinel lymph node #1, excision (A) - Benign fibroadipose tissue. -No lymph node is identified. 2. Left breast, lumpectomy (B) - Invasive ductal carcinoma, [place] grade 1, spanning 0.4 cm, (see comment). -Ductal carcinoma in situ (DCIS), nuclear grade 2, solid and cribriform types with microcalcifications. -Biopsy site changes and biopsy clip (x1) are identified. -The surrounding breast tissue shows atypical ductal hyperplasia (ADH), atypical lobular hyperplasia (ALH), usual ductal hyperplasia and apocrine metaplasia. 3. Left breast, superior margin, excision (C) - Benign breast tissue with usual ductal hyperplasia. 4. Left breast, inferior margin, excision (D) - Benign breast tissue. 5. Left breast, medial margin, excision (E) - Benign breast tissue. 6. Left breast, lateral margin, excision (F) - Benign breast tissue with microcalcifications. 7. Left breast, anterior margin, excision (G) - Atypical lobular hyperplasia (ALH). -The surrounding breast tissue shows usual ductal hyperplasia. 8. Left breast, posterior margin, excision (H) - Benign breast tissue. Synoptic Report SPECIMEN Procedure Excision (less than total mastectomy) Specimen Laterality Left TUMOR Histologic Type Invasive carcinoma of no special type (ductal) Histologic Overall Grade (NHS) Grade 1 (scores of 3, 4 or 5) Tumor Size Greatest dimension of largest invasive focus (Millimeters): 4 mm Tumor Focality Single focus of invasive carcinoma Ductal Carcinoma In Situ (DCIS) Present Nuclear Grade Grade II (intermediate) Necrosis Not identified Lymphatic and / or Vascular Invasion Not identified MARGINS Margin Status for Invasive Carcinoma All margins negative for invasive carcinoma Distance from Inv. Carcinoma to Closest Margin Greater than: 2 mm Margin Status for DCIS All margins negative for DCIS Distance from DCIS to Closest Margin Greater than: 2 mm REGIONAL LYMPH NODES Regional Lymph Node Status No regional lymph nodes submitted or found pTNM CLASSIFICATION ( (more content not included)... [facility] 09-07-2023 History of Presen t illness Narrative Images from the original note were not included. NAME: Ivan Herrera NO.: [id number] DATE OF SERVICE: September 07, 2023 ([place]) Some elements in this clinic note that are critical to medical decision making have been carefully reviewed and included from a prior clinic note dated: August 07, 2023 ([place]) Referring Provider: Dr. Chauncey Bowles Additional Clinicians involved in Ivan Herrera's care: Dillon Cooper DIAGNOSIS: Malignant neoplasm lower quadrant left breast ER positive. History of malignant neoplasm of upper-outer quadrant of right breast in female, estrogen receptor positive ASSESSMENT: 73 year old woman with malignant neoplasm of upper-outer quadrant of right breast in female, estrogen receptor positive Stage I ([id number]) right breast cancer of the upper outer quadrant, ER/MA +, Her2-, diagnosed in February 2015. She had lumpectomy, followed by radiation, and has been on aromatase inhibitor therapy since May 2015 with good tolerance. Her recent mammogram from February 2020 was negative for malignancy. She has no evidence of recurrence. She continued her Anastrozole until May 2020, completing 5 years of therapy. 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 She presents in follow-up regarding this new diagnosis. S/p Lumpectomy left breast July 2023 4mm, G1 pT1a, BMX ER+ 91%, MA-, HER2 (1+) negative. PLAN: RTC after radiation - approximately 4-5 weeks HPI: CASE HISTORY: Reverse Chronological Order 08/19/2023 - Lumpectomy, Left breast: 4mm, G1 pT1a, BMX ER+ 91%, MA-, HER2 (1+) negative Left axillary sentinel lymph node #1, excision (A) - Benign fibroadipose tissue. -No lymph node is identified. Left breast, lumpectomy (B) - Invasive ductal carcinoma, [place] grade 1, spanning 0.4 cm, (see comment). - Ductal carcinoma in situ (DCIS), nuclear grade 2, solid and cribriform types with microcalcifications. - Biopsy site changes and biopsy clip (x1) are identified. - The surrounding breast tissue shows atypical ductal hyperplasia (ADH), atypical lobular hyperplasia (ALH), usual ductal hyperplasia and apocrine metaplasia. All margins negative for malignancy: Left breast, anterior margin, excision (G) - Atypical lobular hyperplasia (ALH). 08/05/2023 - MRI Breast: Known biopsy proven malignancy The 1 cm x 0.7 cm x 1.4 cm architectural distortion in the left breast at 6 o'clock middle depth is consistent with the known carcinoma and is a known biopsy positive for malignancy. 07/09/2023 - Dx Mammogram Left: Known biopsy proven malignancy The architectural distortion in the left breast is a known biopsy positive for malignancy. A surgical consult is recommended. An X clip is visualized at the site of biopsy-proven malignancy. Of note, the X clip is at the inferior aspect of the architectural distortion. 06/11/2023 - left breast mass 6:00, 6 cm from nipple stereotactic core biopsy at [facility]. Consistent with invasive ductal carcinoma NOS. G1, DCIS present, no LVI, ER +91 to 100%, MA negative. HER2 IHC pending. 05/27/2023 - Mammogram: diagnostic category 4 -- suspicious for malignancy. Finding does not exhibit classic findings of breast cancer. 03/29/2021 - Mammogram: diagnostic category 2 -- benign finding with no change from prior assessment. 03/26/2020 - bilateral screening mammogram: diagnostic category 2; benign finding. No change from comparison assessment. 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 She had left breast lumpectomy last month. She will begin on aromatase inhibitor, likely Tamoxifen, after radiation. Updated Visit, August 07, 2023: Clarissa returns today with her sister Minnie. She is having a clip put in soon. Lumpectomy scheduled for 08/19/[address] Valles. We reviewed her MRI together. She will complete genetic counseling. HER2 low 1+. Her disease is stage 1A. Will plan to see her for endocrine therapy following RT. Updated Visit, June 26, 2023: Ivan returns today for follow up accompanied by her sister Minnie. She has concerns about her most recent workup with Dr. Cooper. We discussed her recent bx results. She has not yet undergone surgical resection. No plans at this time for a breast MRI, but she did have genetic and HER2 testing done. Will not need anxiety medication for the MRI. I discussed that determining lumpectomy versus mastectomy will be better decided once she has the MRI. I would like her to see radiation. If she were to undergo lumpectomy, radiation would be indicated. Also, if her HER2 comes back positive, she will need neoadjuvant chemotherapy. Recommended she consider genetic counseling with her children. She has an appointment scheduled next week with Dr. Cooper to review her remaining pathology - he may want to see her after the MRI. Updated Visit, April 19, 2020: Simi returns today for yearly follow up. Doing well. Struggling most with her 's diagnosis of dementia. It has been a struggle. She remains on Anastrozole and is due to complete 5 years in May. Her mammogram was 03/26/2020 and reviewed below. She denies any new pain, skin changes or masses. Updated Visit, December 09, 2019: Ivan Herrera is a 69 year old female who presents in follow up on arimidex. Good tolerance overall. No complaints. She was started on arimidex 06/12. Complains of some right axillary discomfort. Her mammograms in 02/2020. Her has dementia, but she remembers enjoying a [employer] weekend in [place], [place], where I had been. She isn't having No other issues - will re-eval and examine after mammograms. REVIEW OF SYSTEMS Per HPI and otherwise negative by full review of organ systems. ECOG PERFORMANCE STATUS: 0 PHYSICAL EXAMINATION: Vitals: BP 155/82 Pulse 92 Temp (Src) 97.5 (Temporal) Resp 16 Ht 5' 8.504 (1.74m) Wt 199 lb 8.3 oz (90.5kg) SpO2 97% BMI 29.89 kg/(m^2). Body surface area is 2.09 meters squared. Exam limited to gross visualization where appropriate. Gen.: This is an age-appropriate patient in no acute distress. Head: Appears atraumatic with no visible lesions. Eyes: Pupils equally round and reactive to light, extraocular muscles are intact. Neck: Supple. Respiratory: Appears to be respiring comfortably. Neurologic: Nonfocal to gross visualization. Alert and oriented 3. Psychiatric: No evidence of inappropriate anxiety or depression. Skin: Visible areas of skin without rash, lesions, wounds or petechiae. ALLERGIES: ALLERGIES Allergen Reactions Sulfa (Sulfonamide * Other: See Comments palpitations Sulfamethoxazole-Tr* Hives MEDICATIONS: Glucosamine Sulfate (GLUCOSAMINE) 500 mg tab Take 3 tablets by mouth once daily. phytosterol/pantethine (CHOLESTOFF COMPLETE ORAL) Take by mouth. calcium carbonate/vitamin D3 (CALCIUM WITH VITAMIN D3 ORAL) Take by mouth. ofloxacin (OCUFLOX) 0.3 % ophthalmic solution prednisoLONE acetate (PRED FORTE, ECONOPRED PLUS) 1 % ophthalmic suspension anastrozole (ARIMIDEX) 1 mg tablet Take 1 tablet by mouth once daily. (Patient not taking: Reported on 09/07/2023) ubidecarenone Q-10 (CO Q-10) 10 mg cap Take by mouth twice daily. LUTEIN ORAL Take by mouth. Multivitamins-Iron tab Take 1 tablet by mouth once daily. [place]-3 Fatty Acids-Vitamin E (FISH OIL) 1,000 mg cap Take 1 capsule by mouth. atorvastatin (LIPITOR) 10 mg tablet LABORATORY VALUES: WBC (k/uL) Date Value 06/26/2023 7.98 RBC (m/uL) Date Value 06/26/2023 4.81 Hemoglobin (g/dL) Date Value 06/26/2023 14.1 Hematocrit (%) Date Value 06/26/2023 44.7 MCV (fL) Date Value 06/26/2023 92.9 MCH (pg) Date Value 06/26/2023 29.3 MCHC (g/dL) Date Value 06/26/2023 31.5 RDW-CV (%) Date Value 06/26/2023 14.1 Platelet Count (k/uL) Date Value 06/26/2023 314 MPV (fL) Date Value 06/26/2023 10.0 Glucose (mg/dL) Date Value 06/26/2023 131 (H) BUN (mg/dL) Date Value 06/26/2023 17 Creatinine (mg/dL) Date Value 06/26/2023 0.69 Sodium (mmol/L) Date Value 06/26/2023 140 Potassium (mmol/L) Date Value 06/26/2023 4.6 Chloride (mmol/L) Date Value 06/26/2023 105 CO2 (mmol/L) Date Value 06/26/2023 26 Protein, Total (g/dL) Date Value 06/26/2023 7.6 Albumin (g/dL) Date Value 06/26/2023 4.4 Calcium, Total (mg/dL) Date Value 06/26/2023 9.9 Alkaline Phosphatase (U/L) Date Value 06/26/2023 121 Bilirubin, Total (mg/dL) Date Value 06/26/2023 0.2 AST (U/L) Date Value 06/26/2023 15 ALT (U/L) Date Value 06/26/2023 19 DIAGNOSIS: (C50.512, Z17.0) Malignant neoplasm of lower-outer quadrant of left breast of female, estrogen receptor positive (HCC) (primary encounter diagnosis) PAST MEDICAL HISTORY Diagnosis Date Abnormal mammogram 2009 Biopsy normal High cholesterol Spinal cord injury Spondylosis PAST SURGICAL HISTORY Procedure Laterality Date BACK SURGERY HX spinal surg bone graft upper thoracic CATARACT EXTRACTION HX COLONSCOPY SCREENING HIGH RISK HYSTERECTOMY HX 2014 PAST SURGICAL HISTORY OF 2010 breast biopsy negative PAST SURGICAL HISTORY OF fatty tumor left hand PAST SURGICAL HISTORY OF Right lumpectomy Social History Tobacco Use Smoking status: Former Packs/day: 0.10 Years: 10.00 Additional pack years: 0.00 Total pack years: 1.00 Types: Cigarettes Quit date: 2004 Years since quittin.2 Smokeless tobacco: Never Vaping Use Vaping Use: Never used Substance Use Topics Alcohol use: Yes Comment: rare Drug use: No FAMILY HISTORY Problem Relation Age of Onset Colon Cancer Father mets to bone, unknown origin Ovarian cancer Mother 82 Breast Cancer Mother I spent a total of 30 minutes on the date of the service which included preparing to see the patient, [id number] patient care, completing clinical documentation, obtaining and/or reviewing separately obtained history, performing a medically appropriate examination, counseling and educating the patient/family/caregiver, ordering medications, tests, or procedures, independently interpreting results (not separately reported), communicating results to the patient/family/caregiver, and care coordination (not separately reported). Myles Talamantes MD, CPE Hematology and Oncology Services Provided at: [facility], [place], [place] Scribe Attestation: This note was scribed by Bridgett Hopper on September 07, 2023 under the direction and supervision of Dr. Myles Talamantes. I attest that all of the information documented is correct to the best of my knowledge. Provider Attestation: I, Myles Talamantes MD, attest that all information documented by the above scribe is correct, and was supervised by me and under my direction. CC: Chauncey Bowles MD, Dillon Gauthier documented in this encounter [facility] 09-07-2023 Note HNO ID: [id number] Author: MYLES TALAMANTES MD Service: ? Author Type: Physician Type: Progress Notes Filed: 09/07/2023 19:36 Note Text: NAME: Ivan Herrera [facility] NO.: [id number] DATE OF SERVICE: September 07, 2023 ([place]) Some elements in this clinic note that are critical to medical decision making have been carefully reviewed and included from a prior clinic note dated: August 07, 2023 ([place]) Referring Provider: Dr. Chauncey Bowles Additional Clinicians involved in Ivan Herrera's care: Dillon Cooper DIAGNOSIS: Malignant neoplasm lower quadrant left breast ER positive. History of malignant neoplasm of upper-outer quadrant of right breast in female, estrogen receptor positive ASSESSMENT: 73 year old woman with malignant neoplasm of upper-outer quadrant of right breast in female, estrogen receptor positive Stage I ([id number]) right breast cancer of the upper outer quadrant, ER/MA +, Her2-, diagnosed in February 2015. She had lumpectomy, followed by radiation, and has been on aromatase inhibitor therapy since May 2015 with good tolerance. Her recent mammogram from February 2020 was negative for malignancy. She has no evidence of recurrence. She continued her Anastrozole until May 2020, completing 5 years of therapy. 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 She presents in follow-up regarding this new diagnosis. S/p Lumpectomy left breast July 2023 4mm, G1 pT1a, BMX ER+ 91%, MA-, HER2 (1+) negative. PLAN: RTC after radiation - approximately 4-5 weeks HPI: CASE HISTORY: Reverse Chronological Order 08/19/2023 - Lumpectomy, Left breast: 4mm, G1 pT1a, BMX ER+ 91%, MA-, HER2 (1+) negative Left axillary sentinel lymph node #1, excision (A) - Benign fibroadipose tissue. -No lymph node is identified. Left breast, lumpectomy (B) - Invasive ductal carcinoma, Isabella grade 1, spanning 0.4 cm, (see comment). - Ductal carcinoma in situ (DCIS), nuclear grade 2, solid and cribriform types with microcalcifications. - Biopsy site changes and biopsy clip (x1) are identified. - The surrounding breast tissue shows atypical ductal hyperplasia (ADH), atypical lobular hyperplasia (ALH), usual ductal hyperplasia and apocrine metaplasia. All margins negative for malignancy: Left breast, anterior margin, excision (G) - Atypical lobular hyperplasia (ALH). 08/05/2023 - MRI Breast: Known biopsy proven malignancy The 1 cm x 0.7 cm x 1.4 cm architectural distortion in the left breast at 6 o'clock middle depth is consistent with the known carcinoma and is a known biopsy positive for malignancy. 07/09/2023 - Dx Mammogram Left: Known biopsy proven malignancy The architectural distortion in the left breast is a known biopsy positive for malignancy. A surgical consult is recommended. An X clip is visualized at the site of biopsy-proven malignancy. Of note, the X clip is at the inferior aspect of the architectural distortion. 06/11/2023 - left breast mass 6:00, 6 cm from nipple stereotactic core biopsy at [facility]. Consistent with invasive ductal carcinoma NOS. G1, DCIS present, no LVI, ER +91 to 100%, MA negative. HER2 IHC pending. 05/27/2023 - Mammogram: diagnostic category 4 -- suspicious for malignancy. Finding does not exhibit classic findings of breast cancer. 03/29/2021 - Mammogram: diagnostic category 2 -- benign finding with no change from prior assessment. 03/26/2020 - bilateral screening mammogram: diagnostic category 2; benign finding. No change from comparison assessment. 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 She had left breast lumpectomy last month. She will begin on aromatase inhibitor, likely Tamoxifen, after radiation. Updated Visit, August 07, 2023: Clarissa returns today with her sister Minnie. She is having a clip put in soon. Lumpectomy scheduled for 08/19/[address] Valles. We reviewed her MRI together. She will complete genetic counseling. HER2 low 1+. Her disease is stage 1A. Will plan to see her for endocrine therapy following RT. Updated Visit, June 26, 2023: Ivan returns today for follow up accompanied by her sister Minnie. She has concerns about her most recent workup with Dr. Cooper. We discussed her recent bx results. She has not yet undergone (more content not included)... [facility] 09-07-2023 Note Education (RADTSA) IVAN HERRERA ([id number]) 1950 F Date Time Provider Department 09/07/23 TAYLA LANDON Reason for Visit: Patient Education [91] Visit Notes: >> Tayla Landon LPN [facility] Sep 07, 2023 2:13 PM Status: Signed Radiation Therapy - Patient Education Note PATIENT NAME: Ivan Herrera PATIENT September 07, 2023 [facility] FACILITY/LOCATION: [facility] READINESS TO LEARN Cognitive Ability: Alert and oriented Motivation to learn: Interested Family Support: Unable to assess - Family not present Instruction provide to: Patient Patient learns best by: Multiple Methods Factors effecting learning: None Physical limitations effecting learning: None LEARNING RESPONSE Diagnosis: Pt simulated today for radiation therapy to left breast. Education Topic/Teaching Points: Radiation therapy, Side effects, and OTV: Method of instruction: Written instruction - handouts Verbal instruction Patient /Family response: Patient verbalized understanding of radiation treatments, side effects, OTV, and transportation. Follow-up plan: Recommend - Recommend continued instruction and follow up as directed Supplemental material: Informational handouts on Deodorant, Breast packet, Fatigue, and Skin changes. Referral (recommendation): None, Pt denied need for social work, van service, and tax manager cpa. Was approved? No Signed by: Tayla Landon LPN During your visit today, we recorded the following information about you: Allergies As of Date: 09/07/2023 Noted Allergy Reaction SULFA (SULFONAMIDE ANTIBIOTICS) 03/10/2014 14 - Other: See Comments Comments: palpitations SULFAMETHOXAZOLE-TRIMETHOPRIM 02/13/2015 4 - Hives Date Reviewed: 09/07/2023 Reviewed by: Tayla Landon LPN - Fully Assessed Prescriptions as of 09/07/2023 - Glucosamine Sulfate (GLUCOSAMINE) 500 mg tab Take 3 tablets by mouth once daily. - phytosterol/pantethine (CHOLESTOFF COMPLETE ORAL) Take by mouth. - calcium carbonate/vitamin D3 (CALCIUM WITH VITAMIN D3 ORAL) Take by mouth. - ofloxacin (OCUFLOX) 0.3 % ophthalmic solution - prednisoLONE acetate (PRED FORTE, ECONOPRED PLUS) 1 % ophthalmic suspension - anastrozole (ARIMIDEX) 1 mg tablet Take 1 tablet by mouth once daily. - ubidecarenone Q-10 (CO Q-10) 10 mg cap Take by mouth twice daily. - LUTEIN ORAL Take by mouth. - Multivitamins-Iron tab Take 1 tablet by mouth once daily. - [place]-3 Fatty Acids-Vitamin E (FISH OIL) 1,000 mg cap Take 1 capsule by mouth. - atorvastatin (LIPITOR) 10 mg tablet Encounter Status:Closed by TAYLA LANDON on 09/07/23 [facility] 08-27-2023 Instructions Jack Ding PA-C - 08/27/2023 11:42 AM EST Dear Ms. Herrera, Thank you for coming to see us today and entrusting us with your breast care! It was so nice to see you today and we are happy to hear you are doing well! As we discussed at your appointment today: Please stop at the scheduling desk to schedule your follow up with the surgical team in 6 months. If you need to change your appointment in the future - you may call [phone] Incision care - if the glue is still on your incision in 1 week, apply a small amount of lotion to your incision site 10 minutes prior to showering, shower, then pat dry with a clean towel. Please do this daily until the glue is removed. Showering, supportive bra, restrictions and signs/symptoms of seroma and infection (painful, red, hot angry breast). If you develop signs and symptoms of infection or seroma, please do not hesitate to call and we are happy to see you. No immersing the breast in water (bath, hot tub, pool, oleary, ocean) for another 2 weeks. Please continue your arm exercises. If you develop concerns regarding your LEFT arm such as swelling or range of motion issues, please let us know and we can arrange a consultation with breast occupational therapy. As part of your breast cancer care team, we recommend follow up consultation with our medical oncologist and radiation oncologist for further breast cancer assessment, recommendations. This is scheduled. Breast health recommendations you can employ for your breast cancer journey include routine breast self awareness, clinical breast exams; annual mammography, minimal alcohol use, no tobacco use and 150min / week of aerobic exercise per week as your heart, lungs and joints allow. Wearing a well fitting (as in getting an updated professional fitting if it is has been some time) supportive bra is helpful for most women as well. If you develop new breast concerns, please make an appointment with your breast health team for further evaluation. We are happy to see you any time with any surgical breast questions or concerns. If you would like to compliment one of our caregivers you encountered today, you may do so at [email or web address]. Thank you for your time in recognizing those who cared for you during your journey with your breast health team. Jack Ding PA-C Care team: Severo Valles MD, FACS NILAY Gardiner PA-C RN, BSN, CN-BN Rosa Cadena MA Contact numbers: [facility] Team Office Number: [phone] Scheduling contact number: [phone] Nurse / clinical questions: [phone] Fax number: [phone] Night/weekends/holidays: [phone] and ask for the Breast Surgeon Fagot Maker documented in this encounter [facility] 08-27-2023 Note HNO ID: [id number] Author: JACK DING PA-C Service: ? Author Type: Physician Division Order Technician Type: Progress Notes Filed: 08/27/2023 13:02 Note Text: BREAST CANCER POST OPERATIVE FOLLOW-UP SERVICE DATE: 08/27/2023 SURGERY DATE: 08/19/23 POSTOPERATIVE VISIT #1 SUBJECTIVE: Ivan Herrera is a 73 year old female s/p LEFT lumpectomy, sentinel node biopsy. She is doing wonderfully with no surgical site concerns today. OBJECTIVE: PHYSICAL EXAM: 08/27/23 1122 Temp: 36.5 ?C (97.7 ?F) TempSrc: Oral Weight: 89.4 kg (197 lb) The left breast incision and axillary incision are both healing well. There is no evidence of infection. PATHOLOGY REPORT: FINAL DIAGNOSIS 1. Left axillary sentinel lymph node #1, excision (A) - Benign fibroadipose tissue. -No lymph node is identified. 2. Left breast, lumpectomy (B) - Invasive ductal carcinoma, Isabella grade 1, spanning 0.4 cm, (see comment). -Ductal carcinoma in situ (DCIS), nuclear grade 2, solid and cribriform types with microcalcifications. -Biopsy site changes and biopsy clip (x1) are identified. -The surrounding breast tissue shows atypical ductal hyperplasia (ADH), atypical lobular hyperplasia (ALH), usual ductal hyperplasia and apocrine metaplasia. 3. Left breast, superior margin, excision (C) - Benign breast tissue with usual ductal hyperplasia. 4. Left breast, inferior margin, excision (D) - Benign breast tissue. 5. Left breast, medial margin, excision (E) - Benign breast tissue. 6. Left breast, lateral margin, excision (F) - Benign breast tissue with microcalcifications. 7. Left breast, anterior margin, excision (G) - Atypical lobular hyperplasia (ALH). -The surrounding breast tissue shows usual ductal hyperplasia. 8. Left breast, posterior margin, excision (H) - Benign breast tissue. PJM/pjcinthya/08/21/23 Diagnosis Comment CCM Part 1 - The specimen has been entirely submitted for histologic examination; no lymph node is identified. Part 2 - Please see separately submitted margins for additional information regarding the final margin status. Block for additional Biomarkers/Molecular studies CCM Tumor block: B5. Synoptic Report INVASIVE CARCINOMA OF THE BREAST: Resection 8th Edition - Protocol posted: 03/18/2023 INVASIVE CARCINOMA OF THE BREAST: RESECTION - All Specimens SPECIMEN Procedure Excision (less than total mastectomy) Specimen Laterality Left TUMOR Histologic Type Invasive carcinoma of no special type (ductal) Histologic Grade ([place] Histologic Score) Glandular (Acinar) / Tubular Differentiation Score 2 Nuclear Pleomorphism Score 2 Mitotic Rate Score 1 Overall Grade Grade 1 (scores of 3, 4 or 5) Tumor Size Greatest dimension of largest invasive focus (Millimeters): 4 mm Tumor Focality Single focus of invasive carcinoma Ductal Carcinoma In Situ (DCIS) Present Architectural Patterns Cribriform Solid Nuclear Grade Grade II (intermediate) Necrosis Not identified Lymphatic and / or Vascular Invasion Not identified Treatment Effect in the Breast No known presurgical therapy MARGINS Margin Status for Invasive Carcinoma All margins negative for invasive carcinoma Distance from Invasive Carcinoma to Closest Margin Greater than: 2 mm Margin Status for DCIS All margins negative for DCIS Distance from DCIS to Closest Margin Greater than: 2 mm REGIONAL LYMPH NODES Regional Lymph Node Status Not applicable (no regional lymph nodes submitted or found) pTNM CLASSIFICATION (AJCC 8th Edition) Reporting of pT, pN, and (when applicable) pM categories is based on information available to the pathologist at the time the report is issued. As per the AJCC (Chapter 1, 8th Ed.) it is the managing physician?s responsibility to establish the final pathologic stage based upon all pertinent information, including but potentially not limited to this pathology report. pT Category pT1a pN Category pN not assigned (no nodes submitted or found) Breast Biomarker Testing Performed on Previous Biopsy Estrogen Receptor (ER) Status Positive (greater than 10% of cells demonstrate nuclear positivity) Percentage of Cells with Nuclear Positivity 91-100% Breast Biomarker Testing Performed on Previous Biopsy Progesterone Receptor (PgR) Status Negative Breast Biomarker Testing Performed on Previous Biopsy HER2 (by immunohistochemistry) Negative (Score 1+) Testing Performed on Comment(s) Tumor block: B5. This synnoptic report incorporates the separately submitted final margins. PATHOLOGICAL STAGE LEFT BREAST: p,T1a,Nx, STAGE: Stage 1A: (T1-T1mi, N0, M0) ASSESSMENT: Ivan Herrera is a 73 year old female s/p LEFT lumpectomy attempted sentinel node biopsy for a LEFT T1aNx, grade 1 IDC ER+ MA- HER2 neg breast cancer Doing wonderfully from a surgical standpoint POST OPERATIVE STATUS: Uncomplicated (more content not included)... [facility] 08-27-2023 History of Presen t illness Narrative BREAST CANCER POST OPERATIVE FOLLOW-UP SERVICE DATE: 08/27/2023 SURGERY DATE: 08/19/23 POSTOPERATIVE VISIT #1 SUBJECTIVE: Ivan Herrera is a 73 year old female s/p LEFT lumpectomy, sentinel node biopsy. She is doing wonderfully with no surgical site concerns today. OBJECTIVE: PHYSICAL EXAM: 08/27/23 1122 Temp: 36.5 C (97.7 F) TempSrc: Oral Weight: 89.4 kg (197 lb) The left breast incision and axillary incision are both healing well. There is no evidence of infection. PATHOLOGY REPORT: FINAL DIAGNOSIS 1. Left axillary sentinel lymph node #1, excision (A) - Benign fibroadipose tissue. -No lymph node is identified. 2. Left breast, lumpectomy (B) - Invasive ductal carcinoma, Isabella grade 1, spanning 0.4 cm, (see comment). -Ductal carcinoma in situ (DCIS), nuclear grade 2, solid and cribriform types with microcalcifications. -Biopsy site changes and biopsy clip (x1) are identified. -The surrounding breast tissue shows atypical ductal hyperplasia (ADH), atypical lobular hyperplasia (ALH), usual ductal hyperplasia and apocrine metaplasia. 3. Left breast, superior margin, excision (C) - Benign breast tissue with usual ductal hyperplasia. 4. Left breast, inferior margin, excision (D) - Benign breast tissue. 5. Left breast, medial margin, excision (E) - Benign breast tissue. 6. Left breast, lateral margin, excision (F) - Benign breast tissue with microcalcifications. 7. Left breast, anterior margin, excision (G) - Atypical lobular hyperplasia (ALH). -The surrounding breast tissue shows usual ductal hyperplasia. 8. Left breast, posterior margin, excision (H) - Benign breast tissue. PJM/pjm/08/21/23 Diagnosis Comment CCM Part 1 - The specimen has been entirely submitted for histologic examination; no lymph node is identified. Part 2 - Please see separately submitted margins for additional information regarding the final margin status. Block for additional Biomarkers/Molecular studies CCM Tumor block: B5. Synoptic Report INVASIVE CARCINOMA OF THE BREAST: Resection 8th Edition - Protocol posted: 03/18/2023 INVASIVE CARCINOMA OF THE BREAST: RESECTION - All Specimens SPECIMEN Procedure Excision (less than total mastectomy) Specimen Laterality Left TUMOR Histologic Type Invasive carcinoma of no special type (ductal) Histologic Grade ([place]abella Histologic Score) Glandular (Acinar) / Tubular Differentiation Score 2 Nuclear Pleomorphism Score 2 Mitotic Rate Score 1 Overall Grade Grade 1 (scores of 3, 4 or 5) Tumor Size Greatest dimension of largest invasive focus (Millimeters): 4 mm Tumor Focality Single focus of invasive carcinoma Ductal Carcinoma In Situ (DCIS) Present Architectural Patterns Cribriform Solid Nuclear Grade Grade II (intermediate) Necrosis Not identified Lymphatic and / or Vascular Invasion Not identified Treatment Effect in the Breast No known presurgical therapy MARGINS Margin Status for Invasive Carcinoma All margins negative for invasive carcinoma Distance from Invasive Carcinoma to Closest Margin Greater than: 2 mm Margin Status for DCIS All margins negative for DCIS Distance from DCIS to Closest Margin Greater than: 2 mm REGIONAL LYMPH NODES Regional Lymph Node Status Not applicable (no regional lymph nodes submitted or found) pTNM CLASSIFICATION (AJCC 8th Edition) Reporting of pT, pN, and (when applicable) pM categories is based on information available to the pathologist at the time the report is issued. As per the AJCC (Chapter 1, 8th Ed.) it is the managing physician s responsibility to establish the final pathologic stage based upon all pertinent information, including but potentially not limited to this pathology report. pT Category pT1a pN Category pN not assigned (no nodes submitted or found) Breast Biomarker Testing Performed on Previous Biopsy Estrogen Receptor (ER) Status Positive (greater than 10% of cells demonstrate nuclear positivity) Percentage of Cells with Nuclear Positivity 91-100% Breast Biomarker Testing Performed on Previous Biopsy Progesterone Receptor (PgR) Status Negative Breast Biomarker Testing Performed on Previous Biopsy HER2 (by immunohistochemistry) Negative (Score 1+) Testing Performed on Comment(s) Tumor block: B5. This synnoptic report incorporates the separately submitted final margins. PATHOLOGICAL STAGE LEFT BREAST: p,T1a,Nx, STAGE: Stage 1A: (T1-T1mi, N0, M0) ASSESSMENT: Ivan Herrera is a 73 year old female s/p LEFT lumpectomy attempted sentinel node biopsy for a LEFT T1aNx, grade 1 IDC ER+ MA- HER2 neg breast cancer Doing wonderfully from a surgical standpoint POST OPERATIVE STATUS: Uncomplicated post-operative course PLAN: The pathology report was discussed in detail with the patient. All questions were answered to her satisfaction. As we discussed at your appointment today: Schedule with Dr Valles in 6 months. May use Aspercreme around incision site for discomfort. Incision care, showering, supportive bra, restrictions and signs/symptoms of seroma and infection (painful, red, hot angry breast). If you develop signs and symptoms of infection or seroma, please do not hesitate to call and we are happy to see you. No immersing the breast in water (bath, hot tub, pool, oleary, ocean) for another 2 weeks. Please continue your arm exercises. If you develop concerns regarding your LEFT arm such as swelling or range of motion issues, please let us know and we can arrange a consultation with breast occupational therapy. As part of your breast cancer care team, we recommend follow up consultation with our medical oncologist and radiation oncologist for further breast cancer assessment, recommendations. This is scheduled. Breast health recommendations you can employ for your breast cancer journey include routine breast self awareness, clinical breast exams; annual mammography, minimal alcohol use, no tobacco use and 150min / week of aerobic exercise per week as your heart, lungs and joints allow. Wearing a well fitting (as in getting an updated professional fitting if it is has been some time) supportive bra is helpful for most women as well. If you develop new breast concerns, please make an appointment with your breast health team for further evaluation. We are happy to see you any time with any surgical breast questions or concerns. All questions were answered to her satisfaction, she verbalizes understanding and is agreeable to the plan. Jack Ding PA-C documented in this encounter [facility] 08-19-2023 Note HNO ID: [id number] Author: JACK DING PA-C Service: ? Author Type: Physician Division Order Technician Type: Progress Notes Filed: 08/19/2023 12:10 Note Text: Pt requested change in tramadol RX to [facility]. Prior RX discontinued and new RX sent to requested pharmacy. Jack Ding PA-C [facility] 08-19-2023 History of Presen t illness Narrative Pt requested change in tramadol RX to [facility]. Prior RX discontinued and new RX sent to requested pharmacy. Jack Ding PA-C documented in this encounter [facility] 08-19-2023 Miscellaneous Notes RADIOLOGY SERVICE PROGRESS NOTE SERVICE DATE: 08/19/2023 SERVICE TIME: 10:19 AM PATIENT IDENTITY VERIFICATION COMPLETED USING TWO (2) STANDARD IDENTIFIERS: Name and Date of confirmed by patient verbally FALL SCREENING: Has the patient had 2 falls in the last year or 1 fall with injury or currently using an Ambulatory Assistive Device (Walker, Cane, Wheelchair, Crutches, etc.)? No PATIENT GENDER DATA: .female ALLERGIES: Reviewed and unchanged MEDICATIONS REVIEWED: No PATIENT RELEVANT IMPLANT DATA REVIEWED: Not Applicable PATIENT PRESENTS WITH AN IMPLANTABLE OR ATTACHED LEAD RIDER: No CREATININE: Creatinine Date Value Ref Range Status 06/26/2023 0.69 0.58 - 0.96 mg/dL Final 04/19/2020 0.71 0.58 - 0.96 mg/dL Final 04/07/2014 0.64 (L) 0.70 - 1.40 mg/dL Final Estimated Glomerular Filtration Rate Date Value Ref Range Status 06/26/2023 92 >=60 mL/min/1.73m Final Comment: Estimated Glomerular Filtration Rate (eGFR) is calculated using the 2020 CKD-EPI creatinine equation. This equation utilizes serum creatinine, sex, and age as parameters. The creatinine assay has traceable calibration to isotope dilution-mass spectrometry. Refer to KDIGO guidelines for clinical interpretation. In patients with unstable renal function, e.g. those with acute kidney injury, the eGFR may not accurately reflect actual GFR. eGFR- Date Value Ref Range Status 04/19/2020 >60 Final P.O.C.T. RESULTS: N/A August 19, [address] PERFORMED: No IV SITE: Ambulatory: Not applicable POST EXAM PIV STATUS: Not applicable PROCEDURE TYPE: NM INJECT: [place] Node Injection Left Breast. 540 microcuries Tc99m Lymphoseek. No other medications given.. ADMINISTRATION TIME: 10:10 PATIENT DISCHARGED TO: Ambulatory patient, left NM department area. A Diagnostic radioactive procedure has taken place, with no further precautions necessary other than routine body substance precautions. More information regarding radiation safety can be found using this link: [email or web address] SIGNATURE: RT Miguel([place]ce) PATIENT NAME: Ivan Herrera DATE: August 19, 2023 TIME: 10:19 AM PAGER/CONTACT #: documented in this encounter [facility] 08-12-2023 Note HNO ID: [id number] Author: NEYMAR BORGES LGC Service: ? Author Type: Genetic Counselor Type: Progress Notes Filed: 08/18/2023 13:44 Note Text: [facility] Consultation Note Genetic Counselor: Neymar Borges, MS, CGC Patient: Ivan Herrera Patient Name and confirmed at initiation of visit. Appointment occurred with audiovisual communication through [facility] Virtual Visit. I have communicated my name and active licensure. The patient's identity and physical location were verified at the time of this visit. Either the patient or their legal arborist representative has been informed of the risks and benefits of -- and alternatives to -- treatment through a remote evaluation and consents to proceed with the evaluation remotely. HIGH LEVEL SUMMARY: The patient's personal and family history is potentially suggestive of a hereditary cancer syndrome. The patient provided informed consent for Multi-Cancer panel through [facility]. Results are expected in 2-3 weeks. IDENTIFICATION AND CHIEF COMPLAINT: Dr. Myles Talamantes requested a consultation for genetic counseling and risk assessment for Ivan Herrera, a 73 year old female, for discussion of her personal and family history of cancer. She presents to clinic today to discuss the possibility of a genetic predisposition to cancer, and to further clarify her risks, as well as her family members' risks for cancer. HISTORY OF PRESENT ILLNESS: In 2014, Ivan Herrera was diagnosed with a right breast cabcer. This was treated with lumpectomy, radiation therapy, and endocrine therapy for 5 years. Now in 2023, Mrs. Herrera has a left breast cancer. She is scheduled for a lumpectomy and further care will be based on final pathology. PAST MEDICAL HISTORY Diagnosis Date Abnormal mammogram 2010 Biopsy normal High cholesterol Spinal cord injury Spondylosis PAST SURGICAL HISTORY Procedure Laterality Date BACK SURGERY HX spinal surg bone graft upper thoracic CATARACT EXTRACTION HX COLONSCOPY SCREENING HIGH RISK HYSTERECTOMY HX 2014 PAST SURGICAL HISTORY OF 2010 breast biopsy negative PAST SURGICAL HISTORY OF fatty tumor left hand PAST SURGICAL HISTORY OF Right lumpectomy REPRODUCTIVE HISTORY AND PERSONAL RISK ASSESSMENT FACTORS: Weight: Last 1 Encounter Wt Readings: Date: Wt: 08/11/2023 89.6 kg (197 lb 8.5 oz) Height: Last 1 Encounter Ht Readings: Date: Ht: 08/11/2023 174 cm (5' 8.5 ) Uterus Intact: No Ovaries Intact: No, teratoma SOCIAL HISTORY: Social History Tobacco Use Smoking status: Former Packs/day: 0.10 Years: 10.00 Additional pack years: 0.00 Total pack years: 1.00 Types: Cigarettes Quit date: 2004 Years since quittin.1 Smokeless tobacco: Never Vaping Use Vaping Use: Never used Substance Use Topics Alcohol use: Yes Comment: rare Drug use: No FAMILY HISTORY: We obtained a detailed, 4-generation family history. Significant diagnoses are listed below: Father: diffusely metastatic cancer with unknown origin at 67 Mother: ovarian cancer and then breast cancer a year later at 82 and 83, respectively 3 sisters 1 daughter, 1 son 1 mat uncle A copy of the patient's pedigree will be available under the scanned documents tab following today's visit. GENETIC COUNSELING RISK ASSESSMENT, DISCUSSION, AND SUGGESTED FOLLOW UP: We reviewed the natural history and genetic etiology of sporadic, familial and hereditary cancer syndromes. The patient's personal and family history is potentially suggestive of a hereditary cancer syndrome. The patient meets NCCN HBOC testing criteria based on her personal history of multiple primary breast cancers as well as personal history of breast cancer and close relative with ovarian cancer. We discussed that identification of a hereditary cancer syndrome may help her care providers tailor her medical management. If a mutation is detected, the patient will be referred back to the referring provider and to any additional appropriate care providers to discuss the relevant options. Inheritance of hereditary cancer syndromes was discussed with the patient. If a mutation is not found in the patient, this will decrease the likelihood of a hereditary cancer syndrome as the explanation for the patient's personal and family history of cancer. However, it cannot completely rule out this possibility. Cancer surveillance options would be discussed for the patient according to the appropriate standard National Comprehensive Cancer Network and [place] [employer] guidelines, with consideration of their personal and family history risk factors. In this case, the patient will be referred back to their care providers for discussions of management. Based on this assessment of the patient's family and personal history, genetic testing is recommended. It wa (more content not included)... [facility] 08-12-2023 History of Presen t illness Narrative [facility] Consultation Note Genetic Counselor: Neymar Borges, MS, CGC Patient: Ivan Herrera Patient Name and confirmed at initiation of visit. Appointment occurred with audiovisual communication through [facility] Virtual Visit. I have communicated my name and active licensure. The patient's identity and physical location were verified at the time of this visit. Either the patient or their legal arborist representative has been informed of the risks and benefits of -- and alternatives to -- treatment through a remote evaluation and consents to proceed with the evaluation remotely. HIGH LEVEL SUMMARY: The patient's personal and family history is potentially suggestive of a hereditary cancer syndrome. The patient provided informed consent for Multi-Cancer panel through [facility]. Results are expected in 2-3 weeks. IDENTIFICATION AND CHIEF COMPLAINT: Dr. Myles Talamantes requested a consultation for genetic counseling and risk assessment for Ivan Herrera, a 73 year old female, for discussion of her personal and family history of cancer. She presents to clinic today to discuss the possibility of a genetic predisposition to cancer, and to further clarify her risks, as well as her family members' risks for cancer. HISTORY OF PRESENT ILLNESS: In 2014, Ivan Herrera was diagnosed with a right breast cabcer. This was treated with lumpectomy, radiation therapy, and endocrine therapy for 5 years. Now in 2023, Mrs. Herrera has a left breast cancer. She is scheduled for a lumpectomy and further care will be based on final pathology. PAST MEDICAL HISTORY Diagnosis Date Abnormal mammogram 2009 Biopsy normal High cholesterol Spinal cord injury Spondylosis PAST SURGICAL HISTORY Procedure Laterality Date BACK SURGERY HX spinal surg bone graft upper thoracic CATARACT EXTRACTION HX COLONSCOPY SCREENING HIGH RISK HYSTERECTOMY HX 2014 PAST SURGICAL HISTORY OF 2010 breast biopsy negative PAST SURGICAL HISTORY OF fatty tumor left hand PAST SURGICAL HISTORY OF Right lumpectomy REPRODUCTIVE HISTORY AND PERSONAL RISK ASSESSMENT FACTORS: Weight: Last 1 Encounter Wt Readings: Date: Wt: 08/11/2023 89.6 kg (197 lb 8.5 oz) Height: Last 1 Encounter Ht Readings: Date: Ht: 08/11/2023 174 cm (5' 8.5 ) Uterus Intact: No Ovaries Intact: No, teratoma SOCIAL HISTORY: Social History Tobacco Use Smoking status: Former Packs/day: 0.10 Years: 10.00 Additional pack years: 0.00 Total pack years: 1.00 Types: Cigarettes Quit date: 2004 Years since quittin.1 Smokeless tobacco: Never Vaping Use Vaping Use: Never used Substance Use Topics Alcohol use: Yes Comment: rare Drug use: No FAMILY HISTORY: We obtained a detailed, 4-generation family history. Significant diagnoses are listed below: Father: diffusely metastatic cancer with unknown origin at 67 Mother: ovarian cancer and then breast cancer a year later at 82 and 83, respectively 3 sisters 1 daughter, 1 son 1 mat uncle A copy of the patient's pedigree will be available under the scanned documents tab following today's visit. GENETIC COUNSELING RISK ASSESSMENT, DISCUSSION, AND SUGGESTED FOLLOW UP: We reviewed the natural history and genetic etiology of sporadic, familial and hereditary cancer syndromes. The patient's personal and family history is potentially suggestive of a hereditary cancer syndrome. The patient meets NCCN HBOC testing criteria based on her personal history of multiple primary breast cancers as well as personal history of breast cancer and close relative with ovarian cancer. We discussed that identification of a hereditary cancer syndrome may help her care providers tailor her medical management. If a mutation is detected, the patient will be referred back to the referring provider and to any additional appropriate care providers to discuss the relevant options. Inheritance of hereditary cancer syndromes was discussed with the patient. If a mutation is not found in the patient, this will decrease the likelihood of a hereditary cancer syndrome as the explanation for the patient's personal and family history of cancer. However, it cannot completely rule out this possibility. Cancer surveillance options would be discussed for the patient according to the appropriate standard National Comprehensive Cancer Network and [place] [employer] guidelines, with consideration of their personal and family history risk factors. In this case, the patient will be referred back to their care providers for discussions of management. Based on this assessment of the patient's family and personal history, genetic testing is recommended. It was reviewed that if she were to have a hereditary cause for her breast cancer it would most likely be due to a BRCA1/2 mutation. It was also discussed that other genes beyond BRCA1/2 could account for the history and be tested along with BRCA1/2 via a multigene panel. The patient was offered Multi-Cancer panel through [facility]. After considering the risks, benefits, and limitations, the patient chose to pursue and provided informed consent for the following testing: Multi-Cancer panel through [facility]. The Multi-Cancer Panel includes AIP, ALK, APC, FARIDEH, AXIN2, BAP1, BARD1, BLM, BMPR1A, BRCA1, BRCA2, BRIP1, CDC73, CDH1, CDK4, CDKN1B, CDKN2A, CHEK2, CTNNA1, DICER1, EGFR, EPCAM, FH, FLCN, GREM1, HOXB13, KIT, LZTR1, MAX, MBD4, MEN1, MET, MITF, MLH1, MSH2, MSH3, MSH6, MUTYH, NF1, NF2, NTHL1, PALB2, PDGFRA, PMS2, POLD1, POLE, POT1, TOLTD0Z, PTCH1, PTEN, RAD51C, RAD51D, RB1, RET, SDHA, SDHAF2, SDHB, SDHC, SDHD, SMAD4, SMARCA4, SMARCB1, SMARCE1, STK11, SUFU, RUVW861, TP53, TSC1, TSC2, and VHL The Multi-Cancer panel looks at genes associated with cancers of the breast, gynecologic tract (ovarian, uterine/endometrial), gastrointestinal system (colorectal, gastric, pancreatic), endocrine glands (thyroid, parathyroid, pituitary, adrenal glands), genitourinary tract (renal/urinary tract, prostate), skin (melanoma, basal cell carcinoma), and brain/nervous system. We discussed that an NGS panel can rarely result in an unexpected finding which may or may not be related to the presenting phenotype. We discussed that [facility] may contact the patient by text or email regarding billing. The patient should watch for this communication and respond promptly. The patient should contact [facility] directly with any billing questions (ph. [phone]). Per the patient's request, I will contact her by telephone to discuss these results. A follow up genetic counseling visit will be scheduled if requested. The patient was seen for a total of 35 minutes, greater than 50% of which was spent [id number] counseling. This plan is being carried out under the oversight of Dr. Beth Lira. This note will also be sent to the referring provider via the electronic medical record. Neymar Borges MS, [facility] Licensed, Certified Genetic Counselor [facility] CC: Dr. Myles Lira [facility] documented in this encounter [facility] 08-11-2023 Instructions Aiden Downing APRN.MEDICAL DIRECTOR OF HOSPICE - 08/11/2023 11:34 AM EST PATIENT PREOPERATIVE INSTRUCTIONS Severo Valles MD has scheduled you for your procedure at this surgery center: [facility]: [phone] --[id number] [place] [address]. Please enter through the entrance closest to [facility]. Please read below carefully for your personalized instructions. Dietary Restrictions: - No solid food after midnight. - You may have 12 ounces of clear liquids (water, clear juices such as apple juice or gatorade, carbonated beverages, clear tea, black coffee, jello) until 2 hours before scheduled arrival at facility. Medications: Unless instructed differently below, stay on all of your medications until your surgery. If you start any new medications after today's visit, please contact your surgeon. Pre-Surgery Med Instructions Medication Instructions phytosterol/pantethine (CHOLESTOFF COMPLETE ORAL) Stop 7 days before surgery calcium carbonate/vitamin D3 (CALCIUM WITH VITAMIN D3 ORAL) Stop 7 days before surgery anastrozole (ARIMIDEX) 1 mg tablet Continue Taking ubidecarenone Q-10 (CO Q-10) 10 mg cap Stop 7 days before surgery Glucosamine Sulfate (GLUCOSAMINE) 500 mg tab Stop 7 days before surgery LUTEIN ORAL Stop 7 days before surgery Multivitamins-Iron tab Stop 7 days before surgery [place]-3 Fatty Acids-Vitamin E (FISH OIL) 1,000 mg cap Stop 7 days before surgery atorvastatin (LIPITOR) 10 mg tablet Continue Taking If you start any new medications after today's visit, please contact the surgeon's office. Blood Thinning Medications: - Stop NSAIDS (Ibuprofen, Advil, Aleve, Motrin, Celebrex, Mobic, etc.) 7 days before surgery, as directed by your surgeon. - Hold Aspirin 7 days before surgery, as directed by your surgeon. - Stop Vitamin E, ALL multi-vitamins, herbals and dietary supplements 7 days before surgery. - You may take Tylenol (Acetaminophen) or any of your pain medications that do not contain aspirin or NSAIDS as needed. Important Reminders: - If you use CPAP/BIPAP, bring the machine with you to the surgery center. - If you are prescribed inhalers for breathing, continue using them. - Candy, mints, and tobacco products are NOT permitted the morning of surgery. - Hearing aids, dentures and glasses may be worn the morning of surgery. - NO jewelry, body piercings, makeup, hairpins or contacts are to be worn the day of surgery. If you develop symptoms such as a fever, cold, or flu, or have other changes to your health within TWO DAYS of scheduled surgery or the morning of surgery, please contact the surgery center above. Personal Belongings: -Please have photo ID and insurance cards. -If you do not have a copy of advance directives on file with us, please bring a copy with you on the day of surgery. - Leave ALL valuables and money at home or with family members. For Outpatient Procedures: - YOU MUST HAVE A RESPONSIBLE PARENT COACH TAKE YOU HOME. A LABORATORY ENGINEER OR ARTICULATION OFFICER CANNOT BE MADE A RESPONSIBLE PARENT COACH. - We recommend that a responsible person stays with you overnight to take care of you. - You cannot stay in a hotel alone after outpatient surgery. You will not be permitted to have your surgery, if you do not have someone to take care of you. Arrival Time for Surgery: - The Surgery Center or hospital where you are having surgery will call the afternoon before surgery (or Thursday for Thursday surgery) with a scheduled arrival time. - If you have not heard by 4 pm, please contact the surgery center above. Please be aware that emergency situations arise, which may delay or change your surgical time. If this happens, we will notify you as soon as possible and regret any inconvenience. If you already have an Advance Directive, please fax a copy to [phone] or email to for it to be added to your chart. If you do not have an Advance Directive, you can find the appropriate form and more information at [email or web address]. We recommend that you complete the Advance Directive form found on the website and bring it with you the day of your surgery. It can be witnessed and scanned into your chart that day. documented in this encounter [facility] 08-11-2023 History and physical note HISTORY AND PHYSICAL EXAMINATION SERVICE DATE: 08/11/2023 SERVICE TIME: 11:29 AM PRIMARY CARE PHYSICIAN: Chauncey Bowles MD, MD REASON FOR VISIT: Ivan Herrera is a 73 year old female who is scheduled for Procedure(s) (LRB): LUMPECTOMY BREAST (Left) EXCISION BREAST LESION IDENTIFIED BY PREOPERATIVE PLACEMENT RADIOLOGICAL MARKER, OPEN, SINGLE LESION (Left) INTRAOPERATIVE ID OF SENTINEL LYMPH NODE(S) INCL'D INJECTION OF NON-RAD DYE WHEN PERFORMED (Left) BIOPSY NODE AXILLARY (Left) INJECTION PROCEDURE RADIOACTIVE TRACER FOR IDENTIFICATION OF SENTINEL NODE (Left) at the request of Dr. Severo Valles for consultation. My final recommendation will be communicated back to the requesting physician by way of shared medical record or letter. The patient has the following: ACTIVE PROBLEM LIST Abdominal Or Pelvic Swelling, Mass Or Lump, Unspecified Site S/P Hysterectomy Cancer of Breast, Intraductal Malignant Neoplasm of Upper-Outer Quadrant of Right Female Breast (Hcc) History of Breast Cancer Subjective CHIEF COMPLAINT: Malignant neoplasm of central portion of left breast in female, estrogen receptor positive (HCC) (HCC) [C50.112, Z17.0] HPI: Patient is a 73 year old FEMALE presenting for pre-op evaluation for the above procedure. Patient denies any chest pain, shortness of breath, palpitations, fever/chills, nausea/vomiting, fatigue, or diarrhea. no pain at today's visit. Recommended for above surgery. PAST MEDICAL HISTORY Diagnosis Date Abnormal mammogram 2009 Biopsy normal High cholesterol Spinal cord injury Spondylosis PAST SURGICAL HISTORY Procedure Laterality Date BACK SURGERY HX spinal surg bone graft upper thoracic CATARACT EXTRACTION HX COLONSCOPY SCREENING HIGH RISK HYSTERECTOMY HX 2014 PAST SURGICAL HISTORY OF 2010 breast biopsy negative PAST SURGICAL HISTORY OF fatty tumor left hand PAST SURGICAL HISTORY OF Right lumpectomy FAMILY HISTORY Problem Relation Age of Onset Colon Cancer Father mets to bone, unknown origin Ovarian cancer Mother 82 Breast Cancer Mother SOCIAL HISTORY: Social History Tobacco Use Smoking status: Former Packs/day: 0.10 Years: 10.00 Additional pack years: 0.00 Total pack years: 1.00 Types: Cigarettes Quit date: 2004 Years since quittin.1 Smokeless tobacco: Never Vaping Use Vaping Use: Never used Substance Use Topics Alcohol use: Yes Comment: rare Drug use: No Prior to Admission medications as of 08/11/23 1129 Medication Sig Last Dose Taking phytosterol/pantethine (CHOLESTOFF COMPLETE ORAL) Take by mouth. Taking Yes calcium carbonate/vitamin D3 (CALCIUM WITH VITAMIN D3 ORAL) Take by mouth. Taking Yes anastrozole (ARIMIDEX) 1 mg tablet Take 1 tablet by mouth once daily. Yes ubidecarenone Q-10 (CO Q-10) 10 mg cap Take by mouth twice daily. Taking Yes Glucosamine Sulfate (GLUCOSAMINE) 500 mg tab Take 1,500 tablets by mouth. Taking Yes LUTEIN ORAL Take by mouth. Taking Yes Multivitamins-Iron tab Take 1 tablet by mouth once daily. Taking Yes Atqasuk-3 Fatty Acids-Vitamin E (FISH OIL) 1,000 mg cap Take 1 capsule by mouth. Taking Yes atorvastatin (LIPITOR) 10 mg tablet Taking Yes ofloxacin (OCUFLOX) 0.3 % ophthalmic solution prednisoLONE acetate (PRED FORTE, ECONOPRED PLUS) 1 % ophthalmic suspension No medication comments found. ALLERGIES Allergen Reactions Sulfa (Sulfonamide * Other: See Comments palpitations Sulfamethoxazole-Tr* Hives Covid Immunization Dates Overdue - Covid-19 Vaccine (2022-) Overdue since 02/27/2023 09/21/2020 Imm Admin: COVID-19 original vaccine, age 12+ yr, monovalent (Granular-BIONTREDWAVE ENERGY - PURPLE TOP) 08/31/2020 Imm Admin: COVID-19 original vaccine, age 12+ yr, monovalent (Granular-BIONTECH - PURPLE TOP) REVIEW OF SYSTEMS: PAIN ASSESSMENT: General: No weight loss, malaise or fevers. Neuro: No history of TIA's, stroke, COMMISSIONER OF OFFICIALS tumor, impaired sensorium, hemiplegia, paraplegia or quadraplegia. No neurological symptoms or problems. Respiratory: Positive for Tobacco Use , Negative for Current cough, Pneumonia within 6 weeks (date) Cardiovascular: No history of HTN requiring medication, no history of angina, CHF, PR, cardiac surgery or stents. Denies rest pain, gangrene or revascularization/amputation for PVD. No history of cardiovascular symptoms or problems. 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 : Denies, No LMP recorded. Patient has had a hysterectomy. Endocrine: No history of diabetes. Has not taken steroids within the past 30 days. No history of endocrinological symptoms or problems. Hematology: No history of bleeding or clotting disorder. Pt is not taking anti-coagulation or platelet medications. No history of hematological symptoms or problems. Oncology: Malignant neoplasm of central portion of left breast in female, estrogen receptor positive (HCC) (HCC) [C50.112, Z17.0] Psych: No history of psychiatric symptoms or problems. Musculoskeletal: Negative for joint pain or swelling, back pain or muscle pain. Skin: Negative for lesions, rash and itching. Objective PHYSICAL EXAM: VITALS: BP 137/81 Pulse 71 Temp 97.5 Resp 16 Ht 5' 8.5 (1.74m) Wt 197 lb 8.5 oz (89.6kg) SpO2 97% BMI 29.59 kg/(m^2). General: Alert and oriented, No acute distress Skin: Normal color, no rash, no lesions. HEENT: EOM, pupils equal, round and reactive. Cardiovascular: Normal S1 & S2, no rubs, murmurs or gallops. No JVD. Pulse regular. Lungs: Normal breath sounds, no wheezes or crackles. Abdomen: Soft, non-tender, no rigidity. Extremities: No deformity, no edema or tenderness, no joint swelling or clubbing. Neurological: Normal cognition and motor skills. Pulses: Carotid and radial pulses normal +2. Diagnostic tests reviewed for today's visit: Lab Value Units Date High Low HB 14.1 g/dL 06/26/2023 15.5 11.5 HCT 44.7 % 06/26/2023 46.0 36.0 WBC 7.98 k/uL 06/26/2023 11.00 3.70 PLT 314 k/uL 06/26/2023 400 150 NA 140 mmol/L 06/26/2023 144 136 K 4.6 mmol/L 06/26/2023 5.1 3.7 GLUC 131 mg/dL 06/26/2023 99 74 BUN 17 mg/dL 06/26/2023 21 7 CREAT 0.69 mg/dL 06/26/2023 0.96 0.58 PTSEC No results within date range. INR No results within date range. APTT No results within date range. ALT 19 U/L 06/26/2023 38 7 AST 15 U/L 06/26/2023 35 13 TBILI 0.2 mg/dL 06/26/2023 1.3 0.2 TSH No results within date range. Lab Value Units Date High Low HCGQT No results within date range. UHCG No results within date range. HCG, BODY* No results within date range. Lab Value Units Date High Low ABORHD No results within date range. ABSCREEN No results within date range. No results found for: HBA1C Assessment/Plan PONV (postoperative nausea and vomiting) Assessment: states PONV following right breast lumpectomy in 2014 GERD (gastroesophageal reflux disease) Assessment: Managed and stable without medication. Denies difficulty swallowing or any bleeding. Cancer of breast, intraductal Assessment: presents for surgical intervention Former smoker Assessment: quit 2004, 1 pack year METS: Climb a flight of stairs or walk up a hill (5.50 METs) Patient denies any chest pain or undue shortness of breath with the above physical activity. ANESTHESIA FINDINGS: Intubation History: No history of difficult intubation Significant Anesthesia Considerations: Postop nausea/vomiting, states vomiting following right lumpectomy 2014. Airway Exam: General: Normal appearance Mallampati Score is CLASS II ULBT: Class II - Lower incisors can bite the upper lip below the cassius line Neck: Normal appearance and function, Distance from hyoid to mentum during neck extension is at least 3 finger breaths Mouth: Normal tongue size and Mouth opening greater than 2 finger breaths Dentition: Intact Airway History: No abnormal airway history 08/08/2023 Sleep Apnea Probability Snores loudly: No Tired, fatigued or sleepy in daytime: No Stops breathing or choking/gasping during sleep: No High blood pressure: No Sleep Apnea Probability Score: 28 (Sleep study not recommended) PLAN This patient is optimally prepared for surgery. CONSULTS: Patient does not require consults for optimization at this time. The Following Tests/Procedures Have Been Initiated: Labs not indicated per [facility] protocol, EKG not indicated per [facility] protocol Planned Anesthetic: Per anesthesia choice Instructions Given to Patient: Instructions located in the after visit summary. Patient given verbal and written preop instructions and voices comprehension and compliance. SIGNATURE: Aiden Downing APRN.CNP PATIENT NAME: Ivan Herrera DATE: August 11, 2023 TIME: 11:29 AM documented in this encounter [facility] 08-10-2023 Miscellaneous Notes I have reviewed and approved the localization plan. Images dated 07/09/2023 are annotated. Radiologist: Jolene Morales MD LOCALIZATION IMAGE REVIEW (Please do NOT submit until entire workup complete) (if > 3 reflectors to be placed in one breast, please review with radiologist) Ivan Prather Javier [id number] WORK- UP COMPLETE? Yes Order Placed Yes Left - Site 1 Location 6:00, 6cm FN Clip Shape X clip Clip Migration at the site of biopsy-proven malignancy. Of note, the X clip is at the inferior aspect of the architectural distortion. Pathology [facility] Preferred Localization brenna * If clip migrated, please review with radiologist This Form Has Been Completed By JALEN Geiger On Behalf Of Dr. Valles documented in this encounter [facility] 08-07-2023 Miscellaneous Notes Spoke to patient. Called and left a message to informed her appointments related to her procedure with Dr. Valles on 08/19 . Phone # provided. documented in this encounter [facility] 08-07-2023 Instructions Bridgett Hopper - 08/07/2023 2:14 PM EST RTC after surgery - coordinate same day as radiation documented in this encounter [facility] 08-07-2023 History of Presen t illness Narrative Images from the original note were not included. NAME: Ivan Herrera CLINIC NO.: [id number] DATE OF SERVICE: August 07, 2023 ([place]) Some elements in this clinic note that are critical to medical decision making have been carefully reviewed and included from a prior clinic note dated: June 26, 2023 ([place]) Referring Provider: Dr. Cahuncey Bowles Additional Clinicians involved in Ivan Herrera's care: Dillon Cooper DIAGNOSIS: Malignant neoplasm lower quadrant left breast ER positive. History of malignant neoplasm of upper-outer quadrant of right breast in female, estrogen receptor positive ASSESSMENT: 73 year old woman with malignant neoplasm of upper-outer quadrant of right breast in female, estrogen receptor positive Stage I ([id number]) right breast cancer of the upper outer quadrant, ER/MA +, Her2-, diagnosed in February 2015. She had lumpectomy, followed by radiation, and has been on aromatase inhibitor therapy since May 2015 with good tolerance. Her recent mammogram from February 2020 was negative for malignancy. She has no evidence of recurrence. She continued her Anastrozole until May 2020, completing 5 years of therapy. 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 She presents in follow-up regarding this new diagnosis. Given 2nd primary, even though it appears to be low grade, I would like her to get an MRI breast to complete her staging. Will also consider CT Chest abdomen pelvis if she has aggressive features such as HER2+ivity. PLAN: RTC after surgery - coordinate same day as radiation HPI: CASE HISTORY: Reverse Chronological Order 08/05/2023 - MRI Breast: KNOWN BIOPSY PROVEN MALIGNANCY The 1 cm x 0.7 cm x 1.4 cm architectural distortion in the left breast at 6 o'clock middle depth is consistent with the known carcinoma and is a known biopsy positive for malignancy. A surgical consult is recommended. 07/09/2023 - Dx Mammogram Left: KNOWN BIOPSY PROVEN MALIGNANCY The architectural distortion in the left breast is a known biopsy positive for malignancy. A surgical consult is recommended. An X clip is visualized at the site of biopsy-proven malignancy. Of note, the X clip is at the inferior aspect of the architectural distortion. 06/11/2023 - left breast mass 6:00, 6 cm from nipple stereotactic core biopsy at [facility]. Consistent with invasive ductal carcinoma NOS. G1, DCIS present, no LVI, ER +91 to 100%, MA negative. HER2 IHC pending. 05/27/2023 - Mammogram: diagnostic category 4 -- suspicious for malignancy. Finding does not exhibit classic findings of breast cancer. 03/29/2021 - Mammogram: diagnostic category 2 -- benign finding with no change from prior assessment. 03/26/2020 - bilateral screening mammogram: diagnostic category 2; benign finding. No change from comparison assessment. 05/2015-current - Arimidex 04/23/2015-06/05/2015 - Radiation to right breast; 6000 cGy in 30 fractions 03/21/2015 - excisional biopsy and sentinel node biopsy Invasive carcinoma of the right breast 1.1 cm grade 1, ER and MA positive, HER-2 negative; 4 lymph nodes all negative for cancer Updated Visit, August 07, 2023: Clarissa returns today with her sister Minnie. She is having a clip put in soon. Lumpectomy scheduled for 08/19/[address] Valles. We reviewed her MRI together. She will complete genetic counseling. HER2 low 1+. Her disease is stage 1A. Will plan to see her for endocrine therapy following RT. Updated Visit, June 26, 2023: Ivan returns today for follow up accompanied by her sister Minnie. She has concerns about her most recent workup with Dr. Cooper. We discussed her recent bx results. She has not yet undergone surgical resection. No plans at this time for a breast MRI, but she did have genetic and HER2 testing done. Will not need anxiety medication for the MRI. I discussed that determining lumpectomy versus mastectomy will be better decided once she has the MRI. I would like her to see radiation. If she were to undergo lumpectomy, radiation would be indicated. Also, if her HER2 comes back positive, she will need neoadjuvant chemotherapy. Recommended she consider genetic counseling with her children. She has an appointment scheduled next week with Dr. Cooper to review her remaining pathology - he may want to see her after the MRI. Updated Visit, April 19, 2020: Simi returns today for yearly follow up. Doing well. Struggling most with her 's diagnosis of dementia. It has been a struggle. She remains on Anastrozole and is due to complete 5 years in May. Her mammogram was 03/26/2020 and reviewed below. She denies any new pain, skin changes or masses. Updated Visit, December 09, 2019: Ivan Herrera is a 69 year old female who presents in follow up on arimidex. Good tolerance overall. No complaints. She was started on arimidex 06/12. Complains of some right axillary discomfort. Her mammograms in 02/2020. Her has dementia, but she remembers enjoying a [employer] weekend in [place], [place], where I had been. She isn't having No other issues - will re-eval and examine after mammograms. REVIEW OF SYSTEMS Per HPI and otherwise negative by full review of organ systems. ECOG PERFORMANCE STATUS: 0 PHYSICAL EXAMINATION: Vitals: BP 125/73 Pulse 77 Temp (Src) 97.6 (Temporal) Resp 16 Ht 5' 7.992 (1.73m) Wt 196 lb 10.4 oz (89.2kg) SpO2 97% BMI 29.91 kg/(m^2). Body surface area is 2.07 meters squared. Exam limited to gross visualization where appropriate. Gen.: This is an age-appropriate patient in no acute distress. Head: Appears atraumatic with no visible lesions. Eyes: Pupils equally round and reactive to light, extraocular muscles are intact. Neck: Supple. Respiratory: Appears to be respiring comfortably. Neurologic: Nonfocal to gross visualization. Alert and oriented 3. Psychiatric: No evidence of inappropriate anxiety or depression. Skin: Visible areas of skin without rash, lesions, wounds or petechiae. ALLERGIES: ALLERGIES Allergen Reactions Sulfa (Sulfonamide * Other: See Comments palpitations Sulfamethoxazole-Tr* Hives MEDICATIONS: phytosterol/pantethine (CHOLESTOFF COMPLETE ORAL) Take by mouth. calcium carbonate/vitamin D3 (CALCIUM WITH VITAMIN D3 ORAL) Take by mouth. ubidecarenone Q-10 (CO Q-10) 10 mg cap Take by mouth twice daily. Glucosamine Sulfate (GLUCOSAMINE) 500 mg tab Take 1,500 tablets by mouth. LUTEIN ORAL Take by mouth. [place]uk-3 Fatty Acids-Vitamin E (FISH OIL) 1,000 mg cap Take 1 capsule by mouth. atorvastatin (LIPITOR) 10 mg tablet ofloxacin (OCUFLOX) 0.3 % ophthalmic solution prednisoLONE acetate (PRED FORTE, ECONOPRED PLUS) 1 % ophthalmic suspension anastrozole (ARIMIDEX) 1 mg tablet Take 1 tablet by mouth once daily. Multivitamins-Iron tab Take 1 tablet by mouth once daily. LABORATORY VALUES: WBC (k/uL) Date Value 06/26/2023 7.98 RBC (m/uL) Date Value 06/26/2023 4.81 Hemoglobin (g/dL) Date Value 06/26/2023 14.1 Hematocrit (%) Date Value 06/26/2023 44.7 MCV (fL) Date Value 06/26/2023 92.9 MCH (pg) Date Value 06/26/2023 29.3 MCHC (g/dL) Date Value 06/26/2023 31.5 RDW-CV (%) Date Value 06/26/2023 14.1 Platelet Count (k/uL) Date Value 06/26/2023 314 MPV (fL) Date Value 06/26/2023 10.0 Glucose (mg/dL) Date Value 06/26/2023 131 (H) BUN (mg/dL) Date Value 06/26/2023 17 Creatinine (mg/dL) Date Value 06/26/2023 0.69 Sodium (mmol/L) Date Value 06/26/2023 140 Potassium (mmol/L) Date Value 06/26/2023 4.6 Chloride (mmol/L) Date Value 06/26/2023 105 CO2 (mmol/L) Date Value 06/26/2023 26 Protein, Total (g/dL) Date Value 06/26/2023 7.6 Albumin (g/dL) Date Value 06/26/2023 4.4 Calcium, Total (mg/dL) Date Value 06/26/2023 9.9 Alkaline Phosphatase (U/L) Date Value 06/26/2023 121 Bilirubin, Total (mg/dL) Date Value 06/26/2023 0.2 AST (U/L) Date Value 06/26/2023 15 ALT (U/L) Date Value 06/26/2023 19 DIAGNOSIS: (C50.512, Z17.0) Malignant neoplasm of lower-outer quadrant of left breast of female, estrogen receptor positive (HCC) (HCC) (primary encounter diagnosis) PAST MEDICAL HISTORY Diagnosis Date Abnormal mammogram 2009 Biopsy normal High cholesterol Spinal cord injury Spondylosis PAST SURGICAL HISTORY Procedure Laterality Date BACK SURGERY HX spinal surg bone graft upper thoracic CATARACT EXTRACTION HX COLONSCOPY SCREENING HIGH RISK HYSTERECTOMY HX 2014 PAST SURGICAL HISTORY OF 2010 breast biopsy negative PAST SURGICAL HISTORY OF fatty tumor left hand Social History Tobacco Use Smoking status: Former Packs/day: 0.30 Years: 10.00 Additional pack years: 0.00 Total pack years: 3.00 Types: Cigarettes Smokeless tobacco: Never Vaping Use Vaping Use: Never used Substance Use Topics Alcohol use: Yes Comment: rare Drug use: No FAMILY HISTORY Problem Relation Age of Onset Colon Cancer Father mets to bone, unknown origin Ovarian cancer Mother 82 Breast Cancer Mother I spent a total of 30 minutes on the date of the service which included preparing to see the patient, [id number] patient care, completing clinical documentation, obtaining and/or reviewing separately obtained history, performing a medically appropriate examination, counseling and educating the patient/family/caregiver, ordering medications, tests, or procedures, communicating with other HCPs (not separately reported), independently interpreting results (not separately reported), communicating results to the patient/family/caregiver, and care coordination (not separately reported). Myles Talamantes MD, CPE Hematology and Oncology Services Provided at: [place], [place] Scribe Attestation: This note was scribed by Bridgett Hopper on August 07, 2023 under the direction and supervision of Dr. Myles Talamantes. I attest that all of the information documented is correct to the best of my knowledge. Provider Attestation: I, Myles Talamantes MD, attest that all information documented by the above scribe is correct, and was supervised by me and under my direction. CC: Chauncey Bowles MD, Dillon Gauthier documented in this encounter [facility] 08-07-2023 Note HNO ID: [id number] Author: MYLES TALAMANTES MD Service: ? Author Type: Physician Type: Progress Notes Filed: 08/09/2023 15:47 Note Text: NAME: Ivan Herrera CLINIC NO.: [id number] DATE OF SERVICE: August 07, 2023 ([place]) Some elements in this clinic note that are critical to medical decision making have been carefully reviewed and included from a prior clinic note dated: June 26, 2023 ([email or web address]) Referring Provider: Dr. Chauncey Bowles Additional Clinicians involved in Ivan Herrera's care: Dillon Cooper DIAGNOSIS: Malignant neoplasm lower quadrant left breast ER positive. History of malignant neoplasm of upper-outer quadrant of right breast in female, estrogen receptor positive ASSESSMENT: 73 year old woman with malignant neoplasm of upper-outer quadrant of right breast in female, estrogen receptor positive Stage I ([id number]) right breast cancer of the upper outer quadrant, ER/MA +, Her2-, diagnosed in February 2015. She had lumpectomy, followed by radiation, and has been on aromatase inhibitor therapy since May 2015 with good tolerance. Her recent mammogram from February 2020 was negative for malignancy. She has no evidence of recurrence. She continued her Anastrozole until May 2020, completing 5 years of therapy. 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 She presents in follow-up regarding this new diagnosis. Given 2nd primary, even though it appears to be low grade, I would like her to get an MRI breast to complete her staging. Will also consider CT Chest abdomen pelvis if she has aggressive features such as HER2+ivity. PLAN: RTC after surgery - coordinate same day as radiation HPI: CASE HISTORY: Reverse Chronological Order 08/05/2023 - MRI Breast: KNOWN BIOPSY PROVEN MALIGNANCY The 1 cm x 0.7 cm x 1.4 cm architectural distortion in the left breast at 6 o'clock middle depth is consistent with the known carcinoma and is a known biopsy positive for malignancy. A surgical consult is recommended. 07/09/2023 - Dx Mammogram Left: KNOWN BIOPSY PROVEN MALIGNANCY The architectural distortion in the left breast is a known biopsy positive for malignancy. A surgical consult is recommended. An X clip is visualized at the site of biopsy-proven malignancy. Of note, the X clip is at the inferior aspect of the architectural distortion. 06/11/2023 - left breast mass 6:00, 6 cm from nipple stereotactic core biopsy at [facility]. Consistent with invasive ductal carcinoma NOS. G1, DCIS present, no LVI, ER +91 to 100%, MA negative. HER2 IHC pending. 05/27/2023 - Mammogram: diagnostic category 4 -- suspicious for malignancy. Finding does not exhibit classic findings of breast cancer. 03/29/2021 - Mammogram: diagnostic category 2 -- benign finding with no change from prior assessment. 03/26/2020 - bilateral screening mammogram: diagnostic category 2; benign finding. No change from comparison assessment. 05/2015-current - Arimidex 04/23/2015-06/05/2015 - Radiation to right breast; 6000 cGy in 30 fractions 03/21/2015 - excisional biopsy and sentinel node biopsy Invasive carcinoma of the right breast 1.1 cm grade 1, ER and MA positive, HER-2 negative; 4 lymph nodes all negative for cancer Updated Visit, August 07, 2023: Clarissa returns today with her sister Minnie. She is having a clip put in soon. Lumpectomy scheduled for 08/19/[address] Valles. We reviewed her MRI together. She will complete genetic counseling. HER2 low 1+. Her disease is stage 1A. Will plan to see her for endocrine therapy following RT. Updated Visit, June 26, 2023: Ivan returns today for follow up accompanied by her sister Minnie. She has concerns about her most recent workup with Dr. Cooper. We discussed her recent bx results. She has not yet undergone surgical resection. No plans at this time for a breast MRI, but she did have genetic and HER2 testing done. Will not need anxiety medication for the MRI. I discussed that determining lumpectomy versus mastectomy will be better decided once she has the MRI. I would like her to see radiation. If she were to undergo lumpectomy, radiation would be indicated. Also, if her HER2 comes back positive, she will need neoadjuvant chemotherapy. Recommended she consider genetic counseling with her children. She has an appointment scheduled next week with Dr. Cooper to review her remaining pathology - he may want to see her after the MRI. Updated Visit, April 19, 2020: Simi returns today for yearly follow up. Doing well. Struggling most with her 's diagnosis of dementia. It has been a struggle. She remains on Anastrozole and is due to comple (more content not included)... [facility] 08-07-2023 Miscellaneous Notes Called pt to review MRI. Reasonable to consider lumpectomy, pt agreeable Will proceed with Brenna wheat grower loc lumpectomy with SLNB (per pt preference) Severo Valles MD documented in this encounter [facility] 08-07-2023 Nurse Note Base line circumferential arm measurements were taken. Dominant arm is the righ side. Right Arm Measurements: Middle finger most proximal aspect 6 cm At the palm straight across proximal to knuckles 19 cm At the wrist just proximal to ulnar styloid process 15 cm Forearm,10 cm distal to the antecubital fossa 23 cm Antecubital fossa 25 cm Mid upper arm,10 cm proximal to the antecubital fossa 29 cm Left Arm Measurements: Middle finger most proximal aspect 5.5 cm At the palm straight across proximal to knuckles 18.5 cm At the wrist (just proximal to ulnar styloid process) 15 cm Forearm,10 cm distal to the antecubital fossa 21.5 cm Antecubital fossa 24.5 cm Mid upper arm,10 cm proximal to the antecubital fossa 27.5 cm documented in this encounter [facility] 08-05-2023 History of Presen t illness Narrative Radiology Service Progress Note DATE OF SERVICE: August 05, 2023 TIME: 12:50 PM PATIENT WEIGHT: 194LBS PATIENT IDENTITY VERIFICATION COMPLETED USING TWO (2) STANDARD IDENTIFIERS: Name and Date of confirmed by patient verbally. FALL SCREENING: Has the patient had 2 falls in the last year or 1 fall with injury or currently using an Ambulatory Assistive Device (Walker, Cane, Wheelchair, Crutches, etc.)? No PATIENT GENDER DATA: Female. status: : No status: NO. ALLERGIES: Reviewed and unchanged CONTRAST ALLERGY: No EXAM: MRI - CONTRAST TYPE: GROUP II IV SITE: Ambulatory: A peripheral IV was started in the Right antecubital site with a Angio cath: 22 gauge. and A Saline lock was inserted per protocol IV SITE APPEARANCE: Clean,Dry and Intact SIGNATURE: Patricia Mendez RN PATIENT NAME: Ivan Herrera DATE: August 05, 2023 TIME: 12:50 PM Radiology Service Progress Note PATIENT NAME: Ivan Herrera DATE OF SERVICE: August 05, 2023 TIME: 1:23 PM PATIENT IDENTITY VERIFICATION COMPLETED USING TWO (2) IDENTIFIERS: Name and Date of confirmed by patient verbally and Name and Date of confirmed by identification band. FALL SCREENING: Has the patient had 2 falls in the last year or 1 fall with injury or currently using an Ambulatory Assistive Device (Walker, Cane, Wheelchair, Crutches, etc.)? No PATIENT GENDER DATA: Female. status: : No status: NO. PATIENT RELEVANT IMPLANT DATA REVIEWED: Yes PATIENT PRESENTS WITH AN IMPLANTABLE OR ATTACHED LEAD RIDER: No RADIOLOGY DEPARTMENT: MR; Exam(s) Completed: Breast PERIPHERAL IV DATA: Site assessment: Clean,Dry and Intact, Site disposition Discontinued SIGNED BY: DOM Fernandez August 05, 2023 1:23 PM documented in this encounter [facility] 08-05-2023 Note HNO ID: [id number] Author: JANIE GARCIA MRI Tech Service: Radiology Author Type: Antique Repairer Type: Progress Notes Filed: 08/05/2023 13:23 Note Text: Radiology Service Progress Note PATIENT NAME: Ivan Herrera DATE OF SERVICE: August 05, 2023 TIME: 1:23 PM PATIENT IDENTITY VERIFICATION COMPLETED USING TWO (2) IDENTIFIERS: Name and Date of confirmed by patient verbally and Name and Date of confirmed by identification band. FALL SCREENING: Has the patient had 2 falls in the last year or 1 fall with injury or currently using an Ambulatory Assistive Device (Walker, Cane, Wheelchair, Crutches, etc.)? No PATIENT GENDER DATA: Female. status: : No status: NO. PATIENT RELEVANT IMPLANT DATA REVIEWED: Yes PATIENT PRESENTS WITH AN IMPLANTABLE OR ATTACHED LEAD RIDER: No RADIOLOGY DEPARTMENT: MR; Exam(s) Completed: Breast PERIPHERAL IV DATA: Site assessment: Clean,Dry and Intact, Site disposition Discontinued SIGNED BY: Janie Garcia weed science research technician August 05, 2023 1:23 PM [facility] 08-05-2023 Note HNO ID: [id number] Author: PATRICIA MENDEZ RN Service: Nursing Author Type: Registered Nurse Type: Progress Notes Filed: 08/05/2023 12:54 Note Text: Radiology Service Progress Note DATE OF SERVICE: August 05, 2023 TIME: 12:50 PM PATIENT WEIGHT: 194LBS PATIENT IDENTITY VERIFICATION COMPLETED USING TWO (2) STANDARD IDENTIFIERS: Name and Date of confirmed by patient verbally. FALL SCREENING: Has the patient had 2 falls in the last year or 1 fall with injury or currently using an Ambulatory Assistive Device (Walker, Cane, Wheelchair, Crutches, etc.)? No PATIENT GENDER DATA: Female. status: : No status: NO. ALLERGIES: Reviewed and unchanged CONTRAST ALLERGY: No EXAM: MRI - CONTRAST TYPE: GROUP II IV SITE: Ambulatory: A peripheral IV was started in the Right antecubital site with a Angio cath: 22 gauge. and A Saline lock was inserted per protocol IV SITE APPEARANCE: Clean,Dry and Intact SIGNATURE: Patricia Mendez RN PATIENT NAME: Ivan Herrera DATE: August 05, 2023 TIME: 12:50 PM [facility] 07-09-2023 Note HNO ID: [id number] Author: CHARANJIT MATTHEW RDMS Service: ? Author Type: Technologist Type: Progress Notes Filed: 07/09/2023 09:09 Note Text: Radiology Service Progress Note PATIENT NAME: Ivan Herrera DATE OF SERVICE: July 09, 2023 TIME: 9:09 AM PATIENT IDENTITY VERIFICATION COMPLETED USING TWO (2) IDENTIFIERS: Name and Date of confirmed by patient verbally and Name and Date of confirmed by identification band. FALL SCREENING: Has the patient had 2 falls in the last year or 1 fall with injury or currently using an Ambulatory Assistive Device (Walker, Cane, Wheelchair, Crutches, etc.)? No PATIENT GENDER DATA: Female. status: : No status: NO. PATIENT RELEVANT IMPLANT DATA REVIEWED: Not Applicable RADIOLOGY DEPARTMENT: Ultrasound PERIPHERAL IV DATA: Not applicable SIGNED BY: [facility] July 09, 2023 9:09 AM [facility] 07-09-2023 Note HNO ID: [id number] Author: SALVADOR BUI, ? Service: ? Author Type: Antique Repairer Type: Progress Notes Filed: 07/09/2023 07:55 Note Text: Radiology Service Progress Note PATIENT NAME: Ivan Herrera DATE OF SERVICE: July 09, 2023 TIME: 7:55 AM PATIENT IDENTITY VERIFICATION COMPLETED USING TWO (2) IDENTIFIERS: Name and Date of confirmed by patient verbally. FALL SCREENING: Has the patient had 2 falls in the last year or 1 fall with injury or currently using an Ambulatory Assistive Device (Walker, Cane, Wheelchair, Crutches, etc.)? No PATIENT GENDER DATA: Female. status: : No status: NO. PATIENT RELEVANT IMPLANT DATA REVIEWED: Not Applicable RADIOLOGY DEPARTMENT: Mammography PERIPHERAL IV DATA: Not applicable SIGNED BY: Salvador Bui RRT July 09, 2023 7:55 AM [facility] 07-09-2023 Note HNO ID: [id number] Author: SEVERO VALLES MD Service: ? Author Type: Physician Type: Progress Notes Filed: 07/09/2023 13:13 Note Text: NEW BREAST CANCER - INITIAL SURGICAL VISIT SERVICE DATE: 07/09/2023 REFERRING PROVIDER: Chauncey Bowles MD [address] [place] [address] [address] [facility] [id number] Consult requested for an opinion regarding the evaluation and treatment of breast cancer. My final impression and recommendations will be communicated back to the requesting physician by way of the shared medical record or letter via [place] mail. SUBJECTIVE: REASON FOR TODAY'S VISIT: Breast Cancer Evaluation HISTORY of PRESENT ILLNESS: Ivan Herrera is a 73 year old female who presents for an evaluation of a new diagnosis of left breast cancer. She recently had abnormal mammography of the left breast at outside facility Diagnosis was made at [facility] by means of stereotactic core biopsy of Left breast. The pathology report showed Infiltrating Ductal Carcinoma Grade 1, ER positive, MA negative, HER2 non-amplified. HISTORY OF BREAST PROCEDURE(S): Prior right lumpectomy and radiation, 5 yrs of adjuvant therapy. PAST MEDICAL HISTORY: PAST MEDICAL HISTORY Diagnosis Date Abnormal mammogram 2009 Biopsy normal High cholesterol Spinal cord injury Spondylosis PAST SURGICAL HISTORY: PAST SURGICAL HISTORY Procedure Laterality Date BACK SURGERY HX spinal surg bone graft upper thoracic CATARACT EXTRACTION HX COLONSCOPY SCREENING HIGH RISK HYSTERECTOMY HX 2013 PAST SURGICAL HISTORY OF 2010 breast biopsy negative PAST SURGICAL HISTORY OF fatty tumor left hand FAMILY HISTORY: FAMILY HISTORY Problem Relation Age of Onset Colon Cancer Father mets to bone, unknown origin Ovarian cancer Mother 82 Breast Cancer Mother The patient is not of Ashkenazic Ancestry SOCIAL HISTORY: Social History Tobacco Use Smoking status: Former Packs/day: 0.30 Years: 10.00 Additional pack years: 0.00 Total pack years: 3.00 Types: Cigarettes Smokeless tobacco: Never Vaping Use Vaping Use: Never used Substance Use Topics Alcohol use: Yes Comment: rare Drug use: No ACTIVE PROBLEM LIST History of Breast Cancer - 04/15/2016 Malignant Neoplasm of Upper-Outer Quadrant of Right Female Breast (Hcc) - 04/11/2015 Cancer of Breast, Intraductal - 04/06/2015 S/P Hysterectomy - 05/23/2014 Abdominal Or Pelvic Swelling, Mass Or Lump, Unspecified Site - 03/11/2014 CURRENT MEDICATIONS: phytosterol/pantethine (CHOLESTOFF COMPLETE ORAL) Take by mouth. calcium carbonate/vitamin D3 (CALCIUM WITH VITAMIN D3 ORAL) Take by mouth. ofloxacin (OCUFLOX) 0.3 % ophthalmic solution (Patient not taking: Reported on 06/26/2023) prednisoLONE acetate (PRED FORTE, ECONOPRED PLUS) 1 % ophthalmic suspension (Patient not taking: Reported on 06/26/2023) anastrozole (ARIMIDEX) 1 mg tablet Take 1 tablet by mouth once daily. (Patient not taking: Reported on 06/26/2023) ubidecarenone Q-10 (CO Q-10) 10 mg cap Take by mouth twice daily. Glucosamine Sulfate (GLUCOSAMINE) 500 mg tab Take 1,500 tablets by mouth. LUTEIN ORAL Take by mouth. Multivitamins-Iron tab Take 1 tablet by mouth once daily. (Patient not taking: Reported on 06/26/2023) Atqasuk-3 Fatty Acids-Vitamin E (FISH OIL) 1,000 mg cap Take 1 capsule by mouth. atorvastatin (LIPITOR) 10 mg tablet ALLERGIES Allergen Reactions Sulfa (Sulfonamide * Other: See Comments palpitations Sulfamethoxazole-Tr* Hives REVIEW OF SYSTEMS: GENERAL: No weight loss, malaise or fevers HEENT: Negative for frequent or significant headaches, No changes in hearing or vision, no nose bleeds or other nasal problems RESPIRATORY: Negative for cough, hemoptysis, wheezing, COPD, dyspnea or shortness of breath CARDIOVASCULAR: Negative for chest pain, leg swelling, hypertension, CHF or palpitations GASTROINTESTINAL: No nausea, vomiting, or diarrhea GENITOURINARY: No history of dysuria, frequency or incontinence GYNECOLOGICAL: Negative for abnormal vaginal bleeding, abnormal vaginal discharge MUSCULOSKELETAL: Negative for joint pain or swelling, back pain or muscle pain INTEGUMENTARY:Denies Scleroderma or Lupus. Denies chronic skin conditions. PSYCHOLOGICAL: Denies history of psychiatric illness. Patient feels she is coping well with recent Breast Cancer diagnosis. Negative for sleep disturbance, mood disorder and recent psychosocial stressors. All other reviewed and negative other than HPI. OBJECTIVE: PHYSICAL EXAM: BP 142/90 Pulse 77 Temp 36.8 ?C (98.3 ?F) (Temporal) Ht 172.7 cm (5' 7.99 ) Wt 88 kg (194 lb) SpO2 97% BMI 29.50 kg/m? GENERAL:well-nourished, healthy, alert and oriented x 3, calm SKIN:warm, dry, skin color, texture, turgor normal HEAD/EYES:normocephalic, atraumatic, and anicteric NECK: supple, symmetrical RESPIRATORY: Respirations regular AND non-labored MUSCULOSKELETAL: No observed limitations in range of (more content not included)... [facility] 06-26-2023 Note HNO ID: [id number] Author: ISAIAH GAUTHIER MD Service: ? Author Type: Physician Type: Progress Notes Filed: 07/07/2023 04:05 Note Text: Radiation Oncology - New Patient/Consult Note PATIENT NAME: Ivan Herrera PATIENT REQUESTING PHYSICIAN: Dr. Myles Talamantes, Dr. Dillon Cooper DIAGNOSIS: 1. 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 2. Stage I, [id number] IDC of the right breast; ER/MA+, Her2- s/p lumpectomy/radiation in 2014 followed by endocrine therapy. PATIENT IDENTIFICATION: This patient was seen in the Department of Radiation Oncology at the [facility] with Isaiah Gauthier MD. She was accompanied today by her family. Final recommendations will be communicated back to the requesting physician by way of the shared medical record, or letter to requesting physician via [place] mail. HISTORY OF PRESENT ILLNESS: per note from Dr. Talamantes on 06/16/2023: 'CASE HISTORY: Reverse Chronological Order 06/11/2023 left breast mass 6:00, 6 cm from nipple stereotactic core biopsy at [facility]. Consistent with invasive ductal carcinoma NOS. G1, DCIS present, no LVI, ER +91 to 100%, MA negative. HER2 IHC pending. 05/27/2023 - Mammogram: diagnostic category 4 -- suspicious for malignancy. Finding does not exhibit classic findings of breast cancer. 03/29/2021 - Mammogram: diagnostic category 2 -- benign finding with no change from prior assessment. 03/26/2020 - bilateral screening mammogram: diagnostic category 2; benign finding. No change from comparison assessment. 05/2015-current - Arimidex 04/23/2015-06/05/2015 - Radiation to right breast; 6000 cGy in 30 fractions 03/21/2015 - excisional biopsy and sentinel node biopsy Invasive carcinoma of the right breast 1.1 cm grade 1, ER and MA positive, HER-2 negative; 4 lymph nodes all negative for cancer Updated Visit, June 26, 2023: Ivan returns today for follow up accompanied by her sister Minnie. She has concerns about her most recent workup with Dr. Cooper. We discussed her recent bx results. She has not yet undergone surgical resection. No plans at this time for a breast MRI, but she did have genetic and HER2 testing done. Will not need anxiety medication for the MRI. I discussed that determining lumpectomy versus mastectomy will be better decided once she has the MRI. I would like her to see radiation. If she were to undergo lumpectomy, radiation would be indicated. Also, if her HER2 comes back positive, she will need neoadjuvant chemotherapy. Recommended she consider genetic counseling with her children. She has an appointment scheduled next week with Dr. Cooper to review her remaining pathology - he may want to see her after the MRI.' She is referred today to the radiation medicine clinic to have a discussion regarding the potential role of radiation therapy in the post-operative treatment of her newly diagnosed breast cancer. INTERVAL/HISTORY/REVIEW OF SYSTEMS: Ms. Herrera notes that this new left-sided breast cancer was found on screening mammogram and she notes no palpable abnormality in the left breast. He also denies any pain/discomfort, skin changes, nipple discharge. She notes some weight loss over the past few years since her passed as well as occasional palpitations and intermittent abdominal discomfort and knee pain causing some difficulties with balance but otherwise denies any recent fevers/chills, new headaches, difficulty with speech/swallowing, shortness of breath, nausea/vomiting, change in bowel/urinary function. The remainder of the review of systems was performed and was otherwise non-contributory except as described above. PAST MEDICAL HISTORY: PAST MEDICAL HISTORY Diagnosis Date Abnormal mammogram 2009 Biopsy normal High cholesterol Spinal cord injury Spondylosis PAST SURGICAL HISTORY: PAST SURGICAL HISTORY Procedure Laterality Date BACK SURGERY HX spinal surg bone graft upper thoracic CATARACT EXTRACTION HX COLONSCOPY SCREENING HIGH RISK HYSTERECTOMY HX 2014 PAST SURGICAL HISTORY OF 2010 breast biopsy negative PAST SURGICAL HISTORY OF fatty tumor left hand FAMILY HISTORY: FAMILY HISTORY Problem Relation Age of Onset Ovarian cancer Mother 82 Breast Cancer Mother Colon Cancer Father mets to bone, unknown origin Hypertension Sister SOCIAL HISTORY: Social History Tobacco Use Smoking status: Former Packs/day: 0.30 Years: 10.00 Additional pack years: 0.00 Total pack years: 3.00 Types: Cigarettes Smokeless tobacco: Never Vaping Use Vaping Use: Never used Substance Use Topics Alcohol use: Yes Comment: rare Drug use: No RADIATION HISTORY: The patient completed a course of post-operative radiation therapy to the right breast after lumpectomy in 2014 (6000 cGy in 30 fractions). ALLERGIES: ALLERGIES Allergen Reactions Sulfa (Sulfonamide (more content not included)... [facility] 06-26-2023 Note HNO ID: [id number] Author: Myles Talamantes MD Service: ? Author Type: Physician Type: Progress Notes Filed: 06/26/2023 12:40 PM Note Text: NAME: Ivan Herrera [facility] NO.: [id number] DATE OF SERVICE: June 26, 2023 ([place]) Some elements in this clinic note that are critical to medical decision making have been carefully reviewed and included from a prior clinic note dated: April 19, 2020 ([place]). Referring Provider: Dr. Chauncey Bowles Additional Clinicians involved in Ivan Herrera's care: Dillon Cooper DIAGNOSIS: Malignant neoplasm lower quadrant left breast ER positive. History of malignant neoplasm of upper-outer quadrant of right breast in female, estrogen receptor positive ASSESSMENT: 73 year old woman with malignant neoplasm of upper-outer quadrant of right breast in female, estrogen receptor positive Stage I ([id number]) right breast cancer of the upper outer quadrant, ER/MA +, Her2-, diagnosed in February 2015. She had lumpectomy, followed by radiation, and has been on aromatase inhibitor therapy since May 2015 with good tolerance. Her recent mammogram from February 2020 was negative for malignancy. She has no evidence of recurrence. She continued her Anastrozole until May 2020, completing 5 years of therapy. 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 She presents in follow-up regarding this new diagnosis. Given 2nd primary, even though it appears to be low grade, I would like her to get an MRI breast to complete her staging. Will also consider CT Chest abdomen pelvis if she has aggressive features such as HER2+ivity. PLAN: Labs today Obtain breast MRI locally RTC after imaging Refer to radiation oncology Refer to genetic counseling Obtain pathology addendum (HER2 results) Patient met with my Colleague Dr. Gauthier from Rad/onc today also and asked for a referral to breast surgery. Referral to Dr. Hagan and Beny, Schedule Breast imaging review and MRI with [facility] facility. HPI: CASE HISTORY: Reverse Chronological Order 06/11/2023 left breast mass 6:00, 6 cm from nipple stereotactic core biopsy at [facility]. Consistent with invasive ductal carcinoma NOS. G1, DCIS present, no LVI, ER +91 to 100%, MA negative. HER2 IHC pending. 05/27/2023 - Mammogram: diagnostic category 4 -- suspicious for malignancy. Finding does not exhibit classic findings of breast cancer. 03/29/2021 - Mammogram: diagnostic category 2 -- benign finding with no change from prior assessment. 03/26/2020 - bilateral screening mammogram: diagnostic category 2; benign finding. No change from comparison assessment. 05/2015-current - Arimidex 04/23/2015-06/05/2015 - Radiation to right breast; 6000 cGy in 30 fractions 03/21/2015 - excisional biopsy and sentinel node biopsy Invasive carcinoma of the right breast 1.1 cm grade 1, ER and MA positive, HER-2 negative; 4 lymph nodes all negative for cancer Updated Visit, June 26, 2023: Ivan returns today for follow up accompanied by her sister Minnie. She has concerns about her most recent workup with Dr. Cooper. We discussed her recent bx results. She has not yet undergone surgical resection. No plans at this time for a breast MRI, but she did have genetic and HER2 testing done. Will not need anxiety medication for the MRI. I discussed that determining lumpectomy versus mastectomy will be better decided once she has the MRI. I would like her to see radiation. If she were to undergo lumpectomy, radiation would be indicated. Also, if her HER2 comes back positive, she will need neoadjuvant chemotherapy. Recommended she consider genetic counseling with her children. She has an appointment scheduled next week with Dr. Cooper to review her remaining pathology - he may want to see her after the MRI. Updated Visit, April 19, 2020: Simi returns today for yearly follow up. Doing well. Struggling most with her 's diagnosis of dementia. It has been a struggle. She remains on Anastrozole and is due to complete 5 years in May. Her mammogram was 03/26/2020 and reviewed below. She denies any new pain, skin changes or masses. Updated Visit, December 09, 2019: Ivan Herrera is a 69 year old female who presents in follow up on arimidex. Good tolerance overall. No complaints. She was started on arimidex 06/12. Complains of some right axillary discomfort. Her mammograms in 02/2020. Her has dementia, but she remembers enjoying a [employer] weekend in [place], [place], where I had been. She isn't having No other issues - will re-eval and examine after mammograms. (more content not included)... [facility] 04-25-2020 Note HandP reviewed. No c hanges since dictated. HOSPITAL REGULATIONS: ALL Positive Important Negative Findings Shall Be Recorded DATE ADMITTED: 04/25/2020 HISTORY: The patient is a 69-year-old white female who complains of declining vision out of her left eye. This has been ongoing since approximately August of 2019 and rapidly progressing. From this eye, she feels uncomfortable seeing distance objects such as the television or road signs. She also states having difficulty at nighttime while driving because of headlights creating glare and halos. PAST OCULAR HISTORY, PAST MEDICAL HISTORY, PSYCHOSOCIAL HISTORY, MEDICATIONS, ALLERGIES TO MEDICATIONS, REVIEW OF SYSTEMS and PHYSICAL EXAMINATION unchanged from previously dictated. ASSESSMENT AND PLAN: 1. Visually significant cataract, left eye. After risks, benefits, alternatives as well as expectations were delivered to the patient, she elected to go forward with cataract removal. She understands those risks to include but are not limited to infection, bleeding, loss of vision or loss of the eye itself. Secondly, she understands that postoperatively she is likely to require spectacle correction for her best visual acuity. Finally, a complete ophthalmic examination was performed and there was not determined to be any other source of vision decline other than that of the cataract. 2. COVID-19: The patient was briefed on the condition of COVID-19 and the increased risk of its contraction in the hospital setting. The patient understands that these risks occur and she is willing to assume these risks given the severity of diminishment in activities of daily living. Alfred Judd D.O. gls Dictated: 04/24/2020 #[id number] Typed 04/25/2020 #[id number] cc: Alfred Judd D.O. [facility] Comment on above: Result Comment: Elec tronically Signed By: Alfred Judd DO\.br\Date and Time Signed: 04/25/20 08:17 EDT 04-03-2020 Note HandP reviewed. No c hanges since dictated. HOSPITAL REGULATIONS: ALL Positive Important Negative Findings Shall Be Recorded DATE ADMITTED: 04/03/2020 HISTORY: The patient is a 69-year-old white female with complaints of declining vision from her right eye. She believes since August of 2019, she has noticed a rapid progressive decline in her vision. She notices that she does not see as clearly for distance items such as the television or road signs. 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 PAST OCULAR HISTORY: Denies. PAST MEDICAL HISTORY: 1. Breast cancer status post lumpectomy and radiation therapy. 2. Spinal cord injury. 3. Hypercholesterolemia. 4. 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 5. Hysterectomy. 6. Breast lumpectomy. PSYCHOSOCIAL HISTORY: Denies tobacco, alcohol or recreational drug abuse. SYSTEMIC MEDICATIONS: 1. Anastrozole. 2. Atorvastatin. ALLERGIES: Sulfa. REVIEW OF SYSTEMS: No pertinent positives. PHYSICAL EXAMINATION: VITAL SIGNS: Blood pressure measured at 141/89 with a respiration rate of 12 and pulse of 68. GENERAL: She is awake, alert and oriented x3, well developed, well nourished. No acute distress. HEART: Regular rate and rhythm. LUNGS: Clear bilaterally. ABDOMEN: Soft, nontender, nondistended. EXTREMITIES: No pitting edema. EYES: Ophthalmic examination revealed a visual acuity of 20/30 that glared to 20/100 in the right eye and 20/25 that glared to 20/80 in the left eye. Pupils, motility, muscle balance, confrontation to visual awan are within normal limits bilaterally. Pressures are measured at 16 bilaterally. Slit-lamp examination revealed blepharitis with a severe decrease in tear film bilaterally. Conjunctivae, cornea, anterior chamber and iris are within normal limits bilaterally. Lens status demonstrated 2-3+ nuclear sclerosis, 2+ cortical changes and 1+ PSC in the right eye and 1-2+ nuclear sclerosis, 2+ cortical changes and 1+ PSC in the left eye. Fundus examination revealed a good view with good dilation bilaterally. Optic discs, macula, vessels, periphery and vitreous within normal limits bilaterally. ASSESSMENT AND PLAN: 1. Visually significant cataract, right eye. After risks, benefits, alternatives as well as expectations were delivered to the patient, she elected to go forward with cataract removal. She understands those risks to include but are not limited to infection, bleeding, loss of vision or loss of the eye itself. Secondly, she understands that postoperatively she is likely to require spectacle correction for her best visual acuity. Finally, a complete ophthalmic examination was performed and there was not determined to be any other source of vision decline other than that of the cataract. 2. COVID-19: The patient was briefed on the condition of COVID-19 and the increased risk of its contraction in the hospital setting. The patient understands that these risks occur and she is willing to assume these risks given the severity of diminishment in activities of daily living. Alfred Judd D.O. david Dictated: 04/02/2020 #[id number] Typed 04/03/2020 #[id number] cc: Alfred Judd D.O. [facility] Comment on above: Result Comment: Elec tronically Signed By: Alfred Judd DO\.br\Date and Time Signed: 04/03/20 08:37 EDT Evaluation note No assessment inform ation available [facility] Work Phone: Evaluation note Diagnosis Malignant neoplasm of lower-outer quadrant of left breast of female, estrogen receptor positive (HCC) (HCC) [facility] Diagnosis Malignant neoplasm of lower-outer quadrant of left breast of female, estrogen receptor positive (HCC) (HCC)- Primary Malignant neoplasm of central portion of left breast in female, estrogen receptor positive (HCC) (HCC) [facility]* Diagnosis Pre-op examination- Primary Preoperative examination, unspecified Gastroesophageal reflux disease without esophagitis Esophageal reflux PONV (postoperative nausea and vomiting) Nausea with vomiting Ductal carcinoma in situ (DCIS) of right breast Former smoker Personal history of tobacco use, presenting hazards to health Malignant neoplasm of central portion of left breast in female, estrogen receptor positive (HCC) (HCC) [facility] Ductal carcinoma in situ (DCIS) of right breast- Primary History of breast cancer Personal history of malignant neoplasm of breast Family history of breast cancer Family history of malignant neoplasm of breast Family history of ovarian cancer Family history of malignant neoplasm of ovary Malignant neoplasm of lower-outer quadrant of left breast of female, estrogen receptor positive (HCC) (HCC) Malignant neoplasm of central portion of left breast in female, estrogen receptor positive (HCC) (HCC) [facility] Malignant neoplasm of central portion of left breast in female, estrogen receptor positive (HCC) (HCC)- Primary Postoperative pain Other acute postoperative pain [facility] Diagnosis Malignant neoplasm of central portion of left breast in female, estrogen receptor positive (HCC) (HCC) [facility] Diagnosis Malignant neoplasm of central portion of left breast in female, estrogen receptor positive (HCC)- Primary History of right breast cancer Postop check Follow-up examination, following unspecified surgery [facility] Diagnosis Malignant neoplasm of lower-outer quadrant of left breast of female, estrogen receptor positive (HCC)- Primary [facility] Diagnosis Malignant neoplasm of lower-outer quadrant of left breast of female, estrogen receptor positive (HCC)- Primary [facility] Diagnosis Malignant neoplasm of lower-outer quadrant of left breast of female, estrogen receptor positive (HCC)- Primary [facility] Diagnosis Malignant neoplasm of lower-outer quadrant of left breast of female, estrogen receptor positive (HCC)- Primary [facility] Diagnosis Muscle soreness- Primary Mylagia and myositis, unspecified [facility] Diagnosis Malignant neoplasm of lower-outer quadrant of left breast of female, estrogen receptor positive (HCC)- Primary [facility] Diagnosis Muscle soreness- Primary Mylagia and myositis, unspecified [facility] Diagnosis Malignant neoplasm of lower-outer quadrant of left breast of female, estrogen receptor positive (HCC)- Primary [facility] Diagnosis Muscle soreness- Primary Mylagia and myositis, unspecified [facility] Diagnosis Malignant neoplasm of lower-outer quadrant of left breast of female, estrogen receptor positive (HCC)- Primary [facility] Diagnosis Muscle soreness- Primary Mylagia and myositis, unspecified [facility] Diagnosis Muscle soreness- Primary Mylagia and myositis, unspecified [facility] Diagnosis Muscle soreness- Primary Mylagia and myositis, unspecified [facility] Diagnosis Malignant neoplasm of lower-outer quadrant of left breast of female, estrogen receptor positive (HCC)- Primary [facility] Diagnosis Malignant neoplasm of lower-outer quadrant of left breast of female, estrogen receptor positive (HCC)- Primary [facility]* Diagnosis Muscle soreness- Primary Mylagia and myositis, unspecified [facility] Diagnosis Malignant neoplasm of lower-outer quadrant of left breast of female, estrogen receptor positive (HCC) [facility] Diagnosis Malignant neoplasm of lower-outer quadrant of left breast of female, estrogen receptor positive (HCC) [facility] Diagnosis Malignant neoplasm of lower-outer quadrant of left breast of female, estrogen receptor positive (HCC)- Primary [facility]* Diagnosis Pre-op examination- Primary Preoperative examination, unspecified Gastroesophageal reflux disease without esophagitis Esophageal reflux PONV (postoperative nausea and vomiting) Nausea with vomiting Ductal carcinoma in situ (DCIS) of right breast Former smoker Personal history of tobacco use, presenting hazards to health Malignant neoplasm of central portion of left breast in female, estrogen receptor positive (HCC) [facility] Diagnosis Pre-op examination- Primary Preoperative examination, unspecified Gastroesophageal reflux disease without esophagitis Esophageal reflux PONV (postoperative nausea and vomiting) Nausea with vomiting Ductal carcinoma in situ (DCIS) of right breast Former smoker Personal history of tobacco use, presenting hazards to health Malignant neoplasm of central portion of left breast in female, estrogen receptor positive (HCC)- Primary History of right breast cancer documented in this encounter [facility] for referral (narrative)* Diagnostic Procedure Only (Routine) - Pending Review Specialty Diagnoses / Procedures Referred By Contac t Referred To Contact [facility] Diagnoses Malignant neoplasm of lower-outer quadrant of left breast of female, estrogen receptor positive (HCC) Procedures [facility] MAMMOGRAPHY COMPUTER-AIDED DETCJ Isaiah Bryant MD [address] [place] [address] [place] [address] [facility] [address] [place] [address] Referral ID Status Reason Start Date Expiration Date Visits Requested Visits Authorized [id number] Pending Review Auto-Generat ed Referral 4 11/19/2024 1 1 [facility] for visit Narrative* Diagnostic Procedure Only (Routine) - Closed Specialty Diagnoses / Procedures Referred By Contac t Referred To Contact BR IMAGING Diagnoses Malignant neoplasm of central portion of left breast in female, estrogen receptor positive (HCC) Procedures ZAHRA NDL LOC W ZAHRA GD LEFT PERQ DEVICE PLACEMENT BREAST LOC 1ST LES W/GDSRINIVASE Jack Ding, ARIEL [address] [place] [address] [facility] [address] [place] [address] Referral ID Status Reason Start Date Expiration Date V isits Requested Visits Authorized [id number] Closed Auto-Generate d Referral 08/07/2023 08/08/2024 1 1 [facility] Summary Purpose Family History No Family History Records FoundNo Family History Records FoundNo Family History Records FoundNo Family History Records FoundNo Family History Records FoundNo Family History Records FoundNo Family History Records FoundNo Family History Records Found Advance Directives Advance Directive Response Recorded Date/ Time Advance Directives No June 03, 2023 3:40pm Documents on File Type Date Recorded Patient Rn Informatics Expl anation Advance Directive(s) 08/19/2023 8:46 AM Documents on File Type Date Recorded Patient Rn Informatics Expl anation Advance Directive(s) 08/19/2023 8:46 AM Chief Complaint and Reason for Visit Chief Complaint r92.8 Additional Source Comments INFORMATION SOURCE (unrecogn ized section and content) DATE CREATED AUTHOR 12/22/2020 Avelino Casillas [facility] DATE CREATED AUTHOR AUTHOR'S ORGANIZ ATION 07/20/2021 [facility] dical Specialist DATE CREATED AUTHOR AUTHOR'S ORGANIZ ATION 10/21/2022 [facility] DATE CREATED AUTHOR AUTHOR'S ORGANIZ ATION 06/19/[address] [facility] DATE CREATED AUTHOR AUTHOR'S ORGANIZ ATION 07/10/2023 [facility] DATE CREATED AUTHOR AUTHOR'S ORGANIZ ATION 08/09/2023 [facility] DATE CREATED AUTHOR AUTHOR'S ORGANIZ ATION 03/15/2024 [facility] dical Specialists EPIC DATE CREATED AUTHOR AUTHOR'S ORGANIZ ATION 04/02/2024 [facility] Care Teams (unrecognized sec tion and content) Team Status: Active Member Role Status Dates Chauncey Bowles MD Primary Care Provider Active Team Status: Inactive Member Role Status Dates Dillon Cooper DO Attending Provider Active Chauncey Bowles MD Primary Care Provider Active Waste Duster Relationship Specialty Start Date End Date Chauncey Bowles MD PCP - General 01/06/07 Waste Duster Relationship Specialty Start Date End Date Chauncey Bowles MD PCP - General 01/06/07 Waste Duster Relationship Specialty Start Date End Date Chauncey Bowles MD PCP - General 01/06/07 Waste Duster Relationship Specialty Start Date End Date Chauncey Bowles MD PCP - General 01/06/07 Waste Duster Relationship Specialty Start Date End Date Chauncey Bowles MD PCP - General 01/06/07 Waste Duster Relationship Specialty Start Date End Date Chauncey Bowles MD PCP - General 01/06/07 Waste Duster Relationship Specialty Start Date End Date Chauncey Bowles MD PCP - General 01/06/07 Waste Duster Relationship Specialty Start Date End Date Chauncey Bowles MD PCP - General 01/06/07 Waste Duster Relationship Specialty Start Date End Date Chauncey Bowles MD PCP - General 01/06/07 Waste Duster Relationship Specialty Start Date End Date Chauncey Bowles MD PCP - General 01/06/07 Waste Duster Relationship Specialty Start Date End Date Chauncey Bowles MD PCP - General 01/06/07 Waste Duster Relationship Specialty Start Date End Date Chauncey Bowles MD PCP - General 01/06/07 Waste 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 Relationship Specialty Start Date End Date Chauncey Bowles MD PCP - General 01/06/07 Waste Duster Relationship Specialty Start Date End Date Chauncey Bowles MD PCP - General 01/06/07 Waste Duster Relationship Specialty Start Date End Date Chauncey Bowles MD PCP - General 01/06/07 Waste Duster Relationship Specialty Start Date End Date Chauncey Bowles MD PCP - General 01/06/07 Waste Duster Relationship Specialty Start Date End Date Chauncey Bowles MD PCP - General 01/06/07 Waste Duster Relationship Specialty Start Date End Date Chauncey Bowles MD PCP - General 01/06/07 Waste Duster Relationship Specialty Start Date End Date Chauncey Bowles MD PCP - General 01/06/07 Waste Duster Relationship Specialty Start Date End Date Chauncey Bowles MD PCP - General 01/06/07 Waste Duster Relationship Specialty Start Date End Date Chauncey Bowles MD PCP - General 01/06/07 Waste Duster Relationship Specialty Start Date End Date Chauncey Bowles MD PCP - General 01/06/07 Waste Duster Relationship Specialty Start Date End Date Chauncey Bowles MD PCP - General 01/06/07 Waste Duster Relationship Specialty Start Date End Date Chauncey Bowles MD PCP - General 01/06/07 Waste Duster Relationship Specialty Start Date End Date Chauncey Bowles MD PCP - General 01/06/07 Goals (unrecognized section and content) Goals may be documented in a n alternate section Source Comments (unrecognize d section and content) In the event this informatio n is protected by the Federal Confidentiality of Alcohol and Drug Abuse Patient Records regulations: The Federal rules restrict any use of the information to criminally investigate or prosecute any alcohol or drug abuse patient.[facility] the event this information is protected by the Federal Confidentiality of Alcohol and Drug Abuse Patient Records regulations: The Federal rules restrict any use of the information to criminally investigate or prosecute any alcohol or drug abuse patient.[facility] the event this information is protected by the Federal Confidentiality of Alcohol and Drug Abuse Patient Records regulations: The Federal rules restrict any use of the information to criminally investigate or prosecute any alcohol or drug abuse patient.[facility] the event this information is protected by the Federal Confidentiality of Alcohol and Drug Abuse Patient Records regulations: The Federal rules restrict any use of the information to criminally investigate or prosecute any alcohol or drug abuse patient.[facility]In the event this information is protected by the Federal Confidentiality of Alcohol and Drug Abuse Patient Records regulations: The Federal rules restrict any use of the information to criminally investigate or prosecute any alcohol or drug abuse patient.[facility] the event this information is protected by the Federal Confidentiality of Alcohol and Drug Abuse Patient Records regulations: The Federal rules restrict any use of the information to criminally investigate or prosecute any alcohol or drug abuse patient.[facility]In the event this information is protected by the Federal Confidentiality of Alcohol and Drug Abuse Patient Records regulations: The Federal rules restrict any use of the information to criminally investigate or prosecute any alcohol or drug abuse patient.[facility] the event this information is protected by the Federal Confidentiality of Alcohol and Drug Abuse Patient Records regulations: The Federal rules restrict any use of the information to criminally investigate or prosecute any alcohol or drug abuse patient.[facility]In the event this information is protected by the Federal Confidentiality of Alcohol and Drug Abuse Patient Records regulations: The Federal rules restrict any use of the information to criminally investigate or prosecute any alcohol or drug abuse patient.[facility] the event this information is protected by the Federal Confidentiality of Alcohol and Drug Abuse Patient Records regulations: The Federal rules restrict any use of the information to criminally investigate or prosecute any alcohol or drug abuse patient.[facility]In the event this information is protected by the Federal Confidentiality of Alcohol and Drug Abuse Patient Records regulations: The Federal rules restrict any use of the information to criminally investigate or prosecute any alcohol or drug abuse patient.[facility]In the event this information is protected by the Federal Confidentiality of Alcohol and Drug Abuse Patient Records regulations: The Federal rules restrict any use of the information to criminally investigate or prosecute any alcohol or drug abuse patient.[facility]In the event this information is protected by the Federal Confidentiality of Alcohol and Drug Abuse Patient Records regulations: The Federal rules restrict any use of the information to criminally investigate or prosecute any alcohol or drug abuse patient.[facility]In the event this information is protected by the Federal Confidentiality of Alcohol and Drug Abuse Patient Records regulations: The Federal rules restrict any use of the information to criminally investigate or prosecute any alcohol or drug abuse patient.[facility]In the event this information is protected by the Federal Confidentiality of Alcohol and Drug Abuse Patient Records regulations: The Federal rules restrict any use of the information to criminally investigate or prosecute any alcohol or drug abuse patient.[facility]In the event this information is protected by the Federal Confidentiality of Alcohol and Drug Abuse Patient Records regulations: The Federal rules restrict any use of the information to criminally investigate or prosecute any alcohol or drug abuse patient.[facility]In the event this information is protected by the Federal Confidentiality of Alcohol and Drug Abuse Patient Records regulations: The Federal rules restrict any use of the information to criminally investigate or prosecute any alcohol or drug abuse patient.[facility]In the event this information is protected by the Federal Confidentiality of Alcohol and Drug Abuse Patient Records regulations: The Federal rules restrict any use of the information to criminally investigate or prosecute any alcohol or drug abuse patient.[facility]In the event this information is protected by the Federal Confidentiality of Alcohol and Drug Abuse Patient Records regulations: The Federal rules restrict any use of the information to criminally investigate or prosecute any alcohol or drug abuse patient.[facility]In the event this information is protected by the Federal Confidentiality of Alcohol and Drug Abuse Patient Records regulations: The Federal rules restrict any use of the information to criminally investigate or prosecute any alcohol or drug abuse patient.[facility] HospitalIn the event this information is protected by the Federal Confidentiality of Alcohol and Drug Abuse Patient Records regulations: The Federal rules restrict any use of the information to criminally investigate or prosecute any alcohol or drug abuse patient.[facility]In the event this information is protected by the Federal Confidentiality of Alcohol and Drug Abuse Patient Records regulations: The Federal rules restrict any use of the information to criminally investigate or prosecute any alcohol or drug abuse patient.[facility]In the event this information is protected by the Federal Confidentiality of Alcohol and Drug Abuse Patient Records regulations: The Federal rules restrict any use of the information to criminally investigate or prosecute any alcohol or drug abuse patient.[facility]In the event this information is protected by the Federal Confidentiality of Alcohol and Drug Abuse Patient Records regulations: The Federal rules restrict any use of the information to criminally investigate or prosecute any alcohol or drug abuse patient.[facility]In the event this information is protected by the Federal Confidentiality of Alcohol and Drug Abuse Patient Records regulations: The Federal rules restrict any use of the information to criminally investigate or prosecute any alcohol or drug abuse patient.[facility]In the event this information is protected by the Federal Confidentiality of Alcohol and Drug Abuse Patient Records regulations: The Federal rules restrict any use of the information to criminally investigate or prosecute any alcohol or drug abuse patient.[facility]In the event this information is protected by the Federal Confidentiality of Alcohol and Drug Abuse Patient Records regulations: The Federal rules restrict any use of the information to criminally investigate or prosecute any alcohol or drug abuse patient.[facility]In the event this information is protected by the Federal Confidentiality of Alcohol and Drug Abuse Patient Records regulations: The Federal rules restrict any use of the information to criminally investigate or prosecute any alcohol or drug abuse patient.[facility] HospitalIn the event this information is protected by the Federal Confidentiality of Alcohol and Drug Abuse Patient Records regulations: The Federal rules restrict any use of the information to criminally investigate or prosecute any alcohol or drug abuse patient.[facility]In the event this information is protected by the Federal Confidentiality of Alcohol and Drug Abuse Patient Records regulations: The Federal rules restrict any use of the information to criminally investigate or prosecute any alcohol or drug abuse patient.[facility]In the event this information is protected by the Federal Confidentiality of Alcohol and Drug Abuse Patient Records regulations: The Federal rules restrict any use of the information to criminally investigate or prosecute any alcohol or drug abuse patient.[facility] HospitalIn the event this information is protected by the Federal Confidentiality of Alcohol and Drug Abuse Patient Records regulations: The Federal rules restrict any use of the information to criminally investigate or prosecute any alcohol or drug abuse patient.[facility] HospitalIn the event this information is protected by the Federal Confidentiality of Alcohol and Drug Abuse Patient Records regulations: The Federal rules restrict any use of the information to criminally investigate or prosecute any alcohol or drug abuse patient.[facility] HospitalIn the event this information is protected by the Federal Confidentiality of Alcohol and Drug Abuse Patient Records regulations: The Federal rules restrict any use of the information to criminally investigate or prosecute any alcohol or drug abuse patient.[facility] HospitalIn the event this information is protected by the Federal Confidentiality of Alcohol and Drug Abuse Patient Records regulations: The Federal rules restrict any use of the information to criminally investigate or prosecute any alcohol or drug abuse patient.[facility] HospitalIn the event this information is protected by the Federal Confidentiality of Alcohol and Drug Abuse Patient Records regulations: The Federal rules restrict any use of the information to criminally investigate or prosecute any alcohol or drug abuse patient.[facility] HospitalIn the event this information is protected by the Federal Confidentiality of Alcohol and Drug Abuse Patient Records regulations: The Federal rules restrict any use of the information to criminally investigate or prosecute any alcohol or drug abuse patient.[facility] HospitalIn the event this information is protected by the Federal Confidentiality of Alcohol and Drug Abuse Patient Records regulations: The Federal rules restrict any use of the information to criminally investigate or prosecute any alcohol or drug abuse patient.[facility] HospitalIn the event this information is protected by the Federal Confidentiality of Alcohol and Drug Abuse Patient Records regulations: The Federal rules restrict any use of the information to criminally investigate or prosecute any alcohol or drug abuse patient.[facility] HospitalIn the event this information is protected by the Federal Confidentiality of Alcohol and Drug Abuse Patient Records regulations: The Federal rules restrict any use of the information to criminally investigate or prosecute any alcohol or drug abuse patient.[facility] HospitalIn the event this information is protected by the Federal Confidentiality of Alcohol and Drug Abuse Patient Records regulations: The Federal rules restrict any use of the information to criminally investigate or prosecute any alcohol or drug abuse patient.[facility] HospitalIn the event this information is protected by the Federal Confidentiality of Alcohol and Drug Abuse Patient Records regulations: The Federal rules restrict any use of the information to criminally investigate or prosecute any alcohol or drug abuse patient.[facility] HospitalIn the event this information is protected by the Federal Confidentiality of Alcohol and Drug Abuse Patient Records regulations: The Federal rules restrict any use of the information to criminally investigate or prosecute any alcohol or drug abuse patient.[facility] HospitalIn the event this information is protected by the Federal Confidentiality of Alcohol and Drug Abuse Patient Records regulations: The Federal rules restrict any use of the information to criminally investigate or prosecute any alcohol or drug abuse patient.[facility] Reason for Visit (unrecogniz ed section and content) Reason Comments Breast Cancer Specialty Diagnoses / Procedures Referred By Miriam t Referred To Contact Diagnoses Malignant neoplasm of lower-outer quadrant of left breast of female, estrogen receptor positive (HCC) (HCC) Procedures CONSULT TO MEDICAL GENETICS - CANCER MEDICAL GENETICS COUNSELING EACH 30 MINUTES Myles Talamantes MD [address] [place] [address] [place] [address] [address] Referral ID Status Reason Start Date Expiration Date V isits Requested Visits Authorized [id number] Closed PCP Requested Referral Auto-Generated Referral 06/26/2023 06/25/2024 1 1 Reason Comments Radiology MRI Specialty Diagnoses / Procedures Referred By Contac t Referred To Contact MR IMAGING Diagnoses Malignant neoplasm of lower-outer quadrant of left breast of female, estrogen receptor positive (HCC) (HCC) Procedures MRI BREAST WO/W IVCON BILATERAL MRI BREAST WITHOUT&WITH CONTRAST W/CAD BILATERAL Myles Talamantes MD [address] [place] [address] [place] [address] [place] [address] Referral ID Status Reason Start Date Expiration Date V isits Requested Visits Authorized [id number] Closed Auto-Generate d Referral 06/26/2023 07/25/2024 1 1 Reason Comments Arm Measurements Reason Comments Results Reason Comments Appointment Reason Comments Breast localization request Specialty Diagnoses / Procedures [facility] Contact Diagnoses Malignant neoplasm of central portion of left breast in female, estrogen receptor positive (HCC) (HCC) Procedures MASTECTOMY, PARTIAL EXC BREAST LES PREOP PLMT RAD MARKER OPEN 1 LES INTRAOP SENTINEL LYMPH NODE ID W/DYE INJECTION BX/EXC LYMPH NODE OPEN DEEP AXILLARY NODE INJ RADIOACTIVE TRACER FOR ID OF SENTINEL NODE LUMPECTOMY BREAST EXCISION BREAST LESION IDENTIFIED BY PREOPERATIVE PLACEMENT RADIOLOGICAL MARKER, OPEN, SINGLE LESION INTRAOPERATIVE ID OF SENTINEL LYMPH NODE(S) INCL'D INJECTION OF NON-RAD DYE WHEN PERFORMED BIOPSY NODE AXILLARY INJECTION PROCEDURE RADIOACTIVE TRACER FOR IDENTIFICATION OF SENTINEL NODE Av [facility] [address] [place] [address] Referral ID Status Reason Start Date Expiration Date Visits Re quested Visits Authorized [id number] 1 1 Reason Comments Post Op Reason Comments Patient Education Reason Comments Breast Cancer 1 month follow up Reason Comments Nipple Tenderness Reason Comments Radiotherapy On-treatment Visit Reason Comments Lab Orders Reason Comments Radiotherapy On-treatment Visit Reason Comments Patient Update Nurse call post radi ation Reason Onset Date Comments Refill Request 12/29/2023 Specialty Diagnoses / Procedures [facility] Rad[facility] Oncology / RADIATION ONCOLOGY Diagnoses 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) Malignant neoplasm of lower-outer quadrant of left female breast SIM treating left breast-breath hold 09/17 or 09/15 3D 15 FX plus sim Procedures RADIATION TREATMENT DELIVERY 1 MEV >= COMPLEX SIMULATION MATT 3D Conformal 15 FX plus sim Isaiah Gauthier MD [address] [place] [address] [place] [address] Isaiah Gauthier MD [address] [place] [address] [place] [address] Referral ID Status Reason Start Date Expiration Date Visits Re quested Visits Authorized [id number] Closed 08/26/2023 02/22/2024 16 16 Reason Comments Established Patient FOR RECORDS PERTAINING TO PATIENTS WHO ARE OR HAVE BEEN ENROLLED IN A CHEMICAL DEPENDENCY/SUBSTANCEABUSE PROGRAM, SOME INFORMATION MAY BE OMITTED. This clinical summary was aggregated from multiple sources. Caution should be exercised in using it in the provision of clinical care. This summary normalizes information from multiple sources, and as a consequence, information in this document may materially change the coding, format and clinical context of patient data. In addition, data may be omitted in some cases. CLINICAL DECISIONS SHOULD BE BASED ON THE PRIMARY CLINICAL RECORDS. [facility] [employer] [facility]. provides no warranty or guarantee of the accuracy or completeness of information in this document.
== END 2024-04-22 10:23 | disposition home or self-care (01) ==
LOC: MAMMO 10:22
PROVIDERS: PCP Physician Assistant; Visit Provider Radiology Radiation Oncology
DX: C50.512 Malignant neoplasm of lower-outer quadrant of left female breast (principal); Z17.0 Estrogen receptor positive status [ER+]; Z80.3 Family history of malignant neoplasm of breast; Z80.41 Family history of malignant neoplasm of ovary; Z80.8 Family history of malignant neoplasm of other organs or systems
CPT/HCPCS: 77066; G0279

== ENCOUNTER 2025-05-30 09:53 | Outpatient (OUT) | payer MEDICARE, SELFPAY ==
--- OUTSIDE RECORDS SUMMARY | 2025-05-30 09:55 | XMS_ITS | Clinical Summary ---
Author Organization [facility] Address [address] [place] [address] Care Team Providers Care Molding Fitter Name Role Phone Gary Martin MD Primary Care Provider [phone] Allergies Active AllergyReactionsCriticalityNoted ImzwRdgcorafKfahjzyfkrsc52/23/2024 Myalgia Sulfa Sxwspuqbyel81/12/2014 Other Reaction(s): Other: See Comments, Unknown palpitations Other Reaction(s): Other: See Comments Medications MedicationSigDispense QuantityRefillsLast FilledStart DateEnd DateStatus coenzyme Q-10 10 MG capsule Take by mouth twice a dayActive Glucosamine Sulfate 500 MG tablet Take 1,500 tablets by mouthActive Lutein 6 MG tablet OrallyActive Plant Sterols and Stanols (CholestOff) 450 MG tablet Take by mouthActive Calcium Carb-Cholecalciferol (CALCIUM 500 + D3 PO) Take 2 tablets by mouth 1 (one) time each dayActive rosuvastatin (Crestor) 5 MG tablet Indications:HyperchylomicronemiaTake 1 tablet (5 mg) by mouth Daily 90 tablet 4Active meloxicam (Mobic) 15 MG tablet Indications:PolyarthralgiaTake 1 tablet (15 mg) by mouth Daily Take with food 30 tablet 4Active carboxymethylcellulose (Refresh Plus) 0.5 % ophthalmic solution Administer 1 drop into both eyes if needed for dry eyesActive Semaglutide-Weight Management 1 MG/0.5ML solution auto-injector Inject 1 mg under the skin 1 (one) time per week5Active tamoxifen (Nolvadex) 20 MG chemo tablet Take 20 mg by mouth Daily.5Active Active Problems ProblemNoted DateDiagnosed AlinKfqmzjogxzwg94/22/4549Dsdqkffhmnlvhq40/16/2024 Mixed stress and urge ibdyoazwbiyr19/16/2024Former qnlbpg9308/11/2023 Overview (01/19/2024): Last Assessment & Plan: Assessment: quit 2005, 1 pack year GERD (gastroesophageal reflux disease)08/11/2023 Overview (01/19/2024): Last Assessment & Plan: Assessment: Managed and stable without medication. Denies difficulty swallowing or any bleeding. Malignant neoplasm of central portion of left breast in female, estrogen receptor bxyojpva91/21/2023ecreased estrogen level06/03/2023lucose intolerance (impaired glucose tolerance)06/03/2023Infiltrating ductal carcinoma of breast 06/03/2023Osteopenia of lumbar spine06/03/2023bnormal iyfgajtdv88/06/2023 Personal history of breast xzvubl0704/15/2016Malignant neoplasm of upper-outer quadrant of right female hryzua4904/11/2015Cancer of breast, wfkbnaxflzy33/09/2015 S/P awjsvxjujcuf78/25/1257Fpojiwawzsyrhaklngqj38/25/2008Cervical spondylosis without aejaquswpq63/24/2008 Resolved Problems ProblemNoted DateDiagnosed DateResolved DateStress ozbzkmyisnpl01/16/2024 03/14/2024ONV (postoperative nausea and vomiting) Overview (01/19/2024): Last Assessment & Plan: Assessment: states PONV following right breast lumpectomy in 2014 Abnormal fecesSevere acute respiratory syndrome coronavirus 2 (SARS-CoV-2) ehbgostu57 Encounters DateTypeDepartmentCare AibeRtezvlrmlsb09/28/2025Telephone [facility] [address] [place] [id number] Gary Martin MD from Last 3 Months Immunizations ImmunizationAdministration DatesNext DueInfluenza, High Dose Seasonal, Preservative Free05/13/2018,05/12/2017,04/15/2016Influenza, trivalent, ewqyheqorx53/17/2020Pneumococcal Conjugate PCV 13107/27/2016Pneumococcal Polysaccharide HFEC093707/13/2017 Family History Medical HistoryRelationNameCommentsCancerFatherCancerMotherRelationNameStatus CommentsFatherDeceasedMotherDeceasedOtherspouseDeceased Social History Tobacco UseTypesPacks/DayYears UsedDateSmoking Tobacco: FormerCigarettesQuit: 06/29/2005Smokeless Tobacco: Never Tobacco Cessation:Counseling Given: Not Answered Alcohol UseStandard Drinks/WeekCommentsYes0 (1 standard drink = 0.6 oz pure alcohol)caffeine: 2-3 cups per dayAUDIT-CAnswerDate RecordedQ1: How often do you have a drink containing alcohol?Monthly or less06/02/2023verage Number of DrinksNot on file06/02/2023Frequency of Binge DrinkingNot on file06/02/2023HQ-2 AnswerDate RecordedPatient Health Questionnaire-2 Tmdpt8254 CommentsUnknownSex and Gender InformationValueDate RecordedSex Assigned at Not on fileLegal CuyDnlovw99/15/2023 6:44 PM EDTGender IdentityNot on fileSexual OrientationNot on file Last Filed Vital Signs Vital SignReadingTime TakenCommentsBlood Nbhfpfoe959/8409 10:56 AM EDT Hlmbm870903/14/2024 10:56 AM QXOUrvgihssxbe56.5 ??C (99.5 ??F)01/19/2024 2:41 PM EDTRespiratory Dhkb604603/14/2024 10:56 AM EDTOxygen Jmiojfsavw17%03/14/2024 10:56 AM EDTInhaled Oxygen Concentration--Gizfjw92.9 kg (196 lb)03/14/2024 10:56 AM EYUQrqdnr349.3 cm (5' 9 )03/14/2024 10:56 AM EDTBody Mass Index28.9403/14/2024 10:56 AM EDT Plan of Treatment Health MaintenanceDue DateLast DoneCommentsCT Npyulpidllnr1950FIT 1950FOBT1950 9196Hcfkdptpglemo1950FIT-DNA/03/2021, 12/06/2020OVID-19 Vaccine ( season)503/, 08/31/2020 Influenza Vaccine (#1)501/, 03/15/2020, 05/13/2018, Additional history existsMedicare Annual Wellness (AWV)6009/05/2024, 03/14/2024, 10/13/2022, Additional history boysusCgybcatupdh84, 01/09/2021, 05/02/2016Colorectal Cancer Quntsnqcp55/14/2031neumococcal Vaccine: 65+ XcewoYlwtsysdv20/15/2018, 05/27/20174879HzcvqqkqxJajmykwzcmrn37/25/2024, 07/09/2023, 06/11/2023, Additional history exists Procedures Procedure NamePriorityDate/TimeAssociated DiagnosisCommentsMM TOMOSYNTHESIS DIAGNOSTIC BI04/22/2024 11:02 AM EDT KMFPASIGICZCewgxze30/14/2021 12:00 PM EDT LAB COLOGUARD?? COLON CANCER HPPOYRFzmohyt74/10/2021 from Last 3 Months or Most Recently Relevant to Health Maintenance Results * MM TOMOSYNTHESIS DIAGNOSTIC BI (04/22/2024 11:02 AM EDT)Anatomical Region LateralityModalityOtherSpecimen (Source)Anatomical Location / Laterality Collection Method / VolumeCollection TimeReceived Time04/22/2024 11:02 AM EDT Narrative 04/22/2024 11:03 AM EDT [facility] ?[address] ? [place] [address] ? Mammography Report ? Signed ? Patient: Javier,Ivan M ?MR#: [id number] ?? : 1950 ?Acct:[id number] ?? Age/Sex: 73 / F ?ADM Date: 10/25/24 ?? Loc: MAMMO ? Attending Dr: Isaiah Spivey M.D. ? Ordering Physician: Isaiah Spivey M.D. ?Results: ? Date of Service: 04/22/24 ?Follow Up: ? Procedure(s): MM tomosynthesis diagnostic BI ?? Accession Number(s): [id number] ? cc: BENIGNO CRESPO ; Isaiah Spivey M.D. ? Patient Name: ? IVAN JAVIER ? MR#: [id number] ? : 1950 ? Exam Date: 04/22/2024 ?? Ordering Doctor: Isaiah Spivey ? RADIOLOGY REPORT ? PROCEDURE: ? MM TOMOSYNTHESIS DIAGNOSTIC BI ? COMPARISON: ? MM DIAGNOSTIC MAMMO UNILAT LT, 05/27/2023. ??MM TOMOSYNTHESIS ?? SCREENING BI, 04/20/2023. ??MG MAMM SCREEN 3D [place] CAD, 04/15/2022. ??MG MAMM ?? SCREEN 3D [place] CAD, 03/29/2021. ? INDICATIONS: ? Malignant Neoplasm Of Left Breast, Estrogen Receptor Positiv ? Calculator Name ? NCI Breast Cancer Risk Assessment Tool ?? 5 Year Breast Cancer Risk ? n/a% ?? Lifetime Breast Cancer Risk ? n/a% ?? Personal Breast Cancer ?Yes, Lumpectomy Rt Brreast ?? Personal Ovarian Cancer ? No ?? Treatments ? Lumpectomy ?? Family Cancers ? Mother with breast cancer at age 84; Mother with ovarian ?? cancer at age 84; Father with bone/liver cancer at age 68. ? LOCATION: ? [facility] ? BREAST COMPOSITION: ? There are scattered areas of fibroglandular density. ? FINDINGS: ? DIAGNOSTIC CATEGORY 2--BENIGN FINDING: ? RIGHT BREAST: ??No significant suspicious finding. ??Scattered benign-appearing ?? calcifications are present. ??Stable remote surgical changes. ??No significant ?? change has occurred. ? LEFT BREAST: ??No significant suspicious finding. ??Scattered benign-appearing ?? calcifications are present. ??Expected postoperative changes. ? RECOMMENDATIONS: ? ROUTINE MAMMOGRAM AND CLINICAL EVALUATION IN 12 MONTHS. ? PLEASE NOTE: ??A NORMAL MAMMOGRAM DOES NOT EXCLUDE THE POSSIBILITY OF BREAST ?? CANCER. ??A CLINICALLY SUSPICIOUS PALPABLE LUMP SHOULD BE BIOPSIED. ? Dictated by: Georges Fuentes M.D. on 04/22/2024 at 10:57 ? Approved by: Georges Fuentes M.D. on 04/22/2024 at 11:02 ? Dictated By: ?Georges Fuentes M.D. ? Signed By: ?04/22/24 1103 ? DD/ 1102 ? TD/TT: ? Mail Machine Operator: Procedure Note Radiology, Radiologist, - 04/22/2024 [place] [address] Mammography Report Signed Patient: Ivan Herrera MMR#: [id number] : 1950Acct:[id number] Age/Sex: 73 / FADM Date: 04/22/24 Loc: MAMMO Attending Dr: Isaiah Spivey M.D. Ordering Physician: Isaiah Spivey M.D.Results: Date of Service: 04/22/24Follow Up: Procedure(s): MM tomosynthesis diagnostic BI Accession Number(s): [id number] cc: BENIGNO CRESPO ; Isaiah Spivey M.D. Patient Name: IVAN HERRERA MR#: [id number] : 1950 Exam Date: 04/22/2024 Ordering Doctor: Isaiah Spivey RADIOLOGY REPORT PROCEDURE: MM TOMOSYNTHESIS DIAGNOSTIC BI COMPARISON: MM DIAGNOSTIC MAMMO UNILAT LT, 05/27/2023. MMTOMOSYNTHESIS SCREENING BI, 04/20/2023. MG MAMM SCREEN 3D [place] CAD, 04/15/2022. MG MAMM SCREEN 3D [place] CAD, 03/29/2021. INDICATIONS: Malignant Neoplasm Of Left Breast, Estrogen ReceptorPositiv Calculator Name NCI Breast Cancer Risk Assessment Tool 5 Year Breast Cancer Risk n/a% Lifetime Breast Cancer Risk n/a% Personal Breast Cancer Yes, Lumpectomy Rt Brreast Personal Ovarian Cancer No Treatments Lumpectomy Family Cancers Mother with breast cancer at age 84; Mother withovarian cancer at age 84; Father with bone/liver cancer at age 68. LOCATION: [facility] BREAST COMPOSITION: There are scattered areas of fibroglandulardensity. FINDINGS: DIAGNOSTIC CATEGORY 2--BENIGN FINDING: RIGHT BREAST: No significant suspicious finding. Scatteredbenign-appearing calcifications are present. Stable remote surgical changes. Nosignificant change has occurred. LEFT BREAST: No significant suspicious finding. Scatteredbenign-appearing calcifications are present. Expected postoperative changes. RECOMMENDATIONS: ROUTINE MAMMOGRAM AND CLINICAL EVALUATION IN 12 MONTHS. PLEASE NOTE: A NORMAL MAMMOGRAM DOES NOT EXCLUDE THE POSSIBILITY OFBREAST CANCER. A CLINICALLY SUSPICIOUS PALPABLE LUMP SHOULD BE BIOPSIED. Dictated by: Georges Fuentes M.D. on 04/22/2024 at 10:57 Approved by: Georges Fuentes M.D. on 04/22/2024 at 11:02 Dictated By: Georges Fuentes M.D. Signed By:04/22/24 1103 DD/ 110 TD/TT: Mail Machine Operator: Authorizing ProviderResult TypeResult StatusGeneric External Data Provider CLINISYNC IMAGINGFinal Result * Colonoscopy (01/09/2021 12:00 PM EDT)Anatomical RegionLateralityModality EndoscopySpecimen (Source)Anatomical Location / LateralityCollection Method / VolumeCollection TimeReceived Time01/09/2021 12:00 PM EDT Narrative 01/09/2021 12:00 PM EDT PERFORMED AT [facility] LOCATION:[id number] polyps Procedure Note CONVERSION, GENERIC - 11/12/2022 PERFORMED AT [facility] LOCATION:[id number] polyps Authorizing ProviderResult TypeResult StatusGary Yamilka Veronica MDENDOSCOPY PROCEDURE ORDERABLESFinal Result * (ABNORMAL) Cologuard?? colon cancer screening (12/06/2020)ComponentValueRef RangeTest MethodAnalysis TimePerformed AtPathologist SignatureCOLOGUARD RESULT REPORTABLEPositive(A)NegativeNOMS LEGACY EXTERNAL LABComment: POSITIVE TEST RESULT. A positive Cologuard result should be followed with a colonoscopy or visual examination of the colon. The normal value (reference range) for this assay is negative. TEST DESCRIPTION: Composite algorithmic analysis of stool DNA-biomarkers with hemoglobin immunoassay. ?? Quantitative values of individual biomarkers are not reportable and are not associated with individual biomarker result reference ranges. Cologuard is intended for colorectal cancer screening ofadults of either sex, 45 years or older, who are at average-risk for colorectal cancer (CRC). Cologuard has been approved for use by the U.S. FDA. The performance of Cologuard was established in a cross sectional study of average-risk adults aged 50-84. Cologuard performance in patients ages 45 to 49 years was estimated by sub-group analysis of near-age groups. Colonoscopies performed for a positive result may find as the most clinically significant lesion: colorectal cancer [4.0%], advanced adenoma (including sessile serrated polyps greater than or equal to 1cm diameter) [20%] or non- advanced adenoma [31%]; or no colorectal neoplasia [45%]. These estimates are derived from a prospective cross-sectional screening study of 10,000 individuals at average risk for colorectal cancer who were screened with both Cologuard and colonoscopy. (Leydi Rene al, N Engl J Med 2014;370(14):1316-3224.) Cologuard may produce a false negative or false positive result (no colorectal cancer or precancerous polyp present at colonoscopy follow up). A negative Cologuard test result does not guarantee the absence of CRC or advanced adenoma (pre-cancer). The current Cologuard screening interval is every 3 years. ([place] [employer] Society and U.S. Multi-Society Task Force). Cologuard performance data in a 10,000 patient pivotal study using colonoscopy as the reference method can be accessed at the following location: www.Localyte.com.The [place]/results. Additional description of the Cologuard test process, warnings and precautions can be found at www.cologuard.com. Specimen (Source)Anatomical Location / LateralityCollection Method / Volume Collection TimeReceived Time12/06/2020 Narrative Authorizing ProviderResult TypeResult StatusGary FERRER [facility] ORDERABLESFinal ResultPerforming OrganizationAddressCity/State/ZIP CodePhone Number [facility] from Last 3 Months or Most Recently Relevant to Health Maintenance Insurance Care Teams Team MemberRelationshipSpecialtyStart DateEnd Date Gary Martin MD [address] [facility] [address] [place] [address] PCP - GeneralFamily Medicine11/01/22
--- OUTSIDE RECORDS SUMMARY | 2025-05-30 09:55 | XMS_ITS | Clinical Summary ---
Author Organization [facility] Address [address] [place] [address] Care Team Providers Care Fusing Machine Feeder Name Role Phone You Gilman MD Primary Care Provider [phone] Allergies Active AllergyReactionsCriticalityNoted DateCommentsSulfa (Sulfonamide Antibiotics)Other: See Rnwtujgb53/12/2014 palpitations Sulfamethoxazole-DmxzzayydiemSxryw64/18/2015 Medications MedicationSigDispense QuantityRefillsLast FilledStart DateEnd DateStatus atorvastatin (LIPITOR) 10 mg tablet 02/27/2015ctive Champion-3 Fatty Acids-Vitamin E (FISH OIL) 1,000 mg cap Take 1 capsule by mouth.Active Multivitamins-Iron tab Take 1 tablet by mouth once daily.Active LUTEIN ORAL Indications:History of breast cancerTake by mouth.Active ubidecarenone Q-10 (CO Q-10) 10 mg cap Take by mouth twice daily.Active ofloxacin (OCUFLOX) 0.3 % ophthalmic solution 04/17/2020Active prednisoLONE acetate (PRED FORTE, ECONOPRED PLUS) 1 % ophthalmic suspension 04/17/2020Active phytosterol/pantethine (CHOLESTOFF COMPLETE ORAL) Take by mouth.Active calcium carbonate/vitamin D3 (CALCIUM WITH VITAMIN D3 ORAL) Take by mouth.Active Glucosamine Sulfate (GLUCOSAMINE) 500 mg tab Take 3 tablets by mouth once daily. 1 tablet 08/19/2023ctive MULTIVITAMIN ORAL Take by mouth.Active multivit-min/ferrous fumarate (MULTI VITAMIN ORAL) Take by mouth once daily.Active rosuvastatin (CRESTOR) 5 mg tablet Take 5 mg by mouth once daily.01/19/2024ctive MOBIC 15 mg tablet Take 15 mg by mouth once daily.4Active carboxymethylcellulose (REFRESH TEARS) 0.5 % drop 1 Drop as needed.Active semaglutide (WEGOVY SUBCUTANEOUS) Inject subcutaneously.Active tamoxifen (NOLVADEX) 20 mg tablet Indications:Malignant neoplasm of lower-outer quadrant of left breast of female, estrogen receptor positive (HCC)Take 1 tablet (20 mg) by mouth once daily. 30 tablet 5Active Active Problems ProblemNoted DateDiagnosed DateMalignant neoplasm of lower-outer quadrant of left breast of female, estrogen receptor afwvksfy11/22/2024GERD (gastroesophageal reflux disease)08/11/2023 Assessment & Plan (08/11/2023 12:21 PM EST): Assessment: Managed and stable without medication. Denies difficulty swallowing or any bleeding. PONV (postoperative nausea and vomiting)08/11/2023 Assessment & Plan (08/11/2023 12:21 PM EST): Assessment: states PONV following right breast lumpectomy in 2014 Former mfhpsy4808/11/2023 Assessment & Plan (08/11/2023 12:22 PM EST): Assessment: quit 2005, 1 pack year History of breast rtcqdw0204/15/2016Malignant neoplasm of upper-outer quadrant of right female bfbuam4504/11/2015Cancer of breast, nbffsyzkyel28/09/2015 Cancer Staging: Clinical:Stage IA(T1c, N0, M0) - Signed by Myles Payne MD on 08/07/2023 Assessment & Plan (08/11/2023 12:21 PM EST): Assessment: presents for surgical intervention S/P cmbyglaahbhi60/25/2014bdominal or pelvic swelling, mass or lump, unspecified site03/11/2014 Immunizations ImmunizationAdministration DatesNext Dueinfluenza (HD-IIV3) vaccine, age 65+ yr, high dose, trivalent, PF (FLUZONE HIGH-DOSE)05/13/2018,05/12/2017,04/15/2016 influenza (aIIV3) vaccine, age 65+ yr, trivalent, PF (FLUAD)07/11/2024influenza vaccine, unspecified hatgftlhjql50/17/2020,05/13/2018,05/12/2017pneumococcal conjugate (PCV13) vaccine, 13 valent (PREVNAR 13)05/27/2017pneumococcal polysaccharide (PPV23) vaccine, 23 valent (PNEUMOVAX 23)05/13/2018 Family History Medical HistoryRelationCommentsColon CancerFathermets to bone, unknown origin Breast CancerMotherOvarian cancerMotherRelationStatusCommentsFatherMotherSister Social History Tobacco UseTypesPacks/DayYears UsedDateSmoking Tobacco: FormerCigarettes0.110 1994 - 2004Smokeless Tobacco: Never Tobacco Cessation:Counseling Given: Not Answered Alcohol UseStandard Drinks/WeekCommentsYes0 (1 standard drink = 0.6 oz pure alcohol)rarePHQ-2AnswerDate RecordedPHQ-2 vnwnx1795Area Deprivation Index AnswerDate RecordedNational Score (1-100), lower number is lower risk79 06/26/2023State Score (1-10), lower number is lower vgwy614ata from: https://www.neighborhoodatlas.medicine.[facility].edu/. Last address used for jytz[address]CommentsNoSex and Gender Information ValueDate RecordedSex Assigned at BirthNot on fileLegal HhiMsnlxj08/02/2012 9:09 AM ESTGender IdentityNot on fileSexual OrientationNot on file Last Filed Vital Signs Vital SignReadingTime TakenCommentsBlood Zawqicit930/7708 9:10 AM EDT Jijjf5876 9:10 AM ZKZJzzmgomohpc19.3 ??C (97.4 ??F)02/01/2025 9:10 AM EDTRespiratory Mdzv4987 9:10 AM EDTOxygen Zjjkaffcec06%02/01/2025 9:10 AM EDTInhaled Oxygen Concentration--Dwclmn27.7 kg (182 lb 5.1 oz)02/01/2025 9:10 AM NPPDdqwfv287 cm (5' 8.5 )10/06/2024 10:34 AM EDTBody Mass Index27.32 10/06/2024 10:34 AM EDT Plan of Treatment DateTypeDepartmentCare Team (Latest Contact Info)Pegepzrhavb68/11/2026 1:45 PM ESTOffice Visit [facility] [address] [place] [address] [place] [address] 6 month follow up labs same day08/09/2025 2:00 PM ESTVisit (SP) Office Hematology/Oncology [address] [address] Myles Payne MD [address] [place] [address] 6 month follow up labs same dayHealth MaintenanceDue DateLast DoneComments Anxiety Ldrlqoiqn88/28/1968Depression Zqhgakfvp90/28/1968Hepatitis C Screening 1968DTaP,Tdap,Td Vaccine (1 - Tdap)1969CT Eeouzlncejsm69/28/1995 Gsgrmibiuhh56/28/1995Fecal Occult Blood1995Lipid Hgunpmlbk94/28/1995 Ludqgeovzfzdr15/28/1995Shingrix Vaccine (1 of 2)2000Cologuard (FIT-DNA) /1Colorectal Cancer Ruajfiykr80/10/2024Mammogram Screening /, 04/15/2022, 03/29/2021, Additional history existsAdvance Directive Intpgpxflz82/01/2025Medicare Advantage Annual Wellness Visit06/29/2024 Covid-19 Vaccine ( season)/, 08/31/2020Influenza Vaccine (#1)/, 03/15/2020, 05/13/2018, Additional history existsRSV Vaccine (1 - 1-dose 75+ series)2025Diabetes Iffdggbdu12/06/2028 02/01/2025, 08/01/2024, 02/01/2024, Additional history existsPneumococcal Vaccine: 50+Zzdaqycax38/15/2018, 05/27/2017Bone Density ScreeningCompleted 10/13/2022, 05/24/2018 Medical Devices ImplantedTypeAreaManufacturerDevice IdentifierSupper valley medical centerf Expiration DateModel / Serial / LotSavi Industrial Economics Teacher Reflector Implanted:Qty: 1 on 08/18/2023 by Lola Gallo MD at [facility] FHCLeft: [id number]/05/2026/ / [id number]:10.0 cm brenna Procedures Procedure NamePriorityDate/TimeAssociated DiagnosisCommentsCOMPREHENSIVE METABOLIC FBPRFBbzdycn30/06/2025 8:55 AM EDT Malignant neoplasm of lower-outer quadrant of left breast of female, estrogen receptor positive (HCC) from Last 3 Months or Most Recently Relevant to Health Maintenance Results * (ABNORMAL) COMPREHENSIVE METABOLIC PANEL (02/01/2025 8:55 AM EDT)Component ValueRef RangeTest MethodAnalysis TimePerformed AtPathologist Signature Protein, Total7.06.3 - 8.0 g/dL02/01/2025 9:37 AM [facility]TNORTHCO[facility] LABAlbumin4.23.9 - 4.9 g/dL02/01/2025 9:37 AM EDTNORTHCOAST [facility] LABCalcium, Total9.58.5 - 10.2 mg/dL02/01/2025 9:37 AM EDTNORTHCOAST [facility] LABBilirubin, Total0.20.2 - 1.3 mg/dL 02/01/2025 9:37 AM EDTNORTHCOAST [facility] LABAlkaline Bbhtmzkijxy2037 - 123 U/L02/01/2025 9:37 AM [facility]TNORTC[facility] CZZOSO34(L)13 - 35 U/L02/01/2025 9:37 AM [facility]TNORTCOVE[facility] EPJLID437 - 38 U/L02/01/2025 9:37 AM [facility]TNORTC[facility] IMGGavefrf354(H)74 - 99 mg/dL02/01/2025 9:37 AM [facility] LABComment: The [place] Diabetes Association (ADA) provides guidance for cutoff values for fasting glucose andrandom glucose. The ADA defines fasting as no [...] Standards of Medical Care in Diabetes 2016, [place] Diabetes Association. Diabetes Care. 2016.39(Suppl 1). BUN24(H)7 - 21 mg/dL02/01/2025 9:37 AM [facility] Creatinine0.810.58 - 0.96 mg/dL02/01/2025 9:37 AM [facility] HWHRocrpf257779 - 144 mmol/L02/01/2025 9:37 AM [facility] LABPotassium4.53.7 - 5.1 mmol/L02/01/2025 9:37 AM [facility] WPPItlnifna13099 - 107 mmol/L02/01/2025 9:37 AM [facility] PJSWO76191 - 30 mmol/L02/01/2025 9:37 AM [facility] LABAnion Lqi521 - 15 mmol/L02/01/2025 9:37 AM [facility] LABEstimated Glomerular Filtration Rate76 >=60 mL/min/1.73m 02/01/2025 9:37 AM [facility] LABComment:Estimated Glomerular Filtration Rate (eGFR) is calculated using the 2020 CKD-EPI creatinine equation. This equation utilizes serum creatinine, sex, and age as parameters. The creatinine assay has traceable calibration to isotope dilution- mass spectrometry. Refer to KDIGO guidelines for clinical interpretation. In patients with unstable renal function, e.g. those with acute kidney injury, the eGFRmay not accurately reflect actual GFR.Specimen (Source)Anatomical Location / LateralityCollection Method / VolumeCollection TimeReceived TimeBloodBLOOD SPECIMEN / UnknownVenipuncture / Hzjoanr7802/01/2025 8:55 AM EDT02/01/2025 8:55 AM EDT Narrative Authorizing ProviderResult TypeResult StatusVivek Kerry POTTERLABORATORYFinal ResultPerforming OrganizationAddressCity/State/ZIP CodePhone Number [facility] [address] [place] [address] from Last 3 Months or Most Recently Relevant to Health Maintenance Insurance Advance Directives TypeDate RecordedPatient RepresentativeExplanationAdvance Directive(s)08/19/2023 8:46 AM Care Teams Team MemberRelationshipSpecialtyStart DateEnd You Gilman MD [address] [place] [address] PCP - GeneralFamily Medicine02/01/25
--- NOTE | 2025-05-30 10:02 | MM_ITS ---
Patient Name: IVAN OLMOS MR#: [id number] : 1950 Exam Date: 05/30/2025 Ordering Doctor: RAINE SANDOVAL . RADIOLOGY REPORT PROCEDURE: MM TOMOSYNTHESIS DIAGNOSTIC BI COMPARISON: MM TOMOSYNTHESIS DIAGNOSTIC BI, 04/22/2024. MM DIAGNOSTIC MAMMO UNILAT LT, 05/27/2023. MM TOMOSYNTHESIS SCREENING BI, 04/20/2023. MG MAMM SCREEN 3D [place] CAD, 04/15/2022. INDICATIONS: Personal History Malignant Neoplasm Breast Calculator Name NCI Breast Cancer Risk Assessment Tool 5 Year Breast Cancer Risk n/a% Lifetime Breast Cancer Risk n/a% Personal Breast Cancer Yes, Lumpectomy Rt Brreast Personal Ovarian Cancer No Treatments Lumpectomy Family Cancers Mother with breast cancer at age 84; Mother with ovarian cancer at age 84; Father with bone/liver cancer at age 68. LOCATION: [facility] BREAST COMPOSITION: There are scattered areas of fibroglandular density. FINDINGS: DIAGNOSTIC CATEGORY 1--NEGATIVE. Stable posttreatment changes involving both breasts. RIGHT BREAST: No significant suspicious finding. LEFT BREAST: No significant suspicious finding. RECOMMENDATIONS: ROUTINE MAMMOGRAM AND CLINICAL EVALUATION IN 12 MONTHS. Dictated by: Honorio Blakely DO on 05/30/2025 at 10:37 Approved by: Honorio Blakely DO on 05/30/2025 at 10:41
== END 2025-05-30 09:54 | disposition home or self-care (01) ==
LOC: MAMMO 09:53
PROVIDERS: PCP Nurse Practitioner; Visit Provider Nurse Practitioner
DX: Z12.31 Encounter for screening mammogram for malignant neoplasm of breast (principal); Z85.3 Personal history of malignant neoplasm of breast; Z80.3 Family history of malignant neoplasm of breast; Z80.41 Family history of malignant neoplasm of ovary; Z80.8 Family history of malignant neoplasm of other organs or systems
CPT/HCPCS: 77066; G0279